=== PATIENT | male | born 1965 | race Caucasian/White ===

== ENCOUNTER → 2016-03-12 | Outpatient (CLI) | payer OTHER ==
[2016-03-12 08:28] LABS: BASO # 0.1 K/mm3 (0.0-0.2); BASO % 1.3 % (0.0-1.0); EOS # 0.2 K/mm3 (0.0-0.50); EOS % 2.2 % (0.0-3.0); LARGE UNSTAINED CELL # 0.1 K/mm3 (0.0-0.4); LYMPH # 1.5 K/mm3 (1.5-4.5); LYMPH % 19.7 % (24.0-44.0); MEAN CORPUSCULAR HEMOGLOBIN 30.1 pg (27.0-33.0); MEAN CORPUSCULAR HGB CONC 35.4 g/dl (32.0-36.5); MONO # 0.3 K/mm3 (0.0-0.8); MONO % 4.2 % (0.0-5.0); NEUTROPHILS % 70.6 % (36.0-66.0); PLATELET COUNT, AUTOMATED 123 k/mm3 (150-450); RED CELL DISTRIBUTION WIDTH 14.1 % (11.5-14.5)
[2016-03-12 08:39] LABS: ALBUMIN/GLOBULIN RATIO 1.38 (1.00-1.93); ALKALINE PHOSPHATASE 88 U/L (45-117); ALT/SGPT 75 U/L (12-78); ANION GAP 8 MEQ/L (8-16); AST/SGOT 52 U/L (15-37); BILIRUBIN,TOTAL 0.9 MG/DL (0.2-1.0); BLOOD UREA NITROGEN 13 MG/DL (7-18); CALCIUM LEVEL 8.9 MG/DL (8.5-10.1); CARBON DIOXIDE LEVEL 28 MEQ/L (21-32); CHLORIDE LEVEL 105 MEQ/L (98-107); CHOLESTEROL LEVEL 176 MG/DL (<200); CREATININE FOR GFR 1.01 MG/DL (0.70-1.30); GLOMERULAR FILTRATION RATE > 60.0 (>56); GLUCOSE, FASTING 141 MG/DL (70-105); POTASSIUM SERUM 4.2 MEQ/L (3.5-5.1); SODIUM LEVEL 141 MEQ/L (136-145); TOTAL PROTEIN 6.9 GM/DL (6.4-8.2); TRIGLYCERIDES LEVEL 379 MG/DL (<150)
== END ==
LOC: M LAB 08:00
PROVIDERS: ATTEND Nurse Practitioner Family
DX: K21.9 Gastro-esophageal reflux disease without esophagitis (principal)

== ENCOUNTER → 2016-03-14 | Outpatient (CLI) | payer OTHER ==
--- NOTE | 2016-03-15 02:48 | REP ---
Clinical: Chronic pain with old injury . Technique: AP, lateral, bilateral oblique views right foot . Findings: The osseous structures and joint spaces are intact and normal. There is no evidence for acute fracture or dislocation. Surrounding soft tissues are unremarkable. No subcutaneous emphysema or radiodense foreign body. Impression: Age-related changes. No acute pathology appreciated . Signed by Luisito Baker MD 03/15/2016 02:39 A
== END ==
LOC: M WUC 15:04
PROVIDERS: ATTEND Nurse Practitioner Family
DX: M79.671 Pain in right foot (principal)

== ENCOUNTER → 2016-04-25 | Outpatient (CLI) | payer OTHER | LOC: M WUC 09:20 | PROVIDERS: ATTEND Nurse Practitioner Family | DX: R73.01 Impaired fasting glucose (principal) ==

== ENCOUNTER → 2016-06-14 | Outpatient (CLI) | payer OTHER ==
[2016-06-14 17:00] LABS: ANION GAP 10 MEQ/L (8-16); BLOOD UREA NITROGEN 11 MG/DL (7-18); CALCIUM LEVEL 8.1 MG/DL (8.5-10.1); CARBON DIOXIDE LEVEL 28 MEQ/L (21-32); CHLORIDE LEVEL 102 MEQ/L (98-107); CREATININE FOR GFR 0.94 MG/DL (0.70-1.30); GLOMERULAR FILTRATION RATE > 60.0 (>56); GLUCOSE, FASTING 166 MG/DL (70-105); POTASSIUM SERUM 4.1 MEQ/L (3.5-5.1); SODIUM LEVEL 140 MEQ/L (136-145)
== END ==
LOC: M WUC 15:17
PROVIDERS: ATTEND Nurse Practitioner Family
DX: K57.32 Diverticulitis of large intestine without perforation or abscess without bleeding (principal)

== ENCOUNTER 2016-07-11 10:44 | Emergency (ER) | payer OTHER ==
[~2016-07-11] VITALS: Ht 182.9 cm; Wt 115.7 kg
[2016-07-11] MEDS ORDERED: KETOROLAC 30 MG/ML VIAL (J1885) IV ONE (11:15)
[2016-07-11 11:37] LABS: MEAN CORPUSCULAR HEMOGLOBIN 31.2 pg (27.0-33.0); MEAN CORPUSCULAR HGB CONC 36.3 g/dl (32.0-36.5); MEAN CORPUSCULAR VOLUME 85.9 fl (80.0-96.0); PLATELET COUNT, AUTOMATED 144 k/mm3 (150-450); RED CELL DISTRIBUTION WIDTH 13.8 % (11.5-14.5); WHITE BLOOD COUNT 5.1 K/mm3 (4.0-10.0)
[2016-07-11 11:50] LABS: ALBUMIN/GLOBULIN RATIO 1.18 (1.00-1.93); ALKALINE PHOSPHATASE 75 U/L (45-117); ALT/SGPT 87 U/L (12-78); ANION GAP 5 MEQ/L (8-16); AST/SGOT 76 U/L (15-37); BILIRUBIN,DIRECT 0.3 MG/DL (0.0-0.2); BILIRUBIN,TOTAL 1.2 MG/DL (0.2-1.0); BLOOD UREA NITROGEN 14 MG/DL (7-18); CALCIUM LEVEL 9.2 MG/DL (8.5-10.1); CARBON DIOXIDE LEVEL 30 MEQ/L (21-32); CHLORIDE LEVEL 105 MEQ/L (98-107); CREATININE FOR GFR 0.93 MG/DL (0.70-1.30); GLOMERULAR FILTRATION RATE > 60.0 (>56); GLUCOSE, FASTING 118 MG/DL (70-105); POTASSIUM SERUM 4.1 MEQ/L (3.5-5.1); SODIUM LEVEL 140 MEQ/L (136-145); TOTAL PROTEIN 7.4 GM/DL (6.4-8.2)
--- NOTE | 2016-07-11 12:33 | REP ---
REASON: Left flank pain. COMPARISON: 06/17/2016. Limited evaluation of the solid intra-abdominal organs and gallbladder show no changes from the prior exam. All interested parties should read the report from the 06/17/2016 exam. There is no cholecystitis. There is no nephroureterolithiasis, hydronephrosis, or hydroureter. Limited evaluation of the pancreas and adrenal glands show no gross abnormalities or significant changes from the prior exam. There are no urinary or bladder calcifications. No free fluid or free air is seen in the abdomen or pelvis. T here is no evidence of an intra-abdominal or intrapelvic mass. Limited evaluation of the abdominal aorta and para-aortic region show no significant changes from the prior exam. There are no gross abnormalities. The lung bases are clear and unchanged. Bone window technique through the examination shows the osseous structures to be stable and intact. IMPRESSION: No acute disease. No significant change from the prior exam. Signed by Blanco Schumacher DO 07/11/2016 12:40 P
[2016-07-11 12:42] LABS: EOSINOPHILS 5 % (0-5)
[2016-07-11] MEDS ORDERED: MACR100C3 PO (12:55)
[2016-07-11] MEDS ORDERED: NAPR500T PO (12:55)
[2016-07-11 12:57] VITALS: BP 143/92
== END 2016-07-11 13:07 | disposition home or self-care (01) ==
LOC: M ED 11:06
DX: N30.01 Acute cystitis with hematuria (principal); M54.9 Dorsalgia, unspecified; K57.92 Diverticulitis of intestine, part unspecified, without perforation or abscess without bleeding
CPT/HCPCS: 74176; 80048; 80076; 81001; 83690; 85025; 86140; 87086; 96374; 99283; J1885

== ENCOUNTER 2017-10-18 12:56 | Emergency (ER) | payer OTHER ==
[2017-10-18] MEDS: ADACEL/BOOSTRIX VACCINE (DIPHTH/PERTUSS/ACELL/TETANUS)0.5ML SYR (90715) IM (13:34)
[2017-10-18] MEDS: LIDOCAINE 1% MDV 20ML VIAL SC (13:45)
[2017-10-18] MEDS: ceFAZolin SOD 1 GM in D5W MINI-BAG PLUS 50 ML IV (13:59)
== END 2017-10-18 15:52 | disposition home or self-care (01) ==
LOC: M ED 12:56
DX: S61.411A Laceration without foreign body of right hand, initial encounter (principal); S66.921A Laceration of unspecified muscle, fascia and tendon at wrist and hand level, right hand, initial encounter; W29.8XXA Contact with other powered hand tools and household machinery, initial encounter; Y92.018 Other place in single-family (private) house as the place of occurrence of the external cause; I10 Essential (primary) hypertension; Z79.899 Other long term (current) drug therapy
CPT/HCPCS: J0690

== ENCOUNTER → 2018-02-13 | Outpatient (CLI) | payer OTHER ==
[~2018-02-13] MED LIST: ATEN25TA PO; KEFL500C17 PO; MACR100C43 PO; NAPR-50 PO; PERC5TAB12 PO
[2018-02-13 10:07] LABS: ALBUMIN 4.2 GM/DL (3.2-5.2); ALT/SGPT 79 U/L (12-78); BLOOD UREA NITROGEN 13 MG/DL (7-18); CARBON DIOXIDE LEVEL 28 MEQ/L (21-32); CHLORIDE LEVEL 102 MEQ/L (98-107); CHOLESTEROL LEVEL 191 MG/DL (<200); CHOLESTEROL RISK RATIO 6.586 (<5); CREATININE FOR GFR 0.98 MG/DL (0.70-1.30); GLOMERULAR FILTRATION RATE > 60.0 (>56); GLUCOSE, FASTING 282 MG/DL (70-100); HDL CHOLESTEROL 29 MG/DL (>40); NON-HDL-C 162 MG/DL; POTASSIUM SERUM 4.1 MEQ/L (3.5-5.1); SODIUM LEVEL 138 MEQ/L (136-145); TOTAL PROTEIN 7.1 GM/DL (6.4-8.2); TRIGLYCERIDES LEVEL 514 MG/DL (<150)
[2018-02-13 11:52] LABS: TOTAL 25(OH) VITAMIN D 14.8 NG/ML (30.0-100.0)
[2018-02-14 14:13] LABS: PSA TOTAL 2.1 ng/mL (0.0-4.0)
== END ==
LOC: M WUC 08:11
PROVIDERS: ATTEND Nurse Practitioner Family
DX: Z12.5 Encounter for screening for malignant neoplasm of prostate (principal); E55.9 Vitamin D deficiency, unspecified; E78.5 Hyperlipidemia, unspecified

== ENCOUNTER → 2018-06-22 | Outpatient (CLI) | payer OTHER ==
[~2018-06-22] MED LIST changes: -NAPR-50 PO; +NAPR-837 PO
[2018-06-22 21:00] LABS: HEMOGLOBIN A1c 5.1 %
== END ==
LOC: M WUC 15:52
PROVIDERS: ATTEND Nurse Practitioner Family
DX: E11.9 Type 2 diabetes mellitus without complications (principal)

== ENCOUNTER → 2019-09-02 | Outpatient (CLI) | payer OTHER ==
--- NOTE | 2019-09-02 11:32 | REP ---
Clinical: Left lower quadrant pain. Technique: Three supine views of the abdomen and pelvis. Findings: Bowel gas pattern is nonspecific. No organomegaly. Rounded calcification in the right upper quadrant may represent gallstone. Skeletal structures are intact. Impression: Nonspecific bowel gas pattern. Electronically Signed by Luisito Baker MD 09/02/2019 11:24 A
== END ==
LOC: M WUC 11:10
PROVIDERS: ATTEND Nurse Practitioner Adult Health
DX: R10.32 Left lower quadrant pain (principal)

== ENCOUNTER → 2019-11-14 | Outpatient (REF) | payer OTHER | LOC: M LAB REF 13:25 | PROVIDERS: ATTEND Internal Medicine Gastroenterology | DX: K57.32 Diverticulitis of large intestine without perforation or abscess without bleeding (principal) ==

== ENCOUNTER → 2020-04-25 | Outpatient (CLI) | payer OTHER ==
[2020-04-25 19:59] LABS: BASO % 0.7 % (0.0-1.0); EOS # 0.1 10^3/uL (0.0-0.5); EOS % 1.9 % (0.0-3.0); HEMATOCRIT 44.4 % (42.0-52.0); HEMOGLOBIN 15.2 g/dl (13.5-17.5); LYMPH # 1.4 10^3/uL (1.5-5.0); LYMPH % 23.9 % (24.0-44.0); MEAN CORPUSCULAR HEMOGLOBIN 30.2 pg (27.0-33.0); MEAN CORPUSCULAR HGB CONC 34.2 g/dl (32.0-36.5); MEAN CORPUSCULAR VOLUME 88.1 fl (80.0-96.0); MONO # 0.4 10^3/uL (0.0-0.8); MONO % 7.5 % (2.0-8.0); NEUTROPHILS # 3.9 10^3/uL (1.5-8.5); NEUTROPHILS % 65.7 % (36.0-66.0); PLATELET COUNT, AUTOMATED 131 10^3/uL (150-450); RED BLOOD COUNT 5.04 10^6/uL (4.30-6.10); WHITE BLOOD COUNT 5.9 10^3/uL (4.0-10.0)
[2020-04-25 20:11] LABS: INR 1.11; PROTHROMBIN TIME 14.5 SECONDS (12.5-14.3)
[2020-04-25 20:13] LABS: ALBUMIN 4.4 GM/DL (3.2-5.2); ALT/SGPT 75 U/L (12-78); BILIRUBIN,DIRECT 0.3 MG/DL (0.0-0.2); BILIRUBIN,TOTAL 1.1 MG/DL (0.2-1.0); BLOOD UREA NITROGEN 17 MG/DL (7-18); CALCIUM LEVEL 9.3 MG/DL (8.5-10.1); CARBON DIOXIDE LEVEL 26 MEQ/L (21-32); CHLORIDE LEVEL 105 MEQ/L (98-107); CREATININE FOR GFR 0.93 MG/DL (0.70-1.30); GLOMERULAR FILTRATION RATE > 60.0 (>56); GLUCOSE, FASTING 152 MG/DL (70-100); IRON (FE) 146 UG/DL (65-175); POTASSIUM SERUM 3.8 MEQ/L (3.5-5.1); SODIUM LEVEL 139 MEQ/L (136-145); TOTAL IRON BINDING CAPACITY 365 UG/DL (250-450); TOTAL PROTEIN 7.3 GM/DL (6.4-8.2)
[2020-04-25 20:28] LABS: HEPATITIS B SURFACE ANTIGEN NEGATIVE (NEGATIVE)
[2020-04-25 20:54] LABS: HEPATITIS C VIRUS ABY INDEX < 0.0 INDEX (<0.8)
[2020-04-25 20:55] LABS: HEPATITIS B CORE ANTIBODY IGM NEGATIVE (NEGATIVE)
[2020-04-25 20:57] LABS: HEPATITIS A ANTIBODY IGM NEGATIVE (NEGATIVE)
== END ==
LOC: M WUC 15:21
PROVIDERS: ATTEND Internal Medicine Gastroenterology
DX: K57.32 Diverticulitis of large intestine without perforation or abscess without bleeding (principal)

== ENCOUNTER → 2020-05-10 | Outpatient (CLI) | payer OTHER ==
[~2020-05-10] MED LIST changes: +GASTROGRAFIN SOLUTION 30ML (Q9963) As Ordered ONE; +ISOVUE-370 76% 100ML VIAL As Ordered ONE
--- NOTE | 2020-05-11 04:56 | REP ---
INDICATION: CELESTE, SPLENOMEGALY, DIVERTICULITIS. COMPARISON: 07/11/2016 TECHNIQUE: Axial contrast-enhanced images from the lung bases to the pubic symphysis using oral and 100 cc Isovue 370 intravenous contrast material. Coronal and sagittal reformations obtained. This CT examination was performed using the following dose reduction techniques: Automated exposure control, adjustment of mA and/or kv according to the patient's size, and the use of iterative reconstruction technique. FINDINGS: Liver demonstrates diffuse fatty infiltration without focal hepatic lesion identified. Spleen, pancreas, gallbladder, bilateral adrenal glands and kidneys are normal. The enteric system is without obstruction or acute inflammatory process. Normal terminal ileum and appendix are identified in the right lower quadrant. Sigmoid colon demonstrates diverticulosis and muscular hypertrophy consistent with changes related to prior diverticulitis/colitis. Pelvis demonstrates normal bladder and age-appropriate prostate/seminal vesicles. Small fat containing left inguinal hernia suggested. No ascites. No free air. No intraperitoneal or retroperitoneal adenopathy. Abdominal aorta and vasculature appear normal. Musculoskeletal structures are intact and without acute osseous abnormality. IMPRESSION: No acute abdominopelvic pathology appreciated. Diverticulosis without acute diverticulitis. Hepatosteatosis. <Electronically signed by Luisito Baker > 05/11/20 [id number]
== END ==
LOC: M RAD 09:18
PROVIDERS: ATTEND Internal Medicine Gastroenterology
DX: K75.81 Nonalcoholic steatohepatitis (NASH) (principal); R16.1 Splenomegaly, not elsewhere classified; K57.32 Diverticulitis of large intestine without perforation or abscess without bleeding
CPT/HCPCS: 74177; Q9963; Q9967

== ENCOUNTER → 2020-08-06 | Outpatient (CLI) | payer OTHER ==
[~2020-08-06] MED LIST changes: -GASTROGRAFIN SOLUTION 30ML (Q9963) As Ordered ONE; -ISOVUE-370 76% 100ML VIAL As Ordered ONE; +LISI-898; +METF500T13
== END ==
LOC: M LABSMTC 08:05
PROVIDERS: ATTEND Anesthesiology
DX: Z01.818 Encounter for other preprocedural examination (principal); Z11.52 Encounter for screening for COVID-19

== ENCOUNTER 2020-08-11 06:47 | Day surgery (SDC) | payer OTHER ==
[~2020-08-11] VITALS: Ht 180.3 cm; Wt 111.9 kg
[~2020-08-11 06:47] MED LIST changes: +NS 1,000 ML IV ONE
[2020-08-11] MEDS ORDERED: LIDOCAINE 2% 100MG/5ML SDV (FOR ANES.) As Ordered ONE (07:20)
[2020-08-11] MEDS ORDERED: propofoL 200 MG/20 ML VIAL As Ordered ONE ×2 (07:20→08:05)
--- NOTE | 2020-08-11 08:01 | ROOR ---
Patient Name: Ky Bains Procedure Date: 08/11/2020 7:29 AM Date of : 1965 Age: 55 Room: [facility] Gender: Male Note Status: Finalized Procedure: Colonoscopy Indications: Abdominal pain in the left lower quadrant, Abnormal CT of the GI tract, Follow-up of diverticulitis Providers: David Haji MD Referring MD: Maryann Fatima NP Requesting Provider: Medicines: Monitored Anesthesia Care Complications: No immediate complications. Procedure: Pre-Anesthesia Assessment: - The heart rate, respiratory rate, oxygen saturations, blood pressure, adequacy of pulmonary ventilation, and response to care were monitored throughout the procedure. The Colonoscope was introduced through the anus and advanced to 6 cm into the ileum. The colonoscopy was technically difficult and complex due to multiple diverticula in the colon and bowel stenosis. The patient tolerated the procedure well. The quality of the bowel preparation was good. Findings: The perianal and digital rectal examinations were normal. Multiple medium-mouthed diverticula were found in the sigmoid colon. There was narrowing of the colon in association with the diverticular opening. Two sessile polyps were found in the sigmoid colon and descending colon. The polyps were 5 to 6 mm in size. These polyps were removed with a cold snare. Resection and retrieval were complete. The exam was otherwise without abnormality on direct and retroflexion views. Impression: - Difficult colonoscopy: Severe diverticulosis in the sigmoid colon. There was marked narrowing, muscular hypertrophy of the colon in association with the diverticular opening. - Two 5 to 6 mm polyps in the sigmoid colon and in the descending colon, removed with a cold snare. Resected and retrieved. - The examination was otherwise normal on direct and retroflexion views. Recommendation: - Use fiber, for example Citrucel, Fibercon, Konsyl or Metamucil. - Miralax 1 capful (17 grams) in 8 ounces of water PO daily. - For symptoms of chronic diverticulitis, would recommend surgical resection. Procedure Code(s): --- Professional --- 36750, Colonoscopy, flexible; with removal of tumor(s), polyp(s), or other lesion(s) by snare technique Diagnosis Code(s): --- Professional --- K63.5, Polyp of colon R10.32, Left lower quadrant pain K57.32, Diverticulitis of large intestine without perforation or abscess without bleeding K57.30, Diverticulosis of large intestine without perforation or abscess without bleeding R93.3, Abnormal findings on diagnostic imaging of other parts of digestive tract CPT copyright 2019 [employer]. All rights reserved. The codes documented in this report are preliminary and upon executor of estate review may be revised to meet current compliance requirements. David Haji MD David Haji MD 08/11/2020 8:01:46 AM Electronically signed by David Haji MD Number of Addenda: 0 Note Initiated On: 08/11/2020 7:29 AM Estimated Blood Loss: Estimated blood loss: none.
[2020-08-11 08:25] VITALS: BP 185/98
== END 2020-08-11 08:42 | disposition home or self-care (01) ==
LOC: M OPP 06:47
PROVIDERS: ATTEND Internal Medicine Gastroenterology
DX: D12.2 Benign neoplasm of ascending colon (principal); D12.5 Benign neoplasm of sigmoid colon; K57.32 Diverticulitis of large intestine without perforation or abscess without bleeding; K57.30 Diverticulosis of large intestine without perforation or abscess without bleeding; R93.3 Abnormal findings on diagnostic imaging of other parts of digestive tract; R10.814 Left lower quadrant abdominal tenderness; Z79.84 Long term (current) use of oral hypoglycemic drugs; Z79.899 Other long term (current) drug therapy; Z80.0 Family history of malignant neoplasm of digestive organs; Z80.52 Family history of malignant neoplasm of bladder

== ENCOUNTER 2020-12-10 01:36 | Emergency (ER) | payer OTHER ==
[~2020-12-10] VITALS: Ht 182.9 cm; Wt 108.8 kg
[~2020-12-10 01:36] MED LIST changes: -NS 1,000 ML IV ONE
--- OUTSIDE RECORDS SUMMARY | 2020-12-10 01:49 | CCD | Continuity of Care Document ---
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 Name Role Phone David Haji MD AUTM [phone] Maryann Carranza NP AUTM Unavailable Problems Description No Information Available Social History Description No Information Available Allergies and adverse reactions Description No Information Available Medications Active Medications SIG Qnty Indications Ordering Provide r Date Oxycodone HCL 5mg Tablets 1 tab by mouth every 6 hours as needed pain 20tabs Helder Sales MD 07/2020 Augmentin 875-125mg Tablets 1 tab by mouth twice a day 28tabs Helder Sales MD 10/27/2020 Suprep Bowel Prep Kit 17.5-3.13-1.6GM/177ML Solution do not follow the directions on the box, follow the directions given to you by the doctor's office. 354ml Modesto Sheikh MD 10/10/2020 Augmentin 875-125mg Tablets 1 by mouth twice a day 20tabs Modesto Sheikh MD 09/14/2020 Immunizations Description No Information Available Vital Signs Date Vital Result Comment 11/06/2020 12:34pm BP Systolic 152 mmHg BP Diastolic 80 mmHg Heart Rate 70 /min Body Temperature 98.2 F Respiratory Rate 18 /min Height 72 inches 6'0" Weight 250.00 lb BMI (Body Mass Index) 33.9 kg/m2 09/14/2020 10:05am BP Systolic 149 mmHg BP Diastolic 85 mmHg Heart Rate 59 /min Body Temperature 98.2 F Respiratory Rate 20 /min Height 71 inches 5'11" Weight 250.00 lb BMI (Body Mass Index) 34.9 kg/m2 Results Test Acquired Date Facility Test Result H/L Range Note Laboratory test finding 11/06/2020 [facility] Type And Screen (SEE NOTE) 1 CBC Without Diff 11[facility]06/[facility] WBC 5.4 10*3/uL (4.1-11.0) RBC 4.78 10*6/uL (4.60-6.10) HGB 14.7 g/dL (13.5-18.0) HCT 41.5 % (41.0-53.0) MCV 86.9 fL (80.0-95.0) MCH 30.8 pg (27.0-32.0) MCHC 35.4 g/dL (32.0-36.0) RDW 14.1 % (10.5-14.5) PLT 147 10*3/uL Low (150-450) MPV 10.0 fL (7.1-10.7) CMP 11/06/2020 [facility] Sodium 138 mmol/L (136-145) Potassium 4.2 mmol/L (3.6-5.2) Chloride 105 mmol/L (100-108) Co2 24 mmol/L (22-31) Anion Gap 9 mmol/L (7-16) Urea Nitrogen 13 mg/dL (7-24) Creatinine 0.87 mg/dL (0.80-1.30) BUN/Creat Ratio 14.9 RATIO (10.0-20.0) Glucose 135 mg/dL High (70-99) Calcium 9.5 mg/dL (8.4-10.2) Total Protein 7.3 g/dL (6.4-8.2) Albumin 4.5 g/dL (3.5-4.6) Globulin 2.8 g/dL (2.7-4.3) Alb/Glob Ratio 1.6 RATIO Alkaline Phosphatase 67 U/L (45-117) Bilirubin,Total 1.2 mg/dL High (0.0-1.0) 2 Ast (Sgot) 53 U/L High (11-39) Alt (SGPT) 69 U/L (12-78) GFR >60 ml/min/1.73m2 (>59) GFR ( Amer) >60 ml/min/1.73m2 (>59) GFR Interpretation (SEE NOTE) 3 Hemoglobin A1c 11/06/2020 [facility] Hemoglobin A1c @ 5.6 % (4.0-6.0) 4 Est Average Glucose 114 mg/dL 1 SPEC EXP DATE PATIENT ABO/Rh A POSITIVE ANTIBODY SCREEN NEGATIVE TESTING SITE PERFORMED AT [address] [place] [address] 2 PLEASE NOTE: Total bilirubin results may be falsely elevated in patients taking Eltrombopag. 3 NORMAL KIDNEY FUNCTION OR MILD DISEASE - GFR >OR= 60 CHRONIC KIDNEY DISEASE - GFR 15 - 59 RENAL FAILURE - GFR <15 -- Est. GFR calculation based on the MDRD study equation, which assumes a steady state for creatinine. Est. GFR should not be used for medication dosing. 4 Performed using [employer] Metrx Solutionst a immunoassay. Care must be taken when interpreting HbA1c results in patients with a hemoglobin variant or decreased erythrocyte lifespan. Values 5.7 - 6.4% suggest prediabetes. Values >=6.5% are diagnostic for diabetes. REFERENCE: DIABETES CARE 2018: 41(S13-S27). Procedures Date Code Description Status 11/10/2020 06869 Laparscopy Surg Mobi l Splenic Flexure Performed W/Part Colectomy Completed 11/10/2020 94012 Laparoscopy,Colectomy,Partial W/ Anastomsis,W/Coloproctostomy Completed 11/06/2020 35646 Office/Outpatient Established Lo w MDM 20-29 Min Completed 09/14/2020 66749 Office/Outpatient New Moderate M DM 45-59 Minutes Completed Medical Devices Description No Information Available Encounters Type Date Location Provider Dx Diagnosis Office Visit 11/06/2020 12:45p [facility] Modesto Sheikh MD K57.92 Dvtrcli of intest, part unsp, w/o perf or abscess w/o bleed Office Visit 09/14/2020 10:00a [facility] Modesto Sheikh MD K57.92 Dvtrcli of intest, part unsp, w/o perf or abscess w/o bleed Assessments Date Code Description Provider 11/10/2020 K57.32 Diverticulitis of la rge intestine without perforation or abscess without bleeding Modesto Sheikh MD 11/06/2020 K57.92 Diverticulitis Modesto Sheikh MD 09/14/2020 K57.92 Diverticulitis Modesto Sheikh MD Plan of Treatment Future Appointment(s):* 11/30/2020 9:30 am - Modesto Sheikh MD at [facility] 11/06/2020 - Modesto Sheikh MD* K57.92 Diverticulitis Functional Status Description No Information Available Mental Status Description No Information Available Referrals Refer to Reason for Referral Status Appt Date Modesto Sheikh MD Created [address] [facility] [address] [place] [address] [phone]
--- OUTSIDE RECORDS SUMMARY | 2020-12-10 01:49 | CCD | Continuity of Care Document ---
Author Author Ky Barrera Organization Unknown Address [address] [place] [address] Phone [phone] Care Team Providers Care Piano Case Maker Name Role Phone Maryann Carranza AUTM [phone] Sony Calvillo AUTM [phone] Problems Active Problems Provider Date Type 2 diabetes mellitus ISRAEL Barrera Onset: 06/02/19 20 Essential hypertension ISRAEL Barrera Onset: 06/11/2019 Obesity ISRAEL Barrera Onset: 06/11/2019 Body mass index 30+ - obesity ISRAEL Barrera Onset: 02/2019 Vitamin D deficiency ISRAEL Barrera Onset: 06/11/2019 Hypertriglyceridemia ISRAEL Barrera Onset: 06/11/2019 ALT (SGPT) level raised ISRAEL Barrera Onset: 0 Social History Type Date Description Comments Sex Unknown ETOH Use Rarely consumes alcohol Tobacco Use Start: Unknown Patient has never smoked Allergies and adverse reactions Active Allergies Criticality Reaction | Severity Comments Date NKDA Unable to assess criticality 06/02/2019 Seasonal Unable to assess criticality 06/02/2019 Medications Active Medications SIG Qnty Indications Ordering Provide r Date Blood Pressure Monitor Deluxe/Automati c Device dx elevated blood pressure 1units Chikis Barrera NP 06/09/2020 Lisinopril 5mg Tablets 1 by mouth every day 90tabs I10 ISRAEL Barrera 06/02/2020 Famotidine 40mg Tablets take 1 tablet by mouth every night at bedtime 90tabs K21.9 ISRAEL Barrera Vitamin D-1000 Maximum Strength 25mcg (1000 Ut) Tablets one daily ISRAEL Barrera 06/18/2019 Atenolol 25mg Tablets Take One Tablet By Mouth Every Day 90tabs Maryann Weiss, [facility] [place] 06/02/2019 Metformin HCL 500mg Tablets take one tablet by mouth twice a day 180tabs CHIOMA Overton JR 06/02/2019 Onetouch II Test Strips Misc test twice a day e11.4 200units Maryann Weiss, [facility] [place] 06/02/2019 Immunizations Description No Information Available Vital Signs Date Vital Result Comment 11/28/2020 11:18am BP Systolic 142 mmHg BP Diastolic 82 mmHg Heart Rate 60 /min Height 72.25 inches 6'0.25" Weight 239.00 lb O2 % BldC Oximetry 98 % BMI (Body Mass Index) 32.2 kg/m2 10/03/2020 3:04pm BP Systolic 150 mmHg BP Diastolic 72 mmHg Heart Rate 89 /min Height 72.25 inches 6'0.25" Weight 250.00 lb O2 % BldC Oximetry 97 % BMI (Body Mass Index) 33.7 kg/m2 Results Test Acquired Date Facility Test Result H/L Range Note Complete Blood Count 11/28/2020 [facility] Eligibility And Occupancy Interviewer: [place] [address] [phone] WBC 6.1 x10*3/UL 4.1 - 10.9 RBC 4.94 x10*6/UL 4.20 - 6.30 Hemoglobin 14.6 g/dL 12.0 - 18.0 Hematocrit 41.4 % 37.0 - 51.0 MCV 83.9 fL 80.0 - 97.0 MCH 29.6 pg 26.0 - 32.0 MCHC 35.3 g/dL 31.0 - 38.0 RDW 13.0 % 11.6 - 13.7 PLT 161 x10*3/UL 140 - 440 MPV 9.0 FL 7.8 - 11.0 Lymph % 20.7 % 10.0 - 58.5 Mid % 5.3 % 1.7 - 9.3 Neut % 74.0 % 37.0 - 92.0 Lymph # 1.2 x10*3/UL 0.6 - 4.1 Mid # 0.4 x10*3/UL 0.1 - 0.6 Neut # 4.5 x10*3/UL 2.0 - 7.8 Comprehensive Chem Profile 11/28/2020 [facility] Eligibility And Occupancy Interviewer: [place] [address] [phone] Glucose 117 mg/dL High 74 - 99 1 BUN 15 mg/dL 7 - 18 Creatinine 0.9 mg/dL 0.6 - 1.3 Sodium 138 mEq/L 136 - 145 Potassium 4.3 mEq/L 3.5 - 5.1 Chloride 100 mEq/L 98 - 107 Carbon Dioxide 27 mEq/L 21 - 32 Calcium 9.8 mg/dL 8.5 - 10.1 Alk. Phosphatase 70 mg/dL 46 - 116 Total Bilirubin 1.1 mg/dL High 0.2 - 1.0 Ast (Sgot) 41 U/L High 15 - 37 Alt (SGPT) 57 U/L 12 - 78 Albumin 4.5 g/dL 3.4 - 5.0 Total Protein 7.5 g/dL 6.4 - 8.2 A/G Ratio 1.50 CALC 1.00 - 1.90 GFR >= 60 mL/min >60 GFR >= 60 mL/min >60 2 Basic Metabolic Panel 10/18/2020 [facility] Eligibility And Occupancy Interviewer: [place] [address] [phone] Glucose 161 mg/dL High 74 - 99 3 BUN 16 mg/dL 7 - 18 Creatinine 1.0 mg/dL 0.6 - 1.3 Sodium 141 mEq/L 136 - 145 Potassium 4.2 mEq/L 3.5 - 5.1 Chloride 104 mEq/L 98 - 107 Carbon Dioxide 27 mEq/L 21 - 32 Calcium 9.4 mg/dL 8.5 - 10.1 GFR >= 60 mL/min >60 GFR >= 60 mL/min >60 4 Laboratory test finding 10/03/2020 [facility] Eligibility And Occupancy Interviewer: [place] [address] [phone] Vitamin D 25-Hydroxy 30.5 ng/ml 24.0 - 80.0 5 Microalbumin/Creatinine Urine 10/03/2020 [facility] Eligibility And Occupancy Interviewer: [place] [address] [phone] Microalbumin Urine 9.1 mg/L 1.3 - 20.0 Urine Creatinine 214.0 mg/dL High 30.0 - 125.0 Microalb/Creat Ratio 4.3 ug/mg 0.0 - 30.0 Basic Metabolic Panel 10/03/[address] [facility], Eligibility And Occupancy Interviewer: [place] [address] [phone] Glucose 213 mg/dL High 74 - 99 6 BUN 14 mg/dL 7 - 18 Creatinine 1.0 mg/dL 0.6 - 1.3 Sodium 138 mEq/L 136 - 145 Potassium 4.2 mEq/L 3.5 - 5.1 Chloride 104 mEq/L 98 - 107 Carbon Dioxide 27 mEq/L 21 - 32 Calcium 9.2 mg/dL 8.5 - 10.1 GFR >= 60 mL/min >60 GFR >= 60 mL/min >60 7 Basic Metabolic Panel 06/21/[address] [facility], Eligibility And Occupancy Interviewer: [place] [address] [phone] Glucose 193 mg/dL High 74 - 99 8 BUN 14 mg/dL 7 - 18 Creatinine 1.0 mg/dL 0.6 - 1.3 Sodium 138 mEq/L 136 - 145 Potassium 4.3 mEq/L 3.5 - 5.1 Chloride 100 mEq/L 98 - 107 Carbon Dioxide 28 mEq/L 21 - 32 Calcium 8.7 mg/dL 8.5 - 10.1 GFR >= 60 mL/min >60 GFR >= 60 mL/min >60 9 1 100-125 mg/dL PRE-DIABET ES/FASTING >126 mg/dL DIABETES/FASTING 2 CHRONIC KIDNEY DISEASE STAGI NG PER NKF STAGE I & II GFR >= 60 NORMAL TO MILDLY DECREASED STAGE III GFR 30-59 MODERATELY DECREASED STAGE IV GFR 15-29 SEVERELY DECREASED STAGE V GFR <15 VERY LITTLE GFR LEFT ESRD GFR <15 ON DIRECTOR E LEARNING 3 100-125 mg/dL PRE-DIABET ES/FASTING >126 mg/dL DIABETES/FASTING 4 CHRONIC KIDNEY DISEASE STAGI NG PER NKF STAGE I & II GFR >= 60 NORMAL TO MILDLY DECREASED STAGE III GFR 30-59 MODERATELY DECREASED STAGE IV GFR 15-29 SEVERELY DECREASED STAGE V GFR <15 VERY LITTLE GFR LEFT ESRD GFR <15 ON DIRECTOR E LEARNING 5 This test was performed db painting Favor Vitamin D immunoassay kit. Values obtained with different assay methods should not be used interchangeably. 6 100-125 mg/dL PRE-DIABET ES/FASTING >126 mg/dL DIABETES/FASTING 7 CHRONIC KIDNEY DISEASE STAGI NG PER NKF STAGE I & II GFR >= 60 NORMAL TO MILDLY DECREASED STAGE III GFR 30-59 MODERATELY DECREASED STAGE IV GFR 15-29 SEVERELY DECREASED STAGE V GFR <15 VERY LITTLE GFR LEFT ESRD GFR <15 ON DIRECTOR E LEARNING 8 100-125 mg/dL PRE-DIABET ES/FASTING >126 mg/dL DIABETES/FASTING 9 CHRONIC KIDNEY DISEASE STAGI NG PER NKF STAGE I & II GFR >= 60 NORMAL TO MILDLY DECREASED STAGE III GFR 30-59 MODERATELY DECREASED STAGE IV GFR 15-29 SEVERELY DECREASED STAGE V GFR <15 VERY LITTLE GFR LEFT ESRD GFR <15 ON DIRECTOR E LEARNING Procedures Date Code Description Status 11/28/2020 49241 Office/Outpatient Established Lo w MDM 20-29 Min Completed 10/03/2020 38432 Office/Outpatient Established Lo w MDM 20-29 Min Completed 08/11/2020 [id number] Colonoscopy Completed 02/24/2020 [id number] Diabetic Retinal Eye Exam Comple romeo 08/16/2019 [id number] Diabetic Retinal Eye Exam Comple romeo 07/26/2019 [id number] Diabetic Retinal Eye Exam Comple romeo 06/21/2010 [id number] Colonoscopy Completed Medical Devices Description No Information Available Encounters Type Date Location Provider Dx Diagnosis Office Visit 11/28/2020 11:20a [facility] I10 Essential (primary) hypertension E11.40 Type 2 diabetes mellitus wit h diabetic neuropathy, unsp Z79.84 group home (current) use of o ral hypoglycemic drugs E66.09 Other obesity due to excess calories Z68.33 Body mass index [BMI] 33.0-3 3.9, adult Office Visit 10/03/2020 3:20p [facility] Gleason I10 Essential (primary) hypertension Z79.84 group home (current) use of o ral hypoglycemic drugs E11.40 Type 2 diabetes mellitus wit h diabetic neuropathy, unsp K57.30 Dvrtclos of lg int w/o perfo ration or abscess w/o bleeding E66.09 Other obesity due to excess calories K21.9 Gastro-esophageal reflux dis ease without esophagitis E55.9 Vitamin D deficiency, unspec ified Z68.33 Body mass index [BMI] 33.0-3 3.9, adult Assessments Date Code Description Provider 11/28/2020 I10 Essential (primary) hypertension Maryann Weiss, [facility] [place] 11/28/2020 E11.40 Type 2 diabetes christopher itus with diabetic neuropathy, unspecified Maryann Orin Nelson 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 [place] 11/28/2020 E66.09 Other obesity due to excess aaron chani Maryann Weiss [facility] [place] 11/28/2020 Z68.33 Body mass index [BMI] 33.0-33.9, adult Maryann Weiss, [facility] [place] 10/18/2020 I10 Essential (primary) hypertension Maryann Orin Nelson, [facility] [place] 10/18/2020 I10 Essential (primary) hypertension Lab Schedule 10/18/2020 E11.40 Type 2 diabetes christopher itus with diabetic neuropathy, unspecified Maryann Orin Nelson, [facility] [place] 10/18/2020 E11.40 Type 2 diabetes christopher itus with diabetic neuropathy, unspecified Lab Schedule 10/03/2020 I10 Essential (primary) hypertension Maryann Weiss, [facility] [place] 10/03/2020 Z79.84 group home (current) use of oral hypoglycemic drugs Maryann Weiss, [facility] [place] 10/03/2020 E11.40 Type 2 diabetes christopher itus with diabetic neuropathy, unspecified Maryann Orin Nelson [facility] [place] 10/03/2020 K57.30 Diverticulosis of la rge intestine without perforation or abscess without bleeding Maryann Orin Nelson, [facility] [place] 10/03/2020 E66.09 Other obesity due to excess aaron chani Maryann Orin Nelson, [facility] [place] 10/03/2020 K21.9 Gastro-esophageal reflux disease without esophagitis Maryann Orin Leslie [facility] [place] 10/03/2020 E55.9 Vitamin D deficiency, unspecifie d Maryann Orin Nelson [facility] [place] 10/03/2020 Z68.33 Body mass index [BMI] 33.0-33.9, adult Maryann Weiss [facility] [place] 06/21/2020 I10 Essential (primary) hypertension Maryann Weiss, [facility] [place] 06/21/2020 I10 Essential (primary) hypertension Lab Schedule 06/21/2020 E11.40 Type 2 diabetes christopher itus with diabetic neuropathy, unspecified ISRAEL Barrera 06/21/2020 E11.40 Type 2 diabetes christopher itus with diabetic neuropathy, unspecified Lab Schedule Plan of Treatment Future Appointment(s):* 02/28/2021 9:40 am - ISRAEL Barrera at [facility] * 06/06/2021 10:00 am - ISRAEL Barrera at [facility] 11/28/2020 - ISRAEL Barrera* I10 Essential (primary) hypertension* Comments:* blood pressure suboptimally controlled.He agrees to get a blood pressure cuff to check BP once weekly and to call if consistently greater than 130/85CMP pending. * Recommendations:* Recommend you eat 4-5 servings of fruits and vegetables daily. Also exercise 30 minutes daily. * E11.40 Type 2 diabetes mellitus with diabetic neuropathy, unspecified* Comments:* last A1C at goal. 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 He plans to continue to try to lose weight. * Z68.33 Body mass index [BMI] 33.0-33.9, adult Functional Status Description No Information Available Mental Status Description No Information Available Referrals Description No Information Available
--- OUTSIDE RECORDS SUMMARY | 2020-12-10 01:49 | CCD | Continuity of Care Document ---
Author Author Ky SHEIKH MD Organization Unknown Address [address] [place] [address] Phone [phone] Care Team Providers Care Full Stack Php Developer Name Role Phone David Haji MD AUTM [phone] Maryann Carranza NP AUTM Unavailable Problems Description No Information Available Social History Description No Information Available Allergies, Adverse Reactions, Alerts Description No Information Available Medications Active Medications SIG Qnty Indications Ordering Provide r Date Augmentin 875-125mg Tablets 1 tab by mouth [...] H/L Range Note Laboratory test finding 11/06/2020 [facility] Type And Screen (SEE NOTE) 1 CBC Without Diff 11/06/2020 [facility] WBC 5.4 10*3/uL (4.1-11.0) RBC 4.78 10*6/uL (4.60-6.10) HGB 14.7 g/dL (13.5-18.0) HCT 41.5 % (41.0-53.0) MCV 86.9 fL (80.0-95.0) MCH 30.8 pg (27.0-32.0) MCHC 35.4 g/dL (32.0-36.0) RDW 14.1 % (10.5-14.5) PLT 147 10*3/uL Low (150-450) MPV 10.0 fL (7.1-10.7) CMP 11/06/2020 [facility] Sodium 138 mmol/L (136-145) Potassium 4.2 mmol/L [...] Interpretation (SEE NOTE) 3 Hem[facility] A1c @ 5.6 % (4.0-6.0) 4 Est Average Glucose 114 mg/dL 1 SPEC EXP DATE PATIENT ABO/Rh A POSITIVE ANTIBODY SCREEN NEGATIVE TESTING SITE PERFORMED AT [address] [place] [address] 2 PLEASE NOTE: Total bilirubin results may [...] used for medication dosing. 4 Performed using LOOKKt a immunoassay. Care must be taken when interpreting HbA1c results in patients with a hemoglobin variant or decreased erythrocyte lifespan. Values 5.7 - 6.4% suggest prediabetes. Values >=6.5% are diagnostic for diabetes. REFERENCE: DIABETES CARE 2018: 41(S13-S27). Procedures Date Code Description Status 11/06/2020 38964 Office/Outpatient Established Lo w MDM 20-29 Min Completed 09/14/2020 62841 Office/Outpatient New Moderate M DM 45-59 Minutes Completed Medical Devices Description No Information Available Encounters Type Date Location Provider Dx Diagnosis Office Visit 11/06/2020 12:45p [facility] [place] Sheikh MD K57.92 Dvtrcli of intest, part unsp, w/o perf or abscess w/o bleed Office Visit 09/14/2020 10:00a [facility] [place] Sheikh MD K57.92 Dvtrcli of intest, part unsp, w/o perf or abscess w/o bleed Assessments Date Code Description Provider 11/06/2020 K57.92 Diverticulitis [place] Sheikh MD 09/14/2020 K57.92 Diverticulitis [place] Sheikh MD Plan of Treatment Future Appointment(s):* 11/10/2020 11:15 am - [place] Sheikh MD at [facility] * 11/30/2020 9:30 am - [place] Sheikh MD at [facility] 11/06/2020 - [place] Sheikh MD* K57.92 Diverticulitis Functional Status Description No Information Available Mental Status Description No Information Available Referrals Description No Information Available
--- OUTSIDE RECORDS SUMMARY | 2020-12-10 01:49 | CCD | Continuity of Care Document ---
Author Author Lab Schedule, Ky Greenberg Organization Unknown Address [address] [place] [address] Phone Unavailable Care Team Providers Care Block Engraver Name Role Phone Maryann Carranza AUTM [phone] Sony Calvillo AUTM [phone] Problems Active Problems Provider Date Type 2 [...] Use Start: Unknown Patient has never smoked Allergies, Adverse Reactions, Alerts Active Allergies Criticality Reaction | Severity Comments [...] By Mouth Every Day 90tabs Maryann Weiss, [facility] 06/02/2019 Metformin HCL 500mg Tablets take one tablet by mouth twice a day 180tabs CHIOMA Overton JR 06/02/2019 Onetouch II Test Strips Misc test twice a day e11.4 200units Maryann Weiss, [facility] 06/02/2019 Immunizations Description No Information Available Vital Signs Date Vital Result Comment 10/03/2020 3:04pm BP Systolic 150 mmHg BP Diastolic 72 mmHg Heart Rate 89 /min Height 72.25 inches 6'0.25" Weight 250.00 lb O2 % BldC Oximetry 97 % BMI (Body Mass Index) 33.7 kg/m2 06/02/2020 8:51am BP Systolic 170 mmHg BP Diastolic 90 mmHg BP Systolic Recheck 162 mmHg BP Diastolic Recheck 90 mmHg Heart Rate 64 /min Height 72.25 inches 6'0.25" Weight 256.00 lb O2 % BldC Oximetry 97 % BMI (Body Mass Index) 34.5 kg/m2 Results Test Acquired Date Facility Test Result H/L Range Note Basic Metabolic Panel 10/18/2020 [facility] Interactive Designer: [place] [address] [phone] Glucose 161 mg/dL High 74 - 99 1 BUN 16 mg/dL 7 - 18 Creatinine 1.0 mg/dL 0.6 - 1.3 Sodium 141 mEq/L 136 - 145 Potassium 4.2 mEq/L 3.5 - 5.1 Chloride 104 mEq/L 98 - 107 Carbon Dioxide 27 mEq/L 21 - 32 Calcium 9.4 mg/dL 8.5 - 10.1 GFR >= 60 mL/min >60 GFR >= 60 mL/min >60 2 Laboratory test finding 10/03/2020 [facility] Interactive Designer: [place] [address] [phone] Vitamin D 25-Hydroxy 30.5 ng/ml 24.0 - 80.0 3 Microalbumin/Creatinine Urine 10/03/2020 [facility] Interactive Designer: JUDAH Martin [address] [phone] Microalbumin Urine 9.1 mg/L 1.3 - 20.0 Urine Creatinine 214.0 mg/dL High 30.0 - 125.0 Microalb/Creat Ratio 4.3 ug/mg 0.0 - 30.0 Basic Metabolic Panel 10/03/[address] [facility], Interactive Designer: Dr Moses Chisholm [place], [place] [id number] [phone] Glucose 213 mg/dL High 74 - 99 4 BUN 14 mg/dL 7 - 18 Creatinine 1.0 mg/dL 0.6 - 1.3 Sodium 138 mEq/L 136 - 145 Potassium 4.2 mEq/L 3.5 - 5.1 Chloride 104 mEq/L 98 - 107 Carbon Dioxide 27 mEq/L 21 - 32 Calcium 9.2 mg/dL 8.5 - 10.1 GFR >= 60 mL/min >60 GFR >= 60 mL/min >60 5 Basic Metabolic Panel 06/21/[address] [facility], Interactive Designer: [place] [address] [phone] Glucose 193 mg/dL High 74 - 99 6 BUN 14 mg/dL 7 - 18 Creatinine 1.0 mg/dL 0.6 - 1.3 Sodium 138 mEq/L 136 - 145 Potassium 4.3 mEq/L 3.5 - 5.1 Chloride 100 mEq/L 98 - 107 Carbon Dioxide 28 mEq/L 21 - 32 Calcium 8.7 mg/dL 8.5 - 10.1 GFR >= 60 mL/min >60 GFR >= 60 mL/min >60 7 Complete Blood Count 06/02/2020 [facility] Interactive Designer: [place] [address] [phone] WBC 5.6 x10*3/UL 4.1 - 10.9 RBC 5.00 x10*6/UL 4.20 - 6.30 Hemoglobin 15.1 g/dL 12.0 - 18.0 Hematocrit 42.6 % 37.0 - 51.0 MCV 85.1 fL 80.0 - 97.0 MCH 30.2 pg 26.0 - 32.0 MCHC 35.5 g/dL 31.0 - 38.0 RDW 12.9 % 11.6 - 13.7 PLT 123 x10*3/UL Low 140 - 440 8 MPV 10.0 FL 7.8 - 11.0 Lymph % 23.3 % 10.0 - 58.5 Mid % 5.4 % 1.7 - 9.3 Neut % 71.3 % 37.0 - 92.0 Lymph # 1.3 x10*3/UL 0.6 - 4.1 Mid # 0.3 x10*3/UL 0.1 - 0.6 Neut # 4.0 x10*3/UL 2.0 - 7.8 Comprehensive Chem Profile 06/02/2020 [facility], Interactive Designer: [place] [address] [phone] Glucose 173 mg/dL High 74 - 99 9 BUN 15 mg/dL 7 - 18 Creatinine 0.9 mg/dL 0.6 - 1.3 Sodium 138 mEq/L 136 - 145 Potassium 4.1 mEq/L 3.5 - 5.1 Chloride 102 mEq/L 98 - 107 Carbon Dioxide 27 mEq/L 21 - 32 Calcium 8.8 mg/dL 8.5 - 10.1 Alk. Phosphatase 75 mg/dL 46 - 116 Total Bilirubin 0.8 mg/dL 0.2 - 1.0 Ast (Sgot) 45 U/L High 15 - 37 Alt (SGPT) 69 U/L 12 - 78 Albumin 4.3 g/dL 3.4 - 5.0 Total Protein 7.3 g/dL 6.4 - 8.2 A/G Ratio 1.43 CALC 1.00 - 1.90 GFR >= 60 mL/min >60 GFR >= 60 mL/min >60 10 A1c 06/02/2020 [facility] , Interactive Designer: [place] [address] [phone] Hba1c 5.6 % <5.7 11 Est Avg Glucose 114 mg/dL High 60 - 110 Lipid Profile 06/02/2020 [facility] , Interactive Designer: [place] [address] [phone] Cholesterol 146 mg/dL 131 - 200 Triglycerides 218 mg/dL High 30 - 150 HDL Cholesterol 40 mg/dL 35 - 60 LDL (Calculated) 62 CALC 50 - 159 Laboratory test finding 04/25/[address] [address] [phone] Tissue Transglutaminase IgA <2 U/mL Normal 0-3 12 Liver-Kidney Microsomal Matilde <20.1 units Normal 0.0-20.0 13 Ceruloplasmin 16.5 mg/dL Normal 16.0-31.0 14 Anti-Mitochondrial Antibody <20.0 units Normal 0.0-20.0 15 Antinuclear Antibodies 04/25/[address] [address] [phone] Antinuclear Antibodies Direct Positive Abnormal Ne gative Anti Double Strand-Dna AB 11 IU/mL High 0-9 16 MATERIALS SCHEDULER Antibodies <0.2 AI Normal 0.0-0.9 Gant Antibodies <0.2 AI Normal 0.0-0.9 Sjogren's Anti SS-A <0.2 AI Normal 0.0-0.9 Sjogren's Anti SS-B <0.2 AI Normal 0.0-0.9 Duane Comment (SEE NOTE) Normal . 17 Hepatitis Profile 04/25/2020 [facility] nter [address] [place] [address] [phone] Hepatitis C Virus Matilde Index < 0.0 INDEX Normal <0. 8 Hepatitis B Surface Antigen NEGATIVE Normal Negative Hepatitis B Core Antibody Igm NEGATIVE Normal Negative Hepatitis A Antibody Igm NEGATIVE Normal Negative Laboratory test finding 04/25/[address] [address] [phone] Immunoglobulin A 175.0 mg/dL Normal 70-400 Total Iron Binding Capacit 04/25/[address] [address] [phone] Iron (Fe) 146 g/dL Normal 65-175 Total Iron Binding Capacity 365 g/dL Normal 250-450 Percent Saturation 40.0 % Normal 19.7-50.0 Liver Profile 04/25/2020 [facility] nter [address] [place] [address] [phone] Bilirubin,Direct 0.3 mg/dL High 0.0-0.2 Comprehensive Metabolic Profil 04/25/2020 [facility] [address] [place] [address] [phone] Glucose, Fasting 152 mg/dL High 70-100 Blood Urea Nitrogen 17 mg/dL Normal 7-18 Creatinine For GFR 0.93 mg/dL Normal 0.70-1.30 Glomerular Filtration Rate > 60.0 Normal >56 1 8 Sodium Level 139 mEq/L Normal 136-145 Potassium Serum 3.8 mEq/L Normal 3.5-5.1 Chloride Level 105 mEq/L Normal 98-107 Carbon Dioxide Level 26 mEq/L Normal 21-32 Anion Gap 8 mEq/L Normal 8-16 Calcium Level 9.3 mg/dL Normal 8.5-10.1 Ast/Sgot 54 U/L High 7-37 Alt/SGPT 75 U/L Normal 12-78 Alkaline Phosphatase 78 U/L Normal 45-117 Bilirubin,Total 1.1 mg/dL High 0.2-1.0 Total Protein 7.3 GM/DL Normal 6.4-8.2 Albumin 4.4 GM/DL Normal 3.2-5.2 Albumin/Globulin Ratio 1.5 Normal Prothrombin Time/Inr 04/25/2020 [facility] enter [address] [place] [address] [phone] Prothrombin Time 14.5 seconds High 12.5-14.3 Inr 1.11 Normal 19 CBC With Differential 04/25/2020 [facility] [id number] [place] [address] [phone] White Blood Count 5.9 10 Normal 4.0-10.0 Red Blood Count 5.04 10 Normal 4.30-6.10 Hemoglobin 15.2 g/dL Normal 13.5-17.5 Hematocrit 44.4 % Normal 42.0-52.0 Mean Corpuscular Volume 88.1 fl Normal 80.0-96.0 Mean Corpuscular Hemoglobin 30.2 pg Normal 27.0-33.0 Mean Corpuscular HGB Conc 34.2 g/dL Normal 32.0-36.5 Red Cell Distribution Width 13.4 % Normal 11.5-14.5 Platelet Count, Automated 131 10 Low 150-450 Neutrophils % 65.7 % Normal 36.0-66.0 Lymph % 23.9 % Low 24.0-44.0 Comal % 7.5 % Normal 2.0-8.0 Eos % 1.9 % Normal 0.0-3.0 Baso % 0.7 % Normal 0.0-1.0 Immature Granulocyte % 0.3 % Normal 0-3.0 Nucleated Red Blood Cell % 0.0 % Normal 0-0 Neutrophils # 3.9 10 Normal 1.5-8.5 Lymph # 1.4 10 Low 1.5-5.0 Comal # 0.4 10 Normal 0.0-0.8 Eos # 0.1 10 Normal 0.0-0.5 Baso # 0.0 10 Normal 0.0-0.2 1 100-125 mg/dL PRE-DIABET ES/FASTING >126 mg/dL DIABETES/FASTING 2 CHRONIC KIDNEY DISEASE STAGI NG PER NKF STAGE I & II GFR >= 60 NORMAL TO MILDLY DECREASED STAGE III GFR 30-59 MODERATELY DECREASED STAGE IV GFR 15-29 SEVERELY DECREASED STAGE V GFR <15 VERY LITTLE GFR LEFT ESRD GFR <15 ON CAR VARNISHER 3 This test was performed kalidea Vitamin D immunoassay kit. Values obtained with different assay methods should not be used interchangeably. 4 100-125 mg/dL PRE-DIABET ES/FASTING >126 mg/dL DIABETES/FASTING 5 CHRONIC KIDNEY DISEASE STAGI NG PER NKF STAGE I & II GFR >= 60 NORMAL TO MILDLY DECREASED STAGE III GFR 30-59 MODERATELY DECREASED STAGE IV GFR 15-29 SEVERELY DECREASED STAGE V GFR <15 VERY LITTLE GFR LEFT ESRD GFR <15 ON CAR VARNISHER 6 100-125 mg/dL PRE-DIABET ES/FASTING >126 mg/dL DIABETES/FASTING 7 CHRONIC KIDNEY DISEASE STAGI NG PER NKF STAGE I & II GFR >= 60 NORMAL TO MILDLY DECREASED STAGE III GFR 30-59 MODERATELY DECREASED STAGE IV GFR 15-29 SEVERELY DECREASED STAGE V GFR <15 VERY LITTLE GFR LEFT ESRD GFR <15 ON CAR VARNISHER 8 NOTE: RESULT VERIFIED. 9 100-125 mg/dL PRE-DIABET ES/FASTING >126 mg/dL DIABETES/FASTING 10 CHRONIC KIDNEY DISEASE STAGI NG PER NKF STAGE I & II GFR >= 60 NORMAL TO MILDLY DECREASED STAGE III GFR 30-59 MODERATELY DECREASED STAGE IV GFR 15-29 SEVERELY DECREASED STAGE V GFR <15 VERY LITTLE GFR LEFT ESRD GFR <15 ON CAR VARNISHER 11 Lab Result Notes: Pre-Diabetes 5.7 - 6.4 % Diabetes = or > 6.5% 12 Negative 0 - 3 Weak Positive 4 - 10 Positive >10 . Tissue Transglutaminase (tTG) has been identified as the endomysial antigen. Studies have demonstr- ated that endomysial IgA antibodies have over 99% specificity for gluten sensitive enteropathy. 13 Negative 0.0 - 20.0 Equivocal 20.1 - 24.9 Positive >24.9 . LKM type 1 antibodies are detected in patients with autoimmune hepatitis type 2 and in up to 8% of patients with chronic HCV infection. 14 Performed at: [facility] [address] [id number] Interactive Designer: Farhana Lopes MD, Phone: [phone] 15 Negative 0.0 - 20.0 Equivocal 20.1 - 24.9 Positive >24.9 . Mitochondrial (M2) Antibodies are found in 90-96% of patients with primary biliary cirrhosis. 16 Negative <5 Equivocal 5 - 9 Positive >9 17 . Autoantibody Disease Association Condition Frequency -------- --------- Antinuclear Antibody, SLE, mixed connective Direct (DUANE-D) tissue diseases -------- --------- dsDNA SLE 40 - 60% -------- --------- Chromatin Drug induced SLE 90% SLE 48 - 97% -------- --------- SSA (Ro) SLE 25 - 35% Sjogren's Syndrome 40 - 70% Lupus 100% -------- --------- SSB (La) SLE 10% Sjogren's Syndrome 30% ------- --------- Sm (anti-Gant) SLE 15 - 30% ------- --------- MATERIALS SCHEDULER Mixed Connective Tissue Disease 95% (U1 nRNP, SLE 30 - 50% anti-ribonucleoprotein) Polymyositis and/or Dermatomyositis 20% -------- --------- Scl-70 (antiDNA Scleroderma (diffuse) 20 - 35% topoisomerase) Crest 13% -------- --------- Lay-1 Polymyositis and/or Dermatomyositis 20 - 40% -------- --------- Centromere B Scleroderma - Crest variant 80% 18 Units are mL/min/1.73 m2 Chronic Kidney Disease Staging per NKF: Stage I & II GFR >=60 Normal to Mildly Decreased Stage III GFR 30-59 Moderately Decreased Stage IV GFR 15-29 Severely Decreased Stage V GFR <15 Very Little GFR Left ESRD GFR <15 on CAR VARNISHER 19 THERAPUTIC HUMAN INR VALUES INDICATIONS NORMAL RANGES PROPHYLAXIS/TREATMENT OF: VENOUS THROMBOSIS 2.0-3.0 PULMONARY EMBOLISM 2.0-3.0 PREVENTION OF SYSTEMIC EMBOLISM FROM: TISSUE HEART VALVES 2.0-3.0 ACUTE MYOCARDIAL INFARCTION 2.0-3.0 VALVULAR HEART DISEASE 2.0-3.0 ATRIAL FIBRILLATION 2.0-3.0 MECHANICAL VALVES(HIGH RISK) 2.5-3.5 RECURRENT MYOCARDIAL INFARCTION 2.5-3.5 Procedures Date Code Description Status 10/03/2020 04553 Office/Outpatient Established Lo w MDM 20-29 Min Completed 08/11/2020 [id number] Colonoscopy Completed 06/02/2020 86293 Est Prevent Med (40-64Yrs) Compl eted 06/02/2020 70118 EKG/Interpretation & Report Comp leted 02/24/2020 [id number] Diabetic Retinal Eye Exam Comple romeo 08/16/2019 [id number] Diabetic Retinal Eye Exam Comple romeo 07/26/2019 [id number] Diabetic Retinal Eye Exam Comple romeo 06/21/2010 [id number] Colonoscopy Completed Medical Devices Description No Information Available Encounters Type Date Location Provider Dx Diagnosis Office Visit 10/03/2020 3:20p [facility] Maryann Weiss , LABOR REPRESENTATIVE I10 Essential (primary) hypertension Z79.84 alf (current) use of o ral hypoglycemic drugs E11.40 Type 2 diabetes mellitus wit h diabetic neuropathy, unsp K57.30 Dvrtclos of lg int w/o perfo ration or abscess w/o bleeding E66.09 Other obesity due to excess calories K21.9 Gastro-esophageal reflux dis ease without esophagitis E55.9 Vitamin D deficiency, unspec ified Z68.33 Body mass index [BMI] 33.0-3 3.9, adult Office Visit 06/02/2020 9:00a [facility] Maryann Bland, LABOR REPRESENTATIVE Z00.00 Encntr for general adult medical exam w/ o abnormal findings I10 Essential (primary) hyperten kemal E11.40 Type 2 diabetes mellitus wit h diabetic neuropathy, unsp E55.9 Vitamin D deficiency, unspec ified K21.9 Gastro-esophageal reflux dis ease without esophagitis H68.012 Acute Eustachian salpingitis , left ear E66.09 Other obesity due to excess calories Z68.34 Body mass index [BMI] 34.0-3 4.9, adult Z13.89 Encounter for screening for other disorder Assessments Date Code Description Provider 10/03/2020 I10 Essential (primary) hypertension Maryann Weiss 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 10/03/2020 E11.40 Type 2 diabetes christopher itus with diabetic neuropathy, unspecified Maryann Weiss [facility] 10/03/2020 K57.30 Diverticulosis of la rge intestine without perforation or abscess without bleeding Maryann Weiss [facility] 10/03/2020 E66.09 Other obesity due to excess aaron chani Maryann Weiss [facility] 10/03/2020 K21.9 Gastro-esophageal reflux disease without esophagitis Maryann Weiss [facility] 10/03/2020 E55.9 Vitamin D deficiency, unspecifie d Maryann Weiss [facility] 10/03/2020 Z68.33 Body mass index [BMI] 33.0-33.9, adult Maryann Weiss [facility] 06/21/2020 I10 Essential (primary) hypertension Maryann Weiss [facility] 06/21/2020 I10 Essential (primary) hypertension Lab Schedule 06/21/2020 E11.40 Type 2 diabetes christopher itus with diabetic neuropathy, unspecified Maryann Weiss [facility] 06/21/2020 E11.40 Type 2 diabetes christopher itus with diabetic neuropathy, unspecified Lab Schedule 06/02/2020 Z00.00 Encounter for genera l adult medical examination without abnormal findings Maryann Weiss [facility] 06/02/2020 I10 Essential (primary) hypertension Maryann Weiss [facility] 06/02/2020 E11.40 Type 2 diabetes christopher itus with diabetic neuropathy, unspecified Maryann Weiss [facility] 06/02/2020 E55.9 Vitamin D deficiency, unspecifie d Maryann Weiss [facility] 06/02/2020 K21.9 Gastro-esophageal reflux disease without esophagitis Maryann Weiss [facility] 06/02/2020 H68.012 Acute Eustachian salpingitis, le ft ear Maryann Orin Nelson, LABOR REPRESENTATIVE 06/02/2020 E66.09 Other obesity due to excess aaron chani Maryann Orin Nelson, [facility] 06/02/2020 Z68.34 Body mass index [BMI] 34.0-34.9, adult Maryann Orin Nelson, [facility] 06/02/2020 Z13.89 Encounter for screening for othe r disorder [place] Barrera Plan of Treatment Future Appointment(s):* 12/29/2020 2:20 pm - [place]EL Barrera at [facility] * 06/06/2021 10:00 am - [place]EL Barrera at [facility] 10/03/2020 - ISRAEL Barrera* I10 Essential (primary) hypertension* Comments:* blood pressure suboptimally controlled.Will increase Lisinopril 10 mg daily.BMP pending.Will have return in 2 weeks for BMP * Recommendations:* Recommend you eat 4-5 servings of fruits and vegetables daily. Also exercise 30 minutes daily. 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 He has an area of stricture. He is awaiting the date in November for his colon resection. * E66.09 Other obesity due to excess calories* Comments:* He has lost 6 pounds in the interval. Additional weight loss would be beneficial. * K21.9 Gastro-esophageal reflux disease without esophagitis* Comments:* currently asymptomatic unless bowels are acting up. * E55.9 Vitamin D deficiency, unspecified * Z68.33 Body mass index [BMI] 33.0-33.9, adult Functional Status Description No Information Available Mental Status Description No Information Available Referrals Description No Information Available
--- OUTSIDE RECORDS SUMMARY | 2020-12-10 01:49 | CCD | Continuity of Care Document ---
Author Author Lab Schedule, Ky Greenberg Organization Unknown Address [address] [place] [address] Phone Unavailable Care Team Providers Care Bottom Worker Name Role Phone Maryann Carranza AUTM [phone] Sony Calvillo AUTM [phone] Problems Active Problems Provider Date Type 2 [...] By Mouth Every Day 90tabs Maryann Weiss, [facility] 06/02/2019 Metformin HCL 500mg Tablets take one tablet by mouth twice a day 180tabs CHIOMA Overton JR 06/02/2019 Onetouch II Test Strips Misc test twice a day e11.4 200units Maryann Weiss, [facility] 06/02/2019 Immunizations Description No Information Available Vital [...] H/L Range Note Basic Metabolic Panel 10/18/2020 [facility] Oil Dispenser: [place] [address] [phone] Glucose 161 mg/dL High 74 - 99 [...] mL/min >60 2 Laboratory test finding 10/03/2020 [facility] Oil Dispenser: [place] [address] [phone] Vitamin D 25-Hydroxy 30.5 ng/ml 24.0 - 80.0 3 Microalbumin/Creatinine Urine 10/03/2020 [facility] Oil Dispenser: JUDAH Martin [address] [phone] Microalbumin Urine 9.1 mg/L 1.3 - 20.0 Urine Creatinine 214.0 mg/dL High 30.0 - 125.0 Microalb/Creat Ratio 4.3 ug/mg 0.0 - 30.0 Basic Metabolic Panel 10/03/2020 [facility] [place], Oil Dispenser: Dr Moses Chisholm [place], [place] [id number] [phone] Glucose 213 mg/dL High 74 - 99 [...] mL/min >60 5 Basic Metabolic Panel 06/21/2020 [facility] [place], Oil Dispenser: [place] [address] [phone] Glucose 193 mg/dL High 74 - 99 [...] mL/min >60 7 Complete Blood Count 06/02/2020 [facility] Oil Dispenser: [place] [address] [phone] WBC 5.6 x10*3/UL 4.1 - 10.9 RBC [...] 2.0 - 7.8 Comprehensive Chem Profile 06/02/2020 [facility] Oil Dispenser: [place] [address] [phone] Glucose 173 mg/dL High 74 - 99 [...] >= 60 mL/min >60 10 A1c 06/02/2020 [facility] , Oil Dispenser: Dr Moses [place] [address] [phone] Hba1c 5.6 % <5.7 11 Est Avg Glucose 114 mg/dL High 60 - 110 Lipid Profile 06/02/2020 [facility] , Oil Dispenser: [place] [address] [phone] Cholesterol 146 mg/dL 131 - 200 Triglycerides 218 mg/dL High 30 - 150 HDL Cholesterol 40 mg/dL 35 - 60 LDL (Calculated) 62 CALC 50 - 159 1 100-125 mg/dL PRE-DIABET ES/FASTING >126 mg/dL DIABETES/FASTING 2 CHRONIC KIDNEY DISEASE STAGI NG PER NKF STAGE I & II GFR >= 60 NORMAL TO MILDLY DECREASED STAGE III GFR 30-59 MODERATELY DECREASED STAGE IV GFR 15-29 SEVERELY DECREASED STAGE V GFR <15 VERY LITTLE GFR LEFT ESRD GFR <15 ON BLOCK OUT MACHINE OPERATOR 3 This test was performed [employer] Vitamin D immunoassay kit. Values obtained with [...] LITTLE GFR LEFT ESRD GFR <15 ON BLOCK OUT MACHINE OPERATOR 6 100-125 mg/dL PRE-DIABET ES/FASTING >126 mg/dL DIABETES/FASTING 7 CHRONIC KIDNEY DISEASE STAGI NG PER NKF STAGE I & II GFR >= 60 NORMAL TO MILDLY DECREASED STAGE III GFR 30-59 MODERATELY DECREASED STAGE IV GFR 15-29 SEVERELY DECREASED STAGE V GFR <15 VERY LITTLE GFR LEFT ESRD GFR <15 ON BLOCK OUT MACHINE OPERATOR 8 NOTE: RESULT VERIFIED. 9 100-125 mg/dL PRE-DIABET ES/FASTING >126 mg/dL DIABETES/FASTING 10 CHRONIC KIDNEY DISEASE STAGI NG PER NKF STAGE I & II GFR >= 60 NORMAL TO MILDLY DECREASED STAGE III GFR 30-59 MODERATELY DECREASED STAGE IV GFR 15-29 SEVERELY DECREASED STAGE V GFR <15 VERY LITTLE GFR LEFT ESRD GFR <15 ON BLOCK OUT MACHINE OPERATOR 11 Lab Result Notes: Pre-Diabetes 5.7 - 6.4 % Diabetes = or > 6.5% Procedures Date Code Description Status 10/03/2020 61413 Office/Outpatient Established Lo w MDM 20-29 Min Completed 08/11/2020 [id number] Colonoscopy Completed 06/02/2020 81289 Est Prevent Med (40-64Yrs) Compl eted 06/02/2020 89477 EKG/Interpretation & Report Comp leted 02/24/2020 [id number] Diabetic Retinal Eye Exam Comple romeo 08/16/2019 [id number] Diabetic Retinal Eye Exam Comple romeo 07/26/2019 [id number] Diabetic Retinal Eye Exam Comple romeo 06/21/2010 [id number] Colonoscopy Completed Medical Devices Description No Information Available Encounters Type Date Location Provider Dx Diagnosis Office Visit 10/03/2020 3:20p [facility] 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 Maryann Bland, [facility] Z00.00 Encntr for general adult medical exam [...] other disorder Assessments Date Code Description Provider 10/18/2020 I10 Essential (primary) hypertension ISRAEL Barrera 10/18/2020 I10 Essential (primary) hypertension Lab Schedule 10/18/2020 E11.40 Type 2 diabetes christopher itus with diabetic neuropathy, unspecified ISRAEL Barrera 10/18/2020 E11.40 Type 2 diabetes christopher itus with diabetic neuropathy, unspecified Lab Schedule 10/03/2020 I10 Essential (primary) hypertension ISRAEL Barrera 10/03/2020 Z79.84 superintendent terminal (current) use of oral hypoglycemic drugs ISRAEL Barrera 10/03/2020 E11.40 Type 2 diabetes christopher itus with diabetic neuropathy, unspecified ISRAEL Barrera 10/03/2020 K57.30 Diverticulosis of la rge intestine without perforation or abscess without bleeding ISRAEL Barrera 10/03/2020 E66.09 Other obesity due to excess aaron chani Maryann Weiss, [facility] 10/03/2020 K21.9 Gastro-esophageal reflux disease without esophagitis Maryann Weiss, [facility] 10/03/2020 E55.9 Vitamin D deficiency, unspecifie d Maryann Sr Leslie, [facility] 10/03/2020 Z68.33 Body mass index [BMI] 33.0-33.9, adult Maryann Weiss, [facility] 06/21/2020 I10 Essential (primary) hypertension Maryann Weiss, [facility] 06/21/2020 I10 Essential (primary) hypertension Lab Schedule 06/21/2020 E11.40 Type 2 diabetes christopher itus with diabetic neuropathy, unspecified Maryann Weiss, [facility] 06/21/2020 E11.40 Type 2 diabetes christopher itus with diabetic neuropathy, unspecified Lab Schedule 06/02/2020 Z00.00 Encounter for genera l adult medical examination without abnormal findings Maryann Weiss, [facility] 06/02/2020 I10 Essential (primary) hypertension Maryann Weiss, [facility] 06/02/2020 E11.40 Type 2 diabetes christopher itus with diabetic neuropathy, unspecified Maryann Sr Sophia, [facility] 06/02/2020 E55.9 Vitamin D deficiency, unspecifie d Maryann Sr Sophia, [facility] 06/02/2020 K21.9 Gastro-esophageal reflux disease without esophagitis Maryann Weiss, [facility] 06/02/2020 H68.012 Acute Eustachian salpingitis, le ft ear Maryann Weiss, [facility] 06/02/2020 E66.09 Other obesity due to excess aaron chani Maryann Weiss, [facility] 06/02/2020 Z68.34 Body mass index [BMI] 34.0-34.9, adult Maryann Weiss, [facility] 06/02/2020 Z13.89 Encounter for screening for othe r disorder ISRAEL Barrera Plan of Treatment Future Appointment(s):* 12/29/2020 2:20 pm - ISRAEL Barrera at [facility] * 06/06/2021 10:00 am - ISRAEL Barrera at [facility] 10/03/2020 - ISRAEL Barrera* I10 Essential (primary) hypertension* Comments:* blood pressure suboptimally controlled.Will increase Lisinopril 10 mg daily.BMP pending.Will have return in 2 weeks for BMP * Recommendations:* Recommend you eat 4-5 servings of fruits and vegetables daily. Also exercise 30 minutes daily. * Z79.84 jail (current) use of oral hypoglycemic drugs * [...]
--- OUTSIDE RECORDS SUMMARY | 2020-12-10 01:49 | CCD | Continuity of Care Document ---
Author Author Ky Barrera Organization Unknown Address [address] [place] [address] Phone [phone] Care Team Providers Care Canvas Worker Apprentice Name Role Phone Maryann Carranza AUTM [phone] Sony Calvillo AUTM [phone] Problems Active Problems Provider Date Type 2 [...] Mouth Every Day 90tabs Maryann Weiss, [facility] 06/02/2019 Metformin HCL 500mg Tablets take one tablet by mouth twice a day 180tabs CHIOMA Overton JR 06/02/2019 Onetouch II Test Strips Misc test twice a day e11.4 200units Maryann Weiss, [facility] 06/02/2019 Immunizations Description No Information [...] H/L Range Note Complete Blood Count 11/28/2020 [facility] Combat Systems Operator: [place] [address] [phone] WBC 6.1 x10*3/UL 4.1 - 10.9 RBC [...] 2.0 - 7.8 Comprehensive Chem Profile 11/28/2020 [facility] Combat Systems Operator: [place] [address] [phone] Glucose 117 mg/dL High 74 - 99 [...] mL/min >60 2 Basic Metabolic Panel 10/18/2020 [facility] Combat Systems Operator: Dr Moses [place] [address] [phone] Glucose 161 mg/dL High 74 - 99 [...] mL/min >60 4 Laboratory test finding 10/03/2020 [facility] Combat Systems Operator: [place] [address] [phone] Vitamin D 25-Hydroxy 30.5 ng/ml 24.0 - 80.0 5 Microalbumin/Creatinine Urine 10/03/2020 [facility] Combat Systems Operator: [place] [address] [phone] Microalbumin Urine 9.1 mg/L 1.3 - 20.0 Urine Creatinine 214.0 mg/dL High 30.0 - 125.0 Microalb/Creat Ratio 4.3 ug/mg 0.0 - 30.0 Basic Metabolic Panel 10/03/2020 [facility], Combat Systems Operator: [place] [address] [phone] Glucose 213 mg/dL High 74 - 99 [...] mL/min >60 7 Basic Metabolic Panel 06/21/2020 [facility], Combat Systems Operator: [place] [address] [phone] Glucose 193 mg/dL High 74 - 99 8 BUN 14 mg/dL 7 - 18 Creatinine 1.0 mg/dL 0.6 - 1.3 Sodium 138 mEq/L 136 - 145 Potassium 4.3 mEq/L 3.5 - 5.1 Chloride 100 mEq/L 98 - 107 Carbon Dioxide 28 mEq/L 21 - 32 Calcium 8.7 mg/dL 8.5 - 10.1 GFR >= 60 mL/min >60 GFR >= 60 mL/min >60 9 Complete Blood Count 06/02/2020 [facility] Combat Systems Operator: [place] [address] [phone] WBC 5.6 x10*3/UL 4.1 - 10.9 RBC 5.00 x10*6/UL 4.20 - 6.30 Hemoglobin 15.1 g/dL 12.0 - 18.0 Hematocrit 42.6 % 37.0 - 51.0 MCV 85.1 fL 80.0 - 97.0 MCH 30.2 pg 26.0 - 32.0 MCHC 35.5 g/dL 31.0 - 38.0 RDW 12.9 % 11.6 - 13.7 PLT 123 x10*3/UL Low 140 - 440 10 MPV 10.0 FL 7.8 - 11.0 Lymph % 23.3 % 10.0 - 58.5 Mid % 5.4 % 1.7 - 9.3 Neut % 71.3 % 37.0 - 92.0 Lymph # 1.3 x10*3/UL 0.6 - 4.1 Mid # 0.3 x10*3/UL 0.1 - 0.6 Neut # 4.0 x10*3/UL 2.0 - 7.8 Comprehensive Chem Profile 06/02/2020 [facility] Combat Systems Operator: [place] [address] [phone] Glucose 173 mg/dL High 74 - 99 11 BUN 15 mg/dL 7 - 18 Creatinine [...] mL/min >60 GFR >= 60 mL/min >60 12 A1c 06/02/2020 [facility] Combat Systems Operator: [place] [address] [phone] Hba1c 5.6 % <5.7 13 Est Avg Glucose 114 mg/dL High 60 - 110 Lipid Profile 06/02/2020 [facility] , Combat Systems Operator: [place] [address] [phone] Cholesterol 146 mg/dL 131 - 200 Triglycerides [...] LITTLE GFR LEFT ESRD GFR <15 ON POWER TONG OPERATOR 3 100-125 mg/dL PRE-DIABET ES/FASTING >126 mg/dL DIABETES/FASTING 4 CHRONIC KIDNEY DISEASE STAGI NG PER NKF STAGE I & II GFR >= 60 NORMAL TO MILDLY DECREASED STAGE III GFR 30-59 MODERATELY DECREASED STAGE IV GFR 15-29 SEVERELY DECREASED STAGE V GFR <15 VERY LITTLE GFR LEFT ESRD GFR <15 ON POWER TONG OPERATOR 5 This test was performed [employer] Vitamin D immunoassay kit. Values obtained with [...] LITTLE GFR LEFT ESRD GFR <15 ON POWER TONG OPERATOR 8 100-125 mg/dL PRE-DIABET ES/FASTING >126 mg/dL DIABETES/FASTING 9 CHRONIC KIDNEY DISEASE STAGI NG PER NKF STAGE I & II GFR >= 60 NORMAL TO MILDLY DECREASED STAGE III GFR 30-59 MODERATELY DECREASED STAGE IV GFR 15-29 SEVERELY DECREASED STAGE V GFR <15 VERY LITTLE GFR LEFT ESRD GFR <15 ON POWER TONG OPERATOR 10 NOTE: RESULT VERIFIED. 11 100-125 mg/dL PRE-DIABET ES/FASTING >126 mg/dL DIABETES/FASTING 12 CHRONIC KIDNEY DISEASE STAGI NG PER NKF STAGE I & II GFR >= 60 NORMAL TO MILDLY DECREASED STAGE III GFR 30-59 MODERATELY DECREASED STAGE IV GFR 15-29 SEVERELY DECREASED STAGE V GFR <15 VERY LITTLE GFR LEFT ESRD GFR <15 ON POWER TONG OPERATOR 13 Lab Result Notes: Pre-Diabetes 5.7 - 6.4 % Diabetes = or > 6.5% Procedures Date Code Description Status 10/03/2020 44731 Office/Outpatient Established Lo w MDM 20-29 Min Completed 08/11/2020 [id number] Colonoscopy Completed 06/02/2020 37299 Est Prevent Med (40-64Yrs) Compl eted 06/02/2020 71830 EKG/Interpretation & Report Comp leted 02/24/2020 [id number] Diabetic Retinal Eye Exam Comple romeo 08/16/2019 [id number] Diabetic Retinal Eye Exam Comple romeo 07/26/2019 [id number] Diabetic Retinal Eye Exam Comple romeo 06/21/2010 [id number] Colonoscopy Completed Medical Devices Description No Information Available Encounters Type Date Location Provider Dx Diagnosis Office Visit 10/03/2020 3:20p [facility] ISRAEL Barrera I10 Essential (primary) hypertension Z79.84 [facility] (current) use of o ral hypoglycemic drugs E11.40 Type 2 diabetes mellitus wit h diabetic neuropathy, unsp K57.30 Dvrtclos of lg int w/o perfo ration or abscess w/o bleeding E66.09 Other obesity due to excess calories K21.9 Gastro-esophageal reflux dis ease without esophagitis E55.9 Vitamin D deficiency, unspec ified Z68.33 Body mass index [BMI] 33.0-3 3.9, adult Office Visit 06/02/2020 9:00a [facility] Maryann Murphy ne, 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 10/18/2020 I10 Essential (primary) hypertension Maryann Weiss, [facility] 10/18/2020 I10 Essential (primary) hypertension Lab Schedule 10/18/2020 E11.40 Type 2 diabetes christopher itus with diabetic neuropathy, unspecified Maryann Weiss, [facility] 10/18/2020 E11.40 Type 2 diabetes christopher itus with diabetic neuropathy, unspecified Lab Schedule 10/03/2020 I10 Essential (primary) hypertension Maryann Weiss, [facility] 10/03/2020 Z79.84 FPC (current) use of oral hypoglycemic drugs Maryann Weiss, [facility] 10/03/2020 E11.40 Type 2 diabetes christopher itus with diabetic neuropathy, unspecified Maryann Weiss, [facility] 10/03/2020 K57.30 Diverticulosis of la rge intestine without perforation or abscess without bleeding Maryann Weiss, [facility] 10/03/2020 E66.09 Other obesity due to excess aaron chani Maryann Weiss, [facility] 10/03/2020 K21.9 Gastro-esophageal reflux disease without esophagitis Maryann Weiss, [facility] 10/03/2020 E55.9 Vitamin D deficiency, unspecifie d Maryann Weiss, [facility] 10/03/2020 Z68.33 Body mass index [BMI] 33.0-33.9, adult Maryann Weiss, [facility] 06/21/2020 I10 Essential (primary) hypertension Maryann Weiss, [facility] 06/21/2020 I10 Essential (primary) hypertension Lab Schedule 06/21/2020 E11.40 Type 2 diabetes christopher itus with diabetic neuropathy, unspecified Maryann Weiss, [facility] 06/21/2020 E11.40 Type 2 diabetes christopher itus with diabetic neuropathy, unspecified Lab Schedule 06/02/2020 Z00.00 Encounter for genera l adult medical examination without abnormal findings Maryann Weiss, [facility] 06/02/2020 I10 Essential (primary) hypertension Maryann Weiss, [facility] 06/02/2020 E11.40 Type 2 diabetes christopher itus with diabetic neuropathy, unspecified Maryann Orin Nelson, [facility] 06/02/2020 E55.9 Vitamin D deficiency, unspecifie d Maryann Orin Nelson, [facility] 06/02/2020 K21.9 Gastro-esophageal reflux disease without esophagitis Maryann Weiss, [employer] 06/02/2020 H68.012 Acute Eustachian salpingitis, le ft ear NITHYA BarreraP 06/02/2020 E66.09 Other obesity due to excess aaron chani Maryann Weiss, [facility] 06/02/2020 Z68.34 Body mass index [BMI] 34.0-34.9, adult NITHYA BarreraP 06/02/2020 Z13.89 Encounter for screening for othe r disorder ISRAEL Barrera Plan of Treatment Future Appointment(s):* 02/28/2021 9:40 am - ISRAEL Barrera at [facility] * 06/06/2021 10:00 am - ISRAEL Barrera at [facility] 11/28/2020 - ISRAEL Barrera* I10 [...] Comments:* last A1C at goal. 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 He plans to continue to try to lose weight. * Z68.33 Body mass index [BMI] 33.0-33.9, adult Functional Status Description No Information Available Mental Status Description No Information Available Referrals Description No Information Available
--- OUTSIDE RECORDS SUMMARY | 2020-12-10 01:49 | CCD | Continuity of Care Document ---
Author Author Ky SHEIKH MD Organization Unknown Address [address] [place] [address] Phone [phone] Care Team Providers Care Robotics Mechanic Name Role Phone David Haji MD AUTM [phone] Maryann Carranza NP AUTM Unavailable Problems Description [...] BMI (Body Mass Index) 34.9 kg/m2 Results Description No Information Available Procedures Date Code Description Status 09/14/2020 59479 Office/Outpatient New Moderate M DM 45-59 Minutes Completed Medical Devices Description No Information Available Encounters Type Date Location Provider Dx Diagnosis Office Visit 09/14/2020 10:00a [facility] Mod[place] Sheikh MD K57.92 Dvtrcli of intest, part unsp, w/o perf or abscess w/o bleed Assessments Date Code Description Provider 09/14/2020 K57.92 Diverticulitis [place] Sheikh MD Plan of Treatment Future Appointment(s):* 11/10/2020 11:15 am - [place] Sheikh MD at [facility] * 11/30/2020 9:30 am - [place] Sheikh MD at [facility] Functional Status Description No Information Available Mental Status Description No Information Available Referrals Description No Information Available
--- OUTSIDE RECORDS SUMMARY | 2020-12-10 01:49 | CCD | Continuity of Care Document ---
Author Author Ky SHEIKH MD Organization Unknown Address [address] [place] [address] Phone [phone] Care Team Providers Care Welt Rander Name Role Phone David Haji MD AUTM [phone] Maryann Carranza NP AUTM Unavailable Problems Description [...] Range Note Laboratory test finding 11/06/2020 [facility] [place] Type And Screen (SEE NOTE) 1 CBC Without Diff 11/06/2020 [facility] WBC 5.4 10*3/uL (4.1-11.0) RBC 4.78 10*6/uL [...] Interpretation (SEE NOTE) 3 Hemoglobin A[facility]c [facility]2020 [facility] Hem[facility] A1c @ 5.6 % (4.0-6.0) 4 Est Average Glucose 114 mg/dL 1 SPEC EXP DATE PATIENT ABO/Rh A POSITIVE ANTIBODY SCREEN NEGATIVE TESTING SITE PERFORMED AT [address] [place] [address] 2 PLEASE NOTE: Total bilirubin results may [...] used for medication dosing. 4 Performed using [employer] a immunoassay. Care must be taken when interpreting HbA1c results in patients with a hemoglobin variant or decreased erythrocyte lifespan. Values 5.7 - 6.4% suggest prediabetes. Values >=6.5% are diagnostic for diabetes. REFERENCE: DIABETES CARE 2018: 41(S13-S27). Procedures Date Code Description Status 11/06/2020 48693 Office/Outpatient Established Lo w MDM 20-29 Min Completed 09/14/2020 19586 Office/Outpatient New Moderate M DM 45-59 Minutes Completed Medical Devices Description No Information Available Encounters Type Date Location Provider Dx Diagnosis Office Visit 11/06/2020 12:45p [facility] [place] Sheikh MD K57.92 Dvtrcli of intest, part unsp, w/o perf or abscess w/o bleed Office Visit 09/14/2020 10:00a [facility] [place] Sheikh MD K57.92 Dvtrcli of intest, part unsp, w/o perf or abscess w/o bleed Assessments Date Code Description Provider 11/06/2020 K57.92 Diverticulitis [place] Sheikh MD 09/14/2020 K57.92 Diverticulitis [place] Sheikh MD Plan of Treatment Future Appointment(s):* 11/10/2020 11:15 am - [place] Sheikh MD at [facility] * 11/30/2020 9:30 am - [place] Sheikh MD at [facility] 11/06/2020 - [place] Sheikh MD* K57.92 Diverticulitis Functional Status Description No Information Available Mental Status Description No Information Available Referrals Description No Information Available
--- OUTSIDE RECORDS SUMMARY | 2020-12-10 01:49 | CCD | Continuity of Care Document ---
Author Author Ky SHEIKH MD Organization Unknown Address [address] [place] [address] Phone [phone] Care Team Providers Care Engraver Letter Name Role Phone David Haji MD AUTM [phone] Maryann Carranza NP AUTM Unavailable Problems Description [...] Range Note Laboratory test finding 11/06/2020 [facility] [place] Type And Screen (SEE NOTE) 1 CBC Without Diff 11/06/2020 [facility] [place] WBC 5.4 10*3/uL (4.1-11.0) RBC 4.78 10*6/uL [...] Interpretation (SEE NOTE) 3 Hemoglobin A1c 11[facility]06[facility]2020 [facility] Hem[facility] A1c @ 5.6 % (4.0-6.0) 4 Est Average Glucose 114 mg/dL 1 SPEC EXP DATE PATIENT ABO/Rh A POSITIVE ANTIBODY SCREEN NEGATIVE TESTING SITE PERFORMED AT [address] [place] [address] 2 PLEASE NOTE: Total bilirubin results may [...] used for medication dosing. 4 Performed using [employer] a immunoassay. Care must be taken when interpreting HbA1c results in patients with a hemoglobin variant or decreased erythrocyte lifespan. Values 5.7 - 6.4% suggest prediabetes. Values >=6.5% are diagnostic for diabetes. REFERENCE: DIABETES CARE 2018: 41(S13-S27). Procedures Date Code Description Status 11/06/2020 43843 Office/Outpatient Established Lo w MDM 20-29 Min Completed 09/14/2020 47488 Office/Outpatient New Moderate M DM 45-59 Minutes Completed Medical Devices Description No Information Available Encounters Type Date Location Provider Dx Diagnosis Office Visit 11/06/2020 12:45p [facility] [place] Sheikh MD K57.92 Dvtrcli of intest, part unsp, w/o perf or abscess w/o bleed Office Visit 09/14/2020 10:00a [facility] [place] Sheikh MD K57.92 Dvtrcli of intest, part unsp, w/o perf or abscess w/o bleed Assessments Date Code Description Provider 11/06/2020 K57.92 Diverticulitis [place] Sheikh MD 09/14/2020 K57.92 Diverticulitis [place] Sheikh MD Plan of Treatment Future Appointment(s):* 11/10/2020 11:15 am - [place] Sheikh MD at [facility] * 11/30/2020 9:30 am - [place] Sheikh MD at [facility] 11/06/2020 - [place] Sheikh MD* K57.92 Diverticulitis Functional Status Description No Information Available Mental Status Description No Information Available Referrals Description No Information Available
--- OUTSIDE RECORDS SUMMARY | 2020-12-10 01:49 | CCD | Continuity of Care Document ---
Author Author Ky Barrera Organization Unknown Address [address] [place] [address] Phone [phone] Care Team Providers Care Dairy Manager Name Role Phone Maryann Carranza AUTM [phone] Sony Calvillo AUTM [phone] Problems Active Problems Provider Date Type 2 [...] By Mouth Every Day 90tabs Maryann Weiss, [facility] 06/02/2019 Metformin HCL 500mg Tablets take one tablet by mouth twice a day 180tabs CHIOMA Overton JR 06/02/2019 Onetouch II Test Strips Misc test twice a day e11.4 200units Maryann Weiss, [facility] 06/02/2019 Immunizations Description No Information Available Vital [...] H/L Range Note Basic Metabolic Panel 10/18/2020 [facility] Cofounder: [place] [address] [phone] Glucose 161 mg/dL High 74 - 99 [...] mL/min >60 2 Laboratory test finding 10/03/2020 [facility] Cofounder: [place] [address] [phone] Vitamin D 25-Hydroxy 30.5 ng/ml 24.0 - 80.0 3 Microalbumin/Creatinine Urine 10/03/2020 [facility] Cofounder: [place] [address] [phone] Microalbumin Urine 9.1 mg/L 1.3 - 20.0 Urine Creatinine 214.0 mg/dL High 30.0 - 125.0 Microalb/Creat Ratio 4.3 ug/mg 0.0 - 30.0 Basic Metabolic Panel 10/03/2020 [facility], Cofounder: Dr Moses Chisholm [place], [place] [id number] [phone] Glucose 213 mg/dL High 74 - 99 [...] mL/min >60 5 Basic Metabolic Panel 06/21/2020 [facility], Cofounder: [place] [address] [phone] Glucose 193 mg/dL High 74 - 99 [...] mL/min >60 7 Complete Blood Count 06/02/2020 [facility] Cofounder: Dr Moses Chisholm [place], [place] [id number] [phone] WBC 5.6 x10*3/UL 4.1 - 10.9 RBC [...] 2.0 - 7.8 Comprehensive Chem Profile 06/02/2020 [facility], Cofounder: [place] [address] [phone] Glucose 173 mg/dL High 74 - 99 [...] >= 60 mL/min >60 10 A1c 06/02/2020 [facility] , Cofounder: [place] [address] [phone] Hba1c 5.6 % <5.7 11 Est Avg Glucose 114 mg/dL High 60 - 110 Lipid Profile 06/02/2020 [facility] , Cofounder: [place] [address] [phone] Cholesterol 146 mg/dL 131 - 200 Triglycerides [...] LITTLE GFR LEFT ESRD GFR <15 ON INFORMATION DIRECTOR 3 This test was performed Mandiant Vitamin D immunoassay kit. Values obtained with [...] LITTLE GFR LEFT ESRD GFR <15 ON INFORMATION DIRECTOR 6 100-125 mg/dL PRE-DIABET ES/FASTING >126 mg/dL DIABETES/FASTING 7 CHRONIC KIDNEY DISEASE STAGI NG PER NKF STAGE I & II GFR >= 60 NORMAL TO MILDLY DECREASED STAGE III GFR 30-59 MODERATELY DECREASED STAGE IV GFR 15-29 SEVERELY DECREASED STAGE V GFR <15 VERY LITTLE GFR LEFT ESRD GFR <15 ON INFORMATION DIRECTOR 8 NOTE: RESULT VERIFIED. 9 100-125 mg/dL PRE-DIABET ES/FASTING >126 mg/dL DIABETES/FASTING 10 CHRONIC KIDNEY DISEASE STAGI NG PER NKF STAGE I & II GFR >= 60 NORMAL TO MILDLY DECREASED STAGE III GFR 30-59 MODERATELY DECREASED STAGE IV GFR 15-29 SEVERELY DECREASED STAGE V GFR <15 VERY LITTLE GFR LEFT ESRD GFR <15 ON INFORMATION DIRECTOR 11 Lab Result Notes: Pre-Diabetes 5.7 - 6.4 % Diabetes = or > 6.5% Procedures Date Code Description Status 10/03/2020 04969 Office/Outpatient Established Lo w MDM 20-29 Min Completed 08/11/2020 [id number] Colonoscopy Completed 06/02/2020 52465 Est Prevent Med (40-64Yrs) Compl eted 06/02/2020 45826 EKG/Interpretation & Report Comp leted 02/24/2020 [id number] Diabetic Retinal Eye Exam Comple romeo 08/16/2019 [id number] Diabetic Retinal Eye Exam Comple romeo 07/26/2019 [id number] Diabetic Retinal Eye Exam Comple romeo 06/21/2010 [id number] Colonoscopy Completed Medical Devices Description No Information Available Encounters Type Date Location Provider Dx Diagnosis Office Visit 10/03/2020 3:20p [facility] NITHYA BarreraP I10 Essential (primary) hypertension Z79.84 retirement (current) use of o ral hypoglycemic drugs E11.40 Type 2 diabetes mellitus wit h diabetic neuropathy, unsp K57.30 Dvrtclos of lg int w/o perfo ration or abscess w/o bleeding E66.09 Other obesity due to excess calories K21.9 Gastro-esophageal reflux dis ease without esophagitis E55.9 Vitamin D deficiency, unspec ified Z68.33 Body mass index [BMI] 33.0-3 3.9, adult Office Visit 06/02/2020 9:00a [facility] Maryann Bland, [facility] Z00.00 Encntr for general adult medical exam [...] Lab Schedule 10/03/2020 I10 Essential (primary) hypertension NITHYA BarreraP 10/03/2020 Z79.84 retirement (current) use of oral hypoglycemic drugs ISRAEL Barrera 10/03/2020 E11.40 Type 2 diabetes christopher itus with diabetic neuropathy, unspecified ISRAEL Barrera 10/03/2020 K57.30 Diverticulosis of la rge intestine without perforation or abscess without bleeding ISRAEL Barrera 10/03/2020 E66.09 Other obesity due to excess aaron chani Maryann Weiss, [facility] 10/03/2020 K21.9 Gastro-esophageal reflux disease without esophagitis Maryann Weiss, [facility] 10/03/2020 E55.9 Vitamin D deficiency, unspecifie d Maryann Sr Leslie, [facility] 10/03/2020 Z68.33 Body mass index [BMI] 33.0-33.9, adult Maryann Weiss, [facility] 06/21/2020 I10 Essential (primary) hypertension Maryann Weiss, [facility] 06/21/2020 I10 Essential (primary) hypertension Lab Schedule 06/21/2020 E11.40 Type 2 diabetes christopher itus with diabetic neuropathy, unspecified Maryann Sr [place], [facility] 06/21/2020 E11.40 Type 2 diabetes christopher itus with diabetic neuropathy, unspecified Lab Schedule 06/02/2020 Z00.00 Encounter for genera l adult medical examination without abnormal findings Maryann Weiss, [facility] 06/02/2020 I10 Essential (primary) hypertension Maryann Weiss, [facility] 06/02/2020 E11.40 Type 2 diabetes christopher itus with diabetic neuropathy, unspecified Maryann Weiss, [facility] 06/02/2020 E55.9 Vitamin D deficiency, unspecifie d Maryann Sr Leslie, [facility] 06/02/2020 K21.9 Gastro-esophageal reflux disease without esophagitis Maryann Weiss, [facility] 06/02/2020 H68.012 Acute Eustachian salpingitis, le ft ear Maryann Weiss, [facility] 06/02/2020 E66.09 Other obesity due to excess aaron chani Maryann Weiss, [facility] 06/02/2020 Z68.34 Body mass index [BMI] 34.0-34.9, adult Maryann Weiss, [facility] 06/02/2020 Z13.89 Encounter for screening for othe r disorder ISRAEL Barrera Plan of Treatment Future Appointment(s):* 12/29/2020 2:20 pm - ISRAEL Barrera at [facility] * 06/06/2021 10:00 am - IRSAEL Barrera at [facility] Functional Status Description No Information Available Mental Status Description No Information Available Referrals Description No Information Available
--- OUTSIDE RECORDS SUMMARY | 2020-12-10 01:49 | CCD | Continuity of Care Document ---
Author Author Ky SHEIKH MD Organization Unknown Address [address] [place] [address] Phone [phone] Care Team Providers Care Solderer Name Role Phone David Haji MD AUTM [phone] Maryann Carranza NP AUTM Unavailable Problems Active Problems Provider Date Diverticulitis of colon [place] Sheikh MD Onset: Social History Description No Information Available Allergies [...] Available Vital Signs Date Vital Result Comment 11/30/2020 9:37am BP Systolic 134 mmHg BP Diastolic 78 mmHg Heart Rate 62 /min Body Temperature 97.3 F Respiratory Rate 12 /min Height 72 inches 6'0" Weight 250.00 lb BMI (Body Mass Index) 33.9 kg/m2 11/06/2020 12:34pm BP Systolic 152 mmHg BP Diastolic 80 mmHg Heart Rate 70 /min Body Temperature 98.2 F Respiratory Rate 18 /min Height 72 inches 6'0" Weight 250.00 lb BMI (Body Mass Index) 33.9 kg/m2 Results Test Acquired Date Facility Test Result H/L Range Note Laboratory test finding 11/06/2020 [facility] Type And Screen (SEE NOTE) 1 CBC Without Diff 11/06/2020 [facility] WBC 5.4 10*3/uL (4.1-11.0) RBC 4.78 10*6/uL (4.60-6.10) HGB 14.7 g/dL (13.5-18.0) HCT 41.5 % (41.0-53.0) MCV 86.9 fL (80.0-95.0) MCH 30.8 pg (27.0-32.0) MCHC 35.4 g/dL (32.0-36.0) RDW 14.1 % (10.5-14.5) PLT 147 10*3/uL Low (150-450) MPV 10.0 fL (7.1-10.7) CMP 11/06/2020 [facility] Sodium 138 mmol/L (136-145) Potassium 4.2 mmol/L [...] Interpretation (SEE NOTE) 3 Hemoglobin A1c 11/06/2020 [facility] Hemoglobin A1c @ 5.6 % (4.0-6.0) 4 Est Average Glucose 114 mg/dL 1 SPEC EXP DATE PATIENT ABO/Rh A POSITIVE ANTIBODY SCREEN NEGATIVE TESTING SITE PERFORMED AT [address] [place] [address] 2 PLEASE NOTE: Total bilirubin results may [...] for medication dosing. 4 Performed using Siemens Zenovia Digital Exchanget a immunoassay. Care must be taken when interpreting HbA1c results in patients with a hemoglobin variant or decreased erythrocyte lifespan. Values 5.7 - 6.4% suggest prediabetes. Values >=6.5% are diagnostic for diabetes. REFERENCE: DIABETES CARE 2018: 41(S13-S27). Procedures Date Code Description Status 11/10/2020 33867 Laparscopy Surg Mobi l Splenic Flexure Performed W/Part Colectomy Completed 11/10/2020 00240 Laparoscopy,Colectomy,Partial W/ Anastomsis,W/Coloproctostomy Completed 11/06/2020 09063 Office/Outpatient Established Lo w MDM 20-29 Min Completed 09/14/2020 94560 Office/Outpatient New Moderate M DM 45-59 Minutes Completed Medical Devices Description No Information Available Encounters Type Date Location Provider Dx Diagnosis Office Visit 11/30/2020 9:30a [facility] Mod[place] Sheikh MD K57.32 Dvtrcli of lg int w/o perforation or abscess w/o bleeding Office Visit 11/06/2020 12:45p [facility] [place] Sheikh MD K57.92 Dvtrcli of intest, part unsp, w/o perf or abscess w/o bleed Office Visit 09/14/2020 10:00a [facility] Modesto Sheikh MD K57.92 Dvtrcli of intest, part unsp, w/o perf or abscess w/o bleed Assessments Date Code Description Provider 11/30/2020 K57.32 Diverticulitis of la rge intestine without perforation or abscess without bleeding Mod[place] Sheikh MD 11/10/2020 K57.32 Diverticulitis of la rge intestine without perforation or abscess without bleeding [place] Sheikh MD 11/06/2020 K57.92 Diverticulitis [place] Sheikh MD 09/14/2020 K57.92 Diverticulitis [place] Sheikh MD Plan of Treatment No Information Available Functional Status Description No Information Available Mental Status Description No Information Available Referrals Refer to Reason for Referral Status Appt Date Modesto Sheikh MD Created [address] [address] [phone]
--- OUTSIDE RECORDS SUMMARY | 2020-12-10 01:50 | CCD | Continuity of Care Document ---
Author Author Ky Barrera Organization Unknown Address [address] [place] [address] Phone [phone] Care Team Providers Care Radiagraph Operator Name Role Phone Maryann Carranza AUTM [phone] Sony Calvillo AUTM [phone] Problems Active Problems Provider Date Type 2 diabetes mellitus ISRAEL Barrera Onset: 06/02/19 20 Essential hypertension SIRAEL Barrera Onset: 06/11/2019 Obesity ISRAEL Barrera Onset: [...] Tablet By Mouth Every Day 90tabs Maryann Weiss [facility] 06/02/2019 Metformin HCL 500mg Tablets take one tablet by mouth twice a day 180tabs CHIOMA Overton JR 06/02/2019 Onetouch II Test Strips Misc test twice a day e11.4 200units Maryann Weiss, [facility] 06/02/2019 Immunizations Description No Information Available Vital [...] Date Facility Test Result H/L Range Note Microalbumin/Creatinine Urine 10/03/2020 [facility] Archives Specialist: [place] [address] [phone] Microalbumin Urine 9.1 mg/L 1.3 - 20.0 Urine Creatinine 214.0 mg/dL High 30.0 - 125.0 Microalb/Creat Ratio 4.3 ug/mg 0.0 - 30.0 Basic Metabolic Panel 10/03/2020 [facility] Archives Specialist: Dr Moses Chish[place]m [place], [place] [address] [phone] Glucose 213 mg/dL High 74 - 99 1 BUN 14 mg/dL 7 - 18 Creatinine 1.0 mg/dL 0.6 - 1.3 Sodium 138 mEq/L 136 - 145 Potassium 4.2 mEq/L 3.5 - 5.1 Chloride 104 mEq/L 98 - 107 Carbon Dioxide 27 mEq/L 21 - 32 Calcium 9.2 mg/dL 8.5 - 10.1 GFR >= 60 mL/min >60 GFR >= 60 mL/min >60 2 Laboratory test finding 10/03/2020 [facility] Archives Specialist: Dr Moses Chisholm [place], [place] [id number] [phone] Vitamin D 25-Hydroxy <pending> Basic Metabolic Panel 06/21/2020 [facility] Archives Specialist: Dr Moses Chisholm [place], [place] [address] [phone] Glucose 193 mg/dL High 74 - 99 3 BUN 14 mg/dL 7 - 18 Creatinine 1.0 mg/dL 0.6 - 1.3 Sodium 138 mEq/L 136 - 145 Potassium 4.3 mEq/L 3.5 - 5.1 Chloride 100 mEq/L 98 - 107 Carbon Dioxide 28 mEq/L 21 - 32 Calcium 8.7 mg/dL 8.5 - 10.1 GFR >= 60 mL/min >60 GFR >= 60 mL/min >60 4 Complete Blood Count 06/02/2020 [facility] Archives Specialist: [place] [address] [phone] WBC 5.6 x10*3/UL 4.1 - 10.9 RBC 5.00 x10*6/UL 4.20 - 6.30 Hemoglobin 15.1 g/dL 12.0 - 18.0 Hematocrit 42.6 % 37.0 - 51.0 MCV 85.1 fL 80.0 - 97.0 MCH 30.2 pg 26.0 - 32.0 MCHC 35.5 g/dL 31.0 - 38.0 RDW 12.9 % 11.6 - 13.7 PLT 123 x10*3/UL Low 140 - 440 5 MPV 10.0 FL 7.8 - 11.0 Lymph % 23.3 % 10.0 - 58.5 Mid % 5.4 % 1.7 - 9.3 Neut % 71.3 % 37.0 - 92.0 Lymph # 1.3 x10*3/UL 0.6 - 4.1 Mid # 0.3 x10*3/UL 0.1 - 0.6 Neut # 4.0 x10*3/UL 2.0 - 7.8 Comprehensive Chem Profile 06/02/2020 [facility] Specialist: Dr [place] [id number] [phone] Glucose 173 mg/dL High 74 - 99 6 BUN 15 mg/dL 7 - 18 Creatinine [...] >60 GFR >= 60 mL/min >60 7 A1c 06/02/2020 [facility] Archives Specialist: [place] [address] [phone] Hba1c 5.6 % <5.7 8 Est Avg Glucose 114 mg/dL High 60 - 110 Lipid Profile 06/02/2020 [facility] , Archives Specialist: Dr Moses Chisholm [place] [id number] [phone] Cholesterol 146 mg/dL 131 - 200 Triglycerides 218 mg/dL High 30 - 150 HDL Cholesterol 40 mg/dL 35 - 60 LDL (Calculated) 62 CALC 50 - 159 Laboratory test finding 04/25/2020 [place] [address] [phone] Tissue Transglutaminase IgA <2 U/mL Normal 0-3 9 Liver-Kidney Microsomal Matilde <20.1 units Normal 0.0-20.0 10 Ceruloplasmin 16.5 mg/dL Normal 16.0-31.0 11 Anti-Mitochondrial Antibody <20.0 units Normal 0.0-20.0 12 Antinuclear Antibodies 04/25/2020 [place] [address] [phone] Antinuclear Antibodies Direct Positive Abnormal Ne gative Anti Double Strand-Dna AB 11 IU/mL High 0-9 13 STEEL POURER Antibodies <0.2 AI Normal 0.0-0.9 Gant Antibodies <0.2 AI Normal 0.0-0.9 Sjogren's Anti SS-A <0.2 AI Normal 0.0-0.9 Sjogren's Anti SS-B <0.2 AI Normal 0.0-0.9 Duane Comment (SEE NOTE) Normal . 14 Hepatitis Profile 04/25/2020 [facility] [place] nter [address] [place] [address] [phone] Hepatitis C Virus Matilde Index < 0.0 INDEX Normal <0. 8 Hepatitis B Surface Antigen NEGATIVE Normal Negative Hepatitis B Core Antibody Igm NEGATIVE Normal Negative Hepatitis A Antibody Igm NEGATIVE Normal Negative Laboratory test finding 04/25/[address] [address] [phone] Immunoglobulin A 175.0 mg/dL Normal 70-400 Total Iron Binding Capacit 04/25/[address] [address] [phone] Iron (Fe) 146 g/dL Normal 65-175 Total Iron Binding Capacity 365 g/dL Normal 250-450 Percent Saturation 40.0 % Normal 19.7-50.0 [facility] [address] [place] [phone] Bilirubin,Direct 0.3 mg/dL High 0.0-0.2 Comprehensive Metabolic Profil 04/25/[address] [address] [phone] Glucose, Fasting 152 mg/dL High 70-100 Blood Urea Nitrogen 17 mg/dL Normal 7-18 Creatinine For GFR 0.93 mg/dL Normal 0.70-1.30 Glomerular Filtration Rate > 60.0 Normal >56 1 5 Sodium Level 139 mEq/L Normal 136-145 Potassium [...] Albumin/Globulin Ratio 1.5 Normal Prothrombin Time/Inr 04/25/2020 [facility] enter [address] [place] [phone] Prothrombin Time 14.5 seconds High 12.5-14.3 Inr 1.11 Normal 16 CBC With Differential 04/25/[address] [address] [phone] White Blood Count 5.9 10 Normal 4.0-10.0 [...] 36.0-66.0 Lymph % 23.9 % Low 24.0-44.0 Crittenden % 7.5 % Normal 2.0-8.0 Eos % 1.9 % Normal 0.0-3.0 Baso % 0.7 % Normal 0.0-1.0 Immature Granulocyte % 0.3 % Normal 0-3.0 Nucleated Red Blood Cell % 0.0 % Normal 0-0 Neutrophils # 3.9 10 Normal 1.5-8.5 Lymph # 1.4 10 Low 1.5-5.0 Crittenden # 0.4 10 Normal 0.0-0.8 Eos # [...] LITTLE GFR LEFT ESRD GFR <15 ON ACETYLENE TORCH OPERATOR 3 100-125 mg/dL PRE-DIABET ES/FASTING >126 mg/dL DIABETES/FASTING 4 CHRONIC KIDNEY DISEASE STAGI NG PER NKF STAGE I & II GFR >= 60 NORMAL TO MILDLY DECREASED STAGE III GFR 30-59 MODERATELY DECREASED STAGE IV GFR 15-29 SEVERELY DECREASED STAGE V GFR <15 VERY LITTLE GFR LEFT ESRD GFR <15 ON ACETYLENE TORCH OPERATOR 5 NOTE: RESULT VERIFIED. 6 100-125 mg/dL PRE-DIABET ES/FASTING >126 mg/dL DIABETES/FASTING 7 CHRONIC KIDNEY DISEASE STAGI NG PER NKF STAGE I & II GFR >= 60 NORMAL TO MILDLY DECREASED STAGE III GFR 30-59 MODERATELY DECREASED STAGE IV GFR 15-29 SEVERELY DECREASED STAGE V GFR <15 VERY LITTLE GFR LEFT ESRD GFR <15 ON ACETYLENE TORCH OPERATOR 8 Lab Result Notes: Pre-Diabetes 5.7 - 6.4 % Diabetes = or > 6.5% 9 Negative 0 - 3 Weak Positive 4 - 10 Positive >10 . Tissue Transglutaminase (tTG) has been identified as the endomysial antigen. Studies have demonstr- ated that endomysial IgA antibodies have over 99% specificity for gluten sensitive enteropathy. 10 Negative 0.0 - 20.0 Equivocal 20.1 - 24.9 Positive >24.9 . LKM type 1 antibodies are detected in patients with autoimmune hepatitis type 2 and in up to 8% of patients with chronic HCV infection. 11 Performed at: RN - [facility] [address] [id number] Archives Specialist: Farhana Lopes MD, Phone: [phone] 12 Negative 0.0 - 20.0 Equivocal 20.1 - 24.9 Positive >24.9 . Mitochondrial (M2) Antibodies are found in 90-96% of patients with primary biliary cirrhosis. 13 Negative <5 Equivocal 5 - 9 Positive >9 14 . Autoantibody Disease Association Condition Frequency -------- [...] (anti-Gant) SLE 15 - 30% ------- --------- STEEL POURER Mixed Connective Tissue Disease 95% (U1 nRNP, SLE 30 - 50% anti-ribonucleoprotein) Polymyositis and/or Dermatomyositis 20% -------- --------- Scl-70 (antiDNA Scleroderma (diffuse) 20 - 35% topoisomerase) Crest 13% -------- --------- Lay-1 Polymyositis and/or Dermatomyositis 20 - 40% -------- --------- Centromere B Scleroderma - Crest variant 80% 15 Units are mL/min/1.73 m2 Chronic Kidney Disease Staging per NKF: Stage I & II GFR >=60 Normal to Mildly Decreased Stage III GFR 30-59 Moderately Decreased Stage IV GFR 15-29 Severely Decreased Stage V GFR <15 Very Little GFR Left ESRD GFR <15 on ACETYLENE TORCH OPERATOR 16 THERAPUTIC HUMAN INR VALUES INDICATIONS NORMAL RANGES PROPHYLAXIS/TREATMENT OF: VENOUS THROMBOSIS 2.0-3.0 PULMONARY EMBOLISM 2.0-3.0 PREVENTION OF SYSTEMIC EMBOLISM FROM: TISSUE HEART VALVES 2.0-3.0 ACUTE MYOCARDIAL INFARCTION 2.0-3.0 VALVULAR HEART DISEASE 2.0-3.0 ATRIAL FIBRILLATION 2.0-3.0 MECHANICAL VALVES(HIGH RISK) 2.5-3.5 RECURRENT MYOCARDIAL INFARCTION 2.5-3.5 Procedures Date Code Description Status 10/03/2020 76094 Office/Outpatient Established Lo w MDM 20-29 Min Completed 08/11/2020 [id number] Colonoscopy Completed 06/02/2020 13735 Est Prevent Med (40-64Yrs) Compl eted 06/02/2020 55463 EKG/Interpretation & Report Comp leted 02/24/2020 [id number] Diabetic Retinal Eye Exam Comple romeo 08/16/2019 [id number] Diabetic Retinal Eye Exam Comple romeo 07/26/2019 [id number] Diabetic Retinal Eye Exam Comple [facility] 06/21/2010 [id number] Colonoscopy Completed Medical Devices Description No Information Available Encounters Type Date Location Provider Dx Diagnosis Office Visit 10/03/2020 3:20p [facility] NITHYA BarreraP I10 Essential (primary) hypertension E11.40 Type 2 diabetes mellitus wit h diabetic neuropathy, unsp K57.30 Dvrtclos of lg int w/o perfo ration or abscess w/o bleeding E66.09 Other obesity due to excess calories K21.9 Gastro-esophageal reflux dis ease without esophagitis Z68.33 Body mass index [BMI] 33.0-3 3.9, adult Office Visit 06/02/2020 9:00a [facility] Maryann Bland, [facility] Z00.00 Encntr for general adult medical exam [...] Description Provider 10/03/2020 I10 Essential (primary) hypertension NITHYA BarreraP 10/03/2020 E11.40 Type 2 diabetes christopher itus with diabetic neuropathy, unspecified NITHYA BarreraP 10/03/2020 K57.30 Diverticulosis of la rge intestine without perforation or abscess without bleeding NITHYA BarreraP 10/03/2020 E66.09 Other obesity due to excess aaron chani NITHYA BarreraP 10/03/2020 K21.9 Gastro-esophageal reflux disease without esophagitis ISRAEL Barrera 10/03/2020 Z68.33 Body mass index [BMI] 33.0-33.9, adult ISRAEL Barrera 06/21/2020 I10 Essential (primary) hypertension ISRAEL Barrera 06/21/2020 I10 Essential (primary) hypertension Lab Schedule 06/21/2020 E11.40 Type 2 diabetes christopher itus with diabetic neuropathy, unspecified Maryann Weiss [facility] 06/21/2020 E11.40 Type 2 diabetes christopher itus with diabetic neuropathy, unspecified Lab Schedule 06/02/2020 Z00.00 Encounter for genera l adult medical examination without abnormal findings Maryann Weiss, [facility] 06/02/2020 I10 Essential (primary) hypertension Maryann Weiss [facility] 06/02/2020 E11.40 Type 2 diabetes christopher itus with diabetic neuropathy, unspecified Maryann Weiss [facility] 06/02/2020 E55.9 Vitamin D deficiency, unspecifie d Maryann Weiss, [facility] 06/02/2020 K21.9 Gastro-esophageal reflux disease without esophagitis Maryann Weiss [facility] 06/02/2020 H68.012 Acute Eustachian salpingitis, le ft ear Maryann Weiss [facility] 06/02/2020 E66.09 Other obesity due to excess aaron chani Maryann Weiss [facility] 06/02/2020 Z68.34 Body mass index [BMI] 34.0-34.9, adult Maryann Weiss [facility] 06/02/2020 Z13.89 Encounter for screening for othe r disorder ISRAEL Barrera Plan of Treatment Future Appointment(s):* 12/29/2020 2:20 pm - ISRAEL Barrera at [facility] * 10/18/2020 9:50 am - Lab Schedule at [facility] * 06/06/2021 10:00 am - ISRAEL Barrera at [facility] 10/03/2020 - ISRAEL Barrera* I10 [...] asymptomatic unless bowels are acting up. * Z68.33 Body mass index [BMI] 33.0-33.9, adult Functional Status Description No Information Available Mental Status Description No Information Available Referrals Description No Information Available
--- OUTSIDE RECORDS SUMMARY | 2020-12-10 01:50 | CCD | Continuity of Care Document ---
Author Author Lab Schedule, Ky Greenberg Organization Unknown Address [address] [place] [phone] Phone Unavailable Care Team Providers Care Sports Journalist Name Role Phone Maryann Carranza AUTM [phone] Sony Calvillo AUTM [phone] Problems Active Problems Provider Date Type 2 [...] By Mouth Every Day 90tabs Maryann Weiss, [facility] 06/02/2019 Metformin HCL 500mg Tablets take one tablet by mouth twice a day 180tabs CHIOMA Overton JR 06/02/2019 Onetouch II Test Strips Misc test twice a day e11.4 200units Maryann Weiss, [facility] 06/02/2019 Immunizations Description No Information Available [...] Result H/L Range Note Laboratory test finding 10/03/2020 [facility] Engineering And Development Director: Dr Moses [place]isholm [place], [place] [id number] [phone] Vitamin D 25-Hydroxy 30.5 ng/ml 24.0 - 80.0 1 Microalbumin/Creatinine Urine 10/03/2020 [facility] Engineering And Development Director: [place] [address] [phone] Microalbumin Urine 9.1 mg/L 1.3 - 20.0 Urine Creatinine 214.0 mg/dL High 30.0 - 125.0 Microalb/Creat Ratio 4.3 ug/mg 0.0 - 30.0 Basic Metabolic Panel 10/03/2020 [facility] Engineering And Development Director: [place] [address] [phone] Glucose 213 mg/dL High 74 - 99 2 BUN 14 mg/dL 7 - 18 Creatinine 1.0 mg/dL 0.6 - 1.3 Sodium 138 mEq/L 136 - 145 Potassium 4.2 mEq/L 3.5 - 5.1 Chloride 104 mEq/L 98 - 107 Carbon Dioxide 27 mEq/L 21 - 32 Calcium 9.2 mg/dL 8.5 - 10.1 GFR >= 60 mL/min >60 GFR >= 60 mL/min >60 3 Basic Metabolic Panel 06/21/2020 [facility] Engineering And Development Director: Dr Moses Chisholm [place], [place] [id number] [phone] Glucose 193 mg/dL High 74 - 99 4 BUN 14 mg/dL 7 - 18 Creatinine 1.0 mg/dL 0.6 - 1.3 Sodium 138 mEq/L 136 - 145 Potassium 4.3 mEq/L 3.5 - 5.1 Chloride 100 mEq/L 98 - 107 Carbon Dioxide 28 mEq/L 21 - 32 Calcium 8.7 mg/dL 8.5 - 10.1 GFR >= 60 mL/min >60 GFR >= 60 mL/min >60 5 Complete Blood Count 06/02/2020 [facility] Engineering And Development Director: Dr Moses Chisholm [place], [place] [id number] [phone] WBC 5.6 x10*3/UL 4.1 - 10.9 RBC 5.00 x10*6/UL 4.20 - 6.30 Hemoglobin 15.1 g/dL 12.0 - 18.0 Hematocrit 42.6 % 37.0 - 51.0 MCV 85.1 fL 80.0 - 97.0 MCH 30.2 pg 26.0 - 32.0 MCHC 35.5 g/dL 31.0 - 38.0 RDW 12.9 % 11.6 - 13.7 PLT 123 x10*3/UL Low 140 - 440 6 MPV 10.0 FL 7.8 - 11.0 Lymph % 23.3 % 10.0 - 58.5 Mid % 5.4 % 1.7 - 9.3 Neut % 71.3 % 37.0 - 92.0 Lymph # 1.3 x10*3/UL 0.6 - 4.1 Mid # 0.3 x10*3/UL 0.1 - 0.6 Neut # 4.0 x10*3/UL 2.0 - 7.8 Comprehensive Chem Profile 06/02/2020 [facility] Engineering And Development Director: Dr Moses Chisholm [place] [id number] [phone] Glucose 173 mg/dL High 74 - 99 7 BUN 15 mg/dL 7 - 18 Creatinine [...] mL/min >60 GFR >= 60 mL/min >60 8 A1c 06/02/2020 [facility] Engineering And Development Director: Dr Moses Chisholm [place] [id number] [phone] Hba1c 5.6 % <5.7 9 Est Avg Glucose 114 mg/dL High 60 - 110 Lipid Profile 06/02/2020 [facility] , Engineering And Development Director: Dr Moses Chisholm [place] [id number] [phone] Cholesterol 146 mg/dL 131 - 200 Triglycerides 218 mg/dL High 30 - 150 HDL Cholesterol 40 mg/dL 35 - 60 LDL (Calculated) 62 CALC 50 - 159 Laboratory test finding 04/25/2020 [place] [address] [phone] Tissue Transglutaminase IgA <2 U/mL Normal 0-3 10 Liver-Kidney Microsomal Matilde <20.1 units Normal 0.0-20.0 11 Ceruloplasmin 16.5 mg/dL Normal 16.0-31.0 12 Anti-Mitochondrial Antibody <20.0 units Normal 0.0-20.0 13 Antinuclear Antibodies 04/25/2020 [place] [id number] [phone] Antinuclear Antibodies Direct Positive Abnormal Ne gative Anti Double Strand-Dna AB 11 IU/mL High 0-9 14 FISHER CLAM Antibodies <0.2 AI Normal 0.0-0.9 Gant Antibodies <0.2 AI Normal 0.0-0.9 Sjogren's Anti SS-A <0.2 AI Normal 0.0-0.9 Sjogren's Anti SS-B <0.2 AI Normal 0.0-0.9 Duane Comment (SEE NOTE) Normal . 15 Hepatitis Profile 04/25/2020 [facility] nter [address] [place] [address] [phone] Hepatitis C Virus Matilde Index < 0.0 INDEX Normal <0. 8 Hepatitis B Surface Antigen NEGATIVE Normal Negative Hepatitis B Core Antibody Igm NEGATIVE Normal Negative Hepatitis A Antibody Igm NEGATIVE Normal Negative Laboratory test finding 04/25/[address] [address] [phone] Immunoglobulin A 175.0 mg/dL Normal 70-400 Total Iron Binding Capacit 04/25/[address] [address] [phone] Iron (Fe) 146 g/dL Normal 65-175 Total Iron Binding Capacity 365 g/dL Normal 250-450 Percent Saturation 40.0 % Normal 19.7-50.0 Liver Profile 04/25/2020 [facility] nter [address] [place] [phone] Bilirubin,Direct 0.3 mg/dL High 0.0-0.2 Comprehensive Metabolic Profil 04/25/[address] [address] [phone] Glucose, Fasting 152 mg/dL High 70-100 Blood Urea Nitrogen 17 mg/dL Normal 7-18 Creatinine For GFR 0.93 mg/dL Normal 0.70-1.30 Glomerular Filtration Rate > 60.0 Normal >56 1 6 Sodium Level 139 mEq/L Normal 136-145 Potassium [...] Albumin/Globulin Ratio 1.5 Normal Prothrombin Time/Inr 04/25/2020 [facility] enter [address] [place] [address] [phone] Prothrombin Time 14.5 seconds High 12.5-14.3 Inr 1.11 Normal 17 CBC With Differential 04/25/[address] [address] [phone] White Blood Count 5.9 10 Normal 4.0-10.0 [...] 36.0-66.0 Lymph % 23.9 % Low 24.0-44.0 Gem % 7.5 % Normal 2.0-8.0 Eos % 1.9 % Normal 0.0-3.0 Baso % 0.7 % Normal 0.0-1.0 Immature Granulocyte % 0.3 % Normal 0-3.0 Nucleated Red Blood Cell % 0.0 % Normal 0-0 Neutrophils # 3.9 10 Normal 1.5-8.5 Lymph # 1.4 10 Low 1.5-5.0 Gem # 0.4 10 Normal 0.0-0.8 Eos # 0.1 10 Normal 0.0-0.5 Baso # 0.0 10 Normal 0.0-0.2 1 This test was performed usin WTFast Vitamin D immunoassay kit. Values obtained with different assay methods should not be used interchangeably. 2 100-125 mg/dL PRE-DIABET ES/FASTING >126 mg/dL DIABETES/FASTING 3 CHRONIC KIDNEY DISEASE STAGI NG PER NKF STAGE I & II GFR >= 60 NORMAL TO MILDLY DECREASED STAGE III GFR 30-59 MODERATELY DECREASED STAGE IV GFR 15-29 SEVERELY DECREASED STAGE V GFR <15 VERY LITTLE GFR LEFT ESRD GFR <15 ON BENCH WORKER HELPER 4 100-125 mg/dL PRE-DIABET ES/FASTING >126 mg/dL DIABETES/FASTING 5 CHRONIC KIDNEY DISEASE STAGI NG PER NKF STAGE I & II GFR >= 60 NORMAL TO MILDLY DECREASED STAGE III GFR 30-59 MODERATELY DECREASED STAGE IV GFR 15-29 SEVERELY DECREASED STAGE V GFR <15 VERY LITTLE GFR LEFT ESRD GFR <15 ON BENCH WORKER HELPER 6 NOTE: RESULT VERIFIED. 7 100-125 mg/dL PRE-DIABET ES/FASTING >126 mg/dL DIABETES/FASTING 8 CHRONIC KIDNEY DISEASE STAGI NG PER NKF STAGE I & II GFR >= 60 NORMAL TO MILDLY DECREASED STAGE III GFR 30-59 MODERATELY DECREASED STAGE IV GFR 15-29 SEVERELY DECREASED STAGE V GFR <15 VERY LITTLE GFR LEFT ESRD GFR <15 ON BENCH WORKER HELPER 9 Lab Result Notes: Pre-Diabetes 5.7 - 6.4 % Diabetes = or > 6.5% 10 Negative 0 - 3 Weak Positive 4 - 10 Positive >10 . Tissue Transglutaminase (tTG) has been identified as the endomysial antigen. Studies have demonstr- ated that endomysial IgA antibodies have over 99% specificity for gluten sensitive enteropathy. 11 Negative 0.0 - 20.0 Equivocal 20.1 - 24.9 Positive >24.9 . LKM type 1 antibodies are detected in patients with autoimmune hepatitis type 2 and in up to 8% of patients with chronic HCV infection. 12 Performed at: RN - [facility] [address], [place], [place] [id number] Engineering And Development Director: Farhana Lopes MD, Phone: [phone] 13 Negative 0.0 - 20.0 Equivocal 20.1 - 24.9 Positive >24.9 . Mitochondrial (M2) Antibodies are found in 90-96% of patients with primary biliary cirrhosis. 14 Negative <5 Equivocal 5 - 9 Positive >9 15 . Autoantibody Disease Association Condition Frequency -------- [...] (anti-Gant) SLE 15 - 30% ------- --------- FISHER CLAM Mixed Connective Tissue Disease 95% (U1 nRNP, SLE 30 - 50% anti-ribonucleoprotein) Polymyositis and/or Dermatomyositis 20% -------- --------- Scl-70 (antiDNA Scleroderma (diffuse) 20 - 35% topoisomerase) Crest 13% -------- --------- Lay-1 Polymyositis and/or Dermatomyositis 20 - 40% -------- --------- Centromere B Scleroderma - Crest variant 80% 16 Units are mL/min/1.73 m2 Chronic Kidney Disease Staging per NKF: Stage I & II GFR >=60 Normal to Mildly Decreased Stage III GFR 30-59 Moderately Decreased Stage IV GFR 15-29 Severely Decreased Stage V GFR <15 Very Little GFR Left ESRD GFR <15 on BENCH WORKER HELPER 17 THERAPUTIC HUMAN INR VALUES INDICATIONS NORMAL RANGES PROPHYLAXIS/TREATMENT OF: VENOUS THROMBOSIS 2.0-3.0 PULMONARY EMBOLISM 2.0-3.0 PREVENTION OF SYSTEMIC EMBOLISM FROM: TISSUE HEART VALVES 2.0-3.0 ACUTE MYOCARDIAL INFARCTION 2.0-3.0 VALVULAR HEART DISEASE 2.0-3.0 ATRIAL FIBRILLATION 2.0-3.0 MECHANICAL VALVES(HIGH RISK) 2.5-3.5 RECURRENT MYOCARDIAL INFARCTION 2.5-3.5 Procedures Date Code Description Status 10/03/2020 39247 Office/Outpatient Established Renée york MDM 20-29 Min Completed 08/11/2020 [id number] Colonoscopy Completed 06/02/2020 94790 Est Prevent Med (40-64Yrs) Compl eted 06/02/2020 98667 EKG/Interpretation & Report Comp leted 02/24/2020 [id number] Diabetic Retinal Eye Exam Comple romeo 08/16/2019 [id number] Diabetic Retinal Eye Exam Comple [facility] 07/26/2019 [id number] Diabetic Retinal Eye Exam Comple [facility] 06/21/2010 [id number] Colonoscopy Completed Medical Devices Description No Information Available Encounters Type Date Location Provider Dx Diagnosis Office Visit 10/03/2020 3:20p [facility] ISRAEL Barrera I10 Essential (primary) hypertension Z79.84 manager long term care (current) use of o ral hypoglycemic drugs E11.40 Type 2 diabetes mellitus wit h diabetic neuropathy, unsp K57.30 Dvrtclos of lg int w/o perfo ration or abscess w/o bleeding E66.09 Other obesity due to excess calories K21.9 Gastro-esophageal reflux dis ease without esophagitis E55.9 Vitamin D deficiency, unspec ified Z68.33 Body mass index [BMI] 33.0-3 3.9, adult Office Visit 06/02/2020 9:00a [facility] Maryann Murphy ne, [facility] Z00.00 Encntr for general adult medical [...] Description Provider 10/03/2020 I10 Essential (primary) hypertension ISRAEL Barrera 10/03/2020 Z79.84 jail (current) use of oral hypoglycemic drugs ISRAEL Barrera 10/03/2020 E11.40 Type 2 diabetes christopher itus with diabetic neuropathy, unspecified ISRAEL Barrera 10/03/2020 K57.30 Diverticulosis of la rge intestine without perforation or abscess without bleeding ISRAEL Barrera 10/03/2020 E66.09 Other obesity due to excess aaron chani ISRAEL Barrera 10/03/2020 K21.9 Gastro-esophageal reflux disease without esophagitis ISRAEL Barrera 10/03/2020 E55.9 Vitamin D deficiency, unspecifie d Maryann Weiss, [facility] 10/03/2020 Z68.33 Body mass index [BMI] 33.0-33.9, adult Maryann Weiss, [facility] 06/21/2020 I10 Essential (primary) hypertension Maryann Weiss, [facility] 06/21/2020 I10 Essential (primary) hypertension Lab Schedule 06/21/2020 E11.40 Type 2 diabetes christopher itus with diabetic neuropathy, unspecified Maryann Sr [place], [facility] 06/21/2020 E11.40 Type 2 diabetes christopher itus with diabetic neuropathy, unspecified Lab Schedule 06/02/2020 Z00.00 Encounter for genera l adult medical examination without abnormal findings Maryann Weiss, [facility] 06/02/2020 I10 Essential (primary) hypertension Maryann Weiss, [facility] 06/02/2020 E11.40 Type 2 diabetes christopher itus with diabetic neuropathy, unspecified Maryann Weiss, [facility] 06/02/2020 E55.9 Vitamin D deficiency, unspecifie d Maryann Weiss, [facility] 06/02/2020 K21.9 Gastro-esophageal reflux disease without esophagitis Maryann Weiss, [facility] 06/02/2020 H68.012 Acute Eustachian salpingitis, le ft ear Maryann Weiss, [facility] 06/02/2020 E66.09 Other obesity due to excess aaron chani Maryann Weiss, [facility] 06/02/2020 Z68.34 Body mass index [BMI] 34.0-34.9, adult Maryann Weiss, [facility] 06/02/2020 Z13.89 Encounter for screening for othe r disorder ISRAEL Barrera Plan of Treatment Future Appointment(s):* 12/29/2020 2:20 pm - ISRAEL Barrera at [facility] * 06/06/2021 10:00 am - ISRAEL Barrera at [facility] 10/03/2020 - ISRAEL Barrera* I10 [...]
--- OUTSIDE RECORDS SUMMARY | 2020-12-10 01:50 | CCD | Continuity of Care Document ---
Author Author Ky Barrera Organization Unknown Address [address] [place] [address] Phone [phone] Care Team Providers Care Bookkeeping Machine Mechanic Name Role Phone Maryann Carranza AUTM [phone] Sony Calvillo AUTM [phone] Problems Active Problems Provider Date Type 2 [...] By Mouth Every Day 90tabs Maryann Weiss [facility] 06/02/2019 Metformin HCL 500mg Tablets take one tablet by mouth twice a day 180tabs CHIOMA Overton JR 06/02/2019 Onetouch II Test Strips Misc test twice a day e11.4 200units Maryann Weiss, [facility] 06/02/2019 Immunizations Description No Information Available [...] Result H/L Range Note Microalbumin/Creatinine Urine 10/03/2020 [facility] Hearing Therapy Teacher: [place] [address] [phone] Microalbumin Urine 9.1 mg/L 1.3 - 20.0 Urine Creatinine 214.0 mg/dL High 30.0 - 125.0 Microalb/Creat Ratio 4.3 ug/mg 0.0 - 30.0 Basic Metabolic Panel 10/03/2020 [facility] Hearing Therapy Teacher: Dr Moses Chisholm [place], [place] [id number] [phone] Glucose 213 mg/dL High 74 - 99 [...] mL/min >60 2 Laboratory test finding 10/03/2020 [facility] Hearing Therapy Teacher: Dr Moses Chisholm [place], [place] [address] [phone] Vitamin D 25-Hydroxy <pending> Basic Metabolic Panel 06/21/2020 [facility] Hearing Therapy Teacher: Dr Moses Chisholm [place], [place] [address]6785 [phone] Glucose 193 mg/dL High 74 - 99 [...] mL/min >60 4 Complete Blood Count 06/02/2020 [facility] Hearing Therapy Teacher: [place] [address] [phone] WBC 5.6 x10*3/UL 4.1 - 10.9 RBC [...] 2.0 - 7.8 Comprehensive Chem Profile 06/02/2020 [facility] Hearing Therapy Teacher: Dr Lopes [place] [id number] [phone] Glucose 173 mg/dL High 74 - 99 [...] >= 60 mL/min >60 7 A1c 06/02/2020 [facility] , Hearing Therapy Teacher: [place] [address] [phone] Hba1c 5.6 % <5.7 8 Est Avg Glucose 114 mg/dL High 60 - 110 Lipid Profile 06/02/2020 [facility] , Hearing Therapy Teacher: Dr Moses Chisholm [place] [id number] [phone] Cholesterol 146 mg/dL 131 - 200 Triglycerides 218 mg/dL High 30 - 150 HDL Cholesterol 40 mg/dL 35 - 60 LDL (Calculated) 62 CALC 50 - 159 Laboratory test finding 04/25/2020 [place] [address] [phone] Tissue Transglutaminase IgA <2 U/mL Normal 0-3 9 Liver-Kidney Microsomal Matilde <20.1 units Normal 0.0-20.0 10 Ceruloplasmin 16.5 mg/dL Normal 16.0-31.0 11 Anti-Mitochondrial Antibody <20.0 units Normal 0.0-20.0 12 Antinuclear Antibodies 04/25/2020 [place] [address] [phone] Antinuclear Antibodies Direct Positive Abnormal Ne gative Anti Double Strand-Dna AB 11 IU/mL High 0-9 13 MULTILITH OPERATOR Antibodies <0.2 AI Normal 0.0-0.9 Gant Antibodies <0.2 AI Normal 0.0-0.9 Sjogren's Anti SS-A <0.2 AI Normal 0.0-0.9 Sjogren's Anti SS-B <0.2 AI Normal 0.0-0.9 Duane Comment (SEE NOTE) Normal . 14 Hepatitis Profile 04/25/2020 [facility] nter [address] [place] [address] [phone] Hepatitis C Virus Matilde Index < 0.0 INDEX Normal <0. 8 Hepatitis B Surface Antigen NEGATIVE Normal Negative Hepatitis B Core Antibody Igm NEGATIVE Normal Negative Hepatitis A Antibody Igm NEGATIVE Normal Negative Laboratory test finding 04/25/[address] [address] [phone] Immunoglobulin A 175.0 mg/dL Normal 70-400 Total Iron Binding Capacit 04/25/[address] [address] [phone] Iron (Fe) 146 g/dL Normal 65-175 Total Iron Binding Capacity 365 g/dL Normal 250-450 Percent Saturation 40.0 % Normal 19.7-50.0 Liver Profile 04/25/2020 [facility] [address] [place] [address] [phone] Bilirubin,Direct 0.3 mg/dL High 0.0-0.2 Comprehensive Metabolic Profil 04/25/[address] [address] [phone] Glucose, Fasting 152 mg/dL High 70-100 Blood [...] Albumin/Globulin Ratio 1.5 Normal Prothrombin Time/Inr 04/25/2020 [facility] enter [address] [place] [address] [phone] Prothrombin Time 14.5 seconds High 12.5-14.3 Inr 1.11 Normal 16 CBC With Differential 04/25/[address] [address] [phone] White Blood Count 5.9 10 Normal 4.0-10.0 [...] 36.0-66.0 Lymph % 23.9 % Low 24.0-44.0 Wagoner % 7.5 % Normal 2.0-8.0 Eos % 1.9 % Normal 0.0-3.0 Baso % 0.7 % Normal 0.0-1.0 Immature Granulocyte % 0.3 % Normal 0-3.0 Nucleated Red Blood Cell % 0.0 % Normal 0-0 Neutrophils # 3.9 10 Normal 1.5-8.5 Lymph # 1.4 10 Low 1.5-5.0 Wagoner # 0.4 10 Normal 0.0-0.8 Eos # [...] LITTLE GFR LEFT ESRD GFR <15 ON COTTON CANDY MAKER 3 100-125 mg/dL PRE-DIABET ES/FASTING >126 mg/dL DIABETES/FASTING 4 CHRONIC KIDNEY DISEASE STAGI NG PER NKF STAGE I & II GFR >= 60 NORMAL TO MILDLY DECREASED STAGE III GFR 30-59 MODERATELY DECREASED STAGE IV GFR 15-29 SEVERELY DECREASED STAGE V GFR <15 VERY LITTLE GFR LEFT ESRD GFR <15 ON COTTON CANDY MAKER 5 NOTE: RESULT VERIFIED. 6 100-125 mg/dL PRE-DIABET ES/FASTING >126 mg/dL DIABETES/FASTING 7 CHRONIC KIDNEY DISEASE STAGI NG PER NKF STAGE I & II GFR >= 60 NORMAL TO MILDLY DECREASED STAGE III GFR 30-59 MODERATELY DECREASED STAGE IV GFR 15-29 SEVERELY DECREASED STAGE V GFR <15 VERY LITTLE GFR LEFT ESRD GFR <15 ON COTTON CANDY MAKER 8 Lab Result Notes: Pre-Diabetes 5.7 - [...] infection. 11 Performed at: RN - [facility] [address] [id number] Hearing Therapy Teacher: Farhana Lopes MD, Phone: [phone] 12 Negative 0.0 - 20.0 Equivocal 20.1 - 24.9 Positive >24.9 . Mitochondrial (M2) Antibodies are found in 90-96% of patients with primary biliary cirrhosis. 13 Negative <5 Equivocal 5 - 9 Positive >9 14 . Autoantibody Disease Association Condition Frequency -------- --------- Antinuclear Antibody, SLE, mixed connective Direct (DUAEN-D) tissue diseases -------- --------- dsDNA SLE 40 - 60% -------- --------- Chromatin Drug induced SLE 90% SLE 48 - 97% -------- --------- SSA (Ro) SLE 25 - 35% Sjogren's Syndrome 40 - 70% Lupus 100% -------- --------- SSB (La) SLE 10% Sjogren's Syndrome 30% ------- --------- Sm (anti-Gant) SLE 15 - 30% ------- --------- MULTILITH OPERATOR Mixed Connective Tissue Disease 95% (U1 nRNP, [...] Little GFR Left ESRD GFR <15 on COTTON CANDY MAKER 16 THERAPUTIC HUMAN INR VALUES INDICATIONS NORMAL RANGES PROPHYLAXIS/TREATMENT OF: VENOUS THROMBOSIS 2.0-3.0 PULMONARY EMBOLISM 2.0-3.0 PREVENTION OF SYSTEMIC EMBOLISM FROM: TISSUE HEART VALVES 2.0-3.0 ACUTE MYOCARDIAL INFARCTION 2.0-3.0 VALVULAR HEART DISEASE 2.0-3.0 ATRIAL FIBRILLATION 2.0-3.0 MECHANICAL VALVES(HIGH RISK) 2.5-3.5 RECURRENT MYOCARDIAL INFARCTION 2.5-3.5 Procedures Date Code Description Status 10/03/2020 01331 Office/Outpatient Established Lo w MDM 20-29 Min Completed 08/11/2020 [id number] Colonoscopy Completed 06/02/2020 91334 Est Prevent Med (40-64Yrs) Compl eted 06/02/2020 37735 EKG/Interpretation & Report Comp leted 02/24/2020 [id number] Diabetic Retinal Eye Exam Comple romeo 08/16/2019 [id number] Diabetic Retinal Eye Exam Comple romeo 07/26/2019 [id number] Diabetic Retinal Eye Exam Comple [facility] 06/21/2010 [id number] Colonoscopy Completed Medical Devices Description No Information [...] 33.0-3 3.9, adult Office Visit 06/02/2020 9:00a [facility] Maryann Bland, [facility] Z00.00 Encntr for general adult medical [...] itus with diabetic neuropathy, unspecified Maryann Weiss [facility] 06/21/2020 E11.40 Type 2 diabetes christopher itus with diabetic neuropathy, unspecified Lab Schedule 06/02/2020 Z00.00 Encounter for genera l adult medical examination without abnormal findings Maryann Weiss, [facility] 06/02/2020 I10 Essential (primary) hypertension Maryann Weiss [facility] 06/02/2020 E11.40 Type 2 diabetes christopher itus with diabetic neuropathy, unspecified Maryann Weiss [facility] 06/02/2020 E55.9 Vitamin D deficiency, unspecifie d Maryann Weiss, [facility] 06/02/2020 K21.9 Gastro-esophageal reflux disease without esophagitis Maryann Weiss [facility] 06/02/2020 H68.012 Acute Eustachian salpingitis, le ft ear Maryann Weiss [facility] 06/02/2020 E66.09 Other obesity due to excess aaron chani Maryann Weiss [facility] 06/02/2020 Z68.34 Body mass index [BMI] 34.0-34.9, adult Marynan Weiss [facility] 06/02/2020 Z13.89 Encounter for screening for othe r disorder ISRAEL Barrera Plan of Treatment Future Appointment(s):* 12/29/2020 2:20 pm - ISRAEL Barrera at [facility] * 10/18/2020 9:50 am - Lab Schedule at [facility] * 06/06/2021 10:00 am - ISRAEL Barrera at [facility] 10/03/2020 - ISRAEL Barrera* I10 [...]
--- OUTSIDE RECORDS SUMMARY | 2020-12-10 01:50 | CCD | Continuity of Care Document ---
Author Author Ky Barrera Organization Unknown Address [address] [place] [address] Phone [phone] Care Team Providers Care Hr Shared Services Consultant Name Role Phone Maryann Carranza AUTM [phone] Sony Calvillo AUTM [phone] Problems Active Problems Provider Date Type 2 [...] By Mouth Every Day 90tabs Maryann Weiss [facility] 06/02/2019 Metformin HCL 500mg Tablets take one tablet by mouth twice a day 180tabs CHIOMA Overton JR 06/02/2019 Onetouch II Test Strips Misc test twice a day e11.4 200units Maryann Weiss, [facility] 06/02/2019 Immunizations Description No Information [...] Result H/L Range Note Microalbumin/Creatinine Urine 10/03/2020 [facility] Manager Of School: [place] [address] [phone] Microalbumin Urine 9.1 mg/L 1.3 - 20.0 Urine Creatinine 214.0 mg/dL High 30.0 - 125.0 Microalb/Creat Ratio 4.3 ug/mg 0.0 - 30.0 Basic Metabolic Panel 10/03/2020 [facility] Manager Of School: Dr Moses Chisholm [place], [place] [id number] [phone] Glucose 213 mg/dL High 74 - 99 [...] mL/min >60 2 Laboratory test finding 10/03/2020 [facility] Manager Of School: Dr Moses Chisholm [place], [place] [address] [phone] Vitamin D 25-Hydroxy <pending> Basic Metabolic Panel 06/21/2020 [facility] Manager Of School: Dr Moses Chisholm [place], [place] [id number] [phone] Glucose 193 mg/dL High 74 - 99 [...] mL/min >60 4 Complete Blood Count 06/02/2020 [facility] Manager Of School: [place] [address] [phone] WBC 5.6 x10*3/UL 4.1 - 10.9 RBC [...] 2.0 - 7.8 Comprehensive Chem Profile 06/02/2020 [facility] Manager Of School: Dr Lopes [place] [id number] [phone] Glucose 173 mg/dL High 74 - 99 [...] >= 60 mL/min >60 7 A1c 06/02/2020 [facility] , Manager Of School: [place] [address] [phone] Hba1c 5.6 % <5.7 8 Est Avg Glucose 114 mg/dL High 60 - 110 Lipid Profile 06/02/2020 [facility] , Manager Of School: Dr Moses Chisholm [place] [id number] [phone] Cholesterol 146 mg/dL 131 - 200 Triglycerides 218 mg/dL High 30 - 150 HDL Cholesterol 40 mg/dL 35 - 60 LDL (Calculated) 62 CALC 50 - 159 Laboratory test finding 04/25/2020 [place] [address] [phone] Tissue Transglutaminase IgA <2 U/mL Normal 0-3 9 Liver-Kidney Microsomal Matilde <20.1 units Normal 0.0-20.0 10 Ceruloplasmin 16.5 mg/dL Normal 16.0-31.0 11 Anti-Mitochondrial Antibody <20.0 units Normal 0.0-20.0 12 Antinuclear Antibodies 04/25/2020 [place] [address] [phone] Antinuclear Antibodies Direct Positive Abnormal Ne gative Anti Double Strand-Dna AB 11 IU/mL High 0-9 13 UNIX ANALYST Antibodies <0.2 AI Normal 0.0-0.9 Gant Antibodies <0.2 AI Normal 0.0-0.9 Sjogren's Anti SS-A <0.2 AI Normal 0.0-0.9 Sjogren's Anti SS-B <0.2 AI Normal 0.0-0.9 Duane Comment (SEE NOTE) Normal . 14 Hepatitis Profile 04/25/2020 [facility] nter [address] [place] [address] [phone] Hepatitis C Virus Matilde Index < 0.0 INDEX Normal <0. 8 Hepatitis B Surface Antigen NEGATIVE Normal Negative Hepatitis B Core Antibody Igm NEGATIVE Normal Negative Hepatitis A Antibody Igm NEGATIVE Normal Negative Laboratory test finding 04/25/[address] [address] [phone] Immunoglobulin A 175.0 mg/dL Normal 70-400 Total Iron Binding Capacit 04/25/[address] [address] [phone] Iron (Fe) 146 g/dL Normal 65-175 Total Iron Binding Capacity 365 g/dL Normal 250-450 Percent Saturation 40.0 % Normal 19.7-50.0 [facility] Profile [facility]2020 [facility] [address] [place] [address] [phone] Bilirubin,Direct 0.3 mg/dL High 0.0-0.2 Comprehensive Metabolic Profil 04/25/[address] [address] [phone] Glucose, Fasting 152 mg/dL High 70-100 Blood [...] Albumin/Globulin Ratio 1.5 Normal Prothrombin Time/Inr 04/25/2020 [facility] enter [address] [place] [address] [phone] Prothrombin Time 14.5 seconds High 12.5-14.3 Inr 1.11 Normal 16 CBC With Differential 04/25/[address] [address] [phone] White Blood Count 5.9 10 Normal 4.0-10.0 [...] 36.0-66.0 Lymph % 23.9 % Low 24.0-44.0 Baca % 7.5 % Normal 2.0-8.0 Eos % 1.9 % Normal 0.0-3.0 Baso % 0.7 % Normal 0.0-1.0 Immature Granulocyte % 0.3 % Normal 0-3.0 Nucleated Red Blood Cell % 0.0 % Normal 0-0 Neutrophils # 3.9 10 Normal 1.5-8.5 Lymph # 1.4 10 Low 1.5-5.0 Baca # 0.4 10 Normal 0.0-0.8 Eos # [...] LITTLE GFR LEFT ESRD GFR <15 ON AIR MOTOR REPAIRER 3 100-125 mg/dL PRE-DIABET ES/FASTING >126 mg/dL DIABETES/FASTING 4 CHRONIC KIDNEY DISEASE STAGI NG PER NKF STAGE I & II GFR >= 60 NORMAL TO MILDLY DECREASED STAGE III GFR 30-59 MODERATELY DECREASED STAGE IV GFR 15-29 SEVERELY DECREASED STAGE V GFR <15 VERY LITTLE GFR LEFT ESRD GFR <15 ON AIR MOTOR REPAIRER 5 NOTE: RESULT VERIFIED. 6 100-125 mg/dL PRE-DIABET ES/FASTING >126 mg/dL DIABETES/FASTING 7 CHRONIC KIDNEY DISEASE STAGI NG PER NKF STAGE I & II GFR >= 60 NORMAL TO MILDLY DECREASED STAGE III GFR 30-59 MODERATELY DECREASED STAGE IV GFR 15-29 SEVERELY DECREASED STAGE V GFR <15 VERY LITTLE GFR LEFT ESRD GFR <15 ON AIR MOTOR REPAIRER 8 Lab Result Notes: Pre-Diabetes 5.7 - [...] infection. 11 Performed at: RN - [facility] [address] [id number] Manager Of School: Farhana Lopes MD, Phone: [phone] 12 Negative 0.0 - 20.0 Equivocal 20.1 [...] (anti-Gant) SLE 15 - 30% ------- --------- UNIX ANALYST Mixed Connective Tissue Disease 95% (U1 nRNP, [...] Little GFR Left ESRD GFR <15 on AIR MOTOR REPAIRER 16 THERAPUTIC HUMAN INR VALUES INDICATIONS NORMAL RANGES PROPHYLAXIS/TREATMENT OF: VENOUS THROMBOSIS 2.0-3.0 PULMONARY EMBOLISM 2.0-3.0 PREVENTION OF SYSTEMIC EMBOLISM FROM: TISSUE HEART VALVES 2.0-3.0 ACUTE MYOCARDIAL INFARCTION 2.0-3.0 VALVULAR HEART DISEASE 2.0-3.0 ATRIAL FIBRILLATION 2.0-3.0 MECHANICAL VALVES(HIGH RISK) 2.5-3.5 RECURRENT MYOCARDIAL INFARCTION 2.5-3.5 Procedures Date Code Description Status 10/03/2020 96218 Office/Outpatient Established Lo w MDM 20-29 Min Completed 08/11/2020 [id number] Colonoscopy Completed 06/02/2020 57234 Est Prevent Med (40-64Yrs) Compl eted 06/02/2020 57056 EKG/Interpretation & Report Comp leted 02/24/2020 [id number] Diabetic Retinal Eye Exam Comple romeo 08/16/2019 [id number] Diabetic Retinal Eye Exam Comple romeo 07/26/2019 [id number] Diabetic Retinal Eye Exam Comple [facility] 06/21/2010 [id number] Colonoscopy Completed Medical Devices Description No Information Available Encounters Type Date Location Provider Dx Diagnosis Office Visit 10/03/2020 3:20p [facility] ISRAEL Barrera I10 Essential (primary) hypertension Z79.84 emt intermediate (current) use of o ral hypoglycemic drugs E11.40 Type 2 diabetes mellitus wit h diabetic neuropathy, unsp K57.30 Dvrtclos of lg int w/o perfo ration or abscess w/o bleeding E66.09 Other obesity due to excess calories K21.9 Gastro-esophageal reflux dis ease without esophagitis E55.9 Vitamin D deficiency, unspec ified Z68.33 Body mass index [BMI] 33.0-3 3.9, adult Office Visit 06/02/2020 9:00a [facility] Maryann Murphy ne, [facility] Z00.00 Encntr for general adult [...] Essential (primary) hypertension ISRAEL Barrera 10/03/2020 Z79.84 emt intermediate (current) use of oral hypoglycemic drugs ISRAEL Barrera 10/03/2020 E11.40 Type 2 diabetes christopher itus with diabetic neuropathy, unspecified ISRAEL Barrera 10/03/2020 K57.30 Diverticulosis of la rge intestine without perforation or abscess without bleeding ISRAEL Barrera 10/03/2020 E66.09 Other obesity due to excess aaron chani ISRAEL Barrera 10/03/2020 K21.9 Gastro-esophageal reflux disease without esophagitis ISRAEL Barrera 10/03/2020 E55.9 Vitamin D deficiency, unspecifie d ISRAEL Barrera 10/03/2020 Z68.33 Body mass index [BMI] 33.0-33.9, adult Maryann Orin Nelson, [facility] 06/21/2020 I10 Essential (primary) hypertension Maryann Weiss, [facility] 06/21/2020 I10 Essential (primary) hypertension Lab Schedule 06/21/2020 E11.40 Type 2 diabetes christopher itus with diabetic neuropathy, unspecified Maryann Weiss, [facility] 06/21/2020 E11.40 Type 2 diabetes christopher itus with diabetic neuropathy, unspecified Lab Schedule 06/02/2020 Z00.00 Encounter for genera l adult medical examination without abnormal findings Maryann Weiss, [facility] 06/02/2020 I10 Essential (primary) hypertension Maryann Weiss, [facility] 06/02/2020 E11.40 Type 2 diabetes christopher itus with diabetic neuropathy, unspecified Maryann Weiss, [facility] 06/02/2020 E55.9 Vitamin D deficiency, unspecifie d Maryann Weiss, [facility] 06/02/2020 K21.9 Gastro-esophageal reflux disease without esophagitis Maryann Weiss, [facility] 06/02/2020 H68.012 Acute Eustachian salpingitis, le ft ear Maryann Weiss, [facility] 06/02/2020 E66.09 Other obesity due to excess aaron chani Maryann Weiss, [facility] 06/02/2020 Z68.34 Body mass index [BMI] 34.0-34.9, adult Maryann Orin Nelson, [facility] 06/02/2020 Z13.89 Encounter for screening for othe r disorder ISRAEL Barrera Plan of Treatment Future Appointment(s):* 12/29/2020 2:20 pm - ISRAEL Barrera at [facility] * 10/18/2020 9:50 am - Lab Schedule at [facility] * 06/06/2021 10:00 am - ISRAEL Barrera at [facility] 10/03/2020 - ISRAEL Barrera* I10 Essential (primary) hypertension* Comments:* blood pressure suboptimally controlled.Will increase Lisinopril 10 mg daily.BMP pending.Will have return in 2 weeks for BMP * Recommendations:* Recommend you eat 4-5 servings of fruits and vegetables daily. Also exercise 30 minutes daily. * Z79.84 skilled nursing (current) use of oral hypoglycemic drugs * [...]
--- OUTSIDE RECORDS SUMMARY | 2020-12-10 01:50 | CCD | Continuity of Care Document ---
Author Author Ky Barrera Organization Unknown Address [address] [place] [address] Phone [phone] Care Team Providers Care Superintendent Generating Plant Name Role Phone Marynan Carranza AUTM [phone] Sony Calvillo AUTM [phone] Problems Active Problems Provider Date Type 2 [...] By Mouth Every Day 90tabs Maryann Weiss [facility] 06/02/2019 Metformin HCL 500mg Tablets take one tablet by mouth twice a day 180tabs CHIOMA Overton JR 06/02/2019 Onetouch II Test Strips Misc test twice a day e11.4 200units Maryann Weiss, [facility] 06/02/2019 Immunizations Description No Information Available [...] Result H/L Range Note Microalbumin/Creatinine Urine 10/03/2020 [facility] Anvil Worker: Dr [place] [address] [phone] Microalbumin Urine 9.1 mg/L 1.3 - 20.0 Urine Creatinine 214.0 mg/dL High 30.0 - 125.0 Microalb/Creat Ratio 4.3 ug/mg 0.0 - 30.0 Basic Metabolic Panel 10/03/2020 [facility] Anvil Worker: Dr Moses Chisholm [place] [address] [phone] Glucose 213 mg/dL High 74 - 99 [...] mL/min >60 2 Laboratory test finding 10/03/2020 [facility] Anvil Worker: Dr Moses Chisholm [place], [place] [address] [phone] Vitamin D 25-Hydroxy <pending> Basic Metabolic Panel 06/21/2020 [facility] Anvil Worker: Dr Moses Chisholm [place], [place] [address] [phone] Glucose 193 mg/dL High 74 - 99 [...] mL/min >60 4 Complete Blood Count 06/02/2020 [facility] Anvil Worker: [place] [address] [phone] WBC 5.6 x10*3/UL 4.1 - 10.9 RBC [...] 2.0 - 7.8 Comprehensive Chem Profile 06/02/2020 [facility] marie Siegel Anvil Worker: Dr Lopes [place] [id number] [phone] Glucose 173 mg/dL High 74 - 99 [...] >= 60 mL/min >60 7 A1c 06/02/2020 [facility] , Anvil Worker: [place] [address] [phone] Hba1c 5.6 % <5.7 8 Est Avg Glucose 114 mg/dL High 60 - 110 Lipid Profile 06/02/2020 [facility] , Anvil Worker: Dr Moses Chisholm [place] [address]36 [phone] Cholesterol 146 mg/dL 131 - 200 Triglycerides 218 mg/dL High 30 - 150 HDL Cholesterol 40 mg/dL 35 - 60 LDL (Calculated) 62 CALC 50 - 159 Laboratory test finding 04/25/2020 [place] [address] [phone] Tissue Transglutaminase IgA <2 U/mL Normal 0-3 9 Liver-Kidney Microsomal Matilde <20.1 units Normal 0.0-20.0 10 Ceruloplasmin 16.5 mg/dL Normal 16.0-31.0 11 Anti-Mitochondrial Antibody <20.0 units Normal 0.0-20.0 12 Antinuclear Antibodies 04/25/2020 [place] [address] [phone] Antinuclear Antibodies Direct Positive Abnormal Ne gative Anti Double Strand-Dna AB 11 IU/mL High 0-9 13 THERAPIST RADIATION Antibodies <0.2 AI Normal 0.0-0.9 Gant Antibodies <0.2 AI Normal 0.0-0.9 Sjogren's Anti SS-A <0.2 AI Normal 0.0-0.9 Sjogren's Anti SS-B <0.2 AI Normal 0.0-0.9 Duane Comment (SEE NOTE) Normal . 14 Hepatitis Profile 04/25/2020 [facility] nter [address] [place] [address] [phone] Hepatitis C Virus Matilde Index < 0.0 INDEX Normal <0. 8 Hepatitis B Surface Antigen NEGATIVE Normal Negative Hepatitis B Core Antibody Igm NEGATIVE Normal Negative Hepatitis A Antibody Igm NEGATIVE Normal Negative Laboratory test finding 04/25/[address] [address] [phone] Immunoglobulin A 175.0 mg/dL Normal 70-400 Total Iron Binding Capacit 04/25/[address] [address] [phone] Iron (Fe) 146 g/dL Normal 65-175 Total Iron Binding Capacity 365 g/dL Normal 250-450 Percent Saturation 40.0 % Normal 19.7-50.0 Liver Profile 04/25/2020 [facility] [address] [place] [address] [phone] Bilirubin,Direct 0.3 mg/dL High 0.0-0.2 Comprehensive Metabolic Profil 04/25/[address] [address] [phone] Glucose, Fasting 152 mg/dL High 70-100 Blood [...] Time/Inr 04/25/2020 [facility] enter [address] [place] [address] [phone] Prothrombin Time 14.5 seconds High 12.5-14.3 Inr 1.11 Normal 16 CBC With Differential 04/25/[address] [address] [phone] White Blood Count 5.9 10 Normal 4.0-10.0 [...] 36.0-66.0 Lymph % 23.9 % Low 24.0-44.0 Hunt % 7.5 % Normal 2.0-8.0 Eos % 1.9 % Normal 0.0-3.0 Baso % 0.7 % Normal 0.0-1.0 Immature Granulocyte % 0.3 % Normal 0-3.0 Nucleated Red Blood Cell % 0.0 % Normal 0-0 Neutrophils # 3.9 10 Normal 1.5-8.5 Lymph # 1.4 10 Low 1.5-5.0 Hunt # 0.4 10 Normal 0.0-0.8 Eos # [...] LITTLE GFR LEFT ESRD GFR <15 ON CIRCULATION ANALYST 3 100-125 mg/dL PRE-DIABET ES/FASTING >126 mg/dL DIABETES/FASTING 4 CHRONIC KIDNEY DISEASE STAGI NG PER NKF STAGE I & II GFR >= 60 NORMAL TO MILDLY DECREASED STAGE III GFR 30-59 MODERATELY DECREASED STAGE IV GFR 15-29 SEVERELY DECREASED STAGE V GFR <15 VERY LITTLE GFR LEFT ESRD GFR <15 ON CIRCULATION ANALYST 5 NOTE: RESULT VERIFIED. 6 100-125 mg/dL PRE-DIABET ES/FASTING >126 mg/dL DIABETES/FASTING 7 CHRONIC KIDNEY DISEASE STAGI NG PER NKF STAGE I & II GFR >= 60 NORMAL TO MILDLY DECREASED STAGE III GFR 30-59 MODERATELY DECREASED STAGE IV GFR 15-29 SEVERELY DECREASED STAGE V GFR <15 VERY LITTLE GFR LEFT ESRD GFR <15 ON CIRCULATION ANALYST 8 Lab Result Notes: Pre-Diabetes 5.7 - [...] infection. 11 Performed at: RN - [facility] [address] [id number] Anvil Worker: Farhana Lopes MD, Phone: [phone] 12 Negative 0.0 - 20.0 Equivocal 20.1 [...] (anti-Gant) SLE 15 - 30% ------- --------- THERAPIST RADIATION Mixed Connective Tissue Disease 95% (U1 nRNP, [...] Little GFR Left ESRD GFR <15 on CIRCULATION ANALYST 16 THERAPUTIC HUMAN INR VALUES INDICATIONS NORMAL RANGES PROPHYLAXIS/TREATMENT OF: VENOUS THROMBOSIS 2.0-3.0 PULMONARY EMBOLISM 2.0-3.0 PREVENTION OF SYSTEMIC EMBOLISM FROM: TISSUE HEART VALVES 2.0-3.0 ACUTE MYOCARDIAL INFARCTION 2.0-3.0 VALVULAR HEART DISEASE 2.0-3.0 ATRIAL FIBRILLATION 2.0-3.0 MECHANICAL VALVES(HIGH RISK) 2.5-3.5 RECURRENT MYOCARDIAL INFARCTION 2.5-3.5 Procedures Date Code Description Status 10/03/2020 58532 Office/Outpatient Established Lo w MDM 20-29 Min Completed 08/11/2020 [id number] Colonoscopy Completed 06/02/2020 57518 Est Prevent Med (40-64Yrs) Compl eted 06/02/2020 38751 EKG/Interpretation & Report Comp leted 02/24/2020 [id number] Diabetic Retinal Eye Exam Comple romeo 08/16/2019 [id number] Diabetic Retinal Eye Exam Comple romeo 07/26/2019 [id number] Diabetic Retinal Eye Exam Comple [facility] 06/21/2010 [id number] Colonoscopy Completed Medical Devices Description No Information [...] 33.0-3 3.9, adult Office Visit 06/02/2020 9:00a [facility] Maryann Bland, [facility] Z00.00 Encntr for general adult medical [...] itus with diabetic neuropathy, unspecified Maryann Weiss [facility] 06/21/2020 E11.40 Type 2 diabetes christopher itus with diabetic neuropathy, unspecified Lab Schedule 06/02/2020 Z00.00 Encounter for genera l adult medical examination without abnormal findings Maryann Weiss, [facility] 06/02/2020 I10 Essential (primary) hypertension Maryann Weiss [facility] 06/02/2020 E11.40 Type 2 diabetes christopher itus with diabetic neuropathy, unspecified Maryann Weiss [facility] 06/02/2020 E55.9 Vitamin D deficiency, unspecifie d Maryann Weiss, [facility] 06/02/2020 K21.9 Gastro-esophageal reflux disease without esophagitis Maryann Weiss [facility] 06/02/2020 H68.012 Acute Eustachian salpingitis, le ft ear Maryann Weiss [facility] 06/02/2020 E66.09 Other obesity due to excess aaron chani Maryann Weiss [facility] 06/02/2020 Z68.34 Body mass index [BMI] 34.0-34.9, adult Maryann Weiss [facility] 06/02/2020 Z13.89 Encounter for screening for othe r disorder ISRAEL Barrera Plan of Treatment Future Appointment(s):* 12/29/2020 2:20 pm - ISRAEL Barrera at [facility] * 10/18/2020 9:50 am - Lab Schedule at [facility] * 06/06/2021 10:00 am - ISRAEL Barrera at [facility] 10/03/2020 - ISRAEL Barrera* I10 [...]
--- OUTSIDE RECORDS SUMMARY | 2020-12-10 01:50 | CCD | Continuity of Care Document ---
Author Author Ky Barrera Organization Unknown Address [address] [place] [address] Phone [phone] Care Team Providers Care Spray Machine Tender Name Role Phone Maryann Carranza AUTM [phone] Sony Calvilol AUTM [phone] Problems Active Problems Provider Date Type 2 [...] By Mouth Every Day 90tabs Maryann Weiss [facility] 06/02/2019 Metformin HCL 500mg Tablets take one tablet by mouth twice a day 180tabs CHIOMA Overton JR 06/02/2019 Onetouch II Test Strips Misc test twice a day e11.4 200units Maryann Weiss, [facility] 06/02/2019 Immunizations Description No Information Available [...] Result H/L Range Note Microalbumin/Creatinine Urine 10/03/2020 [facility] Building Construction Foreman: Dr [place] [address] [phone] Microalbumin Urine 9.1 mg/L 1.3 - 20.0 Urine Creatinine 214.0 mg/dL High 30.0 - 125.0 Microalb/Creat Ratio 4.3 ug/mg 0.0 - 30.0 Basic Metabolic Panel 10/03/2020 [facility] Building Construction Foreman: Dr Moses Chisholm [place], [place] [id number] [phone] Glucose 213 mg/dL High 74 - 99 [...] mL/min >60 2 Laboratory test finding 10/03/2020 [facility] Building Construction Foreman: [place] [address] [phone] Vitamin D 25-Hydroxy 30.5 ng/ml 24.0 - 80.0 3 Basic Metabolic Panel 06/21/2020 [facility] Building Construction Foreman: [place] [address] [phone] Glucose 193 mg/dL High 74 - 99 [...] mL/min >60 5 Complete Blood Count 06/02/2020 [facility] Building Construction Foreman: [place] [address] [phone] WBC 5.6 x10*3/UL 4.1 - 10.9 RBC [...] 2.0 - 7.8 Comprehensive Chem Profile 06/02/2020 [facility] Building Construction Foreman: [place] [address] [phone] Glucose 173 mg/dL High 74 - 99 [...] >= 60 mL/min >60 8 A1c 06/02/2020 [facility] Building Construction Foreman: Dr Moses Chisholm [place] [id number] [phone] Hba1c 5.6 % <5.7 9 Est Avg Glucose 114 mg/dL High 60 - 110 Lipid Profile 06/02/2020 [facility] Building Construction Foreman: Dr Moses Chisholm [place] [id number] [phone] Cholesterol 146 mg/dL 131 - 200 Triglycerides 218 mg/dL High 30 - 150 HDL Cholesterol 40 mg/dL 35 - 60 LDL (Calculated) 62 CALC 50 - 159 Laboratory test finding 04/25/[address] [address] [phone] Tissue Transglutaminase IgA <2 U/mL Normal 0-3 10 Liver-Kidney Microsomal Matilde <20.1 units Normal 0.0-20.0 11 Ceruloplasmin 16.5 mg/dL Normal 16.0-31.0 12 Anti-Mitochondrial Antibody <20.0 units Normal 0.0-20.0 13 Antinuclear Antibodies 04/25/[address] [address] [phone] Antinuclear Antibodies Direct Positive Abnormal Ne gative Anti Double Strand-Dna AB 11 IU/mL High 0-9 14 INSTALLER SOFT TOP Antibodies <0.2 AI Normal 0.0-0.9 Gant Antibodies <0.2 AI Normal 0.0-0.9 Sjogren's Anti SS-A <0.2 AI Normal 0.0-0.9 Sjogren's Anti SS-B <0.2 AI Normal 0.0-0.9 Duane Comment (SEE NOTE) Normal . 15 Hepatitis Profile 04/25/2020 [facility] nter [address] [place] [phone] Hepatitis C Virus Matilde Index < 0.0 INDEX Normal <0. 8 Hepatitis B Surface Antigen NEGATIVE Normal Negative Hepatitis B Core Antibody Igm NEGATIVE Normal Negative Hepatitis A Antibody Igm NEGATIVE Normal Negative Laboratory test finding 04/25/[address] [id number] [phone] Immunoglobulin A 175.0 mg/dL Normal 70-400 Total Iron Binding Capacit 04/25/[address] [id number] [phone] Iron (Fe) 146 g/dL Normal 65-175 Total Iron Binding Capacity 365 g/dL Normal 250-450 Percent Saturation 40.0 % Normal 19.7-50.0 Liver Profile 04/25/2020 [facility] nter [address] [place] [address] [phone] Bilirubin,Direct 0.3 mg/dL High 0.0-0.2 Comprehensive Metabolic Profil 04/25/[address] [id number] [phone] Glucose, Fasting 152 mg/dL High 70-100 Blood [...] Albumin/Globulin Ratio 1.5 Normal Prothrombin Time/Inr 04/25/2020 [facility] enter [address] [place] [address] [id number] [phone] Prothrombin Time 14.5 seconds High 12.5-14.3 Inr 1.11 Normal 17 CBC With Differential 04/25/[address] [address] [phone] White Blood Count 5.9 10 Normal 4.0-10.0 [...] 36.0-66.0 Lymph % 23.9 % Low 24.0-44.0 [place] % 7.5 % Normal 2.0-8.0 Eos % 1.9 % Normal 0.0-3.0 Baso % 0.7 % Normal 0.0-1.0 Immature Granulocyte % 0.3 % Normal 0-3.0 Nucleated Red Blood Cell % 0.0 % Normal 0-0 Neutrophils # 3.9 10 Normal 1.5-8.5 Lymph # 1.4 10 Low 1.5-5.0 [place] # 0.4 10 Normal 0.0-0.8 Eos # [...] LITTLE GFR LEFT ESRD GFR <15 ON RABBIT BREEDER 3 This test was performed [employer] Vitamin D immunoassay kit. Values obtained with [...] LITTLE GFR LEFT ESRD GFR <15 ON RABBIT BREEDER 6 NOTE: RESULT VERIFIED. 7 100-125 mg/dL PRE-DIABET ES/FASTING >126 mg/dL DIABETES/FASTING 8 CHRONIC KIDNEY DISEASE STAGI NG PER NKF STAGE I & II GFR >= 60 NORMAL TO MILDLY DECREASED STAGE III GFR 30-59 MODERATELY DECREASED STAGE IV GFR 15-29 SEVERELY DECREASED STAGE V GFR <15 VERY LITTLE GFR LEFT ESRD GFR <15 ON RABBIT BREEDER 9 Lab Result Notes: Pre-Diabetes 5.7 - [...] infection. 12 Performed at: RN - [facility] [address] [id number] Building Construction Foreman: Farhana Lopes MD, Phone: [phone] 13 Negative 0.0 - 20.0 Equivocal 20.1 [...] (anti-Gant) SLE 15 - 30% ------- --------- INSTALLER SOFT TOP Mixed Connective Tissue Disease 95% (U1 nRNP, [...] Little GFR Left ESRD GFR <15 on RABBIT BREEDER 17 THERAPUTIC HUMAN INR VALUES INDICATIONS NORMAL RANGES PROPHYLAXIS/TREATMENT OF: VENOUS THROMBOSIS 2.0-3.0 PULMONARY EMBOLISM 2.0-3.0 PREVENTION OF SYSTEMIC EMBOLISM FROM: TISSUE HEART VALVES 2.0-3.0 ACUTE MYOCARDIAL INFARCTION 2.0-3.0 VALVULAR HEART DISEASE 2.0-3.0 ATRIAL FIBRILLATION 2.0-3.0 MECHANICAL VALVES(HIGH RISK) 2.5-3.5 RECURRENT MYOCARDIAL INFARCTION 2.5-3.5 Procedures Date Code Description Status 10/03/2020 82619 Office/Outpatient Established Renée york MDM 20-29 Min Completed 08/11/2020 [id number] Colonoscopy Completed 06/02/2020 35479 Est Prevent Med (40-64Yrs) Compl eted 06/02/2020 60397 EKG/Interpretation & Report Comp leted 02/24/2020 [id number] Diabetic Retinal Eye Exam Comple romeo 08/16/2019 [id number] Diabetic Retinal Eye Exam Comple romeo 07/26/2019 [id number] Diabetic Retinal Eye Exam Comple romeo 06/21/2010 [id number] Colonoscopy Completed Medical Devices Description No Information Available Encounters Type Date Location Provider Dx Diagnosis Office Visit 10/03/2020 3:20p [facility] 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 Maryann Murphy ne, [facility] Z00.00 Encntr for general adult medical [...] Essential (primary) hypertension ISRAEL Barrera 10/03/2020 Z79.84 evening sitter (current) use of oral hypoglycemic drugs ISRAEL Barrera 10/03/2020 E11.40 Type 2 diabetes christopher itus with diabetic neuropathy, unspecified ISRAEL Barrera 10/03/2020 K57.30 Diverticulosis of la rge intestine without perforation or abscess without bleeding ISRAEL Barrera 10/03/2020 E66.09 Other obesity due to excess aaron chani ISRAEL Barrera 10/03/2020 K21.9 Gastro-esophageal reflux disease without esophagitis Maryann Orin Leslie, [facility] 10/03/2020 E55.9 Vitamin D deficiency, unspecifie d Maryann Sr Leslie, [facility] 10/03/2020 Z68.33 Body mass index [BMI] 33.0-33.9, adult Maryann Orin Leslie, [facility] 06/21/2020 I10 Essential (primary) hypertension Maryann Weiss, [facility] 06/21/2020 I10 Essential (primary) hypertension Lab Schedule 06/21/2020 E11.40 Type 2 diabetes christopher itus with diabetic neuropathy, unspecified Maryann Sr Leslie, [facility] 06/21/2020 E11.40 Type 2 diabetes christopher itus with diabetic neuropathy, unspecified Lab Schedule 06/02/2020 Z00.00 Encounter for genera l adult medical examination without abnormal findings Maryann Weiss, [facility] 06/02/2020 I10 Essential (primary) hypertension Maryann Weiss, [facility] 06/02/2020 E11.40 Type 2 diabetes christopher itus with diabetic neuropathy, unspecified Maryann Sr Leslie, [facility] 06/02/2020 E55.9 Vitamin D deficiency, unspecifie d Maryann Weiss, [facility] 06/02/2020 K21.9 Gastro-esophageal reflux disease without esophagitis Maryann Sr Leslie, [facility] 06/02/2020 H68.012 Acute Eustachian salpingitis, le ft ear Maryann Weiss, [facility] 06/02/2020 E66.09 Other obesity due to excess aaron chani Maryann Weiss, [facility] 06/02/2020 Z68.34 Body mass index [BMI] 34.0-34.9, adult Maryann Weiss, [facility] 06/02/2020 Z13.89 Encounter for screening for othe r disorder ISRAEL Barrera Plan of Treatment Future Appointment(s):* 12/29/2020 2:20 pm - ISRAEL Barrera at [facility] * 10/18/2020 9:50 am - Lab Schedule at [facility] * 06/06/2021 10:00 am - ISRAEL Barrera at [facility] 10/03/2020 - ISRAEL Barrera* I10 Essential (primary) hypertension* Comments:* blood pressure suboptimally controlled.Will increase Lisinopril 10 mg daily.BMP pending.Will have return in 2 weeks for BMP * Recommendations:* Recommend you eat 4-5 servings of fruits and vegetables daily. Also exercise 30 minutes daily. * Z79.84 evening sitter (current) use of oral hypoglycemic drugs * [...]
--- OUTSIDE RECORDS SUMMARY | 2020-12-10 01:50 | CCD | Continuity of Care Document ---
Author Author Lab Schedule, Ky Greenberg Organization Unknown Address [address] [place] [phone] Phone Unavailable Care Team Providers Care Solar Energy System Installer Helper Name Role Phone Maryann Carranza AUTM [phone] Sony Calvillo AUTM [phone] Problems Active Problems Provider Date Type 2 [...] By Mouth Every Day 90tabs Maryann Weiss, [facility] 06/02/2019 Metformin HCL 500mg Tablets take one tablet by mouth twice a day 180tabs CHIOMA Overton JR 06/02/2019 Onetouch II Test Strips Misc test twice a day e11.4 200units Maryann eWiss, [facility] 06/02/2019 Immunizations Description No Information Available [...] H/L Range Note Laboratory test finding 10/03/2020 [facility] Production Hand: Dr Moses [place]m [place] [id number] [phone] Vitamin D 25-Hydroxy 30.5 ng/ml 24.0 - 80.0 1 Microalbumin/Creatinine Urine 10/03/2020 [facility] Production Hand: Dr [place] [address] [phone] Microalbumin Urine 9.1 mg/L 1.3 - 20.0 Urine Creatinine 214.0 mg/dL High 30.0 - 125.0 Microalb/Creat Ratio 4.3 ug/mg 0.0 - 30.0 Basic Metabolic Panel 10/03/2020 [facility] Production Hand: Dr [place] [address] [phone] Glucose 213 mg/dL High 74 - 99 [...] mL/min >60 3 Basic Metabolic Panel 06/21/2020 [facility] Production Hand: Dr Moses Chisholm [place], [place] [id number] [phone] Glucose 193 mg/dL High 74 - 99 [...] mL/min >60 5 Complete Blood Count 06/02/2020 [facility] Production Hand: Dr Moses Chisholm [place], [place] [id number] [phone] WBC 5.6 x10*3/UL 4.1 - 10.9 RBC [...] 2.0 - 7.8 Comprehensive Chem Profile 06/02/2020 [facility] Production Hand: Dr Moses [place]ish[place]m [place] [id number] [phone] Glucose 173 mg/dL High 74 - 99 [...] >= 60 mL/min >60 8 A1c 06/02/2020 [facility] , Production Hand: Dr Moses Chisholm [place] [id number] [phone] Hba1c 5.6 % <5.7 9 Est Avg Glucose 114 mg/dL High 60 - 110 Lipid Profile 06/02/2020 [facility] , Production Hand: Dr Moses Chisholm [place] [id number] [phone] Cholesterol 146 mg/dL 131 - 200 Triglycerides 218 mg/dL High 30 - 150 HDL Cholesterol 40 mg/dL 35 - 60 LDL (Calculated) 62 CALC 50 - 159 Laboratory test finding 04/25/2020 [place] [address] [phone] Tissue Transglutaminase IgA <2 U/mL Normal 0-3 10 Liver-Kidney Microsomal Matilde <20.1 units Normal 0.0-20.0 11 Ceruloplasmin 16.5 mg/dL Normal 16.0-31.0 12 Anti-Mitochondrial Antibody <20.0 units Normal 0.0-20.0 13 Antinuclear Antibodies 04/25/2020 [place] 3038002 [phone] Antinuclear Antibodies Direct Positive Abnormal Ne gative Anti Double Strand-Dna AB 11 IU/mL High 0-9 14 JACKER FEEDER Antibodies <0.2 AI Normal 0.0-0.9 Gant Antibodies <0.2 AI Normal 0.0-0.9 Sjogren's Anti SS-A <0.2 AI Normal 0.0-0.9 Sjogren's Anti SS-B <0.2 AI Normal 0.0-0.9 Duane Comment (SEE NOTE) Normal . 15 Hepatitis Profile 04/25/2020 [facility] nter [address] [place] [address] [phone] Hepatitis C Virus Matilde Index < 0.0 INDEX Normal <0. 8 Hepatitis B Surface Antigen NEGATIVE Normal Negative Hepatitis B Core Antibody Igm NEGATIVE Normal Negative Hepatitis A Antibody Igm NEGATIVE Normal Negative Laboratory test finding 04/25/[address] [address] [phone] Immunoglobulin A 175.0 mg/dL Normal 70-400 Total Iron Binding Capacit 04/25/[address] [address] [phone] Iron (Fe) 146 g/dL Normal 65-175 Total Iron Binding Capacity 365 g/dL Normal 250-450 Percent Saturation 40.0 % Normal 19.7-50.0 Liver Profile 04/25/2020 [facility] nter [address] [place] [address] [phone] Bilirubin,Direct 0.3 mg/dL High 0.0-0.2 Comprehensive Metabolic Profil 04/25/[address] [address] [phone] Glucose, Fasting 152 mg/dL High 70-100 Blood [...] Albumin/Globulin Ratio 1.5 Normal Prothrombin Time/Inr 04/25/2020 [facility] enter [address] [place] [address] [phone] Prothrombin Time 14.5 seconds High 12.5-14.3 Inr 1.11 Normal 17 CBC With Differential 04/25/[address] [address] [phone] White Blood Count 5.9 10 Normal 4.0-10.0 [...] 36.0-66.0 Lymph % 23.9 % Low 24.0-44.0 [place] % 7.5 % Normal 2.0-8.0 Eos % 1.9 % Normal 0.0-3.0 Baso % 0.7 % Normal 0.0-1.0 Immature Granulocyte % 0.3 % Normal 0-3.0 Nucleated Red Blood Cell % 0.0 % Normal 0-0 Neutrophils # 3.9 10 Normal 1.5-8.5 Lymph # 1.4 10 Low 1.5-5.0 [place] # 0.4 10 Normal 0.0-0.8 Eos # 0.1 10 Normal 0.0-0.5 Baso # 0.0 10 Normal 0.0-0.2 1 This test was performed usin [employer] Vitamin D immunoassay kit. Values obtained with [...] LITTLE GFR LEFT ESRD GFR <15 ON ORAL AND MAXILLOFACIAL SURGEON 4 100-125 mg/dL PRE-DIABET ES/FASTING >126 mg/dL DIABETES/FASTING 5 CHRONIC KIDNEY DISEASE STAGI NG PER NKF STAGE I & II GFR >= 60 NORMAL TO MILDLY DECREASED STAGE III GFR 30-59 MODERATELY DECREASED STAGE IV GFR 15-29 SEVERELY DECREASED STAGE V GFR <15 VERY LITTLE GFR LEFT ESRD GFR <15 ON ORAL AND MAXILLOFACIAL SURGEON 6 NOTE: RESULT VERIFIED. 7 100-125 mg/dL PRE-DIABET ES/FASTING >126 mg/dL DIABETES/FASTING 8 CHRONIC KIDNEY DISEASE STAGI NG PER NKF STAGE I & II GFR >= 60 NORMAL TO MILDLY DECREASED STAGE III GFR 30-59 MODERATELY DECREASED STAGE IV GFR 15-29 SEVERELY DECREASED STAGE V GFR <15 VERY LITTLE GFR LEFT ESRD GFR <15 ON ORAL AND MAXILLOFACIAL SURGEON 9 Lab Result Notes: Pre-Diabetes 5.7 - [...] infection. 12 Performed at: RN - [facility] [address], [place], [place] [id number] Production Hand: Farhana Lopes MD, Phone: [phone] 13 Negative 0.0 - 20.0 Equivocal 20.1 [...] (anti-Gant) SLE 15 - 30% ------- --------- JACKER FEEDER Mixed Connective Tissue Disease 95% (U1 nRNP, [...] Little GFR Left ESRD GFR <15 on ORAL AND MAXILLOFACIAL SURGEON 17 THERAPUTIC HUMAN INR VALUES INDICATIONS NORMAL RANGES PROPHYLAXIS/TREATMENT OF: VENOUS THROMBOSIS 2.0-3.0 PULMONARY EMBOLISM 2.0-3.0 PREVENTION OF SYSTEMIC EMBOLISM FROM: TISSUE HEART VALVES 2.0-3.0 ACUTE MYOCARDIAL INFARCTION 2.0-3.0 VALVULAR HEART DISEASE 2.0-3.0 ATRIAL FIBRILLATION 2.0-3.0 MECHANICAL VALVES(HIGH RISK) 2.5-3.5 RECURRENT MYOCARDIAL INFARCTION 2.5-3.5 Procedures Date Code Description Status 10/03/2020 61859 Office/Outpatient Established Renée york MDM 20-29 Min Completed 08/11/2020 [id number] Colonoscopy Completed 06/02/2020 88342 Est Prevent Med (40-64Yrs) Compl eted 06/02/2020 51053 EKG/Interpretation & Report Comp leted 02/24/2020 [id number] Diabetic Retinal Eye Exam Comple romeo 08/16/2019 [id number] Diabetic Retinal Eye Exam Comple [facility] 07/26/2019 [id number] Diabetic Retinal Eye Exam Comple [facility] 06/21/2010 [id number] Colonoscopy Completed Medical Devices Description No Information Available Encounters Type Date Location Provider Dx Diagnosis Office Visit 10/03/2020 3:20p [facility] 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 Maryann Murphy ne, [facility] Z00.00 Encntr for general adult medical [...] Essential (primary) hypertension ISRAEL Barrera 10/03/2020 Z79.84 group home (current) use of oral hypoglycemic drugs ISRAEL [...] Vitamin D deficiency, unspecifie d Maryann Weiss, [facility] 10/03/2020 Z68.33 Body mass index [BMI] 33.0-33.9, adult Maryann Weiss, [facility] 06/21/2020 I10 Essential (primary) hypertension Maryann Weiss, [facility] 06/21/2020 I10 Essential (primary) hypertension Lab Schedule 06/21/2020 E11.40 Type 2 diabetes christopher itus with diabetic neuropathy, unspecified Maryann Sr Davis, [facility] 06/21/2020 E11.40 Type 2 diabetes christopher itus with diabetic neuropathy, unspecified Lab Schedule 06/02/2020 Z00.00 Encounter for genera l adult medical examination without abnormal findings Mrayann Weiss, [facility] 06/02/2020 I10 Essential (primary) hypertension Maryann Weiss, [facility] 06/02/2020 E11.40 Type 2 diabetes christopher itus with diabetic neuropathy, unspecified Maryann Weiss, [facility] 06/02/2020 E55.9 Vitamin D deficiency, unspecifie d Maryann Weiss, [facility] 06/02/2020 K21.9 Gastro-esophageal reflux disease without esophagitis Maryann Weiss, [facility] 06/02/2020 H68.012 Acute Eustachian salpingitis, le ft ear Maryann Weiss, [facility] 06/02/2020 E66.09 Other obesity due to excess aaron chani Maryann Weiss, [facility] 06/02/2020 Z68.34 Body mass index [BMI] 34.0-34.9, adult Maryann Weiss, [facility] 06/02/2020 Z13.89 Encounter for screening for othe r disorder ISRAEL Barrera Plan of Treatment Future Appointment(s):* 12/29/2020 2:20 pm - ISRAEL Barrera at [facility] * 06/06/2021 10:00 am - ISRAEL Barrera at [facility] 10/03/2020 - ISRAEL Barrera* I10 Essential (primary) hypertension* Comments:* blood pressure suboptimally controlled.Will increase Lisinopril 10 mg daily.BMP pending.Will have return in 2 weeks for BMP * Recommendations:* Recommend you eat 4-5 servings of fruits and vegetables daily. Also exercise 30 minutes daily. * Z79.84 group home (current) use of oral hypoglycemic drugs * [...]
--- OUTSIDE RECORDS SUMMARY | 2020-12-10 01:50 | CCD | Continuity of Care Document ---
Author Author Ky Barrera Organization Unknown Address [address] [place] [address] Phone [phone] Care Team Providers Care Children Librarian Name Role Phone Maryann Carranza AUTM [phone] Sony Calvillo AUTM [phone] Problems Active Problems Provider Date Type 2 [...] By Mouth Every Day 90tabs Maryann Weiss [facility] 06/02/2019 Metformin HCL 500mg Tablets take one tablet by mouth twice a day 180tabs CHIOMA Overton JR 06/02/2019 Onetouch II Test Strips Misc test twice a day e11.4 200units Maryann Weiss, [facility] 06/02/2019 Immunizations Description No Information Available [...] Result H/L Range Note Microalbumin/Creatinine Urine 10/03/2020 [facility] Curing Oven Attendant: Dr Moses [place] [address] [phone] Microalbumin Urine 9.1 mg/L 1.3 - 20.0 Urine Creatinine 214.0 mg/dL High 30.0 - 125.0 Microalb/Creat Ratio 4.3 ug/mg 0.0 - 30.0 Basic Metabolic Panel 10/03/2020 [facility] Curing Oven Attendant: Dr Moses Chisholm [place] [id number] [phone] Glucose 213 mg/dL High 74 - 99 [...] mL/min >60 2 Laboratory test finding 10/03/2020 [facility] Curing Oven Attendant: Dr Moses Chisholm [place], [place] [address] [phone] Vitamin D 25-Hydroxy <pending> Basic Metabolic Panel 06/21/2020 [facility] Curing Oven Attendant: Dr Moses Chisholm [place], [place] [address] [phone] Glucose 193 mg/dL High 74 - 99 [...] mL/min >60 4 Complete Blood Count 06/02/2020 [facility] Curing Oven Attendant: [place] [address] [phone] WBC 5.6 x10*3/UL 4.1 - 10.9 RBC [...] 2.0 - 7.8 Comprehensive Chem Profile 06/02/2020 [facility] Curing Oven Attendant: Dr Lopes [place] [id number] [phone] Glucose 173 mg/dL High 74 - 99 [...] >= 60 mL/min >60 7 A1c 06/02/2020 [facility] , Curing Oven Attendant: [place] [address] [phone] Hba1c 5.6 % <5.7 8 Est Avg Glucose 114 mg/dL High 60 - 110 Lipid Profile 06/02/2020 [facility] , Curing Oven Attendant: Dr Moses Chisholm [place] [id number] [phone] Cholesterol 146 mg/dL 131 - 200 Triglycerides 218 mg/dL High 30 - 150 HDL Cholesterol 40 mg/dL 35 - 60 LDL (Calculated) 62 CALC 50 - 159 Laboratory test finding 04/25/2020 [place] [address] [phone] Tissue Transglutaminase IgA <2 U/mL Normal 0-3 9 Liver-Kidney Microsomal Matilde <20.1 units Normal 0.0-20.0 10 Ceruloplasmin 16.5 mg/dL Normal 16.0-31.0 11 Anti-Mitochondrial Antibody <20.0 units Normal 0.0-20.0 12 Antinuclear Antibodies 04/25/2020 [place] [address] [phone] Antinuclear Antibodies Direct Positive Abnormal Ne gative Anti Double Strand-Dna AB 11 IU/mL High 0-9 13 BLASTING ENTRYMAN Antibodies <0.2 AI Normal 0.0-0.9 Gant Antibodies <0.2 AI Normal 0.0-0.9 Sjogren's Anti SS-A <0.2 AI Normal 0.0-0.9 Sjogren's Anti SS-B <0.2 AI Normal 0.0-0.9 Duane Comment (SEE NOTE) Normal . 14 Hepatitis Profile 04/25/2020 [facility] nter [address] [place] [address] [phone] Hepatitis C Virus Matilde Index < 0.0 INDEX Normal <0. 8 Hepatitis B Surface Antigen NEGATIVE Normal Negative Hepatitis B Core Antibody Igm NEGATIVE Normal Negative Hepatitis A Antibody Igm NEGATIVE Normal Negative Laboratory test finding 04/25/[address] [address] [phone] Immunoglobulin A 175.0 mg/dL Normal 70-400 Total Iron Binding Capacit 04/25/[address] [address] [phone] Iron (Fe) 146 g/dL Normal 65-175 Total Iron Binding Capacity 365 g/dL Normal 250-450 Percent Saturation 40.0 % Normal 19.7-50.0 [facility] Profile [facility] [address] [place] [address] [phone] Bilirubin,Direct 0.3 mg/dL High 0.0-0.2 Comprehensive Metabolic Profil 04/25/[address] [address] [phone] Glucose, Fasting 152 mg/dL High 70-100 Blood [...] Albumin/Globulin Ratio 1.5 Normal Prothrombin Time/Inr 04/25/2020 [facility] enter [address] [place] [address] [phone] Prothrombin Time 14.5 seconds High 12.5-14.3 Inr 1.11 Normal 16 CBC With Differential 04/25/[address] [address] [phone] White Blood Count 5.9 10 Normal 4.0-10.0 [...] 36.0-66.0 Lymph % 23.9 % Low 24.0-44.0 Coles % 7.5 % Normal 2.0-8.0 Eos % 1.9 % Normal 0.0-3.0 Baso % 0.7 % Normal 0.0-1.0 Immature Granulocyte % 0.3 % Normal 0-3.0 Nucleated Red Blood Cell % 0.0 % Normal 0-0 Neutrophils # 3.9 10 Normal 1.5-8.5 Lymph # 1.4 10 Low 1.5-5.0 Coles # 0.4 10 Normal 0.0-0.8 Eos # [...] LITTLE GFR LEFT ESRD GFR <15 ON ROUGE MIXER 3 100-125 mg/dL PRE-DIABET ES/FASTING >126 mg/dL DIABETES/FASTING 4 CHRONIC KIDNEY DISEASE STAGI NG PER NKF STAGE I & II GFR >= 60 NORMAL TO MILDLY DECREASED STAGE III GFR 30-59 MODERATELY DECREASED STAGE IV GFR 15-29 SEVERELY DECREASED STAGE V GFR <15 VERY LITTLE GFR LEFT ESRD GFR <15 ON ROUGE MIXER 5 NOTE: RESULT VERIFIED. 6 100-125 mg/dL PRE-DIABET ES/FASTING >126 mg/dL DIABETES/FASTING 7 CHRONIC KIDNEY DISEASE STAGI NG PER NKF STAGE I & II GFR >= 60 NORMAL TO MILDLY DECREASED STAGE III GFR 30-59 MODERATELY DECREASED STAGE IV GFR 15-29 SEVERELY DECREASED STAGE V GFR <15 VERY LITTLE GFR LEFT ESRD GFR <15 ON ROUGE MIXER 8 Lab Result Notes: Pre-Diabetes 5.7 - [...] infection. 11 Performed at: RN - [facility] [address] [id number] Curing Oven Attendant: Farhana Lopes MD, Phone: [phone] 12 Negative 0.0 - 20.0 Equivocal 20.1 [...] (anti-Gant) SLE 15 - 30% ------- --------- BLASTING ENTRYMAN Mixed Connective Tissue Disease 95% (U1 nRNP, [...] Little GFR Left ESRD GFR <15 on ROUGE MIXER 16 THERAPUTIC HUMAN INR VALUES INDICATIONS NORMAL RANGES PROPHYLAXIS/TREATMENT OF: VENOUS THROMBOSIS 2.0-3.0 PULMONARY EMBOLISM 2.0-3.0 PREVENTION OF SYSTEMIC EMBOLISM FROM: TISSUE HEART VALVES 2.0-3.0 ACUTE MYOCARDIAL INFARCTION 2.0-3.0 VALVULAR HEART DISEASE 2.0-3.0 ATRIAL FIBRILLATION 2.0-3.0 MECHANICAL VALVES(HIGH RISK) 2.5-3.5 RECURRENT MYOCARDIAL INFARCTION 2.5-3.5 Procedures Date Code Description Status 10/03/2020 17079 Office/Outpatient Established Lo w MDM 20-29 Min Completed 08/11/2020 [id number] Colonoscopy Completed 06/02/2020 26952 Est Prevent Med (40-64Yrs) Compl eted 06/02/2020 51448 EKG/Interpretation & Report Comp leted 02/24/2020 [id number] Diabetic Retinal Eye Exam Comple [facility] 08/16/2019 [id number] Diabetic Retinal Eye Exam Comple [facility] 07/26/2019 [id number] Diabetic Retinal Eye Exam [facility]ple [facility] 06/21/2010 [id number] Colonoscopy Completed Medical Devices Description No Information [...] 33.0-3 3.9, adult Office Visit 06/02/2020 9:00a [facility] Maryann Bland, [facility] Z00.00 Encntr for general adult medical [...] Z68.33 Body mass index [BMI] 33.0-33.9, adult IRSAEL Barrera 06/21/2020 I10 Essential (primary) hypertension ISRAEL Barrera 06/21/2020 I10 Essential (primary) hypertension Lab Schedule 06/21/2020 E11.40 Type 2 diabetes christopher itus with diabetic neuropathy, unspecified Maryann Weiss [facility] 06/21/2020 E11.40 Type 2 diabetes christopher itus with diabetic neuropathy, unspecified Lab Schedule 06/02/2020 Z00.00 Encounter for genera l adult medical examination without abnormal findings Maryann Weiss, [facility] 06/02/2020 I10 Essential (primary) hypertension Maryann Weiss [facility] 06/02/2020 E11.40 Type 2 diabetes christopher itus with diabetic neuropathy, unspecified Maryann Weiss [facility] 06/02/2020 E55.9 Vitamin D deficiency, unspecifie d Maryann Weiss, [facility] 06/02/2020 K21.9 Gastro-esophageal reflux disease without esophagitis Maryann Weiss [facility] 06/02/2020 H68.012 Acute Eustachian salpingitis, le ft ear Maryann Weiss [facility] 06/02/2020 E66.09 Other obesity due to excess aaron chani Maryann Weiss [facility] 06/02/2020 Z68.34 Body mass index [BMI] 34.0-34.9, adult Maryann Weiss [facility] 06/02/2020 Z13.89 Encounter for screening for othe r disorder ISRAEL Barrera Plan of Treatment Future Appointment(s):* 12/29/2020 2:20 pm - ISRAEL Barrera at [facility] * 10/18/2020 9:50 am - Lab Schedule at [facility] * 06/06/2021 10:00 am - ISRAEL Barrera at [facility] 10/03/2020 - ISRAEL Barrera* I10 [...]
--- OUTSIDE RECORDS SUMMARY | 2020-12-10 01:50 | CCD | Continuity of Care Document ---
Author Author Ky Barrera Organization Unknown Address [address] [place] [address] Phone [phone] Care Team Providers Care Appointment Scheduler Name Role Phone Maryann Carranza AUTM [phone] Sony Calvillo AUTM [phone] Problems Active Problems Provider Date Type 2 [...] By Mouth Every Day 90tabs Maryann Weiss [facility] 06/02/2019 Metformin HCL 500mg Tablets take one tablet by mouth twice a day 180tabs CHIOMA Overton JR 06/02/2019 Onetouch II Test Strips Misc test twice a day e11.4 200units Maryann Weiss, [facility] 06/02/2019 Immunizations Description No Information Available [...] Result H/L Range Note Microalbumin/Creatinine Urine 10/03/2020 [facility] Sail Repairer: [place] [address] [phone] Microalbumin Urine 9.1 mg/L 1.3 - 20.0 Urine Creatinine 214.0 mg/dL High 30.0 - 125.0 Microalb/Creat Ratio 4.3 ug/mg 0.0 - 30.0 Basic Metabolic Panel 10/03/2020 [facility] Sail Repairer: Dr Moses [place]isholm [place], [place] [address] [phone] Glucose 213 mg/dL High 74 - 99 [...] mL/min >60 2 Laboratory test finding 10/03/2020 [facility] Sail Repairer: Dr Moses Chisholm [place], [place] [address] [phone] Vitamin D 25-Hydroxy <pending> Basic Metabolic Panel 06/21/2020 [facility] Sail Repairer: Dr Moses Chisholm [place], [place] [address] [phone] Glucose 193 mg/dL High 74 - 99 [...] mL/min >60 4 Complete Blood Count 06/02/2020 [facility] Sail Repairer: [place] [address] [phone] WBC 5.6 x10*3/UL 4.1 - 10.9 RBC [...] 2.0 - 7.8 Comprehensive Chem Profile 06/02/2020 [facility] Sail Repairer: Dr Lopes [place] [id number] [phone] Glucose 173 mg/dL High 74 - 99 [...] >= 60 mL/min >60 7 A1c 06/02/2020 [facility] , Sail Repairer: [place] [address] [phone] Hba1c 5.6 % <5.7 8 Est Avg Glucose 114 mg/dL High 60 - 110 Lipid Profile 06/02/2020 [facility] , Sail Repairer: Dr Moses Chisholm [place] [id number] [phone] Cholesterol 146 mg/dL 131 - 200 Triglycerides 218 mg/dL High 30 - 150 HDL Cholesterol 40 mg/dL 35 - 60 LDL (Calculated) 62 CALC 50 - 159 Laboratory test finding 04/25/2020 [place] [address] [phone] Tissue Transglutaminase IgA <2 U/mL Normal 0-3 9 Liver-Kidney Microsomal Matilde <20.1 units Normal 0.0-20.0 10 Ceruloplasmin 16.5 mg/dL Normal 16.0-31.0 11 Anti-Mitochondrial Antibody <20.0 units Normal 0.0-20.0 12 Antinuclear Antibodies 04/25/2020 [place] [address] [phone] Antinuclear Antibodies Direct Positive Abnormal Ne gative Anti Double Strand-Dna AB 11 IU/mL High 0-9 13 MACHINE MOVER Antibodies <0.2 AI Normal 0.0-0.9 Gant Antibodies <0.2 AI Normal 0.0-0.9 Sjogren's Anti SS-A <0.2 AI Normal 0.0-0.9 Sjogren's Anti SS-B <0.2 AI Normal 0.0-0.9 Duane Comment (SEE NOTE) Normal . 14 Hepatitis Profile 04/25/2020 [facility] nter [address] [place] [address] [phone] Hepatitis C Virus Matilde Index < 0.0 INDEX Normal <0. 8 Hepatitis B Surface Antigen NEGATIVE Normal Negative Hepatitis B Core Antibody Igm NEGATIVE Normal Negative Hepatitis A Antibody Igm NEGATIVE Normal Negative Laboratory test finding 04/25/[address] [address] [phone] Immunoglobulin A 175.0 mg/dL Normal 70-400 Total Iron Binding Capacit 04/25/[address] [address] [phone] Iron (Fe) 146 g/dL Normal 65-175 Total Iron Binding Capacity 365 g/dL Normal 250-450 Percent Saturation 40.0 % Normal 19.7-50.0 Liver Profile 04/25/[facility] [address] [place] [address] [phone] Bilirubin,Direct 0.3 mg/dL High 0.0-0.2 Comprehensive Metabolic Profil 04/25/[address] [address] [phone] Glucose, Fasting 152 mg/dL High 70-100 Blood [...] Albumin/Globulin Ratio 1.5 Normal Prothrombin Time/Inr 04/25/2020 [facility] enter [address] [place] [address] [phone] Prothrombin Time 14.5 seconds High 12.5-14.3 Inr 1.11 Normal 16 CBC With Differential 04/25/[address] [address] [phone] White Blood Count 5.9 10 Normal 4.0-10.0 [...] 36.0-66.0 Lymph % 23.9 % Low 24.0-44.0 Jay % 7.5 % Normal 2.0-8.0 Eos % 1.9 % Normal 0.0-3.0 Baso % 0.7 % Normal 0.0-1.0 Immature Granulocyte % 0.3 % Normal 0-3.0 Nucleated Red Blood Cell % 0.0 % Normal 0-0 Neutrophils # 3.9 10 Normal 1.5-8.5 Lymph # 1.4 10 Low 1.5-5.0 Jay # 0.4 10 Normal 0.0-0.8 Eos # [...] LITTLE GFR LEFT ESRD GFR <15 ON DARKLIGHT INSPECTOR 3 100-125 mg/dL PRE-DIABET ES/FASTING >126 mg/dL DIABETES/FASTING 4 CHRONIC KIDNEY DISEASE STAGI NG PER NKF STAGE I & II GFR >= 60 NORMAL TO MILDLY DECREASED STAGE III GFR 30-59 MODERATELY DECREASED STAGE IV GFR 15-29 SEVERELY DECREASED STAGE V GFR <15 VERY LITTLE GFR LEFT ESRD GFR <15 ON DARKLIGHT INSPECTOR 5 NOTE: RESULT VERIFIED. 6 100-125 mg/dL PRE-DIABET ES/FASTING >126 mg/dL DIABETES/FASTING 7 CHRONIC KIDNEY DISEASE STAGI NG PER NKF STAGE I & II GFR >= 60 NORMAL TO MILDLY DECREASED STAGE III GFR 30-59 MODERATELY DECREASED STAGE IV GFR 15-29 SEVERELY DECREASED STAGE V GFR <15 VERY LITTLE GFR LEFT ESRD GFR <15 ON DARKLIGHT INSPECTOR 8 Lab Result Notes: Pre-Diabetes 5.7 - [...] infection. 11 Performed at: RN - [facility] [address] [id number] Sail Repairer: Farhana Lopes MD, Phone: [phone] 12 Negative 0.0 - 20.0 Equivocal 20.1 [...] (anti-Gant) SLE 15 - 30% ------- --------- MACHINE MOVER Mixed Connective Tissue Disease 95% (U1 nRNP, [...] Little GFR Left ESRD GFR <15 on DARKLIGHT INSPECTOR 16 THERAPUTIC HUMAN INR VALUES INDICATIONS NORMAL RANGES PROPHYLAXIS/TREATMENT OF: VENOUS THROMBOSIS 2.0-3.0 PULMONARY EMBOLISM 2.0-3.0 PREVENTION OF SYSTEMIC EMBOLISM FROM: TISSUE HEART VALVES 2.0-3.0 ACUTE MYOCARDIAL INFARCTION 2.0-3.0 VALVULAR HEART DISEASE 2.0-3.0 ATRIAL FIBRILLATION 2.0-3.0 MECHANICAL VALVES(HIGH RISK) 2.5-3.5 RECURRENT MYOCARDIAL INFARCTION 2.5-3.5 Procedures Date Code Description Status 10/03/2020 36554 Office/Outpatient Established Lo w MDM 20-29 Min Completed 08/11/2020 [id number] Colonoscopy Completed 06/02/2020 22019 Est Prevent Med (40-64Yrs) Compl eted 06/02/2020 93961 EKG/Interpretation & Report Comp leted 02/24/2020 [id number] Diabetic Retinal Eye Exam Comple [facility] 08/16/2019 [id number] Diabetic Retinal Eye Exam Comple [facility] 07/26/2019 [id number] Diabetic Retinal Eye Exam Comple [facility] 06/21/2010 [id number] Colonoscopy Completed Medical Devices Description No Information [...] 33.0-3 3.9, adult Office Visit 06/02/2020 9:00a [facility] Maryann Bland, [facility] Z00.00 Encntr for general adult medical [...] itus with diabetic neuropathy, unspecified Maryann Weiss [facility] 06/21/2020 E11.40 Type 2 diabetes christopher itus with diabetic neuropathy, unspecified Lab Schedule 06/02/2020 Z00.00 Encounter for genera l adult medical examination without abnormal findings Maryann Weiss, [facility] 06/02/2020 I10 Essential (primary) hypertension Maryann Weiss [facility] 06/02/2020 E11.40 Type 2 diabetes christopher itus with diabetic neuropathy, unspecified Maryann Weiss [facility] 06/02/2020 E55.9 Vitamin D deficiency, unspecifie d Maryann Weiss, [facility] 06/02/2020 K21.9 Gastro-esophageal reflux disease without esophagitis Maryann Weiss [facility] 06/02/2020 H68.012 Acute Eustachian salpingitis, le ft ear Maryann Weiss [facility] 06/02/2020 E66.09 Other obesity due to excess aaron chani Maryann Weiss [facility] 06/02/2020 Z68.34 Body mass index [BMI] 34.0-34.9, adult Maryann Weiss [facility] 06/02/2020 Z13.89 Encounter for screening for othe r disorder ISRAEL Barrera Plan of Treatment Future Appointment(s):* 12/29/2020 2:20 pm - ISRAEL Barrera at [facility] * 10/18/2020 9:50 am - Lab Schedule at [facility] * 06/06/2021 10:00 am - ISRAEL Barrera at [facility] 10/03/2020 - ISRAEL Barrera* I10 [...]
--- OUTSIDE RECORDS SUMMARY | 2020-12-10 01:50 | CCD | Continuity of Care Document ---
Author Author Ky Barrera Organization Unknown Address [address] [place] [address] Phone [phone] Care Team Providers Care Television Program Director Name Role Phone Maryann Carranza AUTM [phone] Sony Calvillo AUTM [phone] Problems Active Problems Provider Date Type 2 [...] By Mouth Every Day 90tabs Maryann Weiss [facility] 06/02/2019 Metformin HCL 500mg Tablets take one tablet by mouth twice a day 180tabs CHIOMA Overton JR 06/02/2019 Onetouch II Test Strips Misc test twice a day e11.4 200units Maryann Weiss, [facility] 06/02/2019 Immunizations Description No [...] Result H/L Range Note Microalbumin/Creatinine Urine 10/03/2020 [facility] Area Coordinator: Dr Moses [place] [address] [phone] Microalbumin Urine 9.1 mg/L 1.3 - 20.0 Urine Creatinine 214.0 mg/dL High 30.0 - 125.0 Microalb/Creat Ratio 4.3 ug/mg 0.0 - 30.0 Basic Metabolic Panel 10/03/2020 [facility] Area Coordinator: Dr Moses Chisholm [place], [place] [id number] [phone] Glucose 213 mg/dL High 74 - 99 [...] mL/min >60 2 Laboratory test finding 10/03/2020 [facility] Area Coordinator: Dr Moses Chisholm [place], [place] [address] [phone] Vitamin D 25-Hydroxy <pending> Basic Metabolic Panel 06/21/2020 [facility] Area Coordinator: Dr Moses Chisholm [place], [place] [id number] [phone] Glucose 193 mg/dL High 74 - 99 [...] mL/min >60 4 Complete Blood Count 06/02/2020 [facility] Area Coordinator: [place] [address] [phone] WBC 5.6 x10*3/UL 4.1 - 10.9 RBC [...] 2.0 - 7.8 Comprehensive Chem Profile 06/02/2020 [facility] Area Coordinator: Dr Lopes [place] [id number] [phone] Glucose 173 mg/dL High 74 - 99 [...] >= 60 mL/min >60 7 A1c 06/02/2020 [facility] , Area Coordinator: [place] [address] [phone] Hba1c 5.6 % <5.7 8 Est Avg Glucose 114 mg/dL High 60 - 110 Lipid Profile 06/02/2020 [facility] , Area Coordinator: Dr Moses Chisholm [place] [id number] [phone] Cholesterol 146 mg/dL 131 - 200 Triglycerides 218 mg/dL High 30 - 150 HDL Cholesterol 40 mg/dL 35 - 60 LDL (Calculated) 62 CALC 50 - 159 Laboratory test finding 04/25/2020 [place] [address] [phone] Tissue Transglutaminase IgA <2 U/mL Normal 0-3 9 Liver-Kidney Microsomal Matilde <20.1 units Normal 0.0-20.0 10 Ceruloplasmin 16.5 mg/dL Normal 16.0-31.0 11 Anti-Mitochondrial Antibody <20.0 units Normal 0.0-20.0 12 Antinuclear Antibodies 04/25/2020 [place] [address] [phone] Antinuclear Antibodies Direct Positive Abnormal Ne gative Anti Double Strand-Dna AB 11 IU/mL High 0-9 13 INFRASTRUCTURE ADMINISTRATOR Antibodies <0.2 AI Normal 0.0-0.9 Gant Antibodies <0.2 AI Normal 0.0-0.9 Sjogren's Anti SS-A <0.2 AI Normal 0.0-0.9 Sjogren's Anti SS-B <0.2 AI Normal 0.0-0.9 Duane Comment (SEE NOTE) Normal . 14 Hepatitis Profile 04/25/2020 [facility] nter [address] [place] [address] [phone] Hepatitis C Virus Matilde Index < 0.0 INDEX Normal <0. 8 Hepatitis B Surface Antigen NEGATIVE Normal Negative Hepatitis B Core Antibody Igm NEGATIVE Normal Negative Hepatitis A Antibody Igm NEGATIVE Normal Negative Laboratory test finding 04/25/[address] [address] [phone] Immunoglobulin A 175.0 mg/dL Normal 70-400 Total Iron Binding Capacit 04/25/[address] [address] [phone] Iron (Fe) 146 g/dL Normal 65-175 Total Iron Binding Capacity 365 g/dL Normal 250-450 Percent Saturation 40.0 % Normal 19.7-50.0 Liver Profile [facility] [address] [place] [address] [phone] Bilirubin,Direct 0.3 mg/dL High 0.0-0.2 Comprehensive Metabolic Profil 04/25/[address] [address] [phone] Glucose, Fasting 152 mg/dL High 70-100 Blood [...] Albumin/Globulin Ratio 1.5 Normal Prothrombin Time/Inr 04/25/2020 [facility] enter [address] [place] [address] [phone] Prothrombin Time 14.5 seconds High 12.5-14.3 Inr 1.11 Normal 16 CBC With Differential 04/25/[address] [address] [phone] White Blood Count 5.9 10 Normal 4.0-10.0 [...] 36.0-66.0 Lymph % 23.9 % Low 24.0-44.0 [place] % 7.5 % Normal 2.0-8.0 Eos % 1.9 % Normal 0.0-3.0 Baso % 0.7 % Normal 0.0-1.0 Immature Granulocyte % 0.3 % Normal 0-3.0 Nucleated Red Blood Cell % 0.0 % Normal 0-0 Neutrophils # 3.9 10 Normal 1.5-8.5 Lymph # 1.4 10 Low 1.5-5.0 [place] # 0.4 10 Normal 0.0-0.8 Eos # [...] LITTLE GFR LEFT ESRD GFR <15 ON CINDER CRANE OPERATOR 3 100-125 mg/dL PRE-DIABET ES/FASTING >126 mg/dL DIABETES/FASTING 4 CHRONIC KIDNEY DISEASE STAGI NG PER NKF STAGE I & II GFR >= 60 NORMAL TO MILDLY DECREASED STAGE III GFR 30-59 MODERATELY DECREASED STAGE IV GFR 15-29 SEVERELY DECREASED STAGE V GFR <15 VERY LITTLE GFR LEFT ESRD GFR <15 ON CINDER CRANE OPERATOR 5 NOTE: RESULT VERIFIED. 6 100-125 mg/dL PRE-DIABET ES/FASTING >126 mg/dL DIABETES/FASTING 7 CHRONIC KIDNEY DISEASE STAGI NG PER NKF STAGE I & II GFR >= 60 NORMAL TO MILDLY DECREASED STAGE III GFR 30-59 MODERATELY DECREASED STAGE IV GFR 15-29 SEVERELY DECREASED STAGE V GFR <15 VERY LITTLE GFR LEFT ESRD GFR <15 ON CINDER CRANE OPERATOR 8 Lab Result Notes: Pre-Diabetes 5.7 [...] infection. 11 Performed at: RN - [facility] [address] [id number] Area Coordinator: Farhana Lopes MD, Phone: [phone] 12 Negative 0.0 - 20.0 Equivocal 20.1 [...] (anti-Gant) SLE 15 - 30% ------- --------- INFRASTRUCTURE ADMINISTRATOR Mixed Connective Tissue Disease 95% (U1 nRNP, [...] Little GFR Left ESRD GFR <15 on CINDER CRANE OPERATOR 16 THERAPUTIC HUMAN INR VALUES INDICATIONS NORMAL RANGES PROPHYLAXIS/TREATMENT OF: VENOUS THROMBOSIS 2.0-3.0 PULMONARY EMBOLISM 2.0-3.0 PREVENTION OF SYSTEMIC EMBOLISM FROM: TISSUE HEART VALVES 2.0-3.0 ACUTE MYOCARDIAL INFARCTION 2.0-3.0 VALVULAR HEART DISEASE 2.0-3.0 ATRIAL FIBRILLATION 2.0-3.0 MECHANICAL VALVES(HIGH RISK) 2.5-3.5 RECURRENT MYOCARDIAL INFARCTION 2.5-3.5 Procedures Date Code Description Status 10/03/2020 17145 Office/Outpatient Established Lo w MDM 20-29 Min Completed 08/11/2020 [id number] Colonoscopy Completed 06/02/2020 58676 Est Prevent Med (40-64Yrs) Compl eted 06/02/2020 40303 EKG/Interpretation & Report Comp leted 02/24/2020 [id number] Diabetic Retinal Eye Exam Comple romeo 08/16/2019 [id number] Diabetic Retinal Eye Exam Comple romeo 07/26/2019 [id number] Diabetic Retinal Eye Exam Comple [facility] 06/21/2010 [id number] Colonoscopy Completed Medical Devices Description No Information [...] 33.0-3 3.9, adult Office Visit 06/02/2020 9:00a [facility] Maryann Bland, [facility] Z00.00 Encntr for general [...] christopher itus with diabetic neuropathy, unspecified Maryann eWiss [facility] 06/21/2020 E11.40 Type 2 diabetes christopher itus with diabetic neuropathy, unspecified Lab Schedule 06/02/2020 Z00.00 Encounter for genera l adult medical examination without abnormal findings Maryann Weiss, [facility] 06/02/2020 I10 Essential (primary) hypertension Maryann Weiss [facility] 06/02/2020 E11.40 Type 2 diabetes christopher itus with diabetic neuropathy, unspecified Maryann Weiss [facility] 06/02/2020 E55.9 Vitamin D deficiency, unspecifie d Maryann Weiss, [facility] 06/02/2020 K21.9 Gastro-esophageal reflux disease without esophagitis Maryann Weiss [facility] 06/02/2020 H68.012 Acute Eustachian salpingitis, le ft ear Maryann Weiss [facility] 06/02/2020 E66.09 Other obesity due to excess aaron chani Maryann Weiss [facility] 06/02/2020 Z68.34 Body mass index [BMI] 34.0-34.9, adult Maryann Weiss [facility] 06/02/2020 Z13.89 Encounter for screening for othe r disorder ISRAEL Barrera Plan of Treatment Future Appointment(s):* 12/29/2020 2:20 pm - ISRAEL Barrera at [facility] * 10/18/2020 9:50 am - Lab Schedule at [facility] * 06/06/2021 10:00 am - ISRAEL Barrera at [facility] 10/03/2020 - ISRAEL Barrera* I10 [...]
--- OUTSIDE RECORDS SUMMARY | 2020-12-10 01:51 | CCD | Continuity of Care Document ---
Author Author Ky SHEIKH MD Organization Unknown Address [address] [place] [address] Phone [phone] Care Team Providers Care Painter Foreman Name Role Phone David Haji MD AUTM [phone] Maryann Carranza NP AUTM Unavailable Problems Description No Information Available Social History Description No Information Available Allergies, Adverse Reactions, Alerts Description No Information Available Medications Active Medications SIG Qnty Indications Ordering Provide r Date Augmentin 875-125mg Tablets 1 by mouth twice a day 20tabs [place] Sheikh MD 09/14/2020 Immunizations Description No Information Available Vital Signs Date Vital Result Comment 09/14/2020 10:05am BP Systolic 149 mmHg BP Diastolic 85 mmHg Heart Rate 59 /min Body Temperature 98.2 F Respiratory Rate 20 /min Height 71 inches 5'11" Weight 250.00 lb BMI (Body Mass Index) 34.9 kg/m2 Results Description No Information Available Procedures Date Code Description Status 09/14/2020 72330 Office/Outpatient New Moderate M DM 45-59 Minutes Completed Medical Devices Description No Information Available Encounters Type Date Location Provider Dx Diagnosis Office Visit 09/14/2020 10:00a [facility] [place] Sheikh MD K57.92 Dvtrcli of intest, part unsp, w/o perf or abscess w/o bleed Assessments Date Code Description Provider 09/14/2020 K57.92 Diverticulitis [place] Sheikh MD Plan of Treatment Future Appointment(s):* 11/10/2020 8:15 am - [place] Sheikh MD at [facility] 09/14/2020 - [place] Sheikh MD* K57.92 Diverticulitis Functional Status Description No Information Available Mental Status Description No Information Available Referrals Description No Information Available
--- OUTSIDE RECORDS SUMMARY | 2020-12-10 01:51 | CCD | Continuity of Care Document ---
Author Author Ky Barrera Organization Unknown Address [address] [place] [address] Phone [phone] Care Team Providers Care Air Intercept Controller Supervisor Name Role Phone Maryann Carranza AUTM [phone] Sony Calvillo AUTM [phone] Problems Active Problems Provider Date Type 2 [...] Result H/L Range Note Microalbumin/Creatinine Urine 10/03/2020 [facility] Concrete Bucket Unloader: [place] [address] [phone] Microalbumin Urine 9.1 mg/L 1.3 - 20.0 Urine Creatinine 214.0 mg/dL High 30.0 - 125.0 Microalb/Creat Ratio 4.3 ug/mg 0.0 - 30.0 Basic Metabolic Panel 10/03/2020 [facility] Concrete Bucket Unloader: Dr Moses Chisholm [place] [id number] [phone] Glucose 213 mg/dL High 74 - 99 [...] mL/min >60 2 Laboratory test finding 10/03/2020 [facility] Concrete Bucket Unloader: Dr Moses Chisholm [place], [place] [id number] [phone] Vitamin D 25-Hydroxy <pending> Basic Metabolic Panel 06/21/2020 [facility] Concrete Bucket Unloader: Dr Moses Chisholm [place], [place] [id number] [phone] Glucose 193 mg/dL High 74 - 99 [...] mL/min >60 4 Complete Blood Count 06/02/2020 [facility] Concrete Bucket Unloader: [place] [address] [phone] WBC 5.6 x10*3/UL 4.1 - 10.9 RBC [...] 2.0 - 7.8 Comprehensive Chem Profile 06/02/2020 [facility] marie Siegel Concrete Bucket Unloader: Dr Lopes [place] [id number] [phone] Glucose 173 mg/dL High 74 - 99 [...] >= 60 mL/min >60 7 A1c 06/02/2020 [facility] , Concrete Bucket Unloader: [place] [address] [phone] Hba1c 5.6 % <5.7 8 Est Avg Glucose 114 mg/dL High 60 - 110 Lipid Profile 06/02/2020 [facility] , Concrete Bucket Unloader: Dr Moses Chisholm [place] [id number] [phone] Cholesterol 146 mg/dL 131 - 200 Triglycerides 218 mg/dL High 30 - 150 HDL Cholesterol 40 mg/dL 35 - 60 LDL (Calculated) 62 CALC 50 - 159 Laboratory test finding 04/25/2020 [place] [address] [phone] Tissue Transglutaminase IgA <2 U/mL Normal 0-3 9 Liver-Kidney Microsomal Matilde <20.1 units Normal 0.0-20.0 10 Ceruloplasmin 16.5 mg/dL Normal 16.0-31.0 11 Anti-Mitochondrial Antibody <20.0 units Normal 0.0-20.0 12 Antinuclear Antibodies 04/25/2020 [place] [address] [phone] Antinuclear Antibodies Direct Positive Abnormal Ne gative Anti Double Strand-Dna AB 11 IU/mL High 0-9 13 DIE CUTTER APPRENTICE Antibodies <0.2 AI Normal 0.0-0.9 Gant Antibodies <0.2 AI Normal 0.0-0.9 Sjogren's Anti SS-A <0.2 AI Normal 0.0-0.9 Sjogren's Anti SS-B <0.2 AI Normal 0.0-0.9 Duane Comment (SEE NOTE) Normal . 14 Hepatitis Profile 04/25/2020 [facility] nter [address] [place] [address] [phone] Hepatitis C Virus Matilde Index < 0.0 INDEX Normal <0. 8 Hepatitis B Surface Antigen NEGATIVE Normal Negative Hepatitis B Core Antibody Igm NEGATIVE Normal Negative Hepatitis A Antibody Igm NEGATIVE Normal Negative Laboratory test finding 04/25/[address] [address] [phone] Immunoglobulin A 175.0 mg/dL Normal 70-400 Total Iron Binding Capacit 04/25/[address] [address] [phone] Iron (Fe) 146 g/dL Normal 65-175 Total Iron Binding Capacity 365 g/dL Normal 250-450 Percent Saturation 40.0 % Normal 19.7-50.0 [facility]2020 [facility] [address] [place] [address] [phone] Bilirubin,Direct 0.3 mg/dL High 0.0-0.2 Comprehensive Metabolic Profil 04/25/[address] [address] [phone] Glucose, Fasting 152 mg/dL High 70-100 Blood [...] Albumin/Globulin Ratio 1.5 Normal Prothrombin Time/Inr 04/25/2020 [facility] enter [address] [place] [address] [phone] Prothrombin Time 14.5 seconds High 12.5-14.3 Inr 1.11 Normal 16 CBC With Differential 04/25/[address] [address] [phone] White Blood Count 5.9 10 Normal 4.0-10.0 [...] 36.0-66.0 Lymph % 23.9 % Low 24.0-44.0 [place] % 7.5 % Normal 2.0-8.0 Eos % 1.9 % Normal 0.0-3.0 Baso % 0.7 % Normal 0.0-1.0 Immature Granulocyte % 0.3 % Normal 0-3.0 Nucleated Red Blood Cell % 0.0 % Normal 0-0 Neutrophils # 3.9 10 Normal 1.5-8.5 Lymph # 1.4 10 Low 1.5-5.0 Talbot # 0.4 10 Normal 0.0-0.8 Eos # [...] LITTLE GFR LEFT ESRD GFR <15 ON PROGRAM TRAINER 3 100-125 mg/dL PRE-DIABET ES/FASTING >126 mg/dL DIABETES/FASTING 4 CHRONIC KIDNEY DISEASE STAGI NG PER NKF STAGE I & II GFR >= 60 NORMAL TO MILDLY DECREASED STAGE III GFR 30-59 MODERATELY DECREASED STAGE IV GFR 15-29 SEVERELY DECREASED STAGE V GFR <15 VERY LITTLE GFR LEFT ESRD GFR <15 ON PROGRAM TRAINER 5 NOTE: RESULT VERIFIED. 6 100-125 mg/dL PRE-DIABET ES/FASTING >126 mg/dL DIABETES/FASTING 7 CHRONIC KIDNEY DISEASE STAGI NG PER NKF STAGE I & II GFR >= 60 NORMAL TO MILDLY DECREASED STAGE III GFR 30-59 MODERATELY DECREASED STAGE IV GFR 15-29 SEVERELY DECREASED STAGE V GFR <15 VERY LITTLE GFR LEFT ESRD GFR <15 ON PROGRAM TRAINER 8 Lab Result Notes: Pre-Diabetes 5.7 - [...] infection. 11 Performed at: RN - [facility] [address] [id number] Concrete Bucket Unloader: Farhana Lopes MD, Phone: [phone] 12 Negative 0.0 - 20.0 Equivocal 20.1 [...] (anti-Gant) SLE 15 - 30% ------- --------- DIE CUTTER APPRENTICE Mixed Connective Tissue Disease 95% (U1 nRNP, [...] Little GFR Left ESRD GFR <15 on PROGRAM TRAINER 16 THERAPUTIC HUMAN INR VALUES INDICATIONS NORMAL RANGES PROPHYLAXIS/TREATMENT OF: VENOUS THROMBOSIS 2.0-3.0 PULMONARY EMBOLISM 2.0-3.0 PREVENTION OF SYSTEMIC EMBOLISM FROM: TISSUE HEART VALVES 2.0-3.0 ACUTE MYOCARDIAL INFARCTION 2.0-3.0 VALVULAR HEART DISEASE 2.0-3.0 ATRIAL FIBRILLATION 2.0-3.0 MECHANICAL VALVES(HIGH RISK) 2.5-3.5 RECURRENT MYOCARDIAL INFARCTION 2.5-3.5 Procedures Date Code Description Status 10/03/2020 54341 Office/Outpatient Established Lo w MDM 20-29 Min Completed 08/11/2020 [id number] Colonoscopy Completed 06/02/2020 00220 Est Prevent Med (40-64Yrs) Compl eted 06/02/2020 09669 EKG/Interpretation & Report Comp leted 02/24/2020 [id number] Diabetic Retinal Eye Exam Comple romeo 08/16/2019 [id number] Diabetic Retinal Eye Exam Comple romeo 07/26/2019 [id number] Diabetic Retinal Eye Exam Comple [facility] 06/21/2010 [id number] Colonoscopy Completed Medical Devices Description No Information [...] 33.0-3 3.9, adult Office Visit 06/02/2020 9:00a [facility] Maryann Bland, [facility] Z00.00 Encntr for general [...] itus with diabetic neuropathy, unspecified Maryann Weiss [facility] 06/21/2020 E11.40 Type 2 diabetes christopher itus with diabetic neuropathy, unspecified Lab Schedule 06/02/2020 Z00.00 Encounter for genera l adult medical examination without abnormal findings Maryann Weiss, [facility] 06/02/2020 I10 Essential (primary) hypertension Maryann Weiss [facility] 06/02/2020 E11.40 Type 2 diabetes christopher itus with diabetic neuropathy, unspecified Maryann Weiss [facility] 06/02/2020 E55.9 Vitamin D deficiency, unspecifie d Maryann Weiss, [facility] 06/02/2020 K21.9 Gastro-esophageal reflux disease without esophagitis Maryann Weiss [facility] 06/02/2020 H68.012 Acute Eustachian salpingitis, le ft ear Maryann Weiss [facility] 06/02/2020 E66.09 Other obesity due to excess aaron chani Maryann Weiss [facility] 06/02/2020 Z68.34 Body mass index [BMI] 34.0-34.9, adult Maryann Weiss [facility] 06/02/2020 Z13.89 Encounter for screening for othe r disorder ISRAEL Barrera Plan of Treatment Future Appointment(s):* 12/29/2020 2:20 pm - ISRAEL Barrera at [facility] * 10/18/2020 9:50 am - Lab Schedule at [facility] * 06/06/2021 10:00 am - ISRAEL Barrera at [facility] 10/03/2020 - ISRAEL Barrera* I10 [...]
--- OUTSIDE RECORDS SUMMARY | 2020-12-10 01:52 | CCD ---
Author Author [facility] Organization [facility] Address Unknown Phone Unavailable Care Team Providers Care Petrology Teacher Name Role Phone LePine, M Micah BUHR DRESSER Unavailable Unavailable LePine, M Micah BUHR DRESSER Unavailable Unavailable LePine, M Micah BUHR DRESSER Unavailable Unavailable LePine, M Micah BUHR DRESSER Unavailable Unavailable LePine, M Micah BUHR DRESSER Unavailable Unavailable LePine, M Micah BUHR DRESSER Unavailable Unavailable LePine, M Micah BUHR DRESSER Unavailable Unavailable LePine, M Micah BUHR DRESSER Unavailable Unavailable LePine, M Micah BUHR DRESSER Unavailable Unavailable LePine, M Micah BUHR DRESSER Unavailable Unavailable LePine, M Micah BUHR DRESSER Unavailable Unavailable LePine, M Micah BUHR DRESSER Unavailable Unavailable LePine, M Micah BUHR DRESSER Unavailable Unavailable LePine, M Micah BUHR DRESSER Unavailable Unavailable LePine, M Micah BUHR DRESSER Unavailable Unavailable LePine, M Micah BUHR DRESSER Unavailable Unavailable LePine, M Micah BUHR DRESSER Unavailable Unavailable LePine, M Micah BUHR DRESSER Unavailable Unavailable LePine, M Micah BUHR DRESSER Unavailable Unavailable LePine, M Micah BUHR DRESSER Unavailable Unavailable LePine, M Micah BUHR DRESSER Unavailable Unavailable LePine, M Micah BUHR DRESSER Unavailable Unavailable LePine, M Micah BUHR DRESSER Unavailable Unavailable LePine, M Micah BUHR DRESSER Unavailable Unavailable LePine, M Micah BUHR DRESSER Unavailable Unavailable LePine, M Micah BUHR DRESSER Unavailable Unavailable LePine, M Micah BUHR DRESSER Unavailable Unavailable LePine, M Micah BUHR DRESSER Unavailable Unavailable LePine, M Micah BUHR DRESSER Unavailable Unavailable LePine, M Micah BUHR DRESSER Unavailable Unavailable LePine, M Micah BUHR DRESSER Unavailable Unavailable LePine, M Micah BUHR DRESSER Unavailable Unavailable LePine, M Micah BUHR DRESSER Unavailable Unavailable LePine, M Micah BUHR DRESSER Unavailable Unavailable LePine, M Micah BUHR DRESSER Unavailable Unavailable LePine, M Micah BUHR DRESSER Unavailable Unavailable LePine, M Mciah BUHR DRESSER Unavailable Unavailable LePine, M Micah BUHR DRESSER Unavailable Unavailable LePine, M Micah BUHR DRESSER Unavailable Unavailable LePine, M Micah BUHR DRESSER Unavailable Unavailable LePine, M Micah BUHR DRESSER Unavailable Unavailable LePine, M Micah BUHR DRESSER Unavailable Unavailable LePine, M Micah BUHR DRESSER Unavailable Unavailable LePine, M Micah BUHR DRESSER Unavailable Unavailable LePine, M Micah BUHR DRESSER Unavailable Unavailable LePine, M Micah BUHR DRESSER Unavailable Unavailable LePine, M Micah BUHR DRESSER Unavailable Unavailable LePine, M Micah BUHR DRESSER Unavailable Unavailable LePine, M Micah BUHR DRESSER Unavailable Unavailable LePine, M Micah BUHR DRESSER Unavailable Unavailable LePine, M Micah BUHR DRESSER Unavailable Unavailable LePine, M Micah BUHR DRESSER Unavailable Unavailable LePine, M Micah BUHR DRESSER Unavailable Unavailable LePine, M Micah BUHR DRESSER Unavailable Unavailable LePine, M Micah BUHR DRESSER Unavailable Unavailable LePine, M Micah BUHR DRESSER Unavailable Unavailable ROSEDL, MANNY MORENO Unavailable Unavailable REINDL, MANNY MORENO Unavailable Unavailable REINDL, MANNY MORENO Unavailable Unavailable REINDL, MANNY MORENO Unavailable Unavailable REINDL, MANNY MORENO Unavailable Unavailable REINDL, MANNY MORENO Unavailable Unavailable REINDL, MANNY MORENO Unavailable Unavailable ROSEDL, MANNY MORENO Unavailable Unavailable ROSEDL, MANNY MORENO Unavailable Unavailable LINETTE, MANNY MORENO Unavailable Unavailable LINETTE, MANNY MORENO Unavailable Unavailable LINETTE, MANNY MORENO Unavailable Unavailable LINETTE, MANNY MORENO Unavailable Unavailable REINDL, MANNY MORENO Unavailable Unavailable REINDL, MANNY MORENO Unavailable Unavailable REINDL, MANNY MORENO Unavailable Unavailable REINDL, MANNY MORENO Unavailable Unavailable REINDL, MANNY MORENO Unavailable Unavailable REINDL, MANNY MORENO Unavailable Unavailable REINDL, MANNY MORENO Unavailable Unavailable REINDL, MANNY MORENO Unavailable Unavailable REINDL, MANNY MORENO Unavailable Unavailable REINDL, MANNY MORENO Unavailable Unavailable REINDL, MANNY MORENO Unavailable Unavailable REINDL, MANNY MORENO Unavailable Unavailable LINETTE, MANNY MORENO Unavailable Unavailable REINDL, MANNY MORENO Unavailable Unavailable REINDL, MANNY MORENO Unavailable Unavailable ROSEDL, MANNY MORENO Unavailable Unavailable ROSEDL, MANNY MORENO Unavailable Unavailable ROSEDL, MANNY MORENO Unavailable Unavailable LINETTE, MANNY MORENO Unavailable Unavailable ROSEDL, MANNY MORENO Unavailable Unavailable REINDL, MANNY MORENO Unavailable Unavailable REINDL, MANNY MORENO Unavailable Unavailable REINDL, MANNY MORENO Unavailable Unavailable REINDL, MANNY MORENO Unavailable Unavailable REINDL, MANNY MORENO Unavailable Unavailable REINDL, MANNY MORENO Unavailable Unavailable REINDL, MANNY MORENO Unavailable Unavailable REINDL, MANNY MORENO Unavailable Unavailable REINDL, MANNY MORENO Unavailable Unavailable MOFFA, NAVEEN ONEAL MD Unavailable Unavailable MOFFA, NAVEEN ONEAL MD Unavailable Unavailable MOFFA, NAVEEN ONEAL MD Unavailable Unavailable MOFFA, NAVEEN ONEAL MD Unavailable Unavailable MOFFA, NAVEEN ONEAL MD Unavailable Unavailable MOFFA, NAVEEN ONEAL MD Unavailable Unavailable MOFFA, NAVEEN ONEAL MD Unavailable Unavailable MOFFA, NAVEEN ONEAL MD Unavailable Unavailable MOFFA, NAVEEN ONEAL MD Unavailable Unavailable MOFFA, NAVEEN ONEAL MD Unavailable Unavailable MOFFA, NAVEEN ONEAL MD Unavailable Unavailable MOFFA, NAVEEN ONEAL MD Unavailable Unavailable MOFFA, NAVEEN ONEAL MD Unavailable Unavailable MOFFA, NAVEEN ONEAL MD Unavailable Unavailable MOFFA, NAVEEN ONEAL MD Unavailable Unavailable MOFFA, NAVEEN ONEAL MD Unavailable Unavailable MOFFA, NAVEEN ONEAL MD Unavailable Unavailable MOFFA, NAVEEN ONEAL MD Unavailable Unavailable MOFFA, NAVEEN ONEAL MD Unavailable Unavailable MOFFA, NAVEEN ONEAL MD Unavailable Unavailable MOFFA, NAVEEN ONEAL MD Unavailable Unavailable MOFFA, NAVEEN ONEAL MD Unavailable Unavailable MOFFA, NAVEEN ONEAL MD Unavailable Unavailable MOFFA, NAVEEN ONEAL MD Unavailable Unavailable MOFFA, NAVEEN ONEAL MD Unavailable Unavailable MOFFA, NAVEEN ONEAL MD Unavailable Unavailable MOFFA, NAVEEN ONEAL MD Unavailable Unavailable MOFFA, NAVEEN ONEAL MD Unavailable Unavailable MOFFA, NAVEEN ONEAL MD Unavailable Unavailable MOFFA, NAVEEN ONEAL MD Unavailable Unavailable MOFFA, NAVEEN ONEAL MD Unavailable Unavailable MOFFA, NAVEEN ONEAL MD Unavailable Unavailable MOFFA, NAVEEN ONEAL MD Unavailable Unavailable MOFFA, NAVEEN NOEAL MD Unavailable Unavailable MOFFA, NAVEEN ONEAL MD Unavailable Unavailable MOFFA, NAVEEN ONEAL MD Unavailable Unavailable MOFFA, NAVEEN ONEAL MD Unavailable Unavailable MOFFA, NAVEEN ONEAL MD Unavailable Unavailable MOFFA, NAVEEN ONEAL MD Unavailable Unavailable MOFFA, NAVEEN ONEAL MD Unavailable Unavailable MOFFA, NAVEEN ONEAL MD Unavailable Unavailable MOFFA, NAVEEN ONEAL MD Unavailable Unavailable MOFFA, NAVEEN ONEAL MD Unavailable Unavailable MOFFA, NAVEEN ONEAL MD Unavailable Unavailable MOFFA, NAVEEN ONEAL MD Unavailable Unavailable MOFFA, NAVEEN ONEAL MD Unavailable Unavailable MOFFA, NAVEEN ONEAL MD Unavailable Unavailable MOFFA, NAVEEN ONEAL MD Unavailable Unavailable MOFFA, NAVEEN ONEAL MD Unavailable Unavailable MOFFA, NAVEEN ONEAL MD Unavailable Unavailable MOFFA, NAVEEN ONEAL MD Unavailable Unavailable MOFFA, NAVEEN ONEAL MD Unavailable Unavailable MOFFA, NAVEEN ONEAL MD Unavailable Unavailable MOFFA, NAVEEN ONEAL MD Unavailable Unavailable MOFFA, NAVEEN ONEAL MD Unavailable Unavailable MOFFA, NAVEEN ONEAL MD Unavailable Unavailable MOFFA, NAVEEN ONEAL MD Unavailable Unavailable MOFFA, NAVEEN ONEAL MD Unavailable Unavailable MOFFA, NAVEEN ONEAL MD Unavailable Unavailable MOFFA, NAVEEN ONEAL MD Unavailable Unavailable MOFFA, NAVEEN ONEAL MD Unavailable Unavailable MOFFA, NAVEEN ONEAL MD Unavailable Unavailable MOFFA, NAVEEN ONEAL MD Unavailable Unavailable MOFFA, NAVEEN ONEAL MD Unavailable Unavailable MOFFA, NAVEEN ONEAL MD Unavailable Unavailable MOFFA, NAVEEN ONEAL MD Unavailable Unavailable MOFFA, NAVEEN ONEAL MD Unavailable Unavailable MOFFA, NAVEEN ONEAL MD Unavailable Unavailable MOFFA, NAVEEN ONEAL MD Unavailable Unavailable MOFFA, NAVEEN ONEAL MD Unavailable Unavailable MOFFA, NAVEEN ONEAL MD Unavailable Unavailable MOFFA, NAVEEN ONEAL MD Unavailable Unavailable MOFFA, NAVEEN ONEAL MD Unavailable Unavailable MOFFA, NAVEEN ONEAL MD Unavailable Unavailable MOFFA, NAVEEN ONEAL MD Unavailable Unavailable MOFFA, NAVEEN ONEAL MD Unavailable Unavailable MOFFA, NAVEEN ONEAL MD Unavailable Unavailable MOFFA, NAVEEN ONEAL MD Unavailable Unavailable MOFFA, NAVEEN ONEAL MD Unavailable Unavailable MOFFA, NAVEEN ONEAL MD Unavailable Unavailable MOFFA, NAVEEN ONEAL MD Unavailable Unavailable MOFFA, NAVEEN ONEAL MD Unavailable Unavailable MOFFA, NAVEEN ONEAL MD Unavailable Unavailable MOFFA, NAVEEN ONEAL MD Unavailable Unavailable MOFFA, NAVEEN ONEAL MD Unavailable Unavailable MOFFA, NAVEEN ONEAL MD Unavailable Unavailable MOFFA, NAVEEN ONEAL MD Unavailable Unavailable MOFFA, NAVEEN ONEAL MD Unavailable Unavailable MOFFA, NAVEEN ONEAL MD Unavailable Unavailable MOFFA, NAVEEN ONEAL MD Unavailable Unavailable MOFFA, NAVEEN ONEAL MD Unavailable Unavailable MOFFA, NAVEEN ONEAL MD Unavailable Unavailable MOFFA, NAVEEN ONEAL MD Unavailable Unavailable MOFFA, NAVEEN ONEAL MD Unavailable Unavailable MOFFA, NAVEEN ONEAL MD Unavailable Unavailable MOFFA, NAVEEN ONEAL MD Unavailable Unavailable MOFFA, NAVEEN ONEAL MD Unavailable Unavailable MOFFA, NAVEEN ONEAL MD Unavailable Unavailable MOFFA, NAVEEN ONEAL MD Unavailable Unavailable MOFFA, NAVEEN ONEAL MD Unavailable Unavailable MOFFA, NAVEEN ONEAL MD Unavailable Unavailable MOFFA, NAVEEN ONEAL MD Unavailable Unavailable MOFFA, NAVEEN ONEAL MD Unavailable Unavailable MOFFA, NAVEEN ONEAL MD Unavailable Unavailable MOFFA, NAVEEN ONEAL MD Unavailable Unavailable MOFFA, NAVEEN ONEAL MD Unavailable Unavailable MOFFA, NAVEEN ONEAL MD Unavailable Unavailable MOFFA, NAVEEN ONEAL MD Unavailable Unavailable MOFFA, NAVEEN ONEAL MD Unavailable Unavailable MOFFA, NAVEEN ONEAL MD Unavailable Unavailable MOFFA, NAVEEN ONEAL MD Unavailable Unavailable MOFFA, NAVEEN ONEAL MD Unavailable Unavailable MOFFA, NAVEEN ONEAL MD Unavailable Unavailable MOFFA, NAVEEN ONEAL MD Unavailable Unavailable MOFFA, NAVEEN ONEAL MD Unavailable Unavailable MOFFA, NAVEEN ONEAL MD Unavailable Unavailable MOFFA, NAVEEN ONEAL MD Unavailable Unavailable MOFFA, NAVEEN ONEAL MD Unavailable Unavailable MOFFA, NAVEEN ONEAL MD Unavailable Unavailable MOFFA, NAVEEN ONEAL MD Unavailable Unavailable MOFFA, NAVEEN ONEAL MD Unavailable Unavailable MOFFA, NAVEEN ONEAL MD Unavailable Unavailable MOFFA, NAVEEN ONEAL MD Unavailable Unavailable MOFFA, NAVEEN ONEAL MD Unavailable Unavailable MOFFA, NAVEEN ONEAL MD Unavailable Unavailable MOFFA, NAVEEN ONEAL MD Unavailable Unavailable MOFFA, NAVEEN ONEAL MD Unavailable Unavailable MOFFA, NAVEEN ONEAL MD Unavailable Unavailable MOFFA, NAVEEN ONEAL MD Unavailable Unavailable MOFFA, NAVEEN ONEAL MD Unavailable Unavailable MOFFA, NAVEEN ONEAL MD Unavailable Unavailable MOFFA, NAVEEN ONEAL MD Unavailable Unavailable MOFFA, NAVEEN ONEAL MD Unavailable Unavailable MOFFA, NAVEEN ONEAL MD Unavailable Unavailable MOFFA, NAVEEN ONEAL MD Unavailable Unavailable MOFFA, NAVEEN ONEAL MD Unavailable Unavailable MOFFA, NAVEEN ONEAL MD Unavailable Unavailable MOFFA, NAVEEN ONEAL MD Unavailable Unavailable MOFFA, ANVEEN ONEAL MD Unavailable Unavailable MOFFA, NAVEEN ONEAL MD Unavailable Unavailable MOFFA, NAVEEN ONEAL MD Unavailable Unavailable MOFFA, NAVEEN ONEAL MD Unavailable Unavailable MOFFA, NAVEEN ONEAL MD Unavailable Unavailable MOFFA, NAVEEN ONEAL MD Unavailable Unavailable MOFFA, NAVEEN ONEAL MD Unavailable Unavailable MOFFA, NAVEEN ONEAL MD Unavailable Unavailable FORNI, R NINA DPM Unavailable Unavailable FORNI, R NINA DPM Unavailable Unavailable FORNI, R NINA DPM Unavailable Unavailable FORNI, R NINA DPM Unavailable Unavailable FORNI, R NINA DPM Unavailable Unavailable FORNI, R NINA DPM Unavailable Unavailable FORNI, R NINA DPM Unavailable Unavailable FORNI, R NINA DPM Unavailable Unavailable FORNI, R NINA DPM Unavailable Unavailable FORNI, R NINA DPM Unavailable Unavailable FORNI, R NINA DPM Unavailable Unavailable FORNI, R NINA DPM Unavailable Unavailable FORNI, R NINA DPM Unavailable Unavailable FORNI, R NINA DPM Unavailable Unavailable FORNI, R NINA DPM Unavailable Unavailable FORNI, R NINA DPM Unavailable Unavailable FORNI, R NINA DPM Unavailable Unavailable FORNI, R NINA DPM Unavailable Unavailable FORNI, R NINA DPM Unavailable Unavailable FORNI, R NINA DPM Unavailable Unavailable NOT, SPECIFIED Unavailable Unavailable Re-disclosure Warning The records that you are about to access may contain information from federally-assisted alcohol or drug abuse programs. If such information is present, then the following federally mandated warning applies: This information has been disclosed to you from records protected by federal confidentiality rules (42 CFR part 2). The federal rules prohibit you from making any further disclosure of this information unless further disclosure is expressly permitted by the written consent of the person to whom it pertains or as otherwise permitted by 42 CFR part 2. A general authorization for the release of medical or other information is NOT sufficient for this purpose. The Federal rules restrict any use of the information to criminally investigate or prosecute any alcohol or drug abuse patient.The records that you are about to access may contain highly sensitive health information, the redisclosure of which is protected by Article 27-F of the [facility] Public Health law. If you continue you may have access to information: Regarding HIV / AIDS; Provided by facilities licensed or operated by the [facility] Office of Mental Health; or Provided by the [facility] Office for People With Developmental Disabilities. If such information is present, then the following [facility] mandated warning applies: This information has been disclosed to you from confidential records which are protected by state law. State law prohibits you from making any further disclosure of this information without the specific written consent of the person to whom it pertains, or as otherwise permitted by law. Any unauthorized further disclosure in violation of state law may result in a fine or detention sentence or both. A general authorization for the release of medical or other information is NOT sufficient authorization for further disc losure. Family History Family Member Name Family Member Gender Family Member Status Date o f Status Description Data Source(s) Unknown Male Problem [facility] ([facility]) Unknown Unknown Problem [facility] ([facility]) Encounters Encounter Providers Location Date Indications Data Source(s ) Office Visit Attender: KIMMY Whaley 11/30/2020 09:30:0 0 AM EDT [facility] ([facility]) Outpatient Attender: Micah Cortez 11/28 11:20:00 AM EDT [facility] ([facility] ) Outpatient Attender: KIMMY Whaley 11/06/2020 12:45:00 PM EDT [facility] ([facility]) Outpatient Attender: KIMMY SHEIKH MDAdmitter: KIMMY WOODALL.PAT 11/06/2020 10:15:48 AM EDT - 11/06/2020 11:12:54 AM EDT [facility] Outpatient Admitter: KIMMY WOODALL.PAT 11/06 09:41:47 AM EDT - 11/06/2020 09:44:22 AM EDT [facility] Inpatient Attender: KIMMY SHEIKH MDAdmitter: KIMMY Garduno MD [id number] 10/05/2020 03:43:15 PM EDT - 11/13/2020 01:05:00 PM EDT [facility] Patient discharged. Outpatient Attender: Micah Cortez 10/03 03:20:00 PM EDT [facility] ([facility] ) Outpatient Attender: KIMMY Whaley 09/14/2020 10:00:00 AM EDT [facility] ([facility]) Outpatient Attender: Micah Cortez 06/02 09:00:00 AM EDT MED[facility] ([facility] ) Outpatient Attender: MANNY Campbell/Carlie/Madan/Rein dl 05/31/2020 03:15:00 PM EDT [facility] ([facility]) Outpatient Attender: MANNY Campbell/Carlie/Madan/Rein dl 04/20/2020 02:15:00 PM EST [facility] ([facility]) Outpatient Attender: NINA ACEVEDOonsultant: SPECIFIED N OT 01/17/2020 10:44:00 AM EST - 01/17/2020 10:44:00 AM EST [facility] Outpatient Attender: N[facility] 01/17/2020 0 9:45:00 AM EST [facility] ([facility]) Outpatient Attender: MANNY Campbell/Carlie/Madan/Rose sesay 10/20/2019 11:00:00 AM EDT [facility] ([facility] Medications Medication Brand Name Start Date Product Form Dose Route Admi nistrative Instructions Pharmacy Instructions Status Indications Reaction Description Data Source(s) 5 mg 11/26/2020 12:00:00 AM EDT tablet 20 TAKE ONE TABLET BY MOUTH EVERY 6 HOURS NEEDED FOR PAIN MAXIMUM DAILY DOSE = 4 TABLETS TAKE ONE TABLET BY MOUTH EVERY 6 HOURS NEEDED FOR PAIN MAXIMUM DAILY DOSE = 4 TABLETS SOLD: 11/26/2020 [facility] 5 mg 11/21/2020 12:00:00 AM EDT tablet 20 TAKE ONE TABLET BY MOUTH EVERY 6 HOURS NEEDED FOR PAIN MAXIMUM DAILY DOSE = 4 TAKE ONE TABLET BY MOUTH EVERY 6 HOURS NEEDED FOR PAIN MAXIMUM DAILY DOSE = 4 SOLD: 11/21/2020 [facility] 5 mg 11/16/2020 12:00:00 AM EDT tablet 20 TAKE ONE TABLET BY MOUTH EVERY 6 HOURS NEEDED FOR PAIN MAXIMUM DAILY DOSE = 4 TAKE ONE TABLET BY MOUTH EVERY 6 HOURS NEEDED FOR PAIN MAXIMUM DAILY DOSE = 4 SOLD: 11/16/2020 [facility] Oxycodone Hydrochloride 5 MG Oral Tablet Oxycodone HCL 11/15/2020 12:00:00 AM EDT ORAL active [facility] ([facility]) 5 mg 11/13/2020 12:00:00 AM EDT tablet 12 TAKE ONE TABLET BY MOUTH EVERY 6 HOURS NEEDED MAXIMUM DAILY DOSE = 4 TABLETS TAKE ONE TABLET BY MOUTH EVERY 6 HOURS NEEDED MAXIMUM DAILY DOSE = 4 TABLETS SOLD: 11/13/2020 [facility] Amoxicillin 875 MG / Clavulanate 125 MG Oral Tablet [Augment in] Augmentin 10/27/2020 12:00:00 AM EDT ORAL active [facility] ([facility]) Amoxicillin 875 MG / Clavulanate 125 MG Oral Tablet 87 5-125 mg AMOXICILLIN/POTASSIUM CLAV 10/27/2020 12:00:00 AM EDT tablet 28 TAKE ONE TABLET BY MOUTH TWICE A DAY TAKE ONE TABLET BY MOUTH TWICE A DAY SOLD: 10/27/2020 [facility] Amoxicillin 875 MG / Clavulanate 125 MG Oral Tablet amoxicillin-clavulanate (AUGMENTIN) 875-125 MG per tablet amoxicillin-clavulanate (AUGMENTIN) 875- 125 MG per tablet 10/27/2020 12:00:00 AM EDT 1 {tbl} Oral activ e Take 1 tablet by mouth 2 (two) times a day X 14 days, final dose due 11/09/20 [facility] SUPREP BOWEL PREP KIT 17.5-3.13-1.6 gram SODIUM, POTASSIUM,M AG SULFATES 10/11/2020 12:00:00 AM EDT recon [facility] 354 DO NO T FOLLOW THE DIRECTIONS ON THE BOX FOLLOW THE DIRECTIONS GIVEN TO YOU BY THE DOCTORS OFFICE DO NOT FOLLOW THE DIRECTIONS ON THE BOX FOLLOW THE DIRECTIONS GIVEN TO YOU BY THE DOCTORS OFFICE SOLD: 10/27/2020 [facility] Suprep Bowel Prep Kit Suprep Bowel Prep Kit 10/10/2020 12:00:00 AM EDT active [facility] ([facility]) Amoxicillin 875 MG / Clavulanate 125 MG Oral Tablet 87 5-125 mg AMOXICILLIN/POTASSIUM CLAV 09/14/2020 12:00:00 AM EDT tablet 20 TAKE ONE TABLET BY MOUTH TWICE A DAY WITH FOOD UNTIL GONE TAKE ONE TABLET BY MOUTH TWICE A DAY WITH FOOD UNTIL GONE SOLD: 10/04/2020 [facility] Amoxicillin 875 MG / Clavulanate 125 MG Oral Tablet 87 5-125 mg AMOXICILLIN/POTASSIUM CLAV 09/14/2020 12:00:00 AM EDT tablet 20 TAKE ONE TABLET BY MOUTH TWICE A DAY WITH FOOD UNTIL GONE TAKE ONE TABLET BY MOUTH TWICE A DAY WITH FOOD UNTIL GONE SOLD: 09/14/2020 [facility] Amoxicillin 875 MG / Clavulanate 125 MG Oral Tablet [Augment in] Augmentin 09/14/2020 12:00:00 AM EDT ORAL active [facility] ([facility]) 500 mg 08/25/2020 12:00:00 AM EDT tablet 180 TAKE ONE TABLET BY MOUTH TWICE A DAY TAKE ONE TABLET BY MOUTH TWICE A DAY SOLD: 11/30/2020 [facility] 500 mg 08/25/2020 12:00:00 AM EDT tablet 180 TAKE ONE TABLET BY MOUTH TWICE A DAY TAKE ONE TABLET BY MOUTH TWICE A DAY SOLD: 08/26/2020 [facility] 25 mg 07/18/2020 12:00:00 AM EDT tablet 90 TAKE ONE TABLET BY MOUTH EVERY DAY TAKE ONE TABLET BY MOUTH EVERY DAY SOLD: 07/19/2020 [facility] 25 mg 07/18/2020 12:00:00 AM EDT tablet 90 TAKE ONE TABLET BY MOUTH EVERY DAY TAKE ONE TABLET BY MOUTH EVERY DAY SOLD: 10/24/2020 [facility] Blood Pressure Monitor Deluxe/Automatic 06/09/2020 12:00:00 AM EDT active MED[facility] ([facility]) 5 mg 06/02/2020 12:00:00 AM EDT tablet 90 TAKE ONE TABLET BY MOUTH EVERY DAY TAKE ONE TABLET BY MOUTH EVERY DAY SOLD: 09/08/2020 [facility] 5 mg 06/02/2020 12:00:00 AM EDT tablet 90 TAKE ONE TABLET BY MOUTH EVERY DAY TAKE ONE TABLET BY MOUTH EVERY DAY SOLD: 06/04/2020 [facility] Lisinopril 5 MG Oral Tablet Lisinopril 06/02/2020 12:00:00 AM EDT ORAL active [facility] ([facility]) Famotidine 40 MG Oral Tablet Famotidine 06/02/2020 12:00:00 AM EDT ORAL active [facility] ([facility]) 10 mg 06/01/2020 12:00:00 AM EDT capsule 60 TAKE 1-2 TABLETS BY MOUTH EVERY 6 HOURS NEEDED FOR ABDOMINAL CRAMPING TAKE 1-2 TABLETS BY MOUTH EVERY 6 HOURS NEEDED FOR ABDOMINAL CRAMPING SOLD: 06/02/2020 [facility] Dicyclomine Hydrochloride 10 MG Oral Capsule Dicyclomine HCL 05/31/2020 12:00:00 AM EDT ORAL active [facility] ([facility], ) Suprep Bowel Prep Kit Suprep Bowel Prep Kit 05/31/2020 12:00:00 AM EDT active MED[facility] ([facility], ) Magnesium Hydroxide 80 MG/ML Oral Suspension Milk Of Magnesi a 05/31/2020 12:00:00 AM EDT ORAL active M EDENT ([facility], ) 500 mg 02/01/2020 12:00:00 AM EST tablet 180 TAKE ONE TABLET BY MOUTH TWICE A DAY TAKE ONE TABLET BY MOUTH TWICE A DAY SOLD: 02/02/2020 [facility] Metformin hydrochloride 500 MG Oral Tablet METFORMIN HCL 02/01/2020 12:00:00 AM EST tablet 180 TAKE ONE TABLET BY MOUTH TWI CE A DAY TAKE ONE TABLET BY MOUTH TWICE A DAY SOLD: 05/18/2020 [facility] Atenolol 25 MG Oral Tablet ATENOLOL 01/15/2020 12:00:00 AM EST tablet 90 TAKE ONE TABLET BY MOUTH EVERY DAY TAKE ONE TABLET BY MOUTH EVERY DAY SOLD: 01/17/2020 [facility] Atenolol 25 MG Oral Tablet ATENOLOL 01/15/2020 12:00:00 AM EST tablet 90 TAKE ONE TABLET BY MOUTH EVERY DAY TAKE ONE TABLET BY MOUTH EVERY DAY SOLD: 04/07/2020 [facility] 17.5-3.13-1.6 gram 10/20/2019 12:00:00 AM EDT [facility] [address] TAKE DIRECTED PER DR SUE TAKE DIRECTED PER DR SUE SOLD: 10/20/2019 [facility] Metronidazole 500 MG Oral Tablet Metronidazole 10/20/2019 12:00:00 AM EDT ORAL active MED[facility] ([facility], ) Amoxicillin 875 MG / Clavulanate 125 MG Oral Tablet [Augment in] Augmentin 10/20/2019 12:00:00 AM EDT ORAL active [facility] ([facility], ) Metronidazole 500 MG Oral Tablet METRONIDAZOLE 10/20/2019 12:0 0:00 AM EDT tablet 54 TAKE ONE TABLET BY MOUTH FOUR TI MES A DAY FOR 14 DAYS FOR DIVERTICULITIS TAKE ONE TABLET BY MOUTH FOUR TIMES A DAY FOR 14 DAYS FOR DIVERTICULITIS SOLD: 10/20/2019 [facility] 875-125 mg 10/20/2019 12:00:00 AM EDT tablet 28 TAKE ONE TABLET BY MOUTH EVERY 12 HOURS FOR 14 DAYS FOR DIVERTICULITIS TAKE ONE TABLET BY MOUTH EVERY 12 HOURS FOR 14 DAYS FOR DIVERTICULITIS SOLD: 10/20/2019 [facility] Magnesium Hydroxide 80 MG/ML Oral Suspension Milk Of Magnesi a 10/20/2019 12:00:00 AM EDT ORAL active M EDENT ([facility], ) Suprep Bowel Prep Kit Suprep Bowel Prep Kit 10/20/2019 12:00:00 AM EDT active [facility] ([facility], ) Metformin hydrochloride 500 MG Oral Tablet METFORMIN HCL 07/13/2019 12:00:00 AM EDT tablet 180 TAKE ONE TABLET BY MOUTH TWI CE A DAY TAKE ONE TABLET BY MOUTH TWICE A DAY SOLD: 10/20/2019 [facility] 25 mg 07/13/2019 12:00:00 AM EDT tablet 90 TAKE ONE TABLET BY MOUTH EVERY DAY TAKE ONE TABLET BY MOUTH EVERY DAY SOLD: 10/20/2019 [facility] BLOOD SUGAR DIAGNOSTIC 06/02/2019 12:00:00 AM EDT strip 50 DIRECTED TO TEST TWO TIMES A DAY DIRECTED TO TEST TWO TIMES A DAY SOLD: 05/21/2020 [employer] Insurance Providers Payer name Policy type / Coverage type Policy ID Covered constitution party ID Covered constitution party's relationship to watts Policy Watts Plan Information BCBS KELECHIROSALBA DEL PPO 302/[phone] [id number] SP [id number] [employer] (WC) Workers Compensation [id number] Self [id number] [employer] (WC) Workers Compensation [id number] Self [id number] [employer] (WC) Workers Compensation [id number] Self [id number] [employer] (WC) Workers Compensation [id number] Self [id number] [facility] (de) Commercial [id number] Self [id number] INSURANCE COVID-19 COVID Stephanie C OVID [facility] [id number] Stephanie [id number] [facility] [id number] INSURANCE COVID-19 COVID Stephanie C OVID INSURANCE COVID-19 [id number] [facility] [id number] SP [id number] [facility] COMMERCIAL [id number] Self Pay P UNAVAILABLE S UNAVAILA BLE [facility] [id number] SP [id number] [facility] O [id number] S [id number] [facility] Health Maintenance Organization (HMO) [id number] Self [facility] [id number] SP [id number] Problems, Conditions, and Diagnoses Code Display Name Description Problem Type Effective Dates Data Source(s) K57.92 Diverticulitis of intestine, part unspecified, without perforation or abscess without bleeding Diverticulitis of intestine, part unspec Diagnosis 11/10/2020 08:43:00 AM EDT [facility] U07.1 COVID-19 COVID-19 Diagnosis 11/06/2020 09:41:47 AM ED T [facility] K57.32 Diverticulitis of colon Diverticulitis of colon Proble m 11/30/2020 12:00:00 AM EDT [facility] ([facility]) Surgeries/Procedures Procedure Description Date Indications Data Source(s) OFFICE OUTPATIENT VISIT 15 MINUTES 11/28/2020 12:00:00 AM EDT [facility] ([facility]) LAPS COLECTOMY PRTL W/COLOPXTSTMY LW ANAST 11/10/2020 12:00:00 AM EDT [facility] ([facility]) LAPS MOBLJ SPLENIC FLXR PFRMD W/PRTL COLECTOMY 021 12:00:00 AM EDT [facility] ([facility]) ECG ROUTINE ECG W/LEAST 12 LDS TRCG ONLY W/O I&R <td>E CG 12- LEAD</td><td>Routine</td><td>11/06/2020 11:13 AM EDT</td><td> Diverticulitis</td><td></td> 11/06/2020 11:13:22 AM EDT Diverticulitis [facility] Diverticulitis BLOOD TYPING ABO <td>TYPE AND SCREEN</td><td> Routine</td><td>11/06/2020 11:10 AM EDT</td><td> Diverticulitis</td><td> </td> 11/06/2020 11:10:00 AM EDT Diverticulitis [facility] Diverticulitis BLOOD COUNT COMPLETE AUTOMATED <td>CBC</td><td>Routine </td><td>11/06/2020 11:00 AM EDT</td><td> Diverticulitis</td><td> </td> 11/06/2020 11:00:00 AM EDT Diverticulitis [facility] Diverticulitis HEMOGLOBIN GLYCOSYLATED A1C <td>HEMOGLOBIN A1C</td><td>Routine</td><td>11/06/2020 11:00 AM EDT</td><td> Diverticulitis</td><td> </td> 11/06/2020 11:00:00 AM EDT Diverticulitis [facility] Diverticulitis COMPREHENSIVE METABOLIC PANEL <td>COMPREHENSIVE METABO LIC PANEL</td><td>Routine</td><td>11/06/2020 11:00 AM EDT</td><td> Diverticulitis</td><td> </td> 11/06/2020 11:00:00 AM EDT Diverticulitis [facility] Diverticulitis OFFICE OUTPATIENT VISIT 15 MINUTES 11/06/2020 12:00:00 AM EDT [facility] ([facility] OFFICE OUTPATIENT VISIT 15 MINUTES 10/03/2020 12:00:00 AM EDT [facility] ([facility]) OFFICE OUTPATIENT NEW 45 MINUTES 09/14/2020 12:00:00 A M EDT [facility] ([facility]) Colonoscopy 08/11/2020 12:00:00 AM EDT M EDHAROLDO ([facility]) Colonoscopy W/ Poly 08/11/2020 12:00:00 AM EDT [facility] ([facility], ) ECG ROUTINE ECG W/LEAST 12 LDS W/I&R 06/02/2020 12:00: 00 AM EDT MEDHAROLDO ([facility]) PERIODIC PREVENTIVE MED EST PATIENT 40-64YRS 12:00:00 AM EDT [facility] ([facility]) OFFICE OUTPATIENT VISIT 25 MINUTES 05/31/2020 12:00:00 AM EDT [facility] ([facility], ) OFFICE OUTPATIENT VISIT 25 MINUTES 04/20/2020 12:00:00 AM EST [facility] ([facility], ) Diabetic Retinal Eye Exam 02/24/2020 12:00:00 AM EST [facility] ([facility]) Diabetic Retinal Eye Exam 02/24/2020 12:00:00 AM EST [facility] ([facility]) Results ID Date Data Source [id number] 11/28/2020 12:00:00 PM EDT [facility] ([facility]) Name Value Range Interpretation Code Description Data Cecilia rce(s) Supporting Document(s) Glucose [Mass/volume] in Serum or Plasma 117 mg/dL 74-99 [facility] ([facility]) 100-125 mg/dL PRE-DIABETES/FASTING >126 mg/dL DIABETES/FASTING Sodium [Moles/volume] in Serum or Plasma 138 meq/L 136-145 [facility] ([facility]) Creatinine 0.9 mg/dL 0.6-1.3 [facility] Urea nitrogen [Mass/volume] in Serum or Plasma 15 mg/dL 7-18 [facility] ([facility]) Potassium [Moles/volume] in Serum or Plasma 4.3 meq/L 3.5-5.1 [facility] ([facility]) Chloride [Moles/volume] in Serum or Plasma 100 meq/L 98-107 [facility] ([facility]) Carbon dioxide, total [Moles/volume] in Serum or Plasma 27 meq/L 21 -32 [facility] ([facility]) Calcium [Mass/volume] in Serum or Plasma 9.8 mg/dL 8.5-10.1 [facility] ([facility]) Alkaline phosphatase isoenzyme [Units/volume] in Serum or Pl asma 70 mg/dL 46-116 [facility] ([facility]) Aspartate aminotransferase [Enzymatic activity/volume] in Serum or Plasma 41 U/L 15-37 [facility] ([facility] ) Total Bilirubin 1.1 mg/dL 0.2-1.0 [facility]) Albumin [Mass/volume] in Serum or Plasma 4.5 g/dL 3.4-5.0 [facility] ([facility]) Alanine aminotransferase [Enzymatic activity/volume] in Seru m or Plasma 57 U/L 12-78 [facility] ([facility]) A/G Ratio 1.50 CALC 1.00-1.90 [facility] Proteinase 3 Ab [Units/volume] in Serum 7.5 g/dL 6.4-8.2 [facility] ([facility]) Glomerular filtration rate/1.73 sq M pre dicted among non-blacks [Volume Rate/Area] in Serum or Plasma by Creatinine-based formula (MDRD) Laboratory test result [facility] Glomerular filtration rate/1.73 sq M pre dicted among blacks [Volume Rate/Area] in Serum or Plasma by Creatinine-based formula (MDRD) Laboratory test result [facility] <content>CHRONIC KIDNEY DISEASE STAGING PER NKF</content>
<content></content>
<content>STAGE I & II GFR >= 60 NORMAL TO MILDLY DECREASED</content>
<content>STAGE III GFR 30-59 MODERATELY DECREASED</content>
<content>STAGE IV GFR 15-29 SEVERELY DECREASED</content>
<content>STAGE V GFR <15 VERY LITTLE GFR LEFT</content>
<content>ESRD GFR <15 ON UNIT ASSEMBLER</content>
<content></content> ID Date Data Source [id number] 11/28/2020 12:00:00 PM EDT [facility] ([facility]) Name Value Range Interpretation Code Description Data Cecilia rce(s) Supporting Document(s) Erythrocytes [#/volume] in Blood by Automated count 4.94 x10*6/UL 4.2 0-6.30 [facility] ([facility]) Leukocytes [#/volume] in Blood by Automated count 6.1 x10*3/UL 4.1-10 .9 [facility] ([facility]) Hemoglobin [Mass/volume] in Blood 14.6 g/dL 12.0-18.0 [facility] ([facility]) Hematocrit [Volume Fraction] of Blood by Automated count 41.4 % 3 7.0-51.0 [facility] ([facility]) MCH 29.6 pg 26.0-32.0 [facility] MCHC 35.3 g/dL 31.0-38.0 [facility] MCV 83.9 fL 80.0-97.0 [facility] Platelets [#/volume] in Blood by Automated count 161 x10*3/UL 140-440 [facility] ([facility]) MPV 9.0 FL 7.8-11.0 [facility] Erythrocyte distribution width [Ratio] by Automated count 13.0 % 11.6-13.7 [facility] ([facility]) Lymph % 20.7 % 10.0-58.5 [facility] Mid % 5.3 % 1.7-9.3 [facility] Lymph # 1.2 x10*3/UL 0.6-4.1 [facility] ([facility]) Mid # 0.4 x10*3/UL 0.1-0.6 [facility] ([facility]) Neut % 74.0 % 37.0-92.0 [facility] Neut # 4.5 x10*3/UL 2.0-7.8 [facility] ([facility]) ID Date Data Source [id number] 11/17/2020 08:22:06 AM EDT [facility] ClinicPATIE NT INFORMATIONPatient MRN Name Date of Age Gend*PT [id number] Ky Bains 1965 55 years M IPPT Location Admission Date/Time Visit ID Attending [id number] 11/10/20 0843 --- --- EPI ID CSN Admitting Provider [id number] Kimmy Sheikh MD([id number]) Attestation signed by Kimmy Sheikh MD at 11/17/2020 8:22 AMI saw and evaluated the patient and reviewed 's note. I agree with thehistory, physical and medical decision making with the following additions,exceptions, and/or observations:noneSignature: LUIZ Houstonate: November 17, 2020Time: 8:21 AM --Surgical Services Discharge Jessica Bains date: 11/10/2020ttending Physician: Addy Houston Procedures: LOW ANTERIOR RESECTION LAPAROSCOPICIndication for Admission: Surgery and postoperative careHospital Course & Complications: Patient has a history of hypertension, LIZZETH, DMII, GERD, and diverticulitis. He presented at [facility] for electivesurgery for his diverticulitis. For detailed history leading to his admission,please refer to H&P. He underwent laparoscopic low anterior resection, insertionof bilateral ureteral catheters, intraoperative perfusion assessment, splenicflexure mobilization. The operation went without complications. Patient stayedfor postoperative management. He progressively recovered after the surgery.During the course of the stay, pain managed; antiemetic measures and bowelregimen provided as needed; fluid status and electrolyte monitored and adjustedas needed. Stent removed POD#1 and March removed POD#2. As of today 11/13/20,VSS, afebrile, WBC wnl, pain well controlled, tolerating diet, having bowelfunction, urinating and ambulating well. Patient has met discharge criteria. Perattending request, patient will be discharged home and follow up in office byarranged appointment.Medications:Your medication listASK your doctor about these medications Instructions Last Dose Given Morning Afternoon Evening Bedtime As NeededAleve 220 MG tabletGeneric drug: naproxen sodium Take 440 mg by mouth daily as needed for painamoxicillin- clavulanate 875-125 MG per tabletCommonly known as: AUGMENTIN Take 1 tablet by mouth 2 (two) times a day X 14 days, final dose due 11/09/20atenolol 25 MG tabletCommonly known as: TENORMIN Take 25 mg by mouth okvcgR-Nufjuqb-N Tabs Take 1 tablet by mouth every third daylisinopril 5 MG tabletCommonly known as: PRINIVIL,ZESTRIL Take 5 mg by mouth nightlymetFORMIN 500 MG tabletCommonly known as: GLUCOPHAGE Take 500 mg by mouth 2 (two) times a dayzinc sulfate 220 (50 Zn) MG capsuleCommonly known as: ZINCATE Take 220 mg by mouth every other dayDischarge Exam:Temp: [97.2 F-97.9 F] 97.6 FHeart Rate: [54-65] 60Resp: [14-16] 16BP: (122-162)/(73-93) 162/81Intake/Output Summary (Last 24 hours) at 11/13/2020 0929Last data filed at 11/13/2020 0823Gross per 24 hourIntake 836 mlOutput 3850 mlNet -3014 mlGeneral: Alert and conversing appropriatelyHeart: H3X8Wnewi: Respiration unlabored.Abdomen: Soft, ND/NT.Extremities: No edema, erythema, or tenderness of lower ext bilaterally.Surgical site(s): Port sites CDI. No surrounding erythema or warmth.Discharged Condition:goodCode status: Full CodeDisposition: Home or Self CareFollow Up: Discharge instructions were reviewed with patient. Follow up in theoffice as scheduled. He understands to call the office with any questions orconcerns. Discussed above discharge plan with attending, Radha Houston nature: ANA Muñizate: November 13, 2020Time: 9:29 AM Name Value Range Interpretation Code Description Data Cecilia rce(s) Supporting Document(s) ID Date Data Source [id number] 11/15/2020 09:22:59 AM EDT [facility] ClinicPATIE NT INFORMATIONPatient MRN Name Date of Age Gend*PT [id number] Ky Bains 1965 55 years M IPPT Location Admission Date/Time Visit ID Attending [id number] 11/10/20 0843 --- --- EPI ID CSN Admitting Prov ider [id number] Kimmy Sheikh MD([id number]) [place] [address] OPERATIVE REPORT OPNAME: [place] BAINS#: [id number] #: [id number] ADMISSION DATE: 11/10/2020OB: 1965 SEX: M PT TYPE: I ColoACCT #: [id number] CARE PHYSICIAN:DATE OF OPERATION: 11/10/2020REOPERATIVE DIAGNOSIS:Diverticulitis.POSTOPERATIVE DIAGNOSIS:Diverticulitis.SURGEON:Dr. Huggins.ANESTHESIA:General anesthesia.ESTIMATED BLOOD LOSS:Zero.INTRAVENOUS FLUIDS:Approximately 250 mL of crystalloid.COMPLICATIONS:None.DRAINS:An 18- [place]ese March catheter with a Jackson device and bilateral 3-Mhqaqcqgjo-emsgw catheters.INDICATION FOR PROCEDURE:The patient is a 55-year-old gentleman undergoing a low anterior resectionfor diverticulitis. His preoperative ureteral catheters have beenrequested.DESCRIPTION OF PROCEDURE:The patient was identified, informed consent was obtained, he was taken tothe OR suite, placed in supine position, underwent general anesthesia.After adequate anesthesia, his genitalia and abdomen was then prepped anddraped in sterile surgical manner. Initially, a 21-[place]ese rigid cystoscopewith 30-degree lens was inserted intraurethrally into the bladder. It isto be noted that the patient has a hypospadias. The prostate was patentwith no evidence of obstruction, no masses or lesions seen in the bladder.Bilateral ureteral orifices were seen without difficulty. The left and theright ureteral orifice was normal.Cannulated the left ureteral orifice with a 5-[place]ese open-ended catheterand advanced it up into the collecting system and then cannulated the rightureteral orifice with a 5- [place] open-ended catheter and advanced it intothe collecting system. Each of the 2 catheters were marked out, [id number]-[id number] March catheter was then placed, 10 mL was instilled in balloon.A Jackson device was used to spikemaking supervisor the March catheter and the 2 ureteralcatheters into the collection bag.Po Huggins, MDPL/NTS Job #: [id number] DOC #: [id number] Name Value Range Interpretation Code Description Data Cecilia rce(s) Supporting Document(s) ID Date Data Source [id number] 11/13/2020 09:53:18 AM EDT [facility] Name Value Range Interpretation Code Description Data Cecilia rce(s) Supporting Document(s) POC NOVA GLU 127 mg/dL (70-99) H [facility] PERFORMED BY [facility]ICAL STAFF ID Date Data Source [id number] 11/13/2020 08:06:49 AM EDT [facility] Name Value Range Interpretation Code Description Data Cecilia rce(s) Supporting Document(s) SODIUM 141 mmol/L (136-145) [facility] POTASSIUM 4.0 mmol/L (3.6-5.2) [facility] CHLORIDE 107 mmol/L (100-108) [facility] CO2 27 mmol/L (22-31) [facility] ANION GAP 7 mmol/L (7-16) [facility] UREA NITROGEN 9 mg/dL (7-24) [facility] CREATININE 0.83 mg/dL (0.80-1.30) [facility] BUN/CREAT RATIO 10.8 RATIO (10.0-20.0) [facility] GLUCOSE 101 mg/dL (70-99) H [facility] CALCIUM 8.2 mg/dL (8.4-10.2) L [facility] GFR >60 ml/min/1.73m2 (>59) [facility] GFR ( AMER) >60 ml/min/1.73m2 (>59) [facility] GFR INTERPRETATION [facility] --NORMAL KIDNEY FUNCTION OR MILD DISEASE - GFR >OR= 60CHRONIC KIDNEY DISEASE - GFR 15 - 59RENAL FAILURE - GFR <15 Est. GFR calculation based on the MDRDstudy equation, which assumes a steadystate for creatinine. Est. GFR should notbe used for medication dosing. ID Date Data Source [id number] 11/13/2020 07:52:06 AM EDT [facility] Name Value Range Interpretation Code Description Data Cecilia rce(s) Supporting Document(s) WBC 5.2 10*3/uL (4.1-11.0) [facility] RBC 4.25 10*6/uL (4.60-6.10) L [facility] HGB 13.1 g/dL (13.5-18.0) L [facility] HCT 36.9 % (41.0-53.0) L [facility] MCV 86.8 fL (80.0-95.0) [facility] MCH 30.8 pg (27.0-32.0) [facility] MCHC 35.4 g/dL (32.0-36.0) [facility] RDW 14.2 % (10.5-14.5) [facility] PLT 105 10*3/uL (150-450) L [facility] MPV 9.8 fL (7.1-10.7) [facility] ID Date Data Source [id number] 11/12/2020 05:14:32 PM EDT [facility] Name Value Range Interpretation Code Description Data Cecilia rce(s) Supporting Document(s) POC NOVA GLU 125 mg/dL (70-99) H [facility] PERFORMED BY [facility] ID Date Data Source [id number] 11/12/2020 12:48:25 PM EDT [facility] Name Value Range Interpretation Code Description Data Cecilia rce(s) Supporting Document(s) POC NOVA GLU 118 mg/dL (70-99) H [facility]FORMED BY [facility] ID Date Data Source [id number] 11/12/2020 09:15:24 AM EDT [facility] Name Value Range Interpretation Code Description Data Cecilia rce(s) Supporting Document(s) POC NOVA GLU 114 mg/dL (70-99) H [facility] BY [facility] ID Date Data Source [id number] 11/11/2020 05:54:09 PM EDT [facility] Name Value Range Interpretation Code Description Data Cecilia rce(s) Supporting Document(s) POC NOVA GLU 124 mg/dL (70-99) H [facility] BY [facility] ID Date Data Source [id number] 11/11/2020 12:03:04 PM EDT [facility] Name Value Range Interpretation Code Description Data Cecilia rce(s) Supporting Document(s) POC NOVA GLU 144 mg/dL (70-99) H [facility]FOR[facility] BY [facility] ID Date Data Source [id number] 11/11/2020 09:10:52 AM EDT [facility] ClinicPATIE NT INFORMATIONPatient MRN Name Date of Age Gend*PT [id number] Ky Bains 1965 55 years M IPPT Location Admission Date/Time Visit ID Attending [id number] 11/10/20 0843 --- Kimmy Sheikh MD([id number]) EPI ID CSN Admitting Provider [id number] Kimmy Sheikh MD([id number]) [place] [address] OPERATIVE REPORT OPNAME: [place] BAINS#: [id number] #: [id number] ADMISSION DATE: 11/10/2020OB: 1965 SEX: M PT TYPE: I ColoACCT #: [id number] CARE PHYSICIAN:DATE OF OPERATION: 11/10/2020INDICATIONS:This is a 55-year-old gentleman with multiple symptomatic recurrent boutsof diverticulitis. He presents for surgical intervention in the form of alaparoscopic low anterior resection with bilateral ureteral catheters.PREOPERATIVE DIAGNOSIS:Recurrent symptomatic diverticulitis.POSTOPERATIVE DIAGNOSIS:Recurrent symptomatic diverticulitis.PROCEDURE:Laparoscopic low anterior resection, insertion of bilateral ureteralcatheters, intraoperative perfusion assessment, splenic flexuremobilization.SURGEON:Kimmy Sheikh MDFIR OPERATOR HELPER:ANA OconnorESCRIPTION OF PROCEDURE:Patient was brought to the operating room on the transport cart. He wastransferred supine to the operating room table. He underwent generalendotracheal anesthesia. He was positioned on the OR table on the beanbagpositioning device in the [facility]aterally. Patient underwent placement of bilateralureteral catheters with Dr. Huggins, that will be dictated as a separateoperative note. He was prepped and draped in usual manner. Access wasgained to the abdominal cavity via a supraumbilical port site. This wasaccomplished without incident. A camera was placed into the abdomen.There was noted to be adhesions and edema around the level of the sigmoidcolon at the level of the sacral promontory. Additional ports were placedin the lower midline, right lower quadrant and upper midline. Bowelgrasping devices and the EnSeal device and electrocautery were then used tofully mobilize the splenic flexure, descending colon, sigmoid colon andupper rectum. Once all structures were fully mobilized, the inferiormesenteric artery was taken at its origin and secured using the EnSealdevice. An appropriate site for bowel transection was selected distallybelow the level of disease at essentially the top of the rectum. Rectumwas dissected circumferentially at this level from all mesentericattachments and was divided using the Dresbach stapling device. A lit tlebit of further medial mobilization was performed. We felt we had adequatemobilization and length. The lower midline incision was then enlarged toform an extraction incision and the bowel was delivered onto the anteriorabdominal wall. An appropriate site for proximal bowel transection wasselected and the bowel was cleared of mesenteric attachments at this level. Intraoperative perfusion assessment was performed and we had excellentperfusion of our proposed proximal anastomosis. The bowel was divided atthis level and there was excellent submucosal bleeding noted. A 2-0Prolene pursestring suture was placed into the open end of the descendingcolon. The head of a 29 circular stapling device was placed into the openend of the bowel and the pursestring suture was tied down. The bowel wasreplaced intraabdominally. The fascia was closed using #1 Vicryl suturesin a multiple interrupted [id number] fashion. Camera was placed backinto the abdomen. The body of the 29 circular stapler was passed per anusand passed easily up to the previously placed Dresbach staple line. The pinwas extruded just anterior to the staple line. The ends of the staplerwere mated. The stapler was closed. The bowel was checked fororientation, showed no signs of twisting. There was no tension and therewas no bowel trapped beneath the anastomosis. The stapler was fired. Thebowel was occluded proximally using a non-crushing bowel clamp. The pelviswas filled with saline and the bowel was insufflated under pressure frombelow and there was no evidence of air leak. The proctoscope was removed.The saline was evacuated. The bowel was run from proximal to distal andthere was no evidence of any small bowel injuries. Instruments and portswere removed. All port sites and the incision were copiously andvigorously irrigated until clear. The skin was closed using Monocrylsutures. Patient tolerated the procedure well and was taken to recoveryroom in stable condition. Estimated blood loss for the procedure is [id number] mL. Intravenous fluids for the procedure is just over a liter. Urineoutput is a little bit difficult to quantify secondary to placement of thestents, but at the conclusion of the procedure, the patient was makingclear yellow urine. All counts were correct and the procedure was withoutcomplication.ADAM Houston/YULY Job #: [id number] DOC #: [id number] Name Value Range Interpretation Code Description Data Cecilia rce(s) Supporting Document(s) ID Date Data Source [id number] 11/11/2020 09:10:42 AM EDT [facility] ClinicPATIE NT INFORMATIONPatient MRN Name Date of Age Gend*PT [id number] Ky Bains 1965 55 years M IPPT Location Admission Date/Time Visit ID Attending [id number] 11/10/20 0843 --- Kimmy Sheikh MD([id number]) EPI ID CSN Admitting Provider [id number] Kimmy Sheikh MD([id number])Pre-Procedure History and Physical:The history and physical were reviewed and the patient was examined.There are no changes to the H&P.Kimmy Sheikh MD11/11/20 9:10 AM Name Value Range Interpretation Code Description Data Cecilia rce(s) Supporting Document(s) ID Date Data Source [id number] 11/11/2020 08:31:59 AM EDT [facility] Name Value Range Interpretation Code Description Data Cecilia rce(s) Supporting Document(s) SODIUM 138 mmol/L (136-145) [facility] POTASSIUM 4.1 mmol/L (3.6-5.2) [facility] CHLORIDE 103 mmol/L (100-108) [facility] CO2 27 mmol/L (22-31) [facility] ANION GAP 8 mmol/L (7-16) [facility] UREA NITROGEN 13 mg/dL (7-24) [facility] CREATININE 0.83 mg/dL (0.80-1.30) [facility] BUN/CREAT RATIO 15.7 RATIO (10.0-20.0) [facility] GLUCOSE 129 mg/dL (70-99) H [facility] CALCIUM 7.9 mg/dL (8.4-10.2) L [facility] GFR >60 ml/min/1.73m2 (>59) [facility] GFR ( AMER) >60 ml/min/1.73m2 (>59) [facility] GFR INTERPRETATION [facility] --NORMAL KIDNEY FUNCTION OR MILD DISEASE - GFR >OR= 60CHRONIC KIDNEY DISEASE - GFR 15 - 59RENAL FAILURE - GFR <15 Est. GFR calculation based on the MDRDstudy equation, which assumes a steadystate for creatinine. Est. GFR should notbe used for medication dosing. ID Date Data Source [id number] 11/11/2020 08:07:35 AM EDT [facility] Name Value Range Interpretation Code Description Data Cecilia rce(s) Supporting Document(s) WBC 10.0 10*3/uL (4.1-11.0) [facility] RBC 4.41 10*6/uL (4.60-6.10) L [facility] HGB 13.4 g/dL (13.5-18.0) L [facility] HCT 38.3 % (41.0-53.0) L [facility] MCV 86.7 fL (80.0-95.0) [facility] MCH 30.4 pg (27.0-32.0) [facility] MCHC 35.1 g/dL (32.0-36.0) [facility] RDW 13.8 % (10.5-14.5) [facility] PLT 124 10*3/uL (150-450) L [facility] MPV 10.1 fL (7.1-10.7) [facility] ID Date Data Source [id number] 11/10/2020 04:20:14 PM EDT [facility] Name Value Range Interpretation Code Description Data Cecilia rce(s) Supporting Document(s) POC NOVA GLU 156 mg/dL (70-99) H [facility] ID Date Data Source [id number] 11/10/2020 02:25:40 PM EDT [facility] Name Value Range Interpretation Code Description Data Cecilia rce(s) Supporting Document(s) POC NOVA GLU 163 mg/dL (70-99) H [facility] ID Date Data Source [id number] 11/10/2020 09:18:12 AM EDT [facility] ClinicPATIE NT INFORMATIONPatient MRN Name Date of Age Gend*PT [id number] Ky Bains 1965 55 years M IPPT Location Admission Date/Time Visit ID [facility]/10/20 0843 --- Kimmy Sheikh MD([id number]) EPI ID CSN Admitting Provider [id number] Kimmy Sheikh MD([id number])Pre-Procedure History and Physical:The history and physical were reviewed and the patient was examined.There are no changes to the H&P.Kimmy Sheikh MD11/10/20 9:18 AM Name Value Range Interpretation Code Description Data Cecilia rce(s) Supporting Document(s) ID Date Data Source [id number] 11/10/2020 09:17:08 AM EDT [facility] Name Value Range Interpretation Code Description Data Cecilia rce(s) Supporting Document(s) POC NOVA GLU 114 mg/dL (70-99) H [facility] PERFORMED BY [facility] ID Date Data Source [id number] 11/15/2020 03:59:03 PM EDT [facility] [address] [address]Ty[address]# Surgical Pathology ReportPatient Name: [place] BAINS.: 1965Accession #:[id number](s) ReceivedA: Sigmoid colonClinical Diagnosis and HistoryDiverticulitis DIAGNOSISSIGMOID COLON, RESECTION: DIVERTICULITIS WITH DIVERTICULAR ABSCESS. ACUTE SEROSITIS. SUBSEROSAL SUTURE GRANULOMA. BENIGN LYMPH NODES. MARGINS VIABLE. Gross DescriptionReceived in formalin labeled "sigmoid colon" is a 14.2 cm segment ofunoriented bowel stapled closed at one end. The serosa is burt tored-purple and glistening with a 3.0 cm area of slight adhesions andhemorrhage located 6.0 cm from the nearest opened margin. There isabundant adipose tissue. The specimen is opened along the antimesentericborder to show burt-pink glistening mucosa with unremarkable folds. Theluminal circumference measures up to 3.5 cm with a wall thicknessmeasuring up to 1.0 cm. The specimen is sectioned to show multiplediverticula diffusely throughout the specimen with focal areas of fibrosiswithin the wall and extending into the adjacent adipose tissue. Noperforations are grossly identified. Sectioning through the adipose tissueshows multiple lymph nodes measuring up to 0.5 cm. [employer] Sales Representative sectionsare submitted as follows: A1 differentially inked resection marginsperpendicular, open ended black, staple margin blue, A2-A3 areas offibrosis within the wall and adjacent adipose tissue, A4-A6 uncomplicateddiverticula, A7 multiple lymph nodes.[facility] Reported: 11/15/2020 15:57Electronically Signed Out By Robert Davalos M.D. [facility] [place] [address]cenYozctiblj component performed at [employer] [facility], [facility], [address] [place] [address], [phone].Reported at [facility] [employer] [facility], [address] [place] [address], [phone]. This report may includeimmunohistochemical or in-situ hybridization results. Testing wasdeveloped and the performance characteristics determined by [employer] as required by CLIA '88. The FDA hasdetermined that approval for specific use is not necessary for clinicaluse. The quality of Hematoxylin and Eosin stains and as applicable, forall immunohistochemical and/or special stains, including positive andnegative controls, were reviewed and considered appropriate.ICD codes K57.32CPT codesA: 35022Z Name Value Range Interpretation Code Description Data [facility](s) Supporting Document(s) ID Date Data Source [id number] 11/06/2020 11:31:30 AM EDT [facility] Name Value Range Interpretation Code Description Data Cecilia rce(s) Supporting Document(s) EKG [facility] ZUYCXm9hCcEBRlVlv6ImWpDpIYEkOM6oafc5P1U9lRCiR2AjuBWxi9nzC7RmF9WyMHQxAWKTEP0XdOIa jb2 [file] jP7T25/4/59v/F1rdNeV70Wlx//06j4/cirovT1dOs 7j1IFg3/P2DF/pXs/Y13hLyt2EMmQfEF93yGjeiDMdzUjimkxLC/BPJP2270apb+f/r6gn1Iu0rvVX+e w/N/h1nvjuIL1fr1nD/en9+8XZnITO2RDR/DW85f5QElz65/Dn/p1BStAKXzZGjPp1OpH/Ad5bcj2nzX cVevdbl/r2OvL770xsyw+9p8WA2CIV5U/Tu6bi+X9y tv/D57mG6hp4CUlb5V7ya+x4yMrpsLmrgwNDQyWSj8g8D64jk7M32G/esuWpk4dAtt2/wq792kpIr0+z 01L+7T3lPi0+xLSIR528M4Oi/pNvXGP9/4nrM/Lpp/q1PiK50DaVY5pBydp+ttcTx2jSz6TodfL++9O7 dlksjjW3n2t9RX/6W5db/Kb8RSaUoEfw8ML2FS+GGP Q7z31enLQk+B7SqhfHs//Lyba6Y5Z86TSkMNvYnOln/y/rcutds/JRyrfmJIqGHmTg8bD2Rr8/JRl6DX xAku18ARtYwp2hROtFMiB8IG+Z2d36VVm35Zzb9hAk7rxtF6nxaa9lwt+2avTKSIYy67w/UgcCBuMC5B ChN/1JpyuiWTbVFkf2I/HB9P2QT0S2Ri+J5eD6K6+7 1Szao776HX/GB8IN5fOPap29msf81CFesop04HVaxdb09JSr0nD6lJhS54vdVl9issq9cpsu7Wkf76Sz Me2pfFquAmtq4g/dTg45DvpqtxxuImqNRa0cD0SE91EuINhy7nKsSY8sf05/Qu5DLhw+v/5gUB8wv/Pa 5PPqLL7ZDYWQZR5b985Zc80/FRyjg1/19FeW/39KTn 1ziCA9mA3zeEanZ1lLBkJNi5+aj7d4I00sKNm0kM1rkSocQT4EuWQ2G11Bwz+na45xTarO7EdmLlE/ok f/mZ66701W/tPbZc/PX/09dMo/kyc73fPLpTk3sjr/s4qnuqprZ24p7yQ/Ihr+dQ28x6hnv+py/1bx/6 yg524MZb26zwuQMj7BtjS9Cgo+3q4B9nUC21/l2Et/ lWMy/NA6Clbre/+fvC7/t3NZfuLiUwVfmak8Ns3MdFx+2ens9KSME62ekhVJ0ShQC7lxh8/ywD/V5RYn cB2A9zSPpjbFek+rUlm8SGw8dTyZtqGl8/BXyQNjx+P5swwtdtwuH2Vk7Ja4e4T09Lmm2/BXK/s9/NUK OjE2TqRLyxNc13imsnMrfiEL+CvPZwx/3mA5Pbgbq7 GGDeGv/IRt4a+Iv4QtJtfO4cI+c5ChN/lXzc3Ba8PzpyN2V5+O0LsinfjX0LY67e+wZC7fc34nfmd1pv w/W3LDvedk4GAnwwkqKwp6IaWOuu9aAji9JbqJXxXm76cepfE7g/HvrXtIO7eFuiieXjE+2jlrdM+3X2 I7QXw+sjQS47QTsJFBolcek0VriYIsZ6FJ+exM4jJ3 fvUff5Qv/X62CRoySdnPhL9Rckcks3KLrky3GB/I632XR/DoeWjqrW0S4bSbUFxFiGOrcVxf6L0NZ6O0 QO+A5lo4Q1sj4P9blm4mR9qxs0yeqQ/R1t7es10N9sgE48MmMf5Esbwtv+C8R26W8frk57+R/CrHcPIr zTHlpVorS50kejVSim/Jr/Z4Qq0vOLzJS/VSwTM10N 25+JN9JV8I4WtnIWHKpPAlhPd+AS4Y4jMsrsTgE3I9fQgTpxZ7rONppPyEQ8/q3wl+MH43d5geb/ADM/ dPpp72qR9dqOZG47wQIxZVeCu9Cl/ryqGvXR3l0oiotfl3ka/X59ofh3lgdKmou0jQYF1A15CIlcX88x rZB+MVpPN6lXsv5gp8AiyMlbXMar6jc/3KE/KC7JA3 IPphRP8vuPWEYYjYRgsD5g3eL0s5iPj72n+fybKVwy9im2jQ/RNVg4Lz9l37Dwus/FWugcTy/S+o5J/q cv/CgP+fJzbisBgt9wEj/TCW7n/Blv9Ul/sXv/RPdbl/EQr/JVd58rlo1K232i3d5KfVe59Wi4rikdeP t9r6GkczPeDurTAfuan3/6fkXd/ngpqc3k+2mmZq7M KKsUz/yrVOGIv0+z3EXw93RRxDcacNHi04WVzOyr1z3kbVKXT9IxqnDvgOWDBvJscf4nqJHERc/head of training and development/0 [file] AKMDAwMDAwMTQwNiAwMDAwMCBuIAowMDAwMDUzOTQy GZJaTLCtFS1jPmOhYJHdGUJ3OHujTXJmPBSxelWIWEDfXPYhBKduSSIcUTOrTFVyLAzkIEMrLKAjFUC0 NRKnLFGdHS3mDwHpGIAjXXGxNSUyXvY1OxLlEyFWlOTndSeesms2BZpfV6m4ZLRbAQvuFI7cypTzPOOb HeokCc6sfOP8JLKkAvbKVr1Ui0CobjJ8jpHiFvU5DAH1ScKtQV7M ID Date Data Source [id number] 11/06/2020 11:10:00 AM EDT [facility]) Name Value Range Interpretation Code Description Data Cecilia rce(s) Supporting Document(s) Blood type and Indirect antibody screen panel - Blood Laboratory test result [facility] ([facility]) SPEC EXP DATE 11/11/2020 PATIENT ABO/Rh A POSITIVE ANTIBODY SCREEN NEGATIVE TESTING SITE PERFORMED AT [address] [place] [address] ID Date Data Source [id number] 11/06/2020 05:58:33 PM EDT [facility] SPEC EXP DATE 11/11/2020ATI ENT ABO/Rh A POSITIVEANTIBODY SCREEN NEGATIVETESTING SITE PERFORMED AT [address] [place] [address] Name Value Range Interpretation Code Description Data Cecilia rce(s) Supporting Document(s) TYPE AND SCREEN [facility] ID Date Data Source [id number] 11/06/2020 11:00:00 AM EDT [facility]) Name Value Range Interpretation Code Description Data Cecilia rce(s) Supporting Document(s) Hemoglobin A1c/Hemoglobin.total in Blood 5.6 % 4.0-6.0 [facility]) Performed using Siemens Coolin immunoassa y. Care must be taken when interpreting HbA1c results in patients with a hemoglobin variant or decreased erythrocyte lifespan. Values 5.7 - 6.4% suggest prediabetes. Values >=6.5% are diagnostic for diabetes. REFERENCE: DIABETES CARE 2018: 41(S13-S27). Glucose mean value [Mass/volume] in Blood Estimated fr om glycated hemoglobin 114 mg/dL [facility]) ID Date Data Source [id number] 11/06/2020 11:00:00 AM EDT [facility]) Name Value Range Interpretation Code Description Data Cecilia rce(s) Supporting Document(s) Sodium [Moles/volume] in Serum or Plasma 138 mmol/L 136-145 [facility]) Potassium [Moles/volume] in Serum or Plasma 4.2 mmol/L 3.6-5.2 [facility]) Chloride [Moles/volume] in Serum or Plasma 105 mmol/L 100-108 [facility]) Carbon dioxide, total [Moles/volume] in Serum or Plasma 24 mmol/L 22 -31 [facility]) Anion gap 3 in Serum or Plasma 9 mmol/L 7-16 [facility]) Urea nitrogen [Mass/volume] in Serum or Plasma 13 mg/dL 7-24 [facility]) Creatinine [Mass/volume] in Serum or Plasma 0.87 mg/dL 0.80-1.30 [facility]) Urea nitrogen/Creatinine [Mass Ratio] in Serum or Plasma 14.9 RATIO 10.0-20.0 [facility] ([facility]) Glucose [Mass/volume] in Serum or Plasma 135 mg/dL 70-99 Above high normal [facility] ([facility]) Calcium [Mass/volume] in Serum or Plasma 9.5 mg/dL 8.4-10.2 [facility]) Albumin [Mass/volume] in Serum or Plasma 4.5 g/dL 3.5-4.6 [facility]) Globulin [Mass/volume] in Serum 2.8 g/dL 2.7-4.3 [facility]) Protein [Mass/volume] in Serum or Plasma 7.3 g/dL 6.4-8.2 [facility] ([facility]) Albumin/Globulin [Mass Ratio] in Serum or Plasma 1.6 RATIO [facility]) Alkaline phosphatase [Enzymatic activity/volume] in Serum or Plasma 67 U/L 45-117 [facility]) Bilirubin.total [Mass/volume] in Serum or Plasma 1.2 mg/dL 0.0-1.0 Above high normal [facility] ([facility]) PLEASE NOTE: Total bilirubin results may be falsely elevated in patients taking Eltrombopag. Alanine aminotransferase [Enzymatic activity/volume] in Seru m or Plasma 69 U/L 12-78 [facility]) Aspartate aminotransferase [Enzymatic activity/volume] in Serum or Plasma 53 U/L 11-39 Above high normal [facility]) Glomerular filtration rate/1.73 sq M.pre dicted [Volume Rate/Area] in Serum or Plasma by Creatinine-based formula (MDRD) Laboratory test result [facility]) Glomerular filtration rate/1.73 sq M pre dicted among blacks [Volume Rate/Area] in Serum or Plasma by Creatinine-based formula (MDRD) Laboratory test result [facility]) Laboratory test finding (navigational concept) Laboratory test result [facility]) <content> </content>
<content>ODALYS L KIDNEY FUNCTION</content>
<content>OR MILD DISEASE - GFR >OR= 60</content>
<content>CHRONIC KIDNEY DISEASE - GFR 15 - 59</content>
<content>RENAL FAILURE - GFR <15</content>
<content> </content>< br/><content>Est. GFR calculation based on the MDRD</content>
<content>study equation, which assumes a steady</content>
<content>state for creatinine. Est. GFR should not</content>
<content>be used for medication dosing.</content>
<content></content> ID Date Data Source [id number] 11/06/2020 11:00:00 AM EDT [facility]) Name Value Range Interpretation Code Description Data Cecilia rce(s) Supporting Document(s) Leukocytes [#/volume] in Blood by Automated count 5.4 10*3/uL 4.1-11. 0 [facility] ([facility]) Erythrocytes [#/volume] in Blood by Automated count 4.78 10*6/uL 4.60 -6.10 [facility] ([facility]) Hematocrit [Volume Fraction] of Blood by Automated count 41.5 % 4 1.0-53.0 [facility] ([facility]) Erythrocyte mean corpuscular volume [Entitic volume] by Auto mated count 86.9 fL 80.0-95.0 [facility]) Hemoglobin [Mass/volume] in Blood 14.7 g/dL 13.5-18.0 [facility] ([facility]) Erythrocyte mean corpuscular hemoglobin [Entitic mass] by Automated count 30.8 pg 27.0-32.0 [facility] Erythrocyte mean corpuscular hemoglobin concentration [Mass/volume] by Automated count 35.4 g/dL 32.0-36.0 [facility] Erythrocyte distribution width [Ratio] by Automated count 14.1 % 10.5-14.5 [facility]) Platelet mean volume [Entitic volume] in Blood by Automated count 10.0 fL 7.1-10.7 [facility] ([facility]) Platelets [#/volume] in Blood by Automated count 147 10*3/uL 150-450 Below low normal [facility] ([facility]) ID Date Data Source [id number] 11/06/2020 04:59:18 PM EDT [facility] Name Value Range Interpretation Code Description Data Cecilia rce(s) Supporting Document(s) HEMOGLOBIN A1C @ 5.6 % (4.0-6.0) [facility] Performed using Siemens Coolin immunoassa y.Care must be taken when interpreting XoS7jzoeheyx in patients with a hemoglobin variantor decreased erythrocyte lifespan. Values 5.7 - 6.4% suggest prediabetes.Values >=6.5% are diagnostic for diabetes.REFERENCE: DIABETES CARE 2018: 41(S13-S27). EST AVERAGE GLUCOSE 114 mg/dL [facility] ID Date Data Source [id number] 11/06/2020 04:36:33 PM EDT [facility] Name Value Range Interpretation Code Description Data Cecilia rce(s) Supporting Document(s) SODIUM 138 mmol/L (136-145) [facility] POTASSIUM 4.2 mmol/L (3.6-5.2) [facility] CHLORIDE 105 mmol/L (100-108) [facility] CO2 24 mmol/L (22-31) [facility] ANION GAP 9 mmol/L (7-16) [facility] UREA NITROGEN 13 mg/dL (7-24) [facility] CREATININE 0.87 mg/dL (0.80-1.30) [facility] BUN/CREAT RATIO 14.9 RATIO (10.0-20.0) [facility] GLUCOSE 135 mg/dL (70-99) H [facility] CALCIUM 9.5 mg/dL (8.4-10.2) [facility] TOTAL PROTEIN 7.3 g/dL (6.4-8.2) [facility] ALBUMIN 4.5 g/dL (3.5-4.6) [facility] GLOBULIN 2.8 g/dL (2.7-4.3) [facility] ALB/GLOB RATIO 1.6 RATIO [facility] ALKALINE PHOSPHATASE 67 U/L (45-117) [facility] BILIRUBIN,TOTAL 1.2 mg/dL (0.0-1.0) H [facility] PLEASE NOTE:Total bilirubin results may be falselyelevated in patients taking Eltrombopag. AST (SGOT) 53 U/L (11-39) H [facility] ALT (SGPT) 69 U/L (12-78) [facility] GFR >60 ml/min/1.73m2 (>59) [facility] GFR ( AMER) >60 ml/min/1.73m2 (>59) [facility] GFR INTERPRETATION [facility] --NORMAL KIDNEY FUNCTION OR MILD DISEASE - GFR >OR= 60CHRONIC KIDNEY DISEASE - GFR 15 - 59RENAL FAILURE - GFR <15 Est. GFR calculation based on the MDRDstudy equation, which assumes a steadystate for creatinine. Est. GFR should notbe used for medication dosing. ID Date Data Source [id number] 11/06/2020 04:31:27 PM EDT [facility] Name Value Range Interpretation Code Description Data Cecilia rce(s) Supporting Document(s) WBC 5.4 10*3/uL (4.1-11.0) [facility] RBC 4.78 10*6/uL (4.60-6.10) [facility] HGB 14.7 g/dL (13.5-18.0) [facility] HCT 41.5 % (41.0-53.0) [facility] MCV 86.9 fL (80.0-95.0) [facility] MCH 30.8 pg (27.0-32.0) [facility] MCHC 35.4 g/dL (32.0-36.0) [facility] RDW 14.1 % (10.5-14.5) [facility] PLT 147 10*3/uL (150-450) L [facility] MPV 10.0 fL (7.1-10.7) [facility] ID Date Data Source [id number] 11/06/2020 10:57:30 AM EDT [facility] ClinicPATIE NT INFORMATIONPatient MRN Name Date of Age Gend*PT [id number] Ky Bains 1965 55 years M OPPT Location Admission Date/Time Visit ID Attending Provider --- --- --- Kimmy Sheikh MD([id number]) EPI ID CSN Admitting Provider [id number] Kimmy Sheikh MD([id number])HISTORY PHYSICALName: Ky Bains : 1965 Sex: male Care Provider: MICAH MELCHOR, NPAttending Physician: Dr. SheikhInformant: The patient who is reliable.Chief Complaint: "I have diverticulitis".HISTORY OF PRESENT ILLNESS: 55 years old male with a history ofhypertension, LIZZETH, DM type II, GERD and diverticulitis. He has been complainingof frequent flareups of diverticulitis for the past 15 years requiringantibiotics. Occasionally complains of alternating diarrhea and constipation.Currently denies any abdominal pain, bloating, nausea, vomiting, melena orhematochezia. Subsequently he was referred to Dr. Sheikh for surgicalevaluation. The patient met with Dr. Sheikh only, options were discussed and rj elected to under go LOW ANTERIOR RESECTION LAPAROSCOPIC POSSIBLE OPENCYSTOSCOPY, WITH BILATERAL URETERAL STENT REPLACEMENT on 11/10/2020.PAST MEDICAL HISTORY:Past Medical History:Diagnosis Date Diverticulitis DM2 (diabetes mellitus, type 2) GERD (gastroesophageal reflux disease) Hypertension Sleep apnea does not use CPAPPAST SURGICAL HISTORY:Past Surgical History:Procedure Laterality Date COLONOSCOPY HAND SURGERY Right PANENDOSCOPYALLERGIES: No Known Drug AllergiesMEDICATIONS:Prior to Admission medicationsMedication Sig Start Date End Date Taking? Authorizing Provideramoxicillin-clavulanate (AUGMENTIN) 875-125 MG per tablet Take 1 tablet by mouth2 (two) times a day X 14 days, final dose due 11/09/20 10/27/20 HistoricalProvider, MDatenolol (TENORMIN) 25 MG tablet Take 25 mg by mouth daily HistoricalProvider IAV-Xlqzkbx-A TABS Take 1 tablet by mouth every third day Historical Provider,lisinopril (PRINIVIL,ZESTRIL) 5 MG tablet Take 5 mg by mouth nightlyHistorical Provider, MDmetFORMIN (GLUCOPHAGE) 500 MG tablet Take 500 mg by mouth 2 (two) times a dayHistorical Provider, naproxen sodium (Aleve) 220 MG tablet Take 440 mg by mouth daily as needed forpain Historical Provider, zinc sulfate (ZINCATE) 220 (50 Zn) MG capsule Take 220 mg by mouth every otherday Historical Provider, MDSocial HistoryTobacco Use Smoking status: Never Smoker Smokeless tobacco: Never UsedVaping Use Vaping Use: Never usedSubstance Use Topics Alcohol use: Yes Comment: very little Drug use: NeverFamily HistoryProblem Relation Age of Onset Diabetes Mother Cancer Mother Kidney cancer Father Malig Hyperthermia Neg HxREVIEW OF SYSTEMS:Constitution: Weight stable, Denies fatigue, fever or chills. Caffeine intake: 2cups/day.HEENT: Denies any blurred vision, double vision, dizziness, tinnitus, dysphagiaor headaches.Respiratory: Denies any shortness of breath, cough, yellow sputum production orwheezing.Cardiovascular: Denies any chest pain, pressure or tightness. Denies anyparoxysmal nocturnal dyspnea or orthopnea.Muscle/Skeletal System: Denies any muscle ache, joint ache or weakness.Neurologic: Denies any numbness, tingling, tremors or syncope.GI: Denies any nausea, vomiting, diarrhea, constipation or melena.: Denies any dysuria, hematuria or nocturia.Endocrine: Denies polyuria, polydipsia or polyphagia. Denies any heat or coldintolerance, or night sweats.Hematology: Denies any bleeding or bruising tendencies.DNR Status: Full Code per the patient.HCP: No per patient.PHYSICAL EXAM:General: He is a 55 years old, pleasant white male, in no acute distress at timeof examination. Vitals on arrival to the office are BP 128/74 (BP Location: Leftupper arm, Patient Position: Sitting) | Pulse 68 | Ht 1.829 m (6') | Wt (!)113.8 kg (250 lb 12.8 oz) | SpO2 99% | BMI 34.01 kg/m Body mass index is34.01 kg/m ..Skin is pink warm and dry.HEENT: He is normocephalic, atraumatic. [place] conjunctivae. Anicteric sclerae.Pupils are equal, round, reactive to light and accommodation. Extraocularmovements are intact. Ears: Without drainage or lesion. Mouth: Dentition is ingood repair. He has a grade 1 airway. Neck is supple midline without cervicaladenopathy. There is no tonsillo pharyngeal congestion. Mucous membranes aremoist. There are no oral lesions. No jugular distention. No carotid bruit.CHEST/BREAST: A/P less than transverse. Breast exam declined.LUNGS: Clear to auscultation. No wheezes, rhonchi or crackles.HEART: R ate rhythm regular. S1, S2. No murmur, rub or gallop.ABDOMEN: Bowel sounds positive times four. Soft, non tender. No reboundtenderness. No hepatosplenomegaly. Negative CVAT.GENITAL/RECTAL: Deferred.MUSCLE/SKELETAL: Strength is 5/5. [employer] are equal.NEUROLOGICALLY: Cranial nerves II through XII are grossly intact.VASCULAR: Pulses are symmetrical. No edema.Anesthesia complications: deniesSteroid use: He denies any oral steroid therapy for three weeks or greaterwithin the last 3 months.[facility] Frailty Scale :: 2/10 Well (without active disease, but less fit thanpeople in category I. Often they exercise or are very active occasionally, e.g.seasonally).IMPRESSION and PLAN:Primary Diagnosis: Diverticulitis. Surgery as per Dr. Sheikh.Secondary Diagnosis and Plan:1. Hypertension Continuation of prior to admission anti-hypertensivemedications unless precluded by clinical status.2. Sleep apnea Obstructive Patient to continue with use of home CPAP /BiPAP3. Diabetes Type 2 Routine blood glucose monitoring. Sliding scaleinsulin coverage while inpatient. Hold oral diabetic medications.4. GI prophylaxis Per surgeon5. DVT prophylaxis Early ambulation. Pneumatic compression device.Subcutaneous Heparin or LMW Heparin if clinically indicatedBased on above medical co morbidities, length of stay may be prolonged greaterthan previously anticipated.ALLERGIES:Patient has no known drug allergies.11/06/2020 10:57 Rm Melendez, AMARILYSThis document or parts of this document, were dictated using [employer] speaking software. A reasonable attempt at proofreading has beenmade to minimize errors. Please call with any questions or corrections. Name Value Range Interpretation Code Description Data Cecilia rce(s) Supporting Document(s) ID Date Data Source [id number] 11/06/2020 09:45:00 AM EDT [facility] Name Value Range Interpretation Code Description Data [facility] rce(s) Supporting Document(s) SARS coronavirus 2 RNA [Presence] in Res piratory specimen by GENESIS with probe detection NOT DETECTED [place] This lab was reported by [facility]. ID Date Data Source [id number] 11/07/2020 07:12:47 AM EDT [facility] Name Value Range Interpretation Code Description Data Cecilia rce(s) Supporting Document(s) SPECIMEN DESCRIPTION [facility] [place] COVID 19 RESULT (NDET) [facility] [place] NEGATIVE COVID-19 RESULTS DONOT PRECLUDE COVID-2019 INFECTION ANDSHOULD NOT BE USED THE SOLE BASISFOR PATIENT MANAGEMENT DECISIONS. COMMENT [facility] [place] THE [place] FDA HAS MADE THIS TEST AVAILABL EUNDER AN EMERGENCY USE AUTHORIZATION(EUA) FOR THE DETECTION AND/OR DIAGNOSISOF THE VIRUS THAT CAUSES COVID-19.THIS ASSAY AMPLIFIES AND DETECTS TARGETDNA USING WAITER- MEDIATEDAMPLIFICATIONTESTING PERFORMED ON [email or web address] FIRST TEST [facility] [place] [facility] [place] SYMPTOMATIC [facility] [place] DATE OF SYMPT ONSET [facility] [place] HOSPITALIZED [facility] [place] [facility] [place] CONGREGATE CARE SET [facility] [place] [facility] [place] ID Date Data Source [id number] 10/18/2020 09:43:00 AM EDT [facility] ([facility]) Name Value Range Interpretation Code Description Data Cecilia rce(s) Supporting Document(s) Glucose [Mass/volume] in Serum or Plasma 161 mg/dL 74-99 [facility] ([facility]) 100-125 mg/dL PRE-DIABETES/FASTING >126 mg/dL DIABETES/FASTING Urea nitrogen [Mass/volume] in Serum or Plasma 16 mg/dL 7-18 [facility] ([facility]) Creatinine 1.0 mg/dL 0.6-1.3 [facility] Sodium [Moles/volume] in Serum or Plasma 141 meq/L 136-145 [facility] ([facility]) Potassium [Moles/volume] in Serum or Plasma 4.2 meq/L 3.5-5.1 [facility] ([facility]) Chloride [Moles/volume] in Serum or Plasma 104 meq/L 98-107 [facility] ([facility]) Calcium [Mass/volume] in Serum or Plasma 9.4 mg/dL 8.5-10.1 [facility] ([facility]) Carbon dioxide, total [Moles/volume] in Serum or Plasma 27 meq/L 21 -32 [facility] ([facility]) Glomerular filtration rate/1.73 sq M pre dicted among non-blacks [Volume Rate/Area] in Serum or Plasma by Creatinine-based formula (MDRD) Laboratory test result [facility] ([facility] ) Glomerular filtration rate/1.73 sq M pre dicted among blacks [Volume Rate/Area] in Serum or Plasma by Creatinine-based formula (MDRD) Laboratory test result [facility] ([facility]) <content>CHRONIC KIDNEY DISEASE STAGING PER NKF</content>
<content></content>
<content>STAGE I & II GFR >= 60 NORMAL TO MILDLY DECREASED</content>
<content>STAGE III GFR 30-59 MODERATELY DECREASED</content>
<content>STAGE IV GFR 15-29 SEVERELY DECREASED</content>
<content>STAGE V GFR <15 VERY LITTLE GFR LEFT</content>
<content>ESRD GFR <15 ON UNIT ASSEMBLER</content>
<content></content> ID Date Data Source [id number] 10/03/2020 02:55:00 PM EDT [facility] ([facility]) Name Value Range Interpretation Code Description Data Cecilia rce(s) Supporting Document(s) Glucose [Mass/volume] in Serum or Plasma 213 mg/dL 74-99 [facility] ([facility]) 100-125 mg/dL PRE-DIABETES/FASTING >126 mg/dL DIABETES/FASTING Sodium [Moles/volume] in Serum or Plasma 138 meq/L 136-145 [facility] ([facility]) Urea nitrogen [Mass/volume] in Serum or Plasma 14 mg/dL 7-18 [facility] ([facility]) Creatinine 1.0 mg/dL 0.6-1.3 [facility] ([facility]) Potassium [Moles/volume] in Serum or Plasma 4.2 meq/L 3.5-5.1 [facility] ([facility]) Carbon dioxide, total [Moles/volume] in Serum or Plasma 27 meq/L 21 -32 [facility] ([facility]) Chloride [Moles/volume] in Serum or Plasma 104 meq/L 98-107 [facility] ([facility]) Calcium [Mass/volume] in Serum or Plasma 9.2 mg/dL 8.5-10.1 [facility] ([facility]) Glomerular filtration rate/1.73 sq M pre dicted among non-blacks [Volume Rate/Area] in Serum or Plasma by Creatinine-based formula (MDRD) Laboratory test result [facility] ([facility] ) Glomerular filtration rate/1.73 sq M pre dicted among blacks [Volume Rate/Area] in Serum or Plasma by Creatinine-based formula (MDRD) Laboratory test result [facility] ([facility]) <content>CHRONIC KIDNEY DISEASE STAGING PER NKF</content>
<content></content>
<content>STAGE I & II GFR >= 60 NORMAL TO MILDLY DECREASED</content>
<content>STAGE III GFR 30-59 MODERATELY DECREASED</content>
<content>STAGE IV GFR 15-29 SEVERELY DECREASED</content>
<content>STAGE V GFR <15 VERY LITTLE GFR LEFT</content>
<content>ESRD GFR <15 ON UNIT ASSEMBLER</content>
<content></content> ID Date Data Source [id number] 10/03/2020 02:55:00 PM EDT [facility] Name Value Range Interpretation Code Description Data Cecilia rce(s) Supporting Document(s) Microalbumin Urine 9.1 mg/L 1.3-20.0 [facility] Microalb/Creat Ratio 4.3 ug/mg 0.0-30.0 [facility] Urine Creatinine 214.0 mg/dL 30.0-125.0 [facility] ([facility]) ID Date Data Source [id number] 10/03/2020 02:55:00 PM EDT [facility] Name Value Range Interpretation Code Description Data Cecilia rce(s) Supporting Document(s) Calcidiol [Mass/volume] in Serum or Plasma 30.5 ng/mL 24.0-80.0 [facility] This test was performed using FastPack I P Vitamin D immunoassay kit. Values obtained with different assay methods should not be used interchangeably. ID Date Data Source [id number] 08/11/2020 07:54:00 AM EDT [facility] Name Value Range Interpretation Code Description Data Cecilia rce(s) Supporting Document(s) Surgical pathology study Laboratory test result [facility] ([facility]) FINAL DIAGNOSIS A - Descending colon, polyp, polypectomy: Adenomatous polyp/tubular adenoma. B - Sigmoid colon, polyp, polypectomy: Polypoid fragment of colonic mucosa. No definite adenomatous change is noted. 08/15/20201145 CLINICAL DIAGNOSIS Diverticulitis 08/11/20201148 GROSS DIAGNOSIS A - Received in formalin labeled "descending colon polyp" is a 2 x 0.6 x 0.1 cm membranous portion of mucosa. Se ctioned, all in one. B - Received in formalin labeled "sigmoid polyp" is a 0.5 x 0.3 x 0.2 cm portion of mucosa. All in one. - 08/11/20201148 Signed Katie Perdue MD 08/15/2020 1146 ID Date Data Source [id number] 08/06/2020 08:15:00 AM EDT [facility] Name Value Range Interpretation Code Description Data [facility](s) Supporting Document(s) SARS-CoV-2 (COVID-19) RNA [Presence] in Respiratory specimen by GENESIS with probe detection Not Detected [place] This lab was ordered by [facility] and reported by [facility]. ID Date Data Source [id number] 06/21/2020 08:46:00 AM EDT [facility] Name Value Range Interpretation Code Description Data Cecilia rce(s) Supporting Document(s) Glucose [Mass/volume] in Serum or Plasma 193 mg/dL 74-99 [facility] ([facility]) 100-125 mg/dL PRE-DIABETES/FASTING >126 mg/dL DIABETES/FASTING Urea nitrogen [Mass/volume] in Serum or Plasma 14 mg/dL 7-18 [facility] ([facility]) Sodium [Moles/volume] in Serum or Plasma 138 meq/L 136-145 [facility] ([facility]) Creatinine 1.0 mg/dL 0.6-1.3 [facility] ([facility]) Chloride [Moles/volume] in Serum or Plasma 100 meq/L 98-107 [facility] ([facility]) Potassium [Moles/volume] in Serum or Plasma 4.3 meq/L 3.5-5.1 [facility] ([facility]) Carbon dioxide, total [Moles/volume] in Serum or Plasma 28 meq/L 21 -32 [facility] ([facility]) Calcium [Mass/volume] in Serum or Plasma 8.7 mg/dL 8.5-10.1 [facility] ([facility]) Glomerular filtration rate/1.73 sq M pre dicted among non-blacks [Volume Rate/Area] in Serum or Plasma by Creatinine-based formula (MDRD) Laboratory test result [facility] ([facility] ) Glomerular filtration rate/1.73 sq M pre dicted among blacks [Volume Rate/Area] in Serum or Plasma by Creatinine-based formula (MDRD) Laboratory test result [facility] ([facility]) <content>CHRONIC KIDNEY DISEASE STAGING PER NKF</content>
<content></content>
<content>STAGE I & II GFR >= 60 NORMAL TO MILDLY DECREASED</content>
<content>STAGE III GFR 30-59 MODERATELY DECREASED</content>
<content>STAGE IV GFR 15-29 SEVERELY DECREASED</content>
<content>STAGE V GFR <15 VERY LITTLE GFR LEFT</content>
<content>ESRD GFR <15 ON UNIT ASSEMBLER</content>
<content></content> ID Date Data Source [id number] 06/02/2020 08:45:00 AM EDT [facility] ([facility]) Name Value Range Interpretation Code Description Data Cecilia rce(s) Supporting Document(s) Cholesterol [Mass/volume] in Serum or Plasma 146 mg/dL 131-200 [facility] ([facility]) Triglyceride [Mass/volume] in Serum or Plasma 218 mg/dL 30-150 [facility] ([facility]) Cholesterol in HDL [Mass/volume] in Serum or Plasma 40 mg/dL 35-60 [facility] ([facility]) Cholesterol in LDL [Mass/volume] in Serum or Plasma by calcu miriam 62 CALC 50-159 [facility] ([facility]) ID Date Data Source [id number] 06/02/2020 08:45:00 AM EDT [facility] ([facility]) Name Value Range Interpretation Code Description Data Cecilia rce(s) Supporting Document(s) Glucose mean value [Mass/volume] in Blood Estimated fr om glycated hemoglobin 114 mg/dL 60-110 [facility] ([facility] ) Hemoglobin A1c/Hemoglobin.total in Blood 5.6 % [facility] Lab Result Notes: Pre-Diabetes 5.7 - 6.4 % Diabetes = or > 6.5% ID Date Data Source [id number] 06/02/2020 08:45:00 AM EDT [facility] Name Value Range Interpretation Code Description Data Cecilia rce(s) Supporting Document(s) Glucose [Mass/volume] in Serum or Plasma 173 mg/dL 74-99 [facility] ([facility]) 100-125 mg/dL PRE-DIABETES/FASTING >126 mg/dL DIABETES/FASTING Urea nitrogen [Mass/volume] in Serum or Plasma 15 mg/dL 7-18 [facility] ([facility]) Sodium [Moles/volume] in Serum or Plasma 138 meq/L 136-145 [facility] ([facility]) Creatinine 0.9 mg/dL 0.6-1.3 [facility]) Potassium [Moles/volume] in Serum or Plasma 4.1 meq/L 3.5-5.1 [facility] ([facility]) Chloride [Moles/volume] in Serum or Plasma 102 meq/L 98-107 [facility] ([facility]) Carbon dioxide, total [Moles/volume] in Serum or Plasma 27 meq/L 21 -32 [facility] ([facility]) Calcium [Mass/volume] in Serum or Plasma 8.8 mg/dL 8.5-10.1 [facility] ([facility]) Alkaline phosphatase isoenzyme [Units/volume] in Serum or Pl asma 75 mg/dL 46-116 [facility] ([facility]) Total Bilirubin 0.8 mg/dL 0.2-1.0 [facility] ([facility]) Albumin [Mass/volume] in Serum or Plasma 4.3 g/dL 3.4-5.0 [facility] ([facility]) Alanine aminotransferase [Enzymatic activity/volume] in Seru m or Plasma 69 U/L 12-78 [facility] ([facility]) Aspartate aminotransferase [Enzymatic activity/volume] in Serum or Plasma 45 U/L 15-37 [facility] ([facility] ) Proteinase 3 Ab [Units/volume] in Serum 7.3 g/dL 6.4-8.2 [facility] Glomerular filtration rate/1.73 sq M pre dicted among blacks [Volume Rate/Area] in Serum or Plasma by Creatinine-based formula (MDRD) Laboratory test result [facility] <content>CHRONIC KIDNEY DISEASE STAGING PER NKF</content>
<content></content>
<content>STAGE I & II GFR >= 60 NORMAL TO MILDLY DECREASED</content>
<content>STAGE III GFR 30-59 MODERATELY DECREASED</content>
<content>STAGE IV GFR 15-29 SEVERELY DECREASED</content>
<content>STAGE V GFR <15 VERY LITTLE GFR LEFT</content>
<content>ESRD GFR <15 ON UNIT ASSEMBLER</content>
<content></content> Glomerular filtration rate/1.73 sq M pre dicted among non-blacks [Volume Rate/Area] in Serum or Plasma by Creatinine-based formula (MDRD) Laboratory test result [facility] ([facility] ) A/G Ratio 1.43 CALC 1.00-1.90 [facility] ID Date Data Source [id number] 06/02/2020 08:45:00 AM EDT [facility] ([facility]) Name Value Range Interpretation Code Description Data Cecilia rce(s) Supporting Document(s) Leukocytes [#/volume] in Blood by Automated count 5.6 x10*3/UL 4.1-10 .9 [facility] ([facility]) Hematocrit [Volume Fraction] of Blood by Automated count 42.6 % 3 7.0-51.0 [facility] ([facility]) Erythrocytes [#/volume] in Blood by Automated count 5.00 x10*6/UL 4.2 0-6.30 [facility] ([facility]) Hemoglobin [Mass/volume] in Blood 15.1 g/dL 12.0-18.0 [facility] ([facility]) MCV 85.1 fL 80.0-97.0 [facility] MCH 30.2 pg 26.0-32.0 [facility] ([facility]) MCHC 35.5 g/dL 31.0-38.0 [facility] ([facility]) Erythrocyte distribution width [Ratio] by Automated count 12.9 % 11.6-13.7 [facility] Platelets [#/volume] in Blood by Automated count 123 x10*3/UL 140-440 [facility] ([facility]) NOTE: RESULT VERIFIED. Lymph % 23.3 % 10.0-58.5 [facility] ([facility]) MPV 10.0 FL 7.8-11.0 [facility] ([facility]) Mid % 5.4 % 1.7-9.3 [facility] ([facility]) Lymph # 1.3 x10*3/UL 0.6-4.1 [facility] ([facility]) Neut % 71.3 % 37.0-92.0 [facility] ([facility]) Neut # 4.0 x10*3/UL 2.0-7.8 [facility] ([facility]) Mid # 0.3 x10*3/UL 0.1-0.6 [facility] ([facility]) ID Date Data Source [id number] 04/25/2020 03:21:00 PM EDT [facility] ([facility]) Name Value Range Interpretation Code Description Data Cecilia rce(s) Supporting Document(s) White Blood Count 5.9 10 4.0-10.0 [facility] ([facility]) Red Blood Count 5.04 10 4.30-6.10 [facility] ([facility]) Hemoglobin 15.2 g/dL 13.5-17.5 [facility] Hematocrit 44.4 % 42.0-52.0 [facility] Mean Corpuscular Volume 88.1 fl 80.0-96.0 [facility] ([facility]) Mean Corpuscular Hemoglobin 30.2 pg 27.0-33.0 [facility] ([facility]) Mean Corpuscular HGB Conc 34.2 g/dL 32.0-36.5 [facility] ([facility]) Red Cell Distribution Width 13.4 % 11.5-14.5 [facility] ([facility]) Platelet Count, Automated 131 10 150-450 [facility] ([facility]) Neutrophils % 65.7 % 36.0-66.0 [facility] ([facility]) Lymph % 23.9 % 24.0-44.0 [facility]) [place] % 7.5 % 2.0-8.0 [facility]) Eos % 1.9 % 0.0-3.0 [facility]) Baso % 0.7 % 0.0-1.0 [facility]) Immature Granulocyte % 0.3 % 0-3.0 [facility] ([facility]) Nucleated Red Blood Cell % 0.0 % 0-0 [facility] ([facility]) Neutrophils # 3.9 10 1.5-8.5 [facility] ([facility]) Lymph # 1.4 10 1.5-5.0 [facility]) [place] # 0.4 10 0.0-0.8 [facility] Eos # 0.1 10 0.0-0.5 [facility]) Baso # 0.0 10 0.0-0.2 [facility]) ID Date Data Source [id number] 04/25/2020 03:21:00 PM EDT [facility] ([facility]) Name Value Range Interpretation Code Description Data Cecilia rce(s) Supporting Document(s) Prothrombin Time 14.5 s 12.5-14.3 [facility] ([facility]) Inr 1.11 [facility] THERAPUTIC HUMAN INR VALUES INDICATIONS NORMAL RANGES PROPHYLAXIS/TREATMENT OF: VENOUS THROMBOSIS 2.0-3.0 PULMONARY EMBOLISM 2.0-3.0 PREVENTION OF SYSTEMIC EMBOLISM FROM: TISSUE HEART VALVES 2.0-3.0 ACUTE MYOCARDIAL INFARCTION 2.0-3.0 VALVULAR HEART DISEASE 2.0-3.0 ATRIAL FIBRILLATION 2.0-3.0 MECHANICAL VALVES(HIGH RISK) 2.5-3.5 RECURRENT MYOCARDIAL INFARCTION 2.5-3.5 ID Date Data Source [id number] 04/25/2020 03:21:00 PM EDT [facility] ([facility]) Name Value Range Interpretation Code Description Data Cecilia rce(s) Supporting Document(s) Glucose, Fasting 152 mg/dL 70-100 [facility] ([facility]) Blood Urea Nitrogen 17 mg/dL 7-18 [facility] ([facility]) Creatinine For GFR 0.93 mg/dL 0.70-1.30 [facility]) Glomerular Filtration Rate Laboratory test result [facility] <content>Units are mL/min/1.73 m2</content>
<content></content>
<content>Chronic Kidney Disease Staging per NKF:</content>
<content></content>
<content>Stage I & II GFR >=60 Normal to Mildly Decreased</content>
<content>Stage III GFR 30- 59 Moderately Decreased</content>
<content>Stage IV GFR 15-29 Severely Decreased</content>
<content>Stage V GFR <15 Very Little GFR Left</content>
<content>ESRD GFR <15 on UNIT ASSEMBLER</content>
<content></content> Sodium Level 139 meq/L 136-145 [facility] ([facility]) Potassium Serum 3.8 meq/L 3.5-5.1 [facility] ([facility]) Chloride Level 105 meq/L 98-107 [facility] Carbon Dioxide Level 26 meq/L 21-32 [facility] Anion Gap 8 meq/L 8-16 [facility] ([facility]) Calcium Level 9.3 mg/dL 8.5-10.1 [facility] Ast/Sgot 54 U/L 7-37 [facility] ([facility]) Alt/SGPT 75 U/L 12-78 [facility] ([facility]) Alkaline Phosphatase 78 U/L 45-117 [facility] Bilirubin,Total 1.1 mg/dL 0.2-1.0 [facility] Total Protein 7.3 GM/DL 6.4-8.2 [facility] Albumin 4.4 GM/DL 3.2-5.2 [facility] ([facility]) Albumin/Globulin Ratio 1.5 [facility] ID Date Data Source [id number] 04/25/2020 03:21:00 PM EDT [facility] Name Value Range Interpretation Code Description Data Cecilia rce(s) Supporting Document(s) Tissue transglutaminase IgA Ab [Units/volume] in Serum Labor atory test result 0-3 [facility] Negative 0 - 3 Weak Positive 4 - 10 Positive >10 . Tissue Transglutaminase (tTG) has been identified as the endomysial antigen. Studies have demonstr- ated that endomysial IgA antibodies have over 99% specificity for gluten sensitive enteropathy. Liver kidney microsomal 1 Ab [Presence] in Serum Laboratory test result 0.0-20.0 [facility] Negative 0.0 - 20.0 Equivocal 20.1 - 24.9 Positive >24.9 . LKM type 1 antibodies are detected in patients with autoimmune hepatitis type 2 and in up to 8% of patients with chronic HCV infection. Ceruloplasmin [Mass/volume] in Serum or Plasma 16.5 mg/dL 16.0-31.0 [facility] ([facility]) Performed at: RN - [facility] [address] [id number] Pmo Consultant: Farhana Lopes MD, Phone: [phone] Anti-Mitochondrial Antibody Laboratory test result 0.0-20.0 [facility] ([facility]) Negative 0.0 - 20.0 Equivocal 20.1 - 24.9 Positive >24.9 . Mitochondrial (M2) Antibodies are found in 90-96% of patients with primary biliary cirrhosis. ID Date Data Source [id number] 04/25/2020 03:21:00 PM EDT [facility] ([facility]) Name Value Range Interpretation Code Description Data Cecilia rce(s) Supporting Document(s) Bilirubin,Direct 0.3 mg/dL 0.0-0.2 [facility] ([facility]) ID Date Data Source [id number] 04/25/2020 03:21:00 PM EDT [facility] ([facility]) Name Value Range Interpretation Code Description Data Cecilia rce(s) Supporting Document(s) Iron (Fe) 146 ug/dL 65-175 [facility]) Total Iron Binding Capacity 365 ug/dL 250-450 [facility] ([facility]) Percent Saturation 40.0 % 19.7-50.0 [facility] ([facility]) ID Date Data Source [id number] 04/25/2020 03:21:00 PM EDT [facility] ([facility]) Name Value Range Interpretation Code Description Data Cecilia rce(s) Supporting Document(s) IgA [Mass/volume] in Serum or Plasma 175.0 mg/dL 70-400 [facility] ([facility]) ID Date Data Source [id number] 04/25/2020 03:21:00 PM EDT [facility] ([facility]) Name Value Range Interpretation Code Description Data Cecilia rce(s) Supporting Document(s) Hepatitis C Virus Matilde Index Laboratory test result [facility] ([facility]) Hepatitis B Surface Antigen Laboratory test result [facility] ([facility]) Hepatitis B Core Antibody Igm Laboratory test result [facility] ([facility]) Hepatitis A Antibody Igm Laboratory test result [facility] ([facility]) ID Date Data Source [id number] 04/25/2020 03:21:00 PM EDT [facility] ([facility]) Name Value Range Interpretation Code Description Data Cecilia rce(s) Supporting Document(s) Antinuclear Antibodies Direct Laboratory test result Abnormal (applies to non- numeric results) [facility] Anti Double Strand-Dna AB 11 IU/ml 0-9 [facility] ([facility]) <content>Negative <5</content>
<content>Equivocal 5 - 9</content>
<content>Positive >9</content>
<content></content> BUHR DRESSER Antibodies Laboratory test result 0.0-0.9 [facility] ([facility]) Sjogren's Anti SS-A Laboratory test result 0.0-0.9 [facility] Gant Antibodies Laboratory test result 0.0-0.9 [facility] ([facility]) Duane Comment Laboratory test result [facility] T ([facility]) . Autoantibody Disease Association Condition Frequency -------- [...] (anti-Gant) SLE 15 - 30% ------- --------- BUHR DRESSER Mixed Connective Tissue Disease 95% (U1 nRNP, SLE 30 - 50% anti-ribonucleoprotein) Polymyositis and/or Dermatomyositis 20% -------- --------- Scl-70 (antiDNA Scleroderma (diffuse) 20 - 35% topoisomerase) Crest 13% -------- --------- Lay-1 Polymyositis and/or Dermatomyositis 20 - 40% -------- --------- Centromere B Scleroderma - Crest variant 80% Sjogren's Anti SS-B Laboratory test result 0.0-0.9 [facility] ID Date Data Source [id number] 04/25/2020 03:21:00 PM EDT [facility] ([facility]) Name Value Range Interpretation Code Description Data Cecilia rce(s) Supporting Document(s) Inr 1.11 Normal (applies to non-numeric resul ts) [facility] ([facility]) THERAPUTIC HUMAN INR VALUES INDICATIONS NORMAL RANGES PROPHYLAXIS/TREATMENT OF: VENOUS THROMBOSIS 2.0-3.0 PULMONARY EMBOLISM 2.0-3.0 PREVENTION OF SYSTEMIC EMBOLISM FROM: TISSUE HEART VALVES 2.0-3.0 ACUTE MYOCARDIAL INFARCTION 2.0-3.0 VALVULAR HEART DISEASE 2.0-3.0 ATRIAL FIBRILLATION 2.0-3.0 MECHANICAL VALVES(HIGH RISK) 2.5-3.5 RECURRENT MYOCARDIAL INFARCTION 2.5-3.5 Prothrombin Time 14.5 s 12.5-14.3 Above high normal [facility] ([facility]) ID Date Data Source [id number] 04/25/2020 03:21:00 PM EDT [facility] ([facility]) Name Value Range Interpretation Code Description Data Cecilia rce(s) Supporting Document(s) Bilirubin,Direct 0.3 mg/dL 0.0-0.2 Above high normal [facility] ([facility]) ID Date Data Source [id number] 04/25/2020 03:21:00 PM EDT [facility] ([facility]) Name Value Range Interpretation Code Description Data Cecilia rce(s) Supporting Document(s) Hepatitis C Virus Matilde Index Laboratory test result Normal (applies to non- numeric results) [facility] ([facility]) Hepatitis B Core Antibody Igm Laboratory test result Normal (applies to non- numeric results) [facility] ([facility]) Hepatitis B Surface Antigen Laboratory test result Normal (applies to non- numeric results) [facility] ([facility]) Hepatitis A Antibody Igm Laboratory test result Normal (applies to non-numeric results) [facility]) ID Date Data Source [id number] 04/25/2020 03:21:00 PM EDT [facility] ([facility]) Name Value Range Interpretation Code Description Data Cecilia rce(s) Supporting Document(s) Ceruloplasmin [Mass/volume] in Serum or Plasma 16.5 mg/dL 1 6.0-31.0 Normal (applies to non-numeric results) [facility] ([facility]) Performed at: RN - [facility] [address] [id number] Pmo Consultant: Farhana Lopes MD, Phone: [phone] ID Date Data Source [id number] 04/25/2020 03:21:00 PM EDT [facility] ([facility]) Name Value Range Interpretation Code Description Data Cecilia rce(s) Supporting Document(s) Iron (Fe) 146 ug/dL 65-175 Normal (applies to non-numeric resul ts) [facility] ([facility]) Total Iron Binding Capacity 365 ug/dL 250-450 Norm al (applies to non-numeric results) [facility] ([facility]) Percent Saturation 40.0 % 19.7-50.0 Normal (applies to non-numer ic results) [facility] ([facility]) ID Date Data Source [id number] 04/25/2020 03:21:00 PM EDT [facility] ([facility]) Name Value Range Interpretation Code Description Data Cecilia rce(s) Supporting Document(s) Liver-Kidney Microsomal Matilde Laboratory test result 0.0-20.0 Normal (applies to non-numeric results) [facility] ([facility]) Negative 0.0 - 20.0 Equivocal 20.1 - 24.9 Positive >24.9 . LKM type 1 antibodies are detected in patients with autoimmune hepatitis type 2 and in up to 8% of patients with chronic HCV infection. Mitochondria Ab [Units/volume] in Serum Laboratory test result 0 .0-20.0 Normal (applies to non-numeric results) [facility] ([facility]) Negative 0.0 - 20.0 Equivocal 20.1 - 24.9 Positive >24.9 . Mitochondrial (M2) Antibodies are found in 90-96% of patients with primary biliary cirrhosis. ID Date Data Source [id number] 04/25/2020 03:21:00 PM EDT [facility] ([facility]) Name Value Range Interpretation Code Description Data Cecilia rce(s) Supporting Document(s) Antinuclear Antibodies Direct Laboratory test result Abnormal (applies to non- numeric results) [facility] ([facility]) Anti Double Strand-Dna AB 11 IU/ml 0-9 Above high normal [facility] ([facility]) <content>Negative <5</content>
<content>Equivocal 5 - 9</content>
<content>Positive >9</content>
<content></content> Gant Antibodies Laboratory test result 0.0-0.9 Normal ( applies to non-numeric results) [facility] ([facility]) BUHR DRESSER Antibodies Laboratory test result 0.0-0.9 Normal (a pplies to non-numeric results) [facility] ([facility]) Sjogren's Anti SS-A Laboratory test result 0.0-0.9 Odalys l (applies to non- numeric results) [facility] ([facility]) Sjogren's Anti SS-B Laboratory test result 0.0-0.9 Odalys l (applies to non- numeric results) [facility] ([facility]) Duane Comment Laboratory test result Normal (applies to non- numeric results) [facility] ([facility]) . Autoantibody Disease Association Condition Frequency -------- [...] (anti-Gant) SLE 15 - 30% ------- --------- BUHR DRESSER Mixed Connective Tissue Disease 95% (U1 nRNP, SLE 30 - 50% anti-ribonucleoprotein) Polymyositis and/or Dermatomyositis 20% -------- --------- Scl-70 (antiDNA Scleroderma (diffuse) 20 - 35% topoisomerase) Crest 13% -------- --------- Lay-1 Polymyositis and/or Dermatomyositis 20 - 40% -------- --------- Centromere B Scleroderma - Crest variant 80% ID Date Data Source [id number] 04/25/2020 03:21:00 PM EDT [facility] ([facility]) Name Value Range Interpretation Code Description Data Cecilia rce(s) Supporting Document(s) Tissue transglutaminase IgA Ab [Units/volume] in Serum Labor atory test result 0-3 Normal (applies to non-numeric results) [facility] ([facility]) Negative 0 - 3 Weak Positive 4 - 10 Positive >10 . Tissue Transglutaminase (tTG) has been identified as the endomysial antigen. Studies have demonstr- ated that endomysial IgA antibodies have over 99% specificity for gluten sensitive enteropathy. IgA [Mass/volume] in Serum or Plasma 175.0 mg/dL 70-400 Normal (applies to non- numeric results) [facility] ([facility]) ID Date Data Source [id number] 04/25/2020 03:21:00 PM EDT [facility] ([facility]) Name Value Range Interpretation Code Description Data Cecilia [facility](s) Supporting Document(s) Glucose, Fasting 152 mg/dL 70-100 Above high normal [facility] Blood Urea Nitrogen 17 mg/dL 7-18 Normal (applies to non-nume juanito results) [facility] ([facility]) Glomerular Filtration Rate Laboratory test result Normal (applies to non- numeric results) [facility]) <content>Units are mL/min/1.73 m2</content>
<content></content>
<content>Chronic Kidney Disease Staging per NKF:</content>
<content></content>
<content>Stage I & II GFR >=60 Normal to Mildly Decreased</content>
<content>Stage III GFR 30- 59 Moderately Decreased</content>
<content>Stage IV GFR 15-29 Severely Decreased</content>
<content>Stage V GFR <15 Very Little GFR Left</content>
<content>ESRD GFR <15 on UNIT ASSEMBLER</content>
<content></content> Creatinine For GFR 0.93 mg/dL 0.70-1.30 Normal (applies to non -numeric results) [facility] ([facility], ) Sodium Level 139 meq/L 136-145 Normal (applies to non-numeric res ults) [facility] ([facility], ) Chloride Level 105 meq/L 98-107 Normal (applies to non-numeric r esults) [facility], ) Potassium Serum 3.8 meq/L 3.5-5.1 Normal (applies to non-numeric results) [facility] ([facility], ) Anion Gap 8 meq/L 8-16 Normal (applies to non-numeric resul ts) [facility] ([facility], ) Carbon Dioxide Level 26 meq/L 21-32 Normal (applies to non-num sarah results) [facility] ([facility], ) Ast/Sgot 54 U/L 7-37 Above high normal [facility], ) Calcium Level 9.3 mg/dL 8.5-10.1 Normal (applies to non-numeric re sults) [facility] ([facility], ) Alkaline Phosphatase 78 U/L 45-117 Normal (applies to non-num sarah results) [facility] ([facility], ) Alt/SGPT 75 U/L 12-78 Normal (applies to non-numeric resul ts) [facility] ([facility], ) Bilirubin,Total 1.1 mg/dL 0.2-1.0 Above high normal [facility] ([facility], ) Total Protein 7.3 GM/DL 6.4-8.2 Normal (applies to non-numeric re sults) [facility], ) Albumin 4.4 GM/DL 3.2-5.2 Normal (applies to non-numeric resul ts) [facility] ([facility], ) Albumin/Globulin Ratio 1.5 Normal (applies to non-n umeric results) [facility]) ID Date Data Source [id number] 04/25/2020 03:21:00 PM EDT [facility] ([facility]) Name Value Range Interpretation Code Description Data Cecilia rce(s) Supporting Document(s) White Blood Count 5.9 10 4.0-10.0 Normal (applies to non-numeri c results) [facility] ([facility]) Red Blood Count 5.04 10 4.30-6.10 Normal (applies to non-numeric results) [facility] ([facility]) Hemoglobin 15.2 g/dL 13.5-17.5 Normal (applies to non-numeric resul ts) [facility]) Hematocrit 44.4 % 42.0-52.0 Normal (applies to non-numeric resul ts) [facility] ([facility]) Mean Corpuscular Volume 88.1 fl 80.0-96.0 Normal ( applies to non-numeric results) [facility] ([facility]) Mean Corpuscular Hemoglobin 30.2 pg 27.0-33.0 Norm al (applies to non-numeric results) [facility] ([facility]) Red Cell Distribution Width 13.4 % 11.5-14.5 Norm al (applies to non-numeric results) [facility] ([facility]) Mean Corpuscular HGB Conc 34.2 g/dL 32.0-36.5 Normal (applies to non-numeric results) [facility] ([facility]) Neutrophils % 65.7 % 36.0-66.0 Normal (applies to non-numeric re sults) [facility]) Platelet Count, Automated 131 10 150-450 Below low normal [facility] ([facility]) Lymph % 23.9 % 24.0-44.0 Below low normal [facility] ( [facility]) [place] % 7.5 % 2.0-8.0 Normal (applies to non-numeric resul ts) [facility] Immature Granulocyte % 0.3 % 0-3.0 Normal (applies to non-n umeric results) [facility] ([facility]) Baso % 0.7 % 0.0-1.0 Normal (applies to non-numeric resul ts) [facility]) Eos % 1.9 % 0.0-3.0 Normal (applies to non-numeric resul ts) [facility]) Nucleated Red Blood Cell % 0.0 % 0-0 Normal (applies to n on-numeric results) [facility] ([facility]) Neutrophils # 3.9 10 1.5-8.5 Normal (applies to non-numeric re sults) [facility]) Lymph # 1.4 10 1.5-5.0 Below low normal [facility] ( [facility]) [place] # 0.4 10 0.0-0.8 Normal (applies to non-numeric resul ts) [facility]) Eos # 0.1 10 0.0-0.5 Normal (applies to non-numeric resul ts) [facility] ([facility]) Baso # 0.0 10 0.0-0.2 Normal (applies to non-numeric resul ts) [facility] ([facility]) ID Date Data Source [id number] 11/14/2019 09:00:00 AM EDT [facility]) Name Value Range Interpretation Code Description Data Cecilia rce(s) Supporting Document(s) Clostridium Difficile PCR Laboratory test result Normal (applies to non- numeric results) [facility]) Clostridium difficile testing will only be performed on unformed diarrhea stools. Only one specimen will be tested daily. Testing stool specimens from patients who do not have CDI symptoms detects asymptomatic colonized patients (up to 30% of hospitalized patients are colonized with C. difficile). Patients with false positive results may be given unnecessary treatment, placed on contact isolation, and be at increased risk of vancomycin resistant enterococci. Please contact Infectious Disease Specialist with questions. [id number] For Cdiff PCR Laboratory test result No rmal (applies to non-numeric results) [facility] ([facility]) Procedure Social History Code Duration Value Status Description Data Source(s ) Alcohol intake 11/06/2020 12:00:00 AM EDT Current drinker of al cohol (finding) completed Current drinker of alcohol (finding) [facility] Tobacco use and exposure 11/06/2020 12:00:00 AM EDT Never used co mpleted Never used [facility] Smoking 11/06/2020 12:00:00 AM EDT Never smoker completed Never s moker [facility] Vital Signs ID Date Data Source [id number] Name Value Range Interpretation Code Description Data Source(s) Systolic blood pressure 134 mm[Hg] 134 mm[Hg] [facility] ([facility]) Diastolic blood pressure 78 mm[Hg] 78 mm[Hg] [facility] ([facility]) Respiratory rate 12 /min 12 /min [facility] ( [facility]) Body height 72 [in_i] 72 [in_i] [facility] ([facility]) 6'0" Body weight 250.00 [lb_av] 250.00 [lb_av] [facility] ([facility]) Body mass index (BMI) [Ratio] 33.9 kg/m2 33.9 k g/m2 [facility] ([facility]) Heart rate 62 /min 62 /min [facility] ([facility]) Body temperature 97.3 [degF] 97.3 [degF] [facility] ([facility]) Body weight 239.00 [lb_av] 239.00 [lb_av] [facility] T ([facility]) Oxygen saturation in Arterial blood by Pulse oximetry 98 % 98 % [facility] ([facility]) Systolic blood pressure 142 mm[Hg] 142 mm[Hg] M [facility] ([facility]) Diastolic blood pressure 82 mm[Hg] 82 mm[Hg] [facility] ([facility]) Heart rate 60 /min 60 /min [facility] ([facility]) Body height 72.25 [in_i] 72.25 [in_i] [facility] ([facility]) 6'0.25" Body mass index (BMI) [Ratio] 32.2 kg/m2 32.2 k g/m2 [facility] ([facility]) Body height 72 [in_i] 72 [in_i] [facility] ([facility]) 6'0" Systolic blood pressure 152 mm[Hg] 152 mm[Hg] M [facility] ([facility]) Diastolic blood pressure 80 mm[Hg] 80 mm[Hg] [facility] ([facility]) Heart rate 70 /min 70 /min [facility] ([facility]) Body temperature 98.2 [degF] 98.2 [degF] [facility] ([facility]) Respiratory rate 18 /min 18 /min [facility] ( [facility]) Body weight 250.00 [lb_av] 250.00 [lb_av] [facility] ([facility]) Body mass index (BMI) [Ratio] 33.9 kg/m2 33.9 k g/m2 [facility] ([facility]) Diastolic blood pressure 74 mm[Hg] 74 mm[Hg] [facility] Systolic blood pressure 128 mm[Hg] 128 mm[Hg] [facility] Heart rate 68 /min 68 /min [facility] Body weight 113.762 kg 113.762 kg [facility] Body height 182.9 cm 182.9 cm [facility] Oxygen saturation in Arterial blood by Pulse oximetry 99 % 99 % [facility] Body mass index (BMI) [Ratio] 34.01 kg/m2 34.01 kg/m2 [facility] Heart rate 89 /min 89 /min [facility] ([facility]) Body height 72.25 [in_i] 72.25 [in_i] [facility] ([facility]) 6'0.25" Body weight 250.00 [lb_av] 250.00 [lb_av] [facility] T ([facility]) Oxygen saturation in Arterial blood by Pulse oximetry 97 % 97 % [facility] ([facility]) Systolic blood pressure 150 mm[Hg] 150 mm[Hg] M [facility] ([facility]) Diastolic blood pressure 72 mm[Hg] 72 mm[Hg] [facility] ([facility]) Body mass index (BMI) [Ratio] 33.7 kg/m2 33.7 k g/m2 [facility] ([facility]) Systolic blood pressure 149 mm[Hg] 149 mm[Hg] M [facility] ([facility]) Body temperature 98.2 [degF] 98.2 [degF] [facility] ([facility]) Heart rate 59 /min 59 /min [facility] ([facility]) Body height 71 [in_i] 71 [in_i] [facility] ([facility]) 5'11" Respiratory rate 20 /min 20 /min [facility] ( [facility]) Diastolic blood pressure 85 mm[Hg] 85 mm[Hg] [facility] ([facility]) Body weight 250.00 [lb_av] 250.00 [lb_av] [facility] ([facility]) Body mass index (BMI) [Ratio] 34.9 kg/m2 34.9 k g/m2 [facility] ([facility]) Body mass index (BMI) [Ratio] 34.5 kg/m2 34.5 k g/m2 [facility] ([facility]) Systolic blood pressure 170 mm[Hg] 170 mm[Hg] [facility] Diastolic blood pressure 90 mm[Hg] 90 mm[Hg] [facility] ([facility]) Systolic blood pressure 162 mm[Hg] 162 mm[Hg] [facility] Heart rate 64 /min 64 /min [facility] ([facility]) Body height 72.25 [in_i] 72.25 [in_i] [facility] ([facility]) 6'0.25" Diastolic blood pressure 90 mm[Hg] 90 mm[Hg] [facility] ([facility]) Body weight 256.00 [lb_av] 256.00 [lb_av] [facility] T ([facility]) Oxygen saturation in Arterial blood by Pulse oximetry 97 % 97 % [facility] ([facility]) Systolic blood pressure 147 mm[Hg] 147 mm[Hg] [facility] Diastolic blood pressure 77 mm[Hg] 77 mm[Hg] [facility] ([facility]) Body height 71 [in_i] 71 [in_i] [facility] ([facility]) 5'11" Body weight 254.00 [lb_av] 254.00 [lb_av] [facility] ([facility]) Body mass index (BMI) [Ratio] 35.4 kg/m2 35.4 k g/m2 [facility] ([facility]) [place] body weight 172 [lb_av] 172 [lb_av] [facility] ([facility]) Body weight 115.214 kg 115.214 kg [facility] ([facility]) Body surface area Derived from formula 2.33 m2 2.33 m2 [facility] ([facility]) Diastolic blood pressure 84 mm[Hg] 84 mm[Hg] [facility] ([facility]) Body weight 116.122 kg 116.122 kg [facility] ([facility]) Systolic blood pressure 157 mm[Hg] 157 mm[Hg] M [facility] ([facility]) Body height 71 [in_i] 71 [in_i] [facility] ([facility]) " Body weight 256.00 [lb_av] 256.00 [lb_av] [facility] ([facility]) Body mass index (BMI) [Ratio] 35.7 kg/m2 35.7 k g/m2 [facility] ([facility]) [place] body weight 172 [lb_av] 172 [lb_av] [facility] ([facility]) Body surface area Derived from formula 2.34 m2 2.34 m2 [facility] ([facility]) Body weight 250.00 [lb_av] 250.00 [lb_av] [facility] T ([facility]) Body weight 113.400 kg 113.400 kg [facility] ([facility]) Body height 71 [in_i] 71 [in_i] [facility] ([facility]) 511" Body mass index (BMI) [Ratio] 34.9 kg/m2 34.9 k g/m2 [facility] ([facility]) Body surface area Derived from formula 2.32 m2 2.32 m2 [facility] ([facility]) Diastolic blood pressure 88 mm[Hg] 88 mm[Hg] [facility] ([facility], ) Body height 71 [in_i] 71 [in_i] [facility] ([facility]) 5'11" Body weight 255.00 [lb_av] 255.00 [lb_av] [facility] ([facility], ) Body mass index (BMI) [Ratio] 35.6 kg/m2 35.6 k g/m2 [facility] ([facility]) [place] body weight 172 [lb_av] 172 [lb_av] [facility] ([facility], ) Systolic blood pressure 160 mm[Hg] 160 mm[Hg] [facility] Body weight 115.668 kg 115.668 kg [facility] ([facility]) Body surface area Derived from formula 2.34 m2 2.34 m2 [facility] ([facility]) Patient Treatment Plan of Care Planned Activity Planned Date Details Description Data Source (s) Amoxicillin 875 MG / Clavulanate 125 MG Oral Tablet 10/28/19 12:00:00 AM EDT [facility]
[2020-12-10] MEDS ORDERED: NS 1,000 ML IV ONE (03:40)
[2020-12-10] MEDS: MORPHINE 2 MG/ML 1ML VIAL (J2270) IV PRN ×2 (03:48→04:14)
[2020-12-10 03:58] LABS: BASO % 0.5 % (0.0-1.0); EOS # 0.1 10^3/uL (0.0-0.5); EOS % 1.1 % (0.0-3.0); HEMATOCRIT 40.5 % (42.0-52.0); HEMOGLOBIN 14.2 g/dl (13.5-17.5); LYMPH # 0.9 10^3/uL (1.5-5.0); LYMPH % 10.9 % (24.0-44.0); MEAN CORPUSCULAR HEMOGLOBIN 30.3 pg (27.0-33.0); MEAN CORPUSCULAR HGB CONC 35.1 g/dl (32.0-36.5); MEAN CORPUSCULAR VOLUME 86.5 fl (80.0-96.0); MONO # 0.4 10^3/uL (0.0-0.8); MONO % 4.7 % (2.0-8.0); NEUTROPHILS # 6.5 10^3/uL (1.5-8.5); NEUTROPHILS % 82.5 % (36.0-66.0); PLATELET COUNT, AUTOMATED 142 10^3/uL (150-450); RED BLOOD COUNT 4.68 10^6/uL (4.30-6.10); WHITE BLOOD COUNT 7.9 10^3/uL (4.0-10.0)
--- OUTSIDE RECORDS SUMMARY | 2020-12-10 04:08 | CCD ---
Author Author [facility] Organization [facility] Address Unknown Phone Unavailable Care Team Providers Care Cook Pressure Name Role Phone LePine, M Micah PROGRAMMING INTERN Unavailable Unavailable LePine, M Micah PROGRAMMING INTERN Unavailable Unavailable LePine, M Micah PROGRAMMING INTERN Unavailable Unavailable LePine, M Micah PROGRAMMING INTERN Unavailable Unavailable LePine, M Micah PROGRAMMING INTERN Unavailable Unavailable LePine, M Micah PROGRAMMING INTERN Unavailable Unavailable LePine, M Micah PROGRAMMING INTERN Unavailable Unavailable LePine, M Micah PROGRAMMING INTERN Unavailable Unavailable LePine, M Micah PROGRAMMING INTERN Unavailable Unavailable LePine, M Micah PROGRAMMING INTERN Unavailable Unavailable LePine, M Micah PROGRAMMING INTERN Unavailable Unavailable LePine, M Micah PROGRAMMING INTERN Unavailable Unavailable LePine, M Micah PROGRAMMING INTERN Unavailable Unavailable LePine, M Micah PROGRAMMING INTERN Unavailable Unavailable LePine, M Micah PROGRAMMING INTERN Unavailable Unavailable LePine, M Micah PROGRAMMING INTERN Unavailable Unavailable LePine, M Micah PROGRAMMING INTERN Unavailable Unavailable LePine, M Micah PROGRAMMING INTERN Unavailable Unavailable LePine, M Micah PROGRAMMING INTERN Unavailable Unavailable LePine, M Micah PROGRAMMING INTERN Unavailable Unavailable LePine, M Micah PROGRAMMING INTERN Unavailable Unavailable LePine, M Micah PROGRAMMING INTERN Unavailable Unavailable LePine, M Micah PROGRAMMING INTERN Unavailable Unavailable LePine, M Micah PROGRAMMING INTERN Unavailable Unavailable LePine, M Micah PROGRAMMING INTERN Unavailable Unavailable LePine, M Micah PROGRAMMING INTERN Unavailable Unavailable LePine, M Micah PROGRAMMING INTERN Unavailable Unavailable LePine, M Micah PROGRAMMING INTERN Unavailable Unavailable LePine, M Micah PROGRAMMING INTERN Unavailable Unavailable LePine, M Micah PROGRAMMING INTERN Unavailable Unavailable LePine, M Micah PROGRAMMING INTERN Unavailable Unavailable LePine, M Micah PROGRAMMING INTERN Unavailable Unavailable LePine, M Micah PROGRAMMING INTERN Unavailable Unavailable LePine, M Imcah PROGRAMMING INTERN Unavailable Unavailable LePine, M Micah PROGRAMMING INTERN Unavailable Unavailable LePine, M Micah PROGRAMMING INTERN Unavailable Unavailable LePine, M Micah PROGRAMMING INTERN Unavailable Unavailable LePine, M Micah PROGRAMMING INTERN Unavailable Unavailable LePine, M Micah PROGRAMMING INTERN Unavailable Unavailable LePine, M Micah PROGRAMMING INTERN Unavailable Unavailable LePine, M Micah PROGRAMMING INTERN Unavailable Unavailable LePine, M Micah PROGRAMMING INTERN Unavailable Unavailable LePine, M Micah PROGRAMMING INTERN Unavailable Unavailable LePine, M Micah PROGRAMMING INTERN Unavailable Unavailable LePine, M Micah PROGRAMMING INTERN Unavailable Unavailable LePine, M Micah PROGRAMMING INTERN Unavailable Unavailable LePine, M Micah PROGRAMMING INTERN Unavailable Unavailable LePine, M Micah PROGRAMMING INTERN Unavailable Unavailable LePine, M Micah PROGRAMMING INTERN Unavailable Unavailable LePine, M Micah PROGRAMMING INTERN Unavailable Unavailable LePine, M Micah PROGRAMMING INTERN Unavailable Unavailable LePine, M Micah PROGRAMMING INTERN Unavailable Unavailable LePine, M Micah PROGRAMMING INTERN Unavailable Unavailable LePine, M Micah PROGRAMMING INTERN Unavailable Unavailable LePine, M Micah PROGRAMMING INTERN Unavailable Unavailable LePine, M Micah PROGRAMMING INTERN Unavailable Unavailable ROSEDL, MANNY MORENO Unavailable Unavailable [...] is protected by Article 27-F of the [facility] Public Health law. If you continue you may have access to information: Regarding HIV / AIDS; Provided by facilities licensed or operated by the [facility] Office of Mental Health; or Provided by the [facility] Office for People With Developmental Disabilities. If such information is present, then the following [facility] mandated warning applies: This information has [...] law may result in a fine or fci sentence or both. A general authorization for [...] Micah Cortez 11/28 11:20:00 AM EDT [facility] ([facility] ) Outpatient Attender: KIMMY Whaley 11/06/2020 12:45:00 PM EDT [facility] ([facility]) Outpatient Attender: KIMMY SHEIKH MDAdmitter: KIMMY WOODALL.PAT 11/06/2020 10:15:48 AM EDT - 11/06/2020 11:12:54 AM EDT [facility] Outpatient Admitter: KIMMY WOODALL.PAT 11/06 09:41:47 AM EDT - 11/06/2020 09:44:22 AM EDT [facility] Inpatient Attender: KIMMY SHEIKH MDAdmitter: KIMMY Garduno MD [id number] 10/05/2020 03:43:15 PM EDT - 11/13/2020 01:05:00 PM EDT [facility] Patient discharged. Outpatient Attender: Micah Cortez 10/03 03:20:00 PM EDT [facility] ([facility] ) Outpatient Attender: KIMMY Whaley 09/14/2020 10:00:00 AM EDT [facility] ([facility]) Outpatient Attender: Micah Cortez 06/02 09:00:00 AM EDT [facility] ([facility] ) Outpatient Attender: MANNY Campbell/Carlie/Madan/Rein dl 05/31/2020 03:15:00 PM EDT [facility] ([facility]) Outpatient Attender: MANNY Campbell/Carlie/Madan/Rein dl 04/20/2020 02:15:00 PM EST [facility] ([facility]) Outpatient Attender: NINA ACEVEDOonsultant: SPECIFIED N OT 01/17/2020 10:44:00 AM EST - 01/17/2020 10:44:00 AM EST [facility] Outpatient Attender: [facility] 01/17/2020 0 9:45:00 AM EST [facility] ([facility]) Outpatient Attender: MANNY Campbell/Carlie/Madan/Rose sesay 10/20/2019 11:00:00 AM EDT [facility] ([facility] ) Medications Medication Brand Name Start [...] BY MOUTH TWICE A DAY SOLD: 10/27/2020 [facility] Amoxicillin 875 MG / Clavulanate 125 MG Oral Tablet amoxicillin-clavulanate (AUGMENTIN) 875-125 MG per tablet amoxicillin-clavulanate (AUGMENTIN) 875- 125 MG per tablet 10/27/2020 12:00:00 AM EDT 1 {tbl} Oral activ e Take 1 tablet by mouth 2 (two) times a day X 14 days, final dose due 11/09/20 [facility] SUPREP BOWEL PREP KIT 17.5-3.13-1.6 [...] Deluxe/Automatic 06/09/2020 12:00:00 AM EDT active [facility] ([facility]) 5 mg 06/02/2020 12:00:00 AM EDT [...] 06/02/2020 12:00:00 AM EDT ORAL active [facility]) Famotidine 40 MG Oral Tablet Famotidine 06/02/2020 12:00:00 AM EDT ORAL active [facility] ([facility]) 10 mg 06/01/2020 12:00:00 AM EDT capsule 60 TAKE 1-2 TABLETS BY MOUTH EVERY 6 HOURS NEEDED FOR ABDOMINAL CRAMPING TAKE 1-2 TABLETS BY MOUTH EVERY 6 HOURS NEEDED FOR ABDOMINAL CRAMPING SOLD: 06/02/2020 [facility] Dicyclomine Hydrochloride 10 MG Oral Capsule Dicyclomine HCL 05/31/2020 12:00:00 AM EDT ORAL active [facility] ([facility], ) Suprep Bowel Prep Kit Suprep Bowel Prep Kit 05/31/2020 12:00:00 AM EDT active [facility] ([facility], ) Magnesium Hydroxide 80 MG/ML Oral Suspension Milk Of Magnesi a 05/31/2020 12:00:00 AM EDT ORAL active M EDENT ([facility], ) 500 mg 02/01/2020 12:00:00 AM EST [...] 10/20/2019 12:00:00 AM EDT ORAL active [facility] ([facility], ) Amoxicillin 875 MG / Clavulanate 125 MG Oral Tablet [Augment in] Augmentin 10/20/2019 12:00:00 AM EDT ORAL active [facility] ([facility], ) Metronidazole 500 MG Oral Tablet METRONIDAZOLE [...] 12:00:00 AM EDT ORAL active M EDENT ([facility], ) Suprep Bowel Prep Kit Suprep Bowel Prep Kit 10/20/2019 12:00:00 AM EDT active [facility] ([facility], ) Metformin hydrochloride 500 MG Oral Tablet METFORMIN HCL 07/13/2019 12:00:00 AM EDT tablet 180 TAKE ONE TABLET BY MOUTH TWI CE A DAY TAKE ONE TABLET BY MOUTH TWICE A DAY SOLD: 10/20/2019 [facility] 25 mg 07/13/2019 12:00:00 AM EDT tablet 90 TAKE ONE TABLET BY MOUTH EVERY DAY TAKE ONE TABLET BY MOUTH EVERY DAY SOLD: 10/20/2019 [facility] BLOOD SUGAR DIAGNOSTIC 06/02/2019 12:00:00 AM EDT strip 50 DIRECTED TO TEST TWO TIMES A DAY DIRECTED TO TEST TWO TIMES A DAY SOLD: 05/21/2020 [facility] Insurance Providers Payer name Policy type / Coverage type Policy ID Covered libertarian ID Covered libertarian's relationship to watts Policy Watts Plan Information BCBS KELECHIROSALBA DEL PPO 302/307 [id number] SP [id number] [employer] ([employer]) Workers Compensation [id number] Self [id number] [employer] [place] Workers Compensation [id number] Self [id number] [employer] ([place]) Workers Compensation [id number] Self [id number] [employer] ([place] Workers Compensation [id number] Self [id number] [facility] Commercial [id number] Self [id number] INSURANCE COVID-19 COVID Stephanie C OVID [facility] [id number] Stephanie [id number] [facility] [id number] INSURANCE COVID-19 COVID Stephanie C OVID INSURANCE COVID-19 [id number] [facility] [id number] SP [id number] [facility] COMMERCIAL [id number] 18 [id number] Self Pay P UNAVAILABLE S UNAVAILA BLE [facility] [id number] SP [id number] [facility] O [id number] S [id number] [facility] Health Maintenance Organization (HMO) [id number] Self [facility] [id number] SP [id number] Problems, Conditions, and Diagnoses Code Display Name Description Problem Type Effective Dates Data Source(s) K57.92 Diverticulitis of intestine, part unspecified, without perforation or abscess without bleeding Diverticulitis of intestine, part unspec Diagnosis 11/10/2020 08:43:00 AM EDT [facility] U07.1 COVID-19 COVID-19 Diagnosis 11/06/2020 09:41:47 AM ED T [facility] K57.32 Diverticulitis of colon Diverticulitis of colon Proble m 11/30/2020 12:00:00 AM EDT [facility] ([facility]) Surgeries/Procedures Procedure Description Date Indications Data Source(s) OFFICE OUTPATIENT VISIT 15 MINUTES 11/28/2020 12:00:00 AM EDT [facility] ([facility]) LAPS COLECTOMY PRTL W/COLOPXTSTMY LW ANAST 11/10/2020 12:00:00 AM EDT [facility] ([facility]) LAPS MOBLJ SPLENIC FLXR PFRMD W/PRTL COLECTOMY 021 12:00:00 AM EDT [facility] ([facility]) ECG ROUTINE ECG W/LEAST 12 LDS TRCG ONLY W/O I&R <td>E CG 12- LEAD</td><td>Routine</td><td>11/06/2020 11:13 AM EDT</td><td> Diverticulitis</td><td></td> 11/06/2020 11:13:22 AM EDT Diverticulitis [facility] Diverticulitis BLOOD TYPING ABO <td>TYPE AND SCREEN</td><td> Routine</td><td>11/06/2020 11:10 AM EDT</td><td> Diverticulitis</td><td> </td> 11/06/2020 11:10:00 AM EDT Diverticulitis [facility] Diverticulitis BLOOD COUNT COMPLETE AUTOMATED <td>CBC</td><td>Routine </td><td>11/06/2020 11:00 AM EDT</td><td> Diverticulitis</td><td> </td> 11/06/2020 11:00:00 AM EDT Diverticulitis [facility] Diverticulitis HEMOGLOBIN GLYCOSYLATED A1C <td>HEMOGLOBIN A1C</td><td>Routine</td><td>11/06/2020 11:00 AM EDT</td><td> Diverticulitis</td><td> </td> 11/06/2020 11:00:00 AM EDT Diverticulitis [facility] Diverticulitis COMPREHENSIVE METABOLIC PANEL <td>COMPREHENSIVE METABO LIC PANEL</td><td>Routine</td><td>11/06/2020 11:00 AM EDT</td><td> Diverticulitis</td><td> </td> 11/06/2020 11:00:00 AM EDT Diverticulitis [facility] Diverticulitis OFFICE OUTPATIENT VISIT 15 MINUTES 11/06/2020 12:00:00 AM EDT [facility] OFFICE OUTPATIENT VISIT 15 MINUTES 10/03/2020 12:00:00 AM EDT [facility] ([facility]) OFFICE OUTPATIENT NEW 45 MINUTES 09/14/2020 12:00:00 A M EDT [facility] ([facility]) Colonoscopy 08/11/2020 12:00:00 AM EDT M EDHAROLDO ([facility]) Colonoscopy W/ Poly 08/11/2020 12:00:00 AM EDT [facility] ([facility], ) ECG ROUTINE ECG W/LEAST 12 LDS W/I&R 06/02/2020 12:00: 00 AM EDT MEDHAROLDO ([facility]) PERIODIC PREVENTIVE MED EST PATIENT 40-64YRS 12:00:00 AM EDT [facility] ([facility]) OFFICE OUTPATIENT VISIT 25 MINUTES 05/31/2020 12:00:00 AM EDT [facility] ([facility], ) OFFICE OUTPATIENT VISIT 25 MINUTES 04/20/2020 12:00:00 AM EST [facility] ([facility], ) Diabetic Retinal Eye Exam 02/24/2020 12:00:00 AM EST [facility] ([facility]) Diabetic Retinal Eye Exam 02/24/2020 12:00:00 AM EST [facility] ([facility]) Results ID Date Data Source [id number] 11/28/2020 12:00:00 PM EDT [facility] ([facility]) Name Value Range Interpretation Code Description Data Cecilia rce(s) Supporting Document(s) Glucose [Mass/volume] in Serum or Plasma 117 mg/dL 74-99 [facility] ([facility]) 100-125 mg/dL PRE-DIABETES/FASTING >126 mg/dL DIABETES/FASTING Sodium [Moles/volume] in Serum or Plasma 138 meq/L 136-145 [facility] ([facility]) Creatinine 0.9 mg/dL 0.6-1.3 [facility] Urea nitrogen [Mass/volume] in Serum or Plasma 15 mg/dL 7-18 [facility] ([facility]) Potassium [Moles/volume] in Serum or Plasma 4.3 meq/L 3.5-5.1 [facility] ([facility]) Chloride [Moles/volume] in Serum or Plasma 100 meq/L 98-107 [facility] ([facility]) Carbon dioxide, total [Moles/volume] in Serum or Plasma 27 meq/L 21 -32 [facility] ([facility]) Calcium [Mass/volume] in Serum or Plasma 9.8 mg/dL 8.5-10.1 [facility] ([facility]) Alkaline phosphatase isoenzyme [Units/volume] in Serum or Pl asma 70 mg/dL 46-116 [facility] ([facility]) Aspartate aminotransferase [Enzymatic activity/volume] in Serum or Plasma 41 U/L 15-37 [facility] ([facility] ) Total Bilirubin 1.1 mg/dL 0.2-1.0 [facility] Albumin [Mass/volume] in Serum or Plasma 4.5 g/dL 3.4-5.0 [facility] ([facility]) Alanine aminotransferase [Enzymatic activity/volume] in Seru m or Plasma 57 U/L 12-78 [facility] ([facility]) A/G Ratio 1.50 CALC 1.00-1.90 [facility] Proteinase 3 Ab [Units/volume] in Serum 7.5 g/dL 6.4-8.2 [facility] Glomerular filtration rate/1.73 sq M pre dicted among non-blacks [Volume Rate/Area] in Serum or Plasma by Creatinine-based formula (MDRD) Laboratory test result [facility] Glomerular filtration rate/1.73 sq M pre dicted among blacks [Volume Rate/Area] in Serum or Plasma by Creatinine-based formula (MDRD) Laboratory test [facility] <content>CHRONIC KIDNEY DISEASE STAGING PER NKF</content>
<content></content>
<content>STAGE I & II GFR >= 60 NORMAL TO MILDLY DECREASED</content>
<content>STAGE III GFR 30-59 MODERATELY DECREASED</content>
<content>STAGE IV GFR 15-29 SEVERELY DECREASED</content>
<content>STAGE V GFR <15 VERY LITTLE GFR LEFT</content>
<content>ESRD GFR <15 ON FRANCHISE SALES MANAGER</content>
<content></content> ID Date Data Source [id number] 11/28/2020 12:00:00 PM EDT [facility] Name Value Range Interpretation Code Description Data Cecilia rce(s) Supporting Document(s) Erythrocytes [#/volume] in Blood by Automated count 4.94 x10*6/UL 4.2 0-6.30 [facility] ([facility]) Leukocytes [#/volume] in Blood by Automated count 6.1 x10*3/UL 4.1-10 .9 [facility] ([facility]) Hemoglobin [Mass/volume] in Blood 14.6 g/dL 12.0-18.0 [facility] ([facility]) Hematocrit [Volume Fraction] of Blood by Automated count 41.4 % 3 7.0-51.0 [facility] ([facility]) MCH 29.6 pg 26.0-32.0 [facility] MCHC 35.3 g/dL 31.0-38.0 [facility] MCV 83.9 fL 80.0-97.0 [facility] Platelets [#/volume] in Blood by Automated count 161 x10*3/UL 140-440 [facility] ([facility]) MPV 9.0 FL 7.8-11.0 [facility] Erythrocyte distribution width [Ratio] by Automated count 13.0 % 11.6-13.7 [facility] ([facility]) Lymph % 20.7 % 10.0-58.5 [facility] Mid % 5.3 % 1.7-9.3 [facility] Lymph # 1.2 x10*3/UL 0.6-4.1 [facility] ([facility]) Mid # 0.4 x10*3/UL 0.1-0.6 [facility] ([facility]) Neut % 74.0 % 37.0-92.0 [facility] Neut # 4.5 x10*3/UL 2.0-7.8 [facility] ([facility]) ID Date Data Source [id number] 11/17/2020 08:22:06 AM EDT [facility] Name Date of Age Gend*PT [id number] Ky Bains 1965 55 years M IPPT Location Admission Date/Time Visit ID Attending [id number] 11/10/20 0843 --- --- EPI ID CSN Admitting Provider [id number] Kimmy Sheikh MD([id number]) Attestation signed by Kimmy Sheikh MD at [...] DMII, GERD, and diverticulitis. He presented at [facility] on 11/[facility]/20 for electivesurgery for his [...] as: TENORMIN Take 25 mg by mouth [id number] Tabs Take 1 tablet by mouth every [...] mlNet -3014 mlGeneral: Alert and conversing appropriatelyHeart: U6T2Sthjw: Respiration unlabored.Abdomen: Soft, ND/NT.Extremities: No edema, erythema, [...] rce(s) Supporting Document(s) ID Date Data Source [id number] 11/15/2020 09:22:59 AM EDT [facility] INFORMATIONPatient MRN Name Date of Age Gend*PT [id number] Ky Bains 1965 55 years M IPPT Location Admission Date/Time Visit ID Attending [id number] 11/10/20 0843 --- --- EPI ID CSN Admitting Prov ider [id number] Kimmy Sheikh MD([id number]) [place] [address] OPERATIVE REPORT OPNAME: [place] BAINS#: [id number] #: [id number] ADMISSION DATE: 11/10/2020OB: 1965 SEX: M PT TYPE: I ColoACCT #: [id number] CARE PHYSICIAN:DATE OF OPERATION: 11/10/2020REOPERATIVE DIAGNOSIS:Diverticulitis.POSTOPERATIVE DIAGNOSIS:Diverticulitis.SURGEON:Dr. Huggins.ANESTHESIA:General anesthesia.ESTIMATED BLOOD LOSS:Zero.INTRAVENOUS FLUIDS:Approximately 250 mL of crystalloid.COMPLICATIONS:None.DRAINS:An 18- St Lucian March catheter with a Jackson device and bilateral 4-Iyueltnnsc-fuymd catheters.INDICATION FOR PROCEDURE:The patient is a 55-year-old gentleman undergoing a low anterior resectionfor diverticulitis. His preoperative ureteral catheters have beenrequested.DESCRIPTION OF PROCEDURE:The patient was identified, informed consent was obtained, he was taken tothe OR suite, placed in supine position, underwent general anesthesia.After adequate anesthesia, his genitalia and abdomen was then prepped anddraped in sterile surgical manner. Initially, a 21-St Lucian rigid cystoscopewith 30-degree lens was inserted intraurethrally into the bladder. It isto be noted that the patient has a hypospadias. The prostate was patentwith no evidence of obstruction, no masses or lesions seen in the bladder.Bilateral ureteral orifices were seen without difficulty. The left and theright ureteral orifice was normal.Cannulated the left ureteral orifice with a 5-St Lucian open-ended catheterand advanced it up into the collecting system and then cannulated the rightureteral orifice with a 5- St Lucian open-ended catheter and advanced it intothe collecting system. Each of the 2 catheters were marked out, [id number] March catheter was then placed, 10 mL was instilled in balloon.A Jackson device was used to log hooker the March catheter and the 2 ureteralcatheters into the collection bag.Po Huggins, MDPL/NTS Job #: [id number] DOC #: [id number] Name Value Range Interpretation Code Description Data Cecilia rce(s) Supporting Document(s) ID Date Data Source [id number] 11/13/2020 09:53:18 AM EDT [facility] Name Value Range Interpretation Code Description Data Cecilia rce(s) Supporting Document(s) POC NOVA GLU 127 mg/dL (70-99) H [facility] CLINICAL STAFF ID Date Data Source [id number] 11/13/2020 08:06:49 AM EDT [facility] Name Value Range Interpretation Code Description Data Cecilia rce(s) Supporting Document(s) SODIUM 141 mmol/L (136-145) [facility] POTASSIUM 4.0 mmol/L (3.6-5.2) [facility] CHLORIDE 107 mmol/L (100-108) [facility] CO2 27 mmol/L (22-31) [facility] ANION GAP 7 mmol/L (7-16) [facility] UREA NITROGEN 9 mg/dL (7-24) [facility] CREATININE 0.83 mg/dL (0.80-1.30) [facility] BUN/CREAT RATIO 10.8 RATIO (10.0-20.0) [facility] GLUCOSE 101 mg/dL (70-99) H [facility] CALCIUM 8.2 mg/dL (8.4-10.2) L [facility] GFR >60 ml/min/1.73m2 (>59) [facility] GFR ( AMER) >60 ml/min/1.73m2 (>59) [facility] GFR INTERPRETATION [facility] --NORMAL KIDNEY FUNCTION OR MILD DISEASE - GFR >OR= 60CHRONIC KIDNEY DISEASE - GFR 15 - 59RENAL FAILURE - GFR <15 Est. GFR calculation based on the MDRDstudy equation, which assumes a steadystate for creatinine. Est. GFR should notbe used for medication dosing. ID Date Data Source [id number] 11/13/2020 07:52:06 AM EDT [facility] Name Value Range Interpretation Code Description Data Cecilia rce(s) Supporting Document(s) WBC 5.2 10*3/uL (4.1-11.0) [facility] RBC 4.25 10*6/uL (4.60-6.10) L [facility] HGB 13.1 g/dL (13.5-18.0) L [facility] HCT 36.9 % (41.0-53.0) [facility] MCV 86.8 fL (80.0-95.0) [facility] MCH 30.8 pg (27.0-32.0) [facility] MCHC 35.4 g/dL (32.0-36.0) [facility] RDW 14.2 % (10.5-14.5) [facility] PLT 105 10*3/uL (150-450) L [facility] MPV 9.8 fL (7.1-10.7) [facility] ID Date Data Source [id number] 11/12/2020 05:14:32 PM EDT [facility] Name Value Range Interpretation Code Description Data Cecilia rce(s) Supporting Document(s) POC NOVA GLU 125 mg/dL (70-99) H [facility] CLINICAL STAFF ID Date Data Source [id number] 11/12/2020 12:48:25 PM EDT [facility] Name Value Range Interpretation Code Description Data Cecilia rce(s) Supporting Document(s) POC NOVA GLU 118 mg/dL (70-99) [facility] CLINICAL STAFF ID Date Data Source [id number] 11/12/2020 09:15:24 AM EDT [facility] Name Value Range Interpretation Code Description Data Cecilia rce(s) Supporting Document(s) POC NOVA GLU 114 mg/dL (70-99) [facility] CLINICAL STAFF ID Date Data Source [id number] 11/11/2020 05:54:09 PM EDT [facility] Name Value Range Interpretation Code Description Data Cecilia rce(s) Supporting Document(s) POC NOVA GLU 124 mg/dL (70-99) [facility] CLINICAL STAFF ID Date Data Source [id number] 11/11/2020 12:03:04 PM EDT [facility] Name Value Range Interpretation Code Description Data Cecilia rce(s) Supporting Document(s) POC NOVA GLU 144 mg/dL (70-99) [facility] CLINICAL STAFF ID Date Data Source [id number] 11/11/2020 09:10:52 AM EDT [facility] INFORMATIONPatient MRN Name Date of Age Gend*PT [id number] Ky Bains 1965 55 years M IPPT Location Admission Date/Time Visit ID Attending [id number] 11/10/20 0843 --- Kimmy Sheikh MD([id number]) EPI ID CSN Admitting Provider [id number] Kimmy Sheikh MD([id number]) [place] [address] OPERATIVE REPORT OPNAME: [place] BAINS#: [id number] #: [id number] ADMISSION DATE: 11/10/2020OB: 1965 SEX: M PT TYPE: I ColoACCT #: [id number] CARE PHYSICIAN:DATE OF OPERATION: 11/10/2020INDICATIONS:This is a 55-year-old gentleman with multiple symptomatic recurrent boutsof diverticulitis. He presents for surgical intervention in the form of alaparoscopic low anterior resection with bilateral ureteral catheters.PREOPERATIVE DIAGNOSIS:Recurrent symptomatic diverticulitis.POSTOPERATIVE DIAGNOSIS:Recurrent symptomatic diverticulitis.PROCEDURE:Laparoscopic low anterior resection, insertion of bilateral ureteralcatheters, intraoperative perfusion assessment, splenic flexuremobilization.SURGEON:Kimmy Sheikh MDFIR CROSS ENTERPRISE INTEGRATOR:ANA OconnorESCRIPTION OF PROCEDURE:Patient was brought to the operating room on the transport cart. He wastransferred supine to the operating room table. He underwent generalendotracheal anesthesia. He was positioned on the OR table on the beanbagpositioning device in the [facility]. Patient [...] all mesentericattachments and was divided using the Cook stapling device. A lit tlebit of further [...] using #1 Vicryl suturesin a multiple interrupted ioabgi-jz-dklvy fashion. Camera was placed backinto the abdomen. The body of the 29 circular stapler was passed per anusand passed easily up to the previously placed Cook staple line. The pinwas extruded just anterior [...] Estimated blood loss for the procedure is kwoco522 mL. Intravenous fluids for the procedure is just over a liter. Urineoutput is a little bit difficult to quantify secondary to placement of thestents, but at the conclusion of the procedure, the patient was makingclear yellow urine. All counts were correct and the procedure was withoutcomplication.ADAM Houston/YULY Job #: [id number] DOC #: [id number] Name Value Range Interpretation Code Description Data Cecilia rce(s) Supporting Document(s) ID Date Data Source [id number] 11/11/2020 09:10:42 AM EDT [facility] INFORMATIONPatient MRN Name Date of Age Gend*PT [id number] Ky Bains 1965 55 years M IPPT Location Admission Date/Time Visit ID Attending [id number] 11/10/20 0843 --- Kimmy Sheikh MD([id number]) EPI ID CSN Admitting Provider [id number] Kimmy Sheikh MD([id number])Pre-Procedure History and Physical:The history and physical were reviewed and the patient was examined.There are no changes to the H&P.Kimmy Sheikh MD11/11/20 9:10 AM Name Value Range Interpretation Code Description Data Cecilia rce(s) Supporting Document(s) ID Date Data Source [id number] 11/11/2020 08:31:59 AM EDT [facility] Name Value Range Interpretation Code Description Data Cecilia rce(s) Supporting Document(s) SODIUM 138 mmol/L (136-145) [facility] POTASSIUM 4.1 mmol/L (3.6-5.2) [facility] CHLORIDE 103 mmol/L (100-108) [facility] CO2 27 mmol/L (22-31) [facility] ANION GAP 8 mmol/L (7-16) [facility] UREA NITROGEN 13 mg/dL (7-24) [facility] CREATININE 0.83 mg/dL (0.80-1.30) [facility] BUN/CREAT RATIO 15.7 RATIO (10.0-20.0) [facility] GLUCOSE 129 mg/dL (70-99) H [facility] CALCIUM 7.9 mg/dL (8.4-10.2) L [facility] GFR >60 ml/min/1.73m2 (>59) [facility] GFR ( AMER) >60 ml/min/1.73m2 (>59) [facility] GFR INTERPRETATION [facility] --NORMAL KIDNEY FUNCTION OR MILD DISEASE - GFR >OR= 60CHRONIC KIDNEY DISEASE - GFR 15 - 59RENAL FAILURE - GFR <15 Est. GFR calculation based on the MDRDstudy equation, which assumes a steadystate for creatinine. Est. GFR should notbe used for medication dosing. ID Date Data Source [id number] 11/11/2020 08:07:35 AM EDT [facility] Name Value Range Interpretation Code Description Data Cecilia rce(s) Supporting Document(s) WBC 10.0 10*3/uL (4.1-11.0) [facility] RBC 4.41 10*6/uL (4.60-6.10) L [facility] HGB 13.4 g/dL (13.5-18.0) L [facility] HCT 38.3 % (41.0-53.0) L [facility] MCV 86.7 fL (80.0-95.0) [facility] MCH 30.4 pg (27.0-32.0) [facility] MCHC 35.1 g/dL (32.0-36.0) [facility] RDW 13.8 % (10.5-14.5) [facility] PLT 124 10*3/uL (150-450) L [facility] MPV 10.1 fL (7.1-10.7) [facility] ID Date Data Source [id number] 11/10/2020 04:20:14 PM EDT [facility] Name Value Range Interpretation Code Description Data Cecilia rce(s) Supporting Document(s) POC NOVA GLU 156 mg/dL (70-99) H [facility] [place] [facility] ID Date Data Source [id number] 11/10/2020 02:25:40 PM EDT [facility] Name Value Range Interpretation Code Description Data Cecilia rce(s) Supporting Document(s) POC NOVA GLU 163 mg/dL (70-99) H [facility] [place] [facility] ID Date Data Source [id number] 11/10/2020 09:18:12 AM EDT [facility] INFORMATIONPatient MRN Name Date of Age Gend*PT [id number] Ky Bains 1965 55 years M IPPT Location Admission Date/Time Visit ID [facility]/10[facility]20 0843 --- Kimmy Sheikh MD([id number]) EPI ID CSN Admitting Provider [id number] Kimmy Sheikh MD([id number])Pre-Procedure History and Physical:The history and physical were reviewed and the patient was examined.There are no changes to the H&P.Kimmy Sheikh MD11/10/20 9:18 AM Name Value Range Interpretation Code Description Data Cecilia rce(s) Supporting Document(s) ID Date Data Source [id number] 11/10/2020 09:17:08 AM EDT [facility] Name Value Range Interpretation Code Description Data Cecilia rce(s) Supporting Document(s) POC NOVA GLU 114 mg/dL (70-99) H [facility]FOR[facility] ID Date Data Source [id number] 11/15/2020 03:59:03 PM EDT [facility] [address] [id number]# Surgical Pathology ReportPatient Name: [place] BAINS.: 1965Accession [...] lymph nodes measuring up to 0.5 cm. Real Estate Processor sectionsare submitted as follows: A1 differentially inked resection marginsperpendicular, open ended black, staple margin blue, A2-A3 areas offibrosis within the wall and adjacent adipose tissue, A4-A6 uncomplicateddiverticula, A7 multiple lymph nodes.[facility]mm Reported: 11/15/2020 15:57Electronically Signed Out By Robert Davalos M.D. [facility] [place] [address] [id number] component performed at [facility], [facility], [address] [place] [address], [phone].Reported at [facility], [address] [place] [address], [id number]. This report may includeimmunohistochemical or in-situ hybridization results. Testing wasdeveloped and the performance characteristics determined by [employer] as required by CLIA '88. The FDA hasdetermined that approval for specific use is not necessary for clinicaluse. The quality of Hematoxylin and Eosin stains and as applicable, forall immunohistochemical and/or special stains, including positive andnegative controls, were reviewed and considered appropriate.ICD codes K57.32CPT codesA: 75618F Name Value Range Interpretation Code Description Data [facility](s) Supporting Document(s) ID Date Data Source [id number] 11/06/2020 11:31:30 AM EDT [facility] Name Value Range Interpretation Code Description Data Cecilia rce(s) Supporting Document(s) EKG [facility] JNFFDf8aJxCBNoRov7UcBiBkCXJnVF6doky6N0Z5oOBhB5AxeZDkj3toD3RyO1NvTIZiLREPQO6YjDOg jb2 [file] UPPER SORBIAN/QEKVdd1ZngSkTEnWe0qnDxH0icOImSKdVdBcO7s [file] AKMDAwMDAwMTQwNiAwMDAwMCBuIAowMDAwMDUzOTQy PQMeBXIcWY7zBoSgROTgLOB6BXjcRRJbAPFvwmWIBPScHAMmMLanSCXrWPZpGDRhONchXICnKRRbUAS1 FCNoSARlHX4iMmAgNDGdKUPeQFKbSrO4HlJbLgUCfQAbkLujvbp3QAhpQ9q5SBXcPOenFD3vvkDbEYQs SjroGw1waNL8UIObJpcCCn7Nu5QrqfY5jvUtPuO7KOE5MrRgZE4N ID Date Data Source [id number] 11/06/2020 11:10:00 AM EDT [facility]) Name Value Range Interpretation Code Description Data Cecilia rce(s) Supporting Document(s) Blood type and Indirect antibody screen panel - Blood Laboratory test result [facility] ([facility]) SPEC EXP DATE 11/11/2020 PATIENT ABO/Rh A POSITIVE ANTIBODY SCREEN NEGATIVE TESTING SITE PERFORMED AT [address] [place] [address] ID Date Data Source [id number] 11/06/2020 05:58:33 PM EDT [facility] SPEC EXP DATE 11/11/2020ATI ENT ABO/Rh A POSITIVEANTIBODY SCREEN NEGATIVETESTING SITE PERFORMED AT [address] [place] [address] Name Value Range Interpretation Code Description Data Cecilia rce(s) Supporting Document(s) TYPE AND SCREEN [facility] ID Date Data Source [id number] 11/06/2020 11:00:00 AM EDT [facility] ([facility]) Name Value Range Interpretation Code Description Data Cecilia rce(s) Supporting Document(s) Hemoglobin A1c/Hemoglobin.total in Blood 5.6 % 4.0-6.0 [facility] ([facility]) Performed using Siemens Barton immunoassa y. Care must be taken when interpreting HbA1c results in patients with a hemoglobin variant or decreased erythrocyte lifespan. Values 5.7 - 6.4% suggest prediabetes. Values >=6.5% are diagnostic for diabetes. REFERENCE: DIABETES CARE 2018: 41(S13-S27). Glucose mean value [Mass/volume] in Blood Estimated fr om glycated hemoglobin 114 mg/dL [facility]) ID Date Data Source [id number] 11/06/2020 11:00:00 AM EDT [facility] ([facility] [...] medication dosing.</content>
<content></content> ID Date Data Source [id number] 11/06/2020 11:00:00 AM EDT [facility] ([facility]) Name Value Range Interpretation Code Description Data Cecilai rce(s) Supporting Document(s) Leukocytes [#/volume] in Blood [...] [facility]) ID Date Data Source [id number] 11/06/2020 04:59:18 PM EDT [facility] Name Value Range Interpretation Code Description Data Cecilia rce(s) Supporting Document(s) HEMOGLOBIN A1C @ 5.6 % (4.0-6.0) [facility] Performed using Siemens Barton immunoassa y.Care must be taken when interpreting QaV2ptvatocf in patients with a hemoglobin variantor decreased erythrocyte lifespan. Values 5.7 - 6.4% suggest prediabetes.Values >=6.5% are diagnostic for diabetes.REFERENCE: DIABETES CARE 2018: 41(S13-S27). EST AVERAGE GLUCOSE 114 mg/dL [facility] ID Date Data Source [id number] 11/06/2020 04:36:33 PM EDT [facility] Name Value Range Interpretation Code Description Data Cecilia rce(s) Supporting Document(s) SODIUM 138 mmol/L (136-145) [facility] POTASSIUM 4.2 mmol/L (3.6-5.2) [facility] CHLORIDE 105 mmol/L (100-108) [facility] CO2 24 mmol/L (22-31) [facility] ANION GAP 9 mmol/L (7-16) [facility] UREA NITROGEN 13 mg/dL (7-24) [facility] CREATININE 0.87 mg/dL (0.80-1.30) [facility] BUN/CREAT RATIO 14.9 RATIO (10.0-20.0) [facility] GLUCOSE 135 mg/dL (70-99) H [facility] CALCIUM 9.5 mg/dL (8.4-10.2) [facility] TOTAL PROTEIN 7.3 g/dL (6.4-8.2) [facility] ALBUMIN 4.5 g/dL (3.5-4.6) [facility] GLOBULIN 2.8 g/dL (2.7-4.3) [facility] ALB/GLOB RATIO 1.6 RATIO [facility] ALKALINE PHOSPHATASE 67 U/L (45-117) [facility] BILIRUBIN,TOTAL 1.2 mg/dL (0.0-1.0) H [facility] PLEASE NOTE:Total bilirubin results may be falselyelevated in patients taking Eltrombopag. AST (SGOT) 53 U/L (11-39) H [facility] ALT (SGPT) 69 U/L (12-78) [facility] GFR >60 ml/min/1.73m2 (>59) [facility] GFR ( AMER) >60 ml/min/1.73m2 (>59) [facility] GFR INTERPRETATION [facility] --NORMAL KIDNEY FUNCTION OR MILD DISEASE - GFR >OR= 60CHRONIC KIDNEY DISEASE - GFR 15 - 59RENAL FAILURE - GFR <15 Est. GFR calculation based on the MDRDstudy equation, which assumes a steadystate for creatinine. Est. GFR should notbe used for medication dosing. ID Date Data Source [id number] 11/06/2020 04:31:27 PM EDT [facility] Name Value Range Interpretation Code Description Data Cecilia rce(s) Supporting Document(s) WBC 5.4 10*3/uL (4.1-11.0) [facility] [place] RBC 4.78 10*6/uL (4.60-6.10) [facility] HGB 14.7 g/dL (13.5-18.0) [facility] HCT 41.5 % (41.0-53.0) [facility] MCV 86.9 fL (80.0-95.0) [facility] MCH 30.8 pg (27.0-32.0) [facility] MCHC 35.4 g/dL (32.0-36.0) [facility] RDW 14.1 % (10.5-14.5) [facility] PLT 147 10*3/uL (150-450) L [facility] MPV 10.0 fL (7.1-10.7) [facility] ID Date Data Source [id number] 11/06/2020 10:57:30 AM EDT [facility] INFORMATIONPatient MRN Name Date of Age Gend*PT [id number] Ky Bains 1965 55 years M OPPT Location Admission Date/Time Visit ID Attending Provider --- --- --- Kimmy Sheikh MD([id number]) EPI ID CSN Admitting Provider [id number] Kimmy Sheikh MD([id number])HISTORY PHYSICALName: Ky Bains : 1965 Sex: male [...] Take 25 mg by mouth daily HistoricalProvider WMF-Pdsuxio-H TABS Take 1 tablet by mouth every [...] warm and dry.HEENT: He is normocephalic, atraumatic. [place] conjunctivae. Anicteric sclerae.Pupils are equal, round, reactive [...] hepatosplenomegaly. Negative CVAT.GENITAL/RECTAL: Deferred.MUSCLE/SKELETAL: Strength is 5/5. Board Lining Machine Operator are equal.NEUROLOGICALLY: Cranial nerves II through XII are grossly intact.VASCULAR: Pulses are symmetrical. No edema.Anesthesia complications: deniesSteroid use: He denies any oral steroid therapy for three weeks or greaterwithin the last 3 months.[facility] Frailty Scale :: 2/10 Well (without [...] parts of this document, were dictated using [employer] speaking software. A reasonable attempt at proofreading has beenmade to minimize errors. Please call with any questions or corrections. Name Value Range Interpretation Code Description Data Cecilia rce(s) Supporting Document(s) ID Date Data Source [id number] 11/06/2020 09:45:00 AM EDT [facility] Name Value Range Interpretation Code Description Data [facility] rce(s) Supporting Document(s) SARS coronavirus 2 RNA [Presence] in Res piratory specimen by GENESIS with probe detection NOT DETECTED [place] This lab was reported by [facility]. ID Date Data Source [id number] 11/07/2020 07:12:47 AM EDT [facility] Name Value Range Interpretation Code Description Data Cecilia rce(s) Supporting Document(s) SPECIMEN DESCRIPTION [facility] COVID 19 RESULT (NDET) [facility] NEGATIVE COVID-19 RESULTS DONOT PRECLUDE COVID-2019 INFECTION ANDSHOULD NOT BE USED THE SOLE BASISFOR PATIENT MANAGEMENT DECISIONS. COMMENT [facility] THE [place] FDA HAS MADE THIS TEST AVAILABL EUNDER AN EMERGENCY USE AUTHORIZATION(EUA) FOR THE DETECTION AND/OR DIAGNOSISOF THE VIRUS THAT CAUSES COVID-19.THIS ASSAY AMPLIFIES AND DETECTS [employer] USING AUDIT CLERKS SUPERVISOR- MEDIATEDAMPLIFICATIONTESTING PERFORMED ON [employer] FIRST TEST [facility] SYMPTOMATIC [facility] DATE OF SYMPT ONSET [facility] HOSPITAL[facility]ED [facility] [place] ICU [facility] CONGREGATE CARE SET [facility] ID Date Data Source [id number] 10/18/2020 09:43:00 AM EDT [facility] ([facility]) Name Value Range Interpretation Code Description Data Cecilia rce(s) Supporting Document(s) Glucose [Mass/volume] in Serum or Plasma 161 mg/dL 74-99 [facility] ([facility]) 100-125 mg/dL PRE-DIABETES/FASTING >126 mg/dL DIABETES/FASTING Urea nitrogen [Mass/volume] in Serum or Plasma 16 mg/dL 7-18 [facility] ([facility]) Creatinine 1.0 mg/dL 0.6-1.3 [facility] Sodium [Moles/volume] in Serum or Plasma 141 meq/L 136-145 [facility] ([facility]) Potassium [Moles/volume] in Serum or Plasma 4.2 meq/L 3.5-5.1 [facility] ([facility]) Chloride [Moles/volume] in Serum or Plasma 104 meq/L 98-107 [facility] ([facility]) Calcium [Mass/volume] in Serum or Plasma 9.4 mg/dL 8.5-10.1 [facility] ([facility]) Carbon dioxide, total [Moles/volume] in Serum or Plasma 27 meq/L 21 -32 [facility] ([facility]) Glomerular filtration rate/1.73 sq M pre dicted among non-blacks [Volume Rate/Area] in Serum or Plasma by Creatinine-based formula (MDRD) Laboratory test result [facility] ([facility] ) Glomerular filtration rate/1.73 sq M pre dicted among blacks [Volume Rate/Area] in Serum or Plasma by Creatinine-based formula (MDRD) Laboratory test result [facility] ([facility]) <content>CHRONIC KIDNEY DISEASE STAGING PER NKF</content>
<content></content>
<content>STAGE I & II GFR >= 60 NORMAL TO MILDLY DECREASED</content>
<content>STAGE III GFR 30-59 MODERATELY DECREASED</content>
<content>STAGE IV GFR 15-29 SEVERELY DECREASED</content>
<content>STAGE V GFR <15 VERY LITTLE GFR LEFT</content>
<content>ESRD GFR <15 ON FRANCHISE SALES MANAGER</content>
<content></content> ID Date Data Source [id number] 10/03/2020 02:55:00 PM EDT [facility] ([facility]) Name Value Range Interpretation Code Description Data Cecilia rce(s) Supporting Document(s) Glucose [Mass/volume] in Serum or Plasma 213 mg/dL 74-99 [facility] ([facility]) 100-125 mg/dL PRE-DIABETES/FASTING >126 mg/dL DIABETES/FASTING Sodium [Moles/volume] in Serum or Plasma 138 meq/L 136-145 [facility] ([facility]) Urea nitrogen [Mass/volume] in Serum or Plasma 14 mg/dL 7-18 [facility] ([facility]) Creatinine 1.0 mg/dL 0.6-1.3 [facility] Potassium [Moles/volume] in Serum or Plasma 4.2 meq/L 3.5-5.1 [facility] ([facility]) Carbon dioxide, total [Moles/volume] in Serum or Plasma 27 meq/L 21 -32 [facility] ([facility]) Chloride [Moles/volume] in Serum or Plasma 104 meq/L 98-107 [facility] ([facility]) Calcium [Mass/volume] in Serum or Plasma 9.2 mg/dL 8.5-10.1 [facility] ([facility]) Glomerular filtration rate/1.73 sq M pre dicted among non-blacks [Volume Rate/Area] in Serum or Plasma by Creatinine-based formula (MDRD) Laboratory test result [facility] ([facility] ) Glomerular filtration rate/1.73 sq M pre dicted among blacks [Volume Rate/Area] in Serum or Plasma by Creatinine-based formula (MDRD) Laboratory test result [facility] ([facility]) <content>CHRONIC KIDNEY DISEASE STAGING PER NKF</content>
<content></content>
<content>STAGE I & II GFR >= 60 NORMAL TO MILDLY DECREASED</content>
<content>STAGE III GFR 30-59 MODERATELY DECREASED</content>
<content>STAGE IV GFR 15-29 SEVERELY DECREASED</content>
<content>STAGE V GFR <15 VERY LITTLE GFR LEFT</content>
<content>ESRD GFR <15 ON FRANCHISE SALES MANAGER</content>
<content></content> ID Date Data Source [id number] 10/03/2020 02:55:00 PM EDT [facility] Name Value Range Interpretation Code Description Data Cecilia rce(s) Supporting Document(s) Microalbumin Urine 9.1 mg/L 1.3-20.0 [facility] Microalb/Creat Ratio 4.3 ug/mg 0.0-30.0 [facility] Urine Creatinine 214.0 mg/dL 30.0-125.0 [facility] ([facility]) ID Date Data Source [id number] 10/03/2020 02:55:00 PM EDT [facility] Name Value Range Interpretation Code Description Data Cecilia rce(s) Supporting Document(s) Calcidiol [Mass/volume] in Serum or Plasma 30.5 ng/mL 24.0-80.0 [facility] This test was performed using FastPack I P Vitamin D immunoassay kit. Values obtained with different assay methods should not be used interchangeably. ID Date Data Source [id number] 08/11/2020 07:54:00 AM EDT [facility] Name Value Range Interpretation Code Description Data Cecilia rce(s) Supporting Document(s) Surgical pathology study Laboratory test result [facility] ([facility]) FINAL DIAGNOSIS A - Descending colon, polyp, [...] MD 08/15/2020 [id number] ID Date Data Source [id number] 08/06/2020 08:15:00 AM EDT [facility] Name Value Range Interpretation Code Description Data [facility](s) Supporting Document(s) SARS-CoV-2 (COVID-19) RNA [Presence] in Respiratory specimen by GENESIS with probe detection Not Detected [place] This lab was ordered by [facility] and reported by [employer]. ID Date Data Source [id number] 06/21/2020 08:46:00 AM EDT [facility] Name Value Range Interpretation Code Description Data Cecilia rce(s) Supporting Document(s) Glucose [Mass/volume] in Serum or Plasma 193 mg/dL 74-99 [facility] ([facility]) 100-125 mg/dL PRE-DIABETES/FASTING >126 mg/dL DIABETES/FASTING Urea nitrogen [Mass/volume] in Serum or Plasma 14 mg/dL 7-18 [facility] ([facility]) Sodium [Moles/volume] in Serum or Plasma 138 meq/L 136-145 [facility] ([facility]) Creatinine 1.0 mg/dL 0.6-1.3 [facility] ([facility]) Chloride [Moles/volume] in Serum or Plasma 100 meq/L 98-107 [facility] ([facility]) Potassium [Moles/volume] in Serum or Plasma 4.3 meq/L 3.5-5.1 [facility] ([facility]) Carbon dioxide, total [Moles/volume] in Serum or Plasma 28 meq/L 21 -32 [facility] ([facility]) Calcium [Mass/volume] in Serum or Plasma 8.7 mg/dL 8.5-10.1 [facility] ([facility]) Glomerular filtration rate/1.73 sq M pre dicted among non-blacks [Volume Rate/Area] in Serum or Plasma by Creatinine-based formula (MDRD) Laboratory test result [facility] ([facility] ) Glomerular filtration rate/1.73 sq M pre dicted among blacks [Volume Rate/Area] in Serum or Plasma by Creatinine-based formula (MDRD) Laboratory test result [facility] ([facility]) <content>CHRONIC KIDNEY DISEASE STAGING PER NKF</content>
<content></content>
<content>STAGE I & II GFR >= 60 NORMAL TO MILDLY DECREASED</content>
<content>STAGE III GFR 30-59 MODERATELY DECREASED</content>
<content>STAGE IV GFR 15-29 SEVERELY DECREASED</content>
<content>STAGE V GFR <15 VERY LITTLE GFR LEFT</content>
<content>ESRD GFR <15 ON FRANCHISE SALES MANAGER</content>
<content></content> ID Date Data Source [id number] 06/02/2020 08:45:00 AM EDT [facility] ([facility]) Name Value Range Interpretation Code Description Data [facility] rce(s) Supporting Document(s) Cholesterol [Mass/volume] in Serum or Plasma 146 mg/dL 131-200 [facility] ([facility]) Triglyceride [Mass/volume] in Serum or Plasma 218 mg/dL 30-150 [facility] ([facility]) Cholesterol in HDL [Mass/volume] in Serum or Plasma 40 mg/dL 35-60 [facility] ([facility]) Cholesterol in LDL [Mass/volume] in Serum or Plasma by calcu miriam 62 CALC 50-159 [facility] ID Date Data Source [id number] 06/02/2020 08:45:00 AM EDT [facility] Name Value Range Interpretation Code Description Data [facility] rce(s) Supporting Document(s) Glucose mean value [Mass/volume] in Blood Estimated fr om glycated hemoglobin 114 mg/dL 60-110 [facility] ) Hemoglobin A1c/Hemoglobin.total in Blood 5.6 % [facility] Lab Result Notes: Pre-Diabetes 5.7 - 6.4 % Diabetes = or > 6.5% ID Date Data Source [id number] 06/02/2020 08:45:00 AM EDT [facility] Name Value Range Interpretation Code Description Data [facility] rce(s) Supporting Document(s) Glucose [Mass/volume] in Serum or Plasma 173 mg/dL 74-99 [facility] ([facility]) 100-125 mg/dL PRE-DIABETES/FASTING >126 mg/dL DIABETES/FASTING Urea nitrogen [Mass/volume] in Serum or Plasma 15 mg/dL 7-18 [facility] ([facility]) Sodium [Moles/volume] in Serum or Plasma 138 meq/L 136-145 [facility] ([facility]) Creatinine 0.9 mg/dL 0.6-1.3 [facility] Potassium [Moles/volume] in Serum or Plasma 4.1 meq/L 3.5-5.1 [facility] ([facility]) Chloride [Moles/volume] in Serum or Plasma 102 meq/L 98-107 [facility] ([facility]) Carbon dioxide, total [Moles/volume] in Serum or Plasma 27 meq/L 21 -32 [facility] ([facility]) Calcium [Mass/volume] in Serum or Plasma 8.8 mg/dL 8.5-10.1 [facility] ([facility]) Alkaline phosphatase isoenzyme [Units/volume] in Serum or Pl asma 75 mg/dL 46-116 [facility] ([facility]) Total Bilirubin 0.8 mg/dL 0.2-1.0 [facility] ([facility]) Albumin [Mass/volume] in Serum or Plasma 4.3 g/dL 3.4-5.0 [facility] ([facility]) Alanine aminotransferase [Enzymatic activity/volume] in Seru m or Plasma 69 U/L 12-78 [facility] ([facility]) Aspartate aminotransferase [Enzymatic activity/volume] in Serum or Plasma 45 U/L 15-37 [facility] ([facility] ) Proteinase 3 Ab [Units/volume] in Serum 7.3 g/dL 6.4-8.2 [facility] Glomerular filtration rate/1.73 sq M pre dicted among blacks [Volume Rate/Area] in Serum or Plasma by Creatinine-based formula (MDRD) Laboratory test result [facility] <content>CHRONIC KIDNEY DISEASE STAGING PER NKF</content>
<content></content>
<content>STAGE I & II GFR >= 60 NORMAL TO MILDLY DECREASED</content>
<content>STAGE III GFR 30-59 MODERATELY DECREASED</content>
<content>STAGE IV GFR 15-29 SEVERELY DECREASED</content>
<content>STAGE V GFR <15 VERY LITTLE GFR LEFT</content>
<content>ESRD GFR <15 ON [employer]NAGER</content>
<content></content> Glomerular filtration rate/1.73 sq M pre dicted among non-blacks [Volume Rate/Area] in Serum or Plasma by Creatinine-based formula (MDRD) Laboratory test result [facility] ([facility] ) A/G Ratio 1.43 CALC 1.00-1.90 [facility] ID Date Data Source [id number] 06/02/2020 08:45:00 AM EDT [facility] Name Value Range Interpretation Code Description Data Cecilia rce(s) Supporting Document(s) Leukocytes [#/volume] in Blood by Automated count 5.6 x10*3/UL 4.1-10 .9 [facility] ([facility]) Hematocrit [Volume Fraction] of Blood by Automated count 42.6 % 3 7.0-51.0 [facility] ([facility]) Erythrocytes [#/volume] in Blood by Automated count 5.00 x10*6/UL 4.2 0-6.30 [facility] ([facility]) Hemoglobin [Mass/volume] in Blood 15.1 g/dL 12.0-18.0 [facility] ([facility]) MCV 85.1 fL 80.0-97.0 [facility] MCH 30.2 pg 26.0-32.0 [facility] ([facility]) MCHC 35.5 g/dL 31.0-38.0 [facility] ([facility]) Erythrocyte distribution width [Ratio] by Automated count 12.9 % 11.6-13.7 [facility] Platelets [#/volume] in Blood by Automated count 123 x10*3/UL 140-440 [facility] ([facility]) NOTE: RESULT VERIFIED. Lymph % 23.3 % 10.0-58.5 [facility] ([facility]) MPV 10.0 FL 7.8-11.0 [facility] ([facility]) Mid % 5.4 % 1.7-9.3 [facility] ([facility]) Lymph # 1.3 x10*3/UL 0.6-4.1 [facility] ([facility]) Neut % 71.3 % 37.0-92.0 [facility] ([facility]) Neut # 4.0 x10*3/UL 2.0-7.8 [facility] ([facility]) Mid # 0.3 x10*3/UL 0.1-0.6 [facility] ([facility]) ID Date Data Source [id number] 04/25/2020 03:21:00 PM EDT [facility] ([facility]) Name Value Range Interpretation Code Description Data Cecilia rce(s) Supporting Document(s) White Blood Count 5.9 10 4.0-10.0 [facility] ([facility]) Red Blood Count 5.04 10 4.30-6.10 [facility] ([facility]) Hemoglobin 15.2 g/dL 13.5-17.5 [facility] Hematocrit 44.4 % 42.0-52.0 [facility] Mean Corpuscular Volume 88.1 fl 80.0-96.0 [facility] ([facility]) Mean Corpuscular Hemoglobin 30.2 pg 27.0-33.0 [facility] ([facility]) Mean Corpuscular HGB Conc 34.2 g/dL 32.0-36.5 [facility] ([facility]) Red Cell Distribution Width 13.4 % 11.5-14.5 [facility] ([facility]) Platelet Count, Automated 131 10 150-450 [facility] ([facility]) Neutrophils % 65.7 % 36.0-66.0 [facility] ([facility]) Lymph % 23.9 % 24.0-44.0 [facility]) Terrell % 7.5 % 2.0-8.0 [facility]) Eos % 1.9 % 0.0-3.0 [facility]) Baso % 0.7 % 0.0-1.0 [facility]) Immature Granulocyte % 0.3 % 0-3.0 [facility] ([facility]) Nucleated Red Blood Cell % 0.0 % 0-0 [facility] ([facility]) Neutrophils # 3.9 10 1.5-8.5 [facility] ([facility]) Lymph # 1.4 10 1.5-5.0 [facility]) Terrell # 0.4 10 0.0-0.8 [facility]) Eos # 0.1 10 0.0-0.5 [facility] Baso # 0.0 10 0.0-0.2 [facility]) ID Date Data Source [id number] 04/25/2020 03:21:00 PM EDT [facility] ([facility]) Name Value Range Interpretation Code Description Data Cecilia rce(s) Supporting Document(s) Prothrombin Time 14.5 s 12.5-14.3 [facility] ([facility]) Inr 1.11 [facility] THERAPUTIC HUMAN INR VALUES INDICATIONS NORMAL RANGES PROPHYLAXIS/TREATMENT OF: VENOUS THROMBOSIS 2.0-3.0 PULMONARY EMBOLISM 2.0-3.0 PREVENTION OF SYSTEMIC EMBOLISM FROM: TISSUE HEART VALVES 2.0-3.0 ACUTE MYOCARDIAL INFARCTION 2.0-3.0 VALVULAR HEART DISEASE 2.0-3.0 ATRIAL FIBRILLATION 2.0-3.0 MECHANICAL VALVES(HIGH RISK) 2.5-3.5 RECURRENT MYOCARDIAL INFARCTION 2.5-3.5 ID Date Data Source [id number] 04/25/2020 03:21:00 PM EDT [facility] ([facility]) Name Value Range Interpretation Code Description Data Cecilia rce(s) Supporting Document(s) Glucose, Fasting 152 mg/dL 70-100 [facility] ([facility]) Blood Urea Nitrogen 17 mg/dL 7-18 [facility] ([facility]) Creatinine For GFR 0.93 mg/dL 0.70-1.30 [facility] Glomerular Filtration Rate Laboratory test result [facility] <content>Units are mL/min/1.73 m2</content>
<content></content>
<content>Chronic Kidney Disease Staging per NKF:</content>
<content></content>
<content>Stage I & II GFR >=60 Normal to Mildly Decreased</content>
<content>Stage III GFR 30- 59 Moderately Decreased</content>
<content>Stage IV GFR 15-29 Severely Decreased</content>
<content>Stage V GFR <15 Very Little GFR Left</content>
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
<content></content> Sodium Level 139 meq/L 136-145 [facility] ([facility]) Potassium Serum 3.8 meq/L 3.5-5.1 [facility] ([facility]) Chloride Level 105 meq/L 98-107 [facility] Carbon Dioxide Level 26 meq/L 21-32 [facility] Anion Gap 8 meq/L 8-16 [facility] ([facility]) Calcium Level 9.3 mg/dL 8.5-10.1 [facility] ([facility] Ast/Sgot 54 U/L 7-37 [facility] ([facility]) Alt/SGPT 75 U/L 12-78 [facility] ([facility]) Alkaline Phosphatase 78 U/L 45-117 [facility] ([facility] Bilirubin,Total 1.1 mg/dL 0.2-1.0 [facility] ([facility] Total Protein 7.3 GM/DL 6.4-8.2 [facility] ([facility] Albumin 4.4 GM/DL 3.2-5.2 [facility] ([facility]) Albumin/Globulin Ratio 1.5 [facility] ID Date Data Source [id number] 04/25/2020 03:21:00 PM EDT [facility] Name Value Range Interpretation Code Description Data Cecilia rce(s) Supporting Document(s) Tissue transglutaminase IgA Ab [Units/volume] in Serum Labor atory test result 0-3 [facility] Negative 0 - 3 Weak Positive 4 - 10 Positive >10 . Tissue Transglutaminase (tTG) has been identified as the endomysial antigen. Studies have demonstr- ated that endomysial IgA antibodies have over 99% specificity for gluten sensitive enteropathy. Liver kidney microsomal 1 Ab [Presence] in Serum Laboratory test result 0.0-20.0 [facility] Negative 0.0 - 20.0 Equivocal 20.1 - 24.9 Positive >24.9 . LKM type 1 antibodies are detected in patients with autoimmune hepatitis type 2 and in up to 8% of patients with chronic HCV infection. Ceruloplasmin [Mass/volume] in Serum or Plasma 16.5 mg/dL 16.0-31.0 [facility] ([facility]) Performed at: RN - [facility] [address] [id number] Power Shovel Engineer: Farhana Lopes MD, Phone: [phone] Anti-Mitochondrial Antibody Laboratory test result 0.0-20.0 [facility] ([facility]) Negative 0.0 - 20.0 Equivocal 20.1 - 24.9 Positive >24.9 . Mitochondrial (M2) Antibodies are found in 90-96% of patients with primary biliary cirrhosis. ID Date Data Source [id number] 04/25/2020 03:21:00 PM EDT [facility] ([facility]) Name Value Range Interpretation Code Description Data Cecilia rce(s) Supporting Document(s) Bilirubin,Direct 0.3 mg/dL 0.0-0.2 [facility] ([facility]) ID Date Data Source [id number] 04/25/2020 03:21:00 PM EDT [facility] ([facility]) Name Value Range Interpretation Code Description Data Cecilia rce(s) Supporting Document(s) Iron (Fe) 146 ug/dL 65-175 [facility]) Total Iron Binding Capacity 365 ug/dL 250-450 [facility] ([facility]) Percent Saturation 40.0 % 19.7-50.0 [facility] ([facility]) ID Date Data Source [id number] 04/25/2020 03:21:00 PM EDT [facility] ([facility]) Name Value Range Interpretation Code Description Data Cecilia rce(s) Supporting Document(s) IgA [Mass/volume] in Serum or Plasma 175.0 mg/dL 70-400 [facility] ([facility]) ID Date Data Source [id number] 04/25/2020 03:21:00 PM EDT [facility] ([facility]) Name Value Range Interpretation Code Description Data Cecilia rce(s) Supporting Document(s) Hepatitis C Virus Matilde Index Laboratory test result [facility] ([facility]) Hepatitis B Surface Antigen Laboratory test result [facility] ([facility]) Hepatitis B Core Antibody Igm Laboratory test result [facility] ([facility]) Hepatitis A Antibody Igm Laboratory test result [facility] ([facility]) ID Date Data Source [id number] 04/25/2020 03:21:00 PM EDT [facility] ([facility]) Name Value Range Interpretation Code Description Data Cecilia rce(s) Supporting Document(s) Antinuclear Antibodies Direct Laboratory test result Abnormal (applies to non- numeric results) [facility] Anti Double Strand-Dna AB 11 IU/ml 0-9 [facility] ([facility]) <content>Negative <5</content>
<content>Equivocal 5 - 9</content>
<content>Positive >9</content>
<content></content> PROGRAMMING INTERN Antibodies Laboratory test result 0.0-0.9 [facility] ([facility]) Sjogren's Anti SS-A Laboratory test result 0.0-0.9 [facility] Gant Antibodies Laboratory test result 0.0-0.9 [facility] ([facility]) Duane Comment Laboratory test result [facility] ([facility]) . Autoantibody Disease Association Condition Frequency [...] (anti-Gant) SLE 15 - 30% ------- --------- PROGRAMMING INTERN Mixed Connective Tissue Disease 95% (U1 nRNP, SLE 30 - 50% anti-ribonucleoprotein) Polymyositis and/or Dermatomyositis 20% -------- --------- Scl-70 (antiDNA Scleroderma (diffuse) 20 - 35% topoisomerase) Crest 13% -------- --------- Lay-1 Polymyositis and/or Dermatomyositis 20 - 40% -------- --------- Centromere B Scleroderma - Crest variant 80% Sjogren's Anti SS-B Laboratory test result 0.0-0.9 [facility] ([facility] ID Date Data Source [id number] 04/25/2020 03:21:00 PM EDT [facility] ([facility]) Name Value Range Interpretation Code Description Data Cecilia rce(s) Supporting Document(s) Inr 1.11 Normal (applies to non-numeric resul ts) [facility] ([facility]) THERAPUTIC HUMAN INR VALUES INDICATIONS NORMAL RANGES PROPHYLAXIS/TREATMENT OF: VENOUS THROMBOSIS 2.0-3.0 PULMONARY EMBOLISM 2.0-3.0 PREVENTION OF SYSTEMIC EMBOLISM FROM: TISSUE HEART VALVES 2.0-3.0 ACUTE MYOCARDIAL INFARCTION 2.0-3.0 VALVULAR HEART DISEASE 2.0-3.0 ATRIAL FIBRILLATION 2.0-3.0 MECHANICAL VALVES(HIGH RISK) 2.5-3.5 RECURRENT MYOCARDIAL INFARCTION 2.5-3.5 Prothrombin Time 14.5 s 12.5-14.3 Above high normal [facility] ([facility]) ID Date Data Source [id number] 04/25/2020 03:21:00 PM EDT [facility] ([facility]) Name Value Range Interpretation Code Description Data Cecilia rce(s) Supporting Document(s) Bilirubin,Direct 0.3 mg/dL 0.0-0.2 Above high normal [facility] ([facility]) ID Date Data Source [id number] 04/25/2020 03:21:00 PM EDT [facility] ([facility]) Name Value Range Interpretation Code Description Data Cecilia rce(s) Supporting Document(s) Hepatitis C Virus Matilde Index Laboratory test result Normal (applies to non- numeric results) [facility] ([facility]) Hepatitis B Core Antibody Igm Laboratory test result Normal (applies to non- numeric results) [facility] ([facility]) Hepatitis B Surface Antigen Laboratory test result Normal (applies to non- numeric results) [facility] ([facility]) Hepatitis A Antibody Igm Laboratory test result Normal (applies to non-numeric results) [facility]) ID Date Data Source [id number] 04/25/2020 03:21:00 PM EDT [facility] ([facility]) Name Value Range Interpretation Code Description Data Cecilia rce(s) Supporting Document(s) Ceruloplasmin [Mass/volume] in Serum or Plasma 16.5 mg/dL 1 6.0-31.0 Normal (applies to non-numeric results) [facility] ([facility]) Performed at: RN - [facility] [address] [id number] Power Shovel Engineer: Farhana Lopes MD, Phone: [phone] ID Date Data Source [id number] 04/25/2020 03:21:00 PM EDT [facility] ([facility]) Name Value Range Interpretation Code Description Data Cecilia rce(s) Supporting Document(s) Iron (Fe) 146 ug/dL 65-175 Normal (applies to non-numeric resul ts) [facility] Total Iron Binding Capacity 365 ug/dL 250-450 Norm al (applies to non-numeric results) [facility] ([facility]) Percent Saturation 40.0 % 19.7-50.0 Normal (applies to non-numer ic results) [facility] ([facility]) ID Date Data Source [id number] 04/25/2020 03:21:00 PM EDT [facility] ([facility]) Name Value Range Interpretation Code Description Data Cecilia rce(s) Supporting Document(s) Liver-Kidney Microsomal Matilde Laboratory test result 0.0-20.0 Normal (applies to non-numeric results) [facility] ([facility]) Negative 0.0 - 20.0 Equivocal 20.1 - 24.9 Positive >24.9 . LKM type 1 antibodies are detected in patients with autoimmune hepatitis type 2 and in up to 8% of patients with chronic HCV infection. Mitochondria Ab [Units/volume] in Serum Laboratory test result 0 .0-20.0 Normal (applies to non-numeric results) [facility] ([facility]) Negative 0.0 - 20.0 Equivocal 20.1 - 24.9 Positive >24.9 . Mitochondrial (M2) Antibodies are found in 90-96% of patients with primary biliary cirrhosis. ID Date Data Source [id number] 04/25/2020 03:21:00 PM EDT [facility] ([facility]) Name Value Range Interpretation Code Description Data Cecilia rce(s) Supporting Document(s) Antinuclear Antibodies Direct Laboratory test result Abnormal (applies to non- numeric results) [facility] ([facility]) Anti Double Strand-Dna AB 11 IU/ml 0-9 Above high normal [facility] ([facility]) <content>Negative <5</content>
<content>Equivocal 5 - 9</content>
<content>Positive >9</content>
<content></content> Gant Antibodies Laboratory test result 0.0-0.9 Normal ( applies to non-numeric results) [facility] ([facility]) PROGRAMMING INTERN Antibodies Laboratory test result 0.0-0.9 Normal (a pplies to non-numeric results) [facility] Sjogren's Anti SS-A Laboratory test result 0.0-0.9 Odalys l (applies to non- numeric results) [facility] Sjogren's Anti SS-B Laboratory test result 0.0-0.9 Odalys l (applies to non- numeric results) [facility] Duane Comment Laboratory test result Normal (applies to non- numeric results) [facility] . Autoantibody Disease Association Condition Frequency [...] (anti-Gant) SLE 15 - 30% ------- --------- PROGRAMMING INTERN Mixed Connective Tissue Disease 95% (U1 nRNP, SLE 30 - 50% anti-ribonucleoprotein) Polymyositis and/or Dermatomyositis 20% -------- --------- Scl-70 (antiDNA Scleroderma (diffuse) 20 - 35% topoisomerase) Crest 13% -------- --------- Lay-1 Polymyositis and/or Dermatomyositis 20 - 40% -------- --------- Centromere B Scleroderma - Crest variant 80% ID Date Data Source [id number] 04/25/2020 03:21:00 PM EDT [facility] ([facility]) Name Value Range Interpretation Code Description Data Cecilia rce(s) Supporting Document(s) Tissue transglutaminase IgA Ab [Units/volume] in Serum Labor atory test result 0-3 Normal (applies to non-numeric results) [facility] ([facility]) Negative 0 - 3 Weak Positive 4 - 10 Positive >10 . Tissue Transglutaminase (tTG) has been identified as the endomysial antigen. Studies have demonstr- ated that endomysial IgA antibodies have over 99% specificity for gluten sensitive enteropathy. IgA [Mass/volume] in Serum or Plasma 175.0 mg/dL 70-400 Normal (applies to non- numeric results) [facility] ([facility]) ID Date Data Source [id number] 04/25/2020 03:21:00 PM EDT [facility] ([facility]) Name Value Range Interpretation Code Description Data Cecilia [facility](s) Supporting Document(s) Glucose, Fasting 152 mg/dL 70-100 Above high normal [facility] Blood Urea Nitrogen 17 mg/dL 7-18 Normal (applies to non-nume juanito results) [facility] ([facility]) Glomerular Filtration Rate Laboratory test result Normal (applies to non- numeric results) [facility]) <content>Units are mL/min/1.73 m2</content>
<content></content>
<content>Chronic Kidney Disease Staging per NKF:</content>
<content></content>
<content>Stage I & II GFR >=60 Normal to Mildly Decreased</content>
<content>Stage III GFR 30- 59 Moderately Decreased</content>
<content>Stage IV GFR 15-29 Severely Decreased</content>
<content>Stage V GFR <15 Very Little GFR Left</content>
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
<content></content> Creatinine For GFR 0.93 mg/dL 0.70-1.30 Normal (applies to non -numeric results) [facility] ([facility], ) Sodium Level 139 meq/L 136-145 Normal (applies to non-numeric res ults) [facility] ([facility], ) Chloride Level 105 meq/L 98-107 Normal (applies to non-numeric r esults) [facility], ) Potassium Serum 3.8 meq/L 3.5-5.1 Normal (applies to non-numeric results) [facility] ([facility], ) Anion Gap 8 meq/L 8-16 Normal (applies to non-numeric resul ts) [facility] ([facility], ) Carbon Dioxide Level 26 meq/L 21-32 Normal (applies to non-num sarah results) [facility] ([facility], ) Ast/Sgot 54 U/L 7-37 Above high normal [facility] ) Calcium Level 9.3 mg/dL 8.5-10.1 Normal (applies to non-numeric re sults) [facility] ([facility], ) Alkaline Phosphatase 78 U/L 45-117 Normal (applies to non-num sarah results) [facility] ([facility], ) Alt/SGPT 75 U/L 12-78 Normal (applies to non-numeric resul ts) [facility] ) Bilirubin,Total 1.1 mg/dL 0.2-1.0 Above high normal [facility] ([facility], ) Total Protein 7.3 GM/DL 6.4-8.2 Normal (applies to non-numeric re sults) [facility], ) Albumin 4.4 GM/DL 3.2-5.2 Normal (applies to non-numeric resul ts) [facility] ) Albumin/Globulin Ratio 1.5 Normal (applies to non-n umeric results) [facility]) ID Date Data Source [id number] 04/25/2020 03:21:00 PM EDT [facility] ([facility]) Name Value Range Interpretation Code Description Data Cecilia rce(s) Supporting Document(s) White Blood Count 5.9 10 4.0-10.0 Normal (applies to non-numeri c results) [facility] ([facility]) Red Blood Count 5.04 10 4.30-6.10 Normal (applies to non-numeric results) [facility] ([facility]) Hemoglobin 15.2 g/dL 13.5-17.5 Normal (applies to non-numeric resul ts) [facility]) Hematocrit 44.4 % 42.0-52.0 Normal (applies to non-numeric resul ts) [facility] ([facility]) Mean Corpuscular Volume 88.1 fl 80.0-96.0 Normal ( applies to non-numeric results) [facility] ([facility]) Mean Corpuscular Hemoglobin 30.2 pg 27.0-33.0 Norm al (applies to non-numeric results) [facility] ([facility]) Red Cell Distribution Width 13.4 % 11.5-14.5 Norm al (applies to non-numeric results) [facility] ([facility]) Mean Corpuscular HGB Conc 34.2 g/dL 32.0-36.5 Normal (applies to non-numeric results) [facility] ([facility]) Neutrophils % 65.7 % 36.0-66.0 Normal (applies to non-numeric re sults) [facility]) Platelet Count, Automated 131 10 150-450 Below low normal [facility] ([facility]) Lymph % 23.9 % 24.0-44.0 Below low normal [facility] ( [facility]) Terrell % 7.5 % 2.0-8.0 Normal (applies to non-numeric resul ts) [facility] Immature Granulocyte % 0.3 % 0-3.0 Normal (applies to non-n umeric results) [facility] ([facility]) Baso % 0.7 % 0.0-1.0 Normal (applies to non-numeric resul ts) [facility]) Eos % 1.9 % 0.0-3.0 Normal (applies to non-numeric resul ts) [facility]) Nucleated Red Blood Cell % 0.0 % 0-0 Normal (applies to n on-numeric results) [facility] ([facility]) Neutrophils # 3.9 10 1.5-8.5 Normal (applies to non-numeric re sults) [facility]) Lymph # 1.4 10 1.5-5.0 Below low normal [facility] ( [facility]) Terrell # 0.4 10 0.0-0.8 Normal (applies to non-numeric resul ts) [facility]) Eos # 0.1 10 0.0-0.5 Normal (applies to non-numeric resul ts) [facility] ([facility]) Baso # 0.0 10 0.0-0.2 Normal (applies to non-numeric resul ts) [facility] ([facility]) ID Date Data Source [id number] 11/14/2019 09:00:00 AM EDT [facility]) Name Value Range Interpretation Code Description Data Cecilia rce(s) Supporting Document(s) Clostridium Difficile PCR Laboratory test result Normal (applies to non- numeric results) [facility]) Clostridium difficile testing will only be performed [...] result No rmal (applies to non-numeric results) [facility] ([facility]) Procedure Social History Code Duration Value Status Description Data Source(s ) Alcohol intake 11/06/2020 12:00:00 AM EDT Current drinker of al cohol (finding) completed Current drinker of alcohol (finding) [facility] Tobacco use and exposure 11/06/2020 12:00:00 AM EDT Never used co mpleted Never used [facility] Smoking 11/06/2020 12:00:00 AM EDT Never smoker completed Never s moker [facility] Vital Signs ID Date Data Source UNK Name Value Range Interpretation Code Description Data Source(s) Respiratory rate 12 /min 12 /min [facility] ( [facility]) Systolic blood pressure 134 mm[Hg] 134 mm[Hg] M [facility] ([facility]) Diastolic blood pressure 78 mm[Hg] 78 mm[Hg] [facility] ([facility]) Heart rate 62 /min 62 /min [facility] ([facility]) Body temperature 97.3 [degF] 97.3 [degF] [facility] ([facility]) Body height 72 [in_i] 72 [in_i] [facility] ([facility]) 6'0" Body weight 250.00 [lb_av] 250.00 [lb_av] [facility] ([facility]) Body mass index (BMI) [Ratio] 33.9 kg/m2 33.9 k g/m2 [facility] ([facility]) Body weight 239.00 [lb_av] 239.00 [lb_av] [facility] ([facility]) Oxygen saturation in Arterial blood by Pulse oximetry 98 % 98 % [facility] ([facility]) Systolic blood pressure 142 mm[Hg] 142 mm[Hg] M [facility] ([facility]) Diastolic blood pressure 82 mm[Hg] 82 mm[Hg] [facility] ([facility]) Heart rate 60 /min 60 /min [facility] ([facility]) Body height 72.25 [in_i] 72.25 [in_i] [facility] ([facility]) 6'0.25" Body mass index (BMI) [Ratio] 32.2 kg/m2 32.2 k g/m2 [facility] ([facility]) Body height 72 [in_i] 72 [in_i] [...] ([facility]) Body height 182.9 cm 182.9 cm [facility] Diastolic blood pressure 74 mm[Hg] 74 mm[Hg] [facility] Systolic blood pressure 128 mm[Hg] 128 mm[Hg] [facility] Body weight 113.762 kg 113.762 kg [facility] Body mass index (BMI) [Ratio] 34.01 kg/m2 34.01 kg/m2 [facility] Heart rate 68 /min 68 /min [facility] Oxygen saturation in Arterial blood by Pulse oximetry 99 % 99 % [facility] Heart rate 89 /min 89 /min [facility] ([facility]) Body height 72.25 [in_i] 72.25 [in_i] [facility] ([facility]) 6'0.25" Body weight 250.00 [lb_av] 250.00 [lb_av] [facility] ([facility]) Oxygen saturation in Arterial blood by Pulse oximetry 97 % 97 % [facility] ([facility]) Systolic blood pressure 150 mm[Hg] 150 mm[Hg] M [facility] ([facility]) Diastolic blood pressure 72 mm[Hg] 72 mm[Hg] [facility] ([facility]) Body mass index (BMI) [Ratio] 33.7 kg/m2 33.7 k g/m2 [facility] ([facility]) Systolic blood pressure 149 mm[Hg] 149 [...] [Ratio] 34.5 kg/m2 34.5 k g/m2 [facility] ([facility]) Systolic blood pressure 170 mm[Hg] 170 [facility] Diastolic blood pressure 90 mm[Hg] 90 mm[Hg] [facility] ([facility]) Systolic blood pressure 162 mm[Hg] 162 mm[Hg] [facility] Heart rate 64 /min 64 /min [facility] ([facility]) Body height 72.25 [in_i] 72.25 [in_i] [facility] ([facility]) 6'0.25" Diastolic blood pressure 90 mm[Hg] 90 mm[Hg] [facility] ([facility]) Body weight 256.00 [lb_av] 256.00 [lb_av] [facility] ([facility]) Oxygen saturation in Arterial blood by Pulse oximetry 97 % 97 % [facility] ([facility]) Systolic blood pressure 147 mm[Hg] 147 mm[Hg[facility] Diastolic blood pressure 77 mm[Hg] 77 mm[Hg] [facility] ([facility]) Body height 71 [in_i] 71 [in_i] [facility] ([facility]) 5'11" Body weight 254.00 [lb_av] 254.00 [lb_av] [facility] ([facility]) Body mass index (BMI) [Ratio] 35.4 kg/m2 35.4 k g/m2 [facility] ([facility]) [place] body weight 172 [lb_av] 172 [lb_av] [facility] ([facility]) Body weight 115.214 kg 115.214 kg [facility] ([facility]) Body surface area Derived from formula 2.33 m2 2.33 m2 [facility] ([facility]) Diastolic blood pressure 84 mm[Hg] 84 mm[Hg] [facility] ([facility]) Body weight 116.122 kg 116.122 kg [facility] ([facility]) Systolic blood pressure 157 mm[Hg] 157 mm[Hg] M [facility] ([facility]) Body height 71 [in_i] 71 [in_i] [facility] ([facility]) " Body weight 256.00 [lb_av] 256.00 [lb_av] [facility] ([facility]) Body mass index (BMI) [Ratio] 35.7 kg/m2 35.7 k g/m2 [facility] ([facility]) [place] body weight 172 [lb_av] 172 [lb_av] [facility] ([facility]) Body surface area Derived from formula 2.34 m2 2.34 m2 [facility] ([facility]) Body weight 250.00 [lb_av] 250.00 [lb_av] [facility] ([facility]) Body weight 113.400 kg 113.400 kg [facility] ([facility]) Body height 71 [in_i] 71 [in_i] [facility] ([facility]) 511" Body mass index (BMI) [Ratio] 34.9 kg/m2 34.9 k g/m2 [facility] ([facility]) Body surface area Derived from formula 2.32 m2 2.32 m2 [facility] ([facility]) Diastolic blood pressure 88 mm[Hg] 88 mm[Hg] [facility] ([facility]) Systolic blood pressure 160 mm[Hg] 160 mm[Hg] M [facility] ([facility], ) Body height 71 [in_i] 71 [in_i] [facility] ([facility]) 5'11" Body weight 115.668 kg 115.668 kg [facility] ([facility]) Body weight 255.00 [lb_av] 255.00 [lb_av] [facility] Body surface area Derived from formula 2.34 m2 2.34 m2 [facility] ([facility]) Body mass index (BMI) [Ratio] 35.6 kg/m2 35.6 k g/m2 [facility] ([facility]) [place] body weight 172 [lb_av] 172 [lb_av] [facility] ([facility]) Patient Treatment Plan of Care Planned Activity Planned Date Details Description Data Source (s) Amoxicillin 875 MG / Clavulanate 125 MG Oral Tablet 10/28/19 12:00:00 AM EDT [facility]
[2020-12-10 04:23] LABS: ALBUMIN 4.4 GM/DL (3.2-5.2); ALT/SGPT 46 U/L (12-78); BILIRUBIN,DIRECT 0.3 MG/DL (0.0-0.2); BLOOD UREA NITROGEN 17 MG/DL (7-18); CALCIUM LEVEL 9.2 MG/DL (8.5-10.1); CARBON DIOXIDE LEVEL 27 MEQ/L (21-32); CHLORIDE LEVEL 107 MEQ/L (98-107); CREATININE FOR GFR 1.06 MG/DL (0.70-1.30); GLOMERULAR FILTRATION RATE > 60.0 (>56); GLUCOSE, FASTING 123 MG/DL (70-100); LIPASE 189 U/L (73-393); POTASSIUM SERUM 4.1 MEQ/L (3.5-5.1); SODIUM LEVEL 140 MEQ/L (136-145); TOTAL PROTEIN 7.2 GM/DL (6.4-8.2)
[2020-12-10] MEDS ORDERED: HYDROMORPHONE HCL 0.5 MG/ 0.5 ML SYRINGE (J1170 PER 1) IV PRN (04:40)
--- NOTE | 2020-12-10 05:02 | REPVR ---
PROCEDURE INFORMATION: Exam: CT Abdomen And Pelvis Without Contrast Exam date and time: 12/10/2020 3:50 AM Age: 55 years old Clinical indication: Abdominal pain; Flank; Right; Additional info: Right flank pain, recent left colon surgery TECHNIQUE: Imaging protocol: Computed tomography of the abdomen and pelvis without contrast. Radiation optimization: All CT scans at this facility use at least one of these dose optimization techniques: automated exposure control; mA and/or kV adjustment per patient size (includes targeted exams where dose is matched to clinical indication); or iterative reconstruction. COMPARISON: CT ABD PELVIS WITH CONTRAST 05/10/2020 11:37 AM Study limitations: Evaluation for mass, inflammatory change, including bowel wall/fold thickening, viscera, and vasculature, is suboptimal without contrast. FINDINGS: LUNG BASES: Minimal dependent atelectasis. VASCULAR: Visualized cardiac size is at the upper end of normal. No abdominoaortic aneurysm or para-aortic hematoma. There is calcific atherosclerosis. PERITONEAL : No free air. Trace amount of free fluid within the pelvis. GI: No hiatal hernia. The stomach contains some ingested material and gas. The stomach is not sufficiently distended to evaluate wall thickening or for complete diagnostic evaluation by this exam. No appearance of bowel obstruction. No focal mesenteric inflammation. Small nonspecific mesenteric lymph nodes are noted. Evaluation for bowel wall and fold thickening is limited on this exam, secondary to lack of any contrast. Scattered fecal material and gas within portions of the colon. The appendix does not appear inflamed. No evidence of acute diverticulitis. There is a demarcated lobule of fat adjacent to the mid descending colon (image 77, series 201) with a central vessel, consistent with epiploic appendagitis. This is new compared to the prior study. A rectosigmoid suture line is noted. There is mild perirectal stranding consistent with proctitis. HEPATOBILIARY, PANCREAS, SPLEEN: Hepatic length is 18.6 cm. Evaluation of hepatic parenchyma is limited without contrast. Hepatic attenuation is at the lower end of normal. No calcified gallstones. No pancreatic inflammation. There is splenomegaly. Splenic diameter is 18.8 cm. ADRENALS, KIDNEYS, BLADDER, RETROPERITONEAL: Adrenals within normal limits. There is mild right-sided hydronephrosis. Nonspecific bilateral perinephric stranding and pararenal fascial thickening. Overlying the posterior right aspect of the urinary bladder there is a 2 mm calculus. This is likely lodged at the right ureteral trigone protruding into the urinary bladder. There is a punctate nonobstructive left lower pole renal calculus. No additional right-sided renal calculi are seen. No additional ureteral calculi. No additional calculi within the urinary bladder. Moderately enlarged prostate impressing into the base of the bladder. Clinical correlation and follow-up is advised. Central prostate calcifications noted. MUSCULOSKELETAL: Tiny fat containing umbilical hernia. Mild subcutaneous thickening along the anterior abdominal wall could be correlated for edema versus cellulitis. Trace amount of fluid extending into the left inguinal canal. Degenerative changes of the spine, most pronounced at the lumbosacral junction. There is a partially calcified large posterior paracentral left disc displacement, most likely compromising the left S1 nerve root. Mild degenerative changes of the hips. IMPRESSION: Mild hydronephrosis of the right kidney. There is a 2 mm calculus overlying the right urinary bladder, likely at the right UVJ. Other genitourinary findings discussed above. There is mild epiploic appendagitis associated with the mid descending colon. There is mild proctitis. Trace amount of free fluid within the pelvis. This is abnormal in a male patient. This is likely related to adjacent proctitis. Hepatosplenomegaly. Other incidental findings discussed above. Electronically signed by: Tj Turpin On 12/10/2020 05:01:30 AM
[2020-12-10] MEDS ORDERED: KETOROLAC 30 MG/ML 1ML VIAL IV ONE (05:10)
[2020-12-10] MEDS ORDERED: TAMSULOSIN 0.4 MG CAP PO ONE (05:10)
[2020-12-10] MEDS ORDERED: PERC5TAB12 PO (05:51)
[2020-12-10] MEDS ORDERED: KETO10TAB PO (05:51)
[2020-12-10] MEDS ORDERED: FLOM0.4C39 PO (05:51)
[2020-12-10] MEDS ORDERED: ONDA4TAB6 PO (05:51)
[2020-12-10 06:30] VITALS: BP 144/70
--- NOTE | 2020-12-11 13:04 | ED PDOC ---
Post-Departure Follow-Up ct abd/p faxed to [facility] for fu Shante Art MD Dec 11, 2020 13:04
== END 2020-12-10 06:40 | disposition home or self-care (01) ==
LOC: M ED 01:36
DX: N20.1 Calculus of ureter (principal); I10 Essential (primary) hypertension; E11.9 Type 2 diabetes mellitus without complications; G47.33 Obstructive sleep apnea (adult) (pediatric); Z79.899 Other long term (current) drug therapy
CPT/HCPCS: 74176; 80048; 80076; 81001; 83690; 85025; 93041; 96374; 96375; 96376; 99284; J1170; J1885; J2270

== ENCOUNTER → 2021-02-02 | Outpatient (CLI) | payer OTHER ==
[~2021-02-02] MED LIST changes: +FLOM0.4C39 PO; +KETO10TAB PO; -LISI-898; +LISI5TAB11; +ONDA4TAB6 PO
[2021-02-02 10:19] LABS: ALBUMIN 4.1 GM/DL (3.2-5.2); ALT/SGPT 51 U/L (12-78); BILIRUBIN,TOTAL 0.8 MG/DL (0.2-1.0); BLOOD UREA NITROGEN 16 MG/DL (7-18); CALCIUM LEVEL 8.7 MG/DL (8.5-10.1); CARBON DIOXIDE LEVEL 27 MEQ/L (21-32); CHLORIDE LEVEL 107 MEQ/L (98-107); CREATININE FOR GFR 1.04 MG/DL (0.70-1.30); GLOMERULAR FILTRATION RATE > 60.0 (>56); GLUCOSE, FASTING 185 MG/DL (70-100); POTASSIUM SERUM 4.3 MEQ/L (3.5-5.1); SODIUM LEVEL 139 MEQ/L (136-145); TOTAL PROTEIN 7.1 GM/DL (6.4-8.2)
== END ==
LOC: M LAB 09:14
PROVIDERS: ATTEND Surgery
DX: R10.32 Left lower quadrant pain (principal); R19.7 Diarrhea, unspecified

== ENCOUNTER → 2021-02-07 | Outpatient (CLI) | payer OTHER ==
[~2021-02-07] MED LIST changes: +GASTROGRAFIN SOLUTION 30ML (Q9963) As Ordered ONE; +ISOVUE-370 76% 100ML VIAL As Ordered ONE; +LISI-898; -LISI5TAB11
--- NOTE | 2021-02-07 14:26 | REP ---
INDICATION: LLQ PAIN. COMPARISON: 12/10/2020 TECHNIQUE: Axial contrast-enhanced images from the lung bases to the pubic symphysis using oral and 100 cc Isovue 370 intravenous contrast material. Coronal and sagittal reformations obtained. This CT examination was performed using the following dose reduction techniques: Automated exposure control, adjustment of mA and/or kv according to the patient's size, and the use of iterative reconstruction technique. FINDINGS: Hepatosplenomegaly is unchanged. No focal hepatic or splenic lesions are identified. Pancreas, gallbladder, bilateral adrenal glands and kidneys are normal. The enteric system including stomach, small, and large bowel appears essentially normal. Evidence for prior partial sigmoid resection. Scattered sigmoid diverticula noted. No evidence for obstruction or acute inflammatory process. Normal terminal ileum and appendix are identified in the right lower quadrant. Pelvis demonstrates normal bladder and age-appropriate prostate/seminal vesicles. No ascites. No free air. No intraperitoneal or retroperitoneal adenopathy. Abdominal aorta and vasculature appear normal. Musculoskeletal structures are intact and without acute osseous abnormality. IMPRESSION: No acute abdominopelvic pathology appreciated. Hepatosplenomegaly remains stable. Previous obstructive uropathy has resolved. <Electronically signed by Luisito Baker > 02/07/21 [id number]
== END ==
LOC: M RAD 12:56
PROVIDERS: ATTEND Surgery
DX: R16.2 Hepatomegaly with splenomegaly, not elsewhere classified (principal); R10.32 Left lower quadrant pain; K57.32 Diverticulitis of large intestine without perforation or abscess without bleeding
CPT/HCPCS: 74177; Q9963; Q9967

== ENCOUNTER → 2021-03-08 | Outpatient (CLI) | payer OTHER ==
[~2021-03-08] MED LIST changes: -GASTROGRAFIN SOLUTION 30ML (Q9963) As Ordered ONE; -ISOVUE-370 76% 100ML VIAL As Ordered ONE; -LISI-898; +LISI5TAB11
== END ==
LOC: M LAB 08:08
PROVIDERS: ATTEND Surgery
DX: K59.1 Functional diarrhea (principal)

== ENCOUNTER → 2021-04-03 | Outpatient (REF) | payer OTHER | LOC: M LAB REF 12:08 | PROVIDERS: ATTEND Nurse Practitioner Adult Health | DX: R16.1 Splenomegaly, not elsewhere classified (principal) ==

== ENCOUNTER → 2021-04-10 | Outpatient (REF) | payer OTHER ==
[2021-04-11 10:05] LABS: CLOSTRIDIUM DIFFICILE PCR NEGATIVE (NEGATIVE)
== END ==
LOC: M LAB REF 08:20
PROVIDERS: ATTEND Surgery
DX: R19.7 Diarrhea, unspecified (principal)

== ENCOUNTER → 2022-03-11 | Outpatient (CLI) | payer OTHER ==
[2022-03-11 20:32] LABS: BASO % 0.4 % (0.0-1.0); EOS # 0.1 10^3/uL (0.0-0.5); EOS % 1.9 % (0.0-3.0); HEMATOCRIT 44.5 % (42.0-52.0); LYMPH # 1.5 10^3/uL (1.5-5.0); LYMPH % 21.5 % (24.0-44.0); MEAN CORPUSCULAR HEMOGLOBIN 30.1 pg (27.0-33.0); MEAN CORPUSCULAR HGB CONC 33.7 g/dl (32.0-36.5); MEAN CORPUSCULAR VOLUME 89.4 fl (80.0-96.0); MONO # 0.4 10^3/uL (0.0-0.8); MONO % 6.1 % (2.0-8.0); NEUTROPHILS # 4.8 10^3/uL (1.5-8.5); NEUTROPHILS % 69.7 % (36.0-66.0); PLATELET COUNT, AUTOMATED 157 10^3/uL (150-450); RED BLOOD COUNT 4.98 10^6/uL (4.30-6.10); WHITE BLOOD COUNT 6.8 10^3/uL (4.0-10.0)
[2022-03-11 20:39] LABS: ALBUMIN 4.5 G/DL (3.2-5.2); ALKALINE PHOSPHATASE 69 U/L (46-116); ALT/SGPT 52 U/L (7.0-40); AST/SGOT 48 U/L (<34); BLOOD UREA NITROGEN 16 MG/DL (9-23); CALCIUM LEVEL 9.4 MG/DL (8.5-10.1); CARBON DIOXIDE LEVEL 31 MMOL/L (20-31); CHLORIDE LEVEL 103 MMOL/L (98-107); CREATININE FOR GFR 0.97 MG/DL (0.70-1.30); GLOMERULAR FILTRATION RATE > 60.0 (>56); GLUCOSE, FASTING 125 MG/DL (60-100); SODIUM LEVEL 141 MMOL/L (136-145); TOTAL PROTEIN 7.2 G/DL (5.7-8.2)
== END ==
LOC: M WUC 15:41
PROVIDERS: ATTEND Internal Medicine Gastroenterology
DX: K57.32 Diverticulitis of large intestine without perforation or abscess without bleeding (principal)

== ENCOUNTER → 2022-04-02 | Outpatient (CLI) | payer OTHER ==
[~2022-04-02] MED LIST changes: +GASTROGRAFIN SOLUTION 30ML As Ordered ONE; +ISOVUE-370 76% 100ML VIAL As Ordered ONE
== END ==
LOC: M RAD 11:21
PROVIDERS: ATTEND Internal Medicine Gastroenterology
DX: K76.0 Fatty (change of) liver, not elsewhere classified (principal); Z98.0 Intestinal bypass and anastomosis status; R16.1 Splenomegaly, not elsewhere classified; N41.1 Chronic prostatitis

== ENCOUNTER → 2023-10-22 | Outpatient (CLI) | payer OTHER ==
[~2023-10-22] MED LIST changes: -GASTROGRAFIN SOLUTION 30ML As Ordered ONE; -ISOVUE-370 76% 100ML VIAL As Ordered ONE; +ONDA-282 PO; -ONDA4TAB6 PO
== END ==
LOC: M RAD 07:44
PROVIDERS: ATTEND Physician Assistant Medical
DX: R74.01 Elevation of levels of liver transaminase levels (principal); K76.0 Fatty (change of) liver, not elsewhere classified

== ENCOUNTER → 2024-03-03 | Outpatient (CLI) | payer BC ==
[2024-03-03 17:46] LABS: HEMATOCRIT 43.8 % (42.0-52.0); HEMOGLOBIN 15.1 g/dl (13.5-17.5); MEAN CORPUSCULAR HGB CONC 34.5 g/dl (32.0-36.5); MEAN CORPUSCULAR VOLUME 86.9 fl (80.0-96.0); PLATELET COUNT, AUTOMATED 133 10^3/uL (150-450); RED BLOOD COUNT 5.04 10^6/uL (4.30-6.10); WHITE BLOOD COUNT 5.4 10^3/uL (4.0-10.0)
[2024-03-03 18:24] LABS: ALBUMIN 4.3 G/DL (3.2-5.2); BILIRUBIN,DIRECT 0.4 MG/DL (<0.4); BILIRUBIN,TOTAL 1.1 MG/DL (0.3-1.2); TOTAL PROTEIN 7.3 G/DL (5.7-8.2)
== END ==
LOC: M LRY 09:08
PROVIDERS: ATTEND Internal Medicine Gastroenterology
DX: K76.0 Fatty (change of) liver, not elsewhere classified (principal)